=== PATIENT | female | born 1940 | race Caucasian/White ===

== ENCOUNTER 2019-06-24 10:02 | Outpatient (CLI) | payer MEDICARE, MEDICAID, SELFPAY ==
--- NOTE | 2019-06-24 | MM_ITS ---
DIAGNOSTIC LEFT DIGITAL MAMMOGRAM WITH CAD HISTORY: HX OF BREAST CANCER COMPARISON: None available. Technique: CC, MLO and ML views. Breast composition: There are scattered areas of fibroglandular density. Stable size lobulated nodule of increased density in the LEFT breast at 3:00. There is an adjacent biopsy clip. There is an additional small lobulated mass which is probably a lymph node. No new mass or increasing calcification or mass size. IMPRESSION: BI-RADS: 2-Benign FOLLOW UP: 1 Year Follow-up CAROLA
== END 2019-06-24 10:03 | disposition home or self-care (01) ==
PROVIDERS: Family Provider Internal Medicine; PCP Nurse Practitioner; Visit Provider Internal Medicine Medical Oncology
DX: N63.20 Unspecified lump in the left breast, unspecified quadrant (principal); Z85.3 Personal history of malignant neoplasm of breast
CPT/HCPCS: 77065

== ENCOUNTER 2020-02-21 09:00 | Outpatient (CLI) | payer MEDICARE, MEDICAID, SELFPAY ==
--- NOTE | 2020-02-21 12:56 | ONC FU_ITS ---
[facility] Patient Note Patient: Hermelinda Mckeon Unit #: [id number]: 1940 Dictated By: Michael MyersDate of Visit: Feb 21, 2020 Onc MED Follow-Up/Prog Note Chief Complaint: Breast cancer/osteoporosis. History of Present Illness: Ms Mckeon is an 79 year-old woman with grade 2 infiltrating ductal carcinoma of the right breast, stage IA (T1B, N0, M0), ER/FL positive, and HER2/edd negative. She underwent right modified radical mastectomy in January of 2007. Her Oncotype DX showed a recurrence score of 24, which was in the intermediate range, and the risk of recurrence at 10 years was estimated at 15%. She opted to limit adjuvant treatment to hormonal therapy. She was given Arimidex 1 mg daily, which she continued until October 2012. She had evidence of osteoporosis on her baseline bone density study, which showed a T-score of -5.27. She had been on treatment with IV Zometa initially and subsequently with Reclast. A colonoscopy on 03/14/2016 showed a severe, benign-appearing intrinsic stenosis in the mid descending colon. The stenosis was not able to be transversed. On 05/01/2016 showed underwent exploratory laparotomy with partial sigmoid colectomy and placement of descending and colostomy due to colonic obstruction from the stricture. Pathology showed chronic diverticulosis with focal acute inflammation. The procedure was complicated by abdominal wall cellulitis and retracting colostomy, requiring repeat exploratory laparotomy on 03/03/2016. The procedure included open takedown of the splenic flexure, partial colectomy, splenectomy, and placement of transverse and colostomy. She then developed an open midline abdominal wound for which she underwent surgical debridement on 06/05/2016. She then continued treatment at wound care. Her other medical illnesses include hypertension, hyperlipidemia, peptic ulcer disease, degenerative arthritis, and anxiety/depression. She has had some skin cancers removed from the facial area by Dr. Huntley. She had a previous admission to the hospital in August [address] scan at that time was suspicious for submucosal mass involving the medial margin of the stomach. Upper GI endoscopy showed gastritis but no mass, and her symptoms did improve with treatment. She is a nonsmoker. INTERIM HISTORY: Her surveillance unilateral left mammogram on 01/05/2018 was BI-RADS 0 with evidence of increasing density within a mass in the upper outer quadrant measuring 8.4 mm. It was noted to have the configuration of a lymph node. Additional mammographic views and left breast ultrasound on 01/26/2018 was BI-RADS 4B, suspicious, intermediate. The mammogram showed persistent high density lobulated nodule in the upper outer quadrant measuring 10 mm. By ultrasound the mass was hypoechoic measuring 9.7 mm. Ultrasound directed biopsy was consistent with a reactive lymph node. In February 2018 she suffered a traumatic fracture of the left femur. She underwent open reduction with bridgett fixation at [facility] in [place]. At discharge she was transferred to [facility] for rehab. On 11/27/2018 she was admitted to the hospital with partial small bowel obstruction. It resolved with conservative management. She resides in the alf and is tolerating this well. Ms Mckeon is here today for unscheduled visit. She called with concerns of left breast pain and a nodule. She states the pain in lump have been there for 2 to 3 weeks. She states the pain is sharp and shooting comes and goes. She cannot figure a particular trigger and is goes away on its own. She states the nodule feels like a small pea. She states she is tender in her breast and several areas particularly around the nodule and on the outer side of her breast as well. She denies any fever or chills. She states her energy is the same. She is active in the alf and that she is now leaving [employer] and doing crafts at the alf. She states she is eating well. She has no complaints of pain other than in the breast. She denies any nausea or vomiting. She continues to utilize a wheelchair for mobility and that she just never recovered fully from her broken leg. And she states her knees give her a lot of trouble as well. She states she had knee replacement 18 years ago and was told they would only last about 10 years. She denies any urinary changes. She denies any new hot flashes or night sweats. Her ECOG is 2 due to mobility. Past Medical History: Anxiety Degenerative arthritis Depression Hyperlipidemia Hypertension Osteoporosis (Treated) Peptic ulcer disease Past Surgical History: Colon polypectomy in 2016 Ostomy placement in 2016 Colonoscopy in 2009 Mastectomy in 2006 - right modified radical Bladder sling in 2004 Cholecystectomy in 2004 Bilateral total knee replacements in 1999 Hysterectomy in 1981 Tonsillectomy in 1946 Left femur FX/ steel bar in place. 03/05/2018 Allergies: No Known Allergies. Medications: Acetaminophen 2 Tablet (of 325 mg) Oral q 4 hours Bisacodyl 1 (10 mg) Suppository Rectal PRN Colace 1 Capsule (of 100 mg) Oral daily PRN [employer] Milk of Magnesia 30 mL (of 400 mg/5mL) Suspension Oral PRN Enema Enema Rectal PRN Escitalopram Oxalate 1 Tablet (of 20 mg) Oral daily Fluticasone Propionate 2 spray(s) (of 50 mcg/act) Suspension Nasal daily GNP Enema Enema Rectal PRN Hydrocodone-Acetaminophen 2 Tablet (of 10-325 mg) Oral q 4 to 6 hours PRN Ibuprofen 1 Capsule (of 200 mg) Oral q 72 hours PRN Nyamyc 1 Applicator (of 142227 Units/g) Powder Topical daily PRN Ocuvite Adult 50+ 1 Capsule Oral daily Ondansetron HCl 4 mL (of 4 mg/2mL) Injection q 6 hours Pregabalin 75 (75 mg) Capsule Oral b.i.d. Protonix 1 Tablet (of 40 mg) Tablet, enteric coated Oral daily Salonpas 1 Patch(es) (of 3.1-6-10 %) Patch Transdermal q 8 hours PRN Senna 1 Capsule (of 8.6 mg) Oral b.i.d. tiZANidine HCl 1 Tablet (of 4 mg) Oral t.i.d. ZyrTEC Allergy 0.5 Tablet (of 10 mg) Oral daily Family History: Ms. Mckeon's mother at age 81: medical history includes spine cancer at age 81 (cause of ). Ms. Mckeon's father at age 82: cancer history consists of Stomach cancer at age 82 (cause of ) while other medical history includes heart disease, prostate cancer, and diabetes. Ms. Mckeon has 1 brother who is : medical history includes unknown type of cancer at age 58 (cause of ). Social History: Ms. Mckeon is and she is retired. Ms. Mckeon has never smoked. She has no history of drinking. Ms. Mckeon reports the following support systems: lives in a alf. Review Of Symptoms: Constitutional Denies fevers, chills, night sweats, excessive fatigue or weight loss. Allergic/Immunologic No reactions. Eyes Denies significant visual changes. No diplopia. No amaurosis. ENMT Denies changes in hearing, sore throat, mouth sores, difficulty or changes in swallowing ability, and/or sinus drainage. Endocrine No diabetes, thyroid disease or hormone replacement. Denies hot flashes or night sweats. Hematologic/Lymphatic Denies easy bruising or bleeding. The patient denies any tender or palpable lymph nodes. Breasts She states she has been having intermittent left breast pain-sharp shooting pains that come and go at random-for about 2-3 weeks. She states she can feel a lump underneath the breast. Respiratory Denies dyspnea on exertion, chest pain, cough or hemoptysis. Cardiovascular Denies anginal chest pain, palpitations or orthopnea. Gastrointestinal Denies nausea, vomiting, diarrhea, GI bleeding, or constipation. Denies change in bowel habits and/or stool color, no heartburn or early satiety. Genitourinary (F) Denies abnormal genital masses. No hematuria, hesitancy, incontinence, vaginal bleeding, discharge or other problems with urination. Musculoskeletal Denies joint pain, swelling or redness. No decreased range of motion. Integumentary Denies chronic rashes, inflammation, ulcerations or skin changes. Neurologic Denies headache, blurred vision, and no areas of focal weakness or numbness. Using wheelchair for mobility. No sensory problems. Psychiatric Denies insomnia, depression, connie or mood swings. Vital Signs: Performed on Feb 21, 2020 09:12 Height - 65.00 in Weight - 317 lbs (LOW) BSA - 2.41 sq.m BMI - 52.75 (HIGH) Temperature - 97.3 F (LOW) Pulse - 69 /min Respiration - 18 /min BP - 156/95 mm(hg) (HIGH) O2 Sat - 93 % (LOW) Pain - 7,2 - Ambulatory/capable of all self-care, unable to perform any work activities. Up and about more than 50% of waking hours. (ECOG) Physical Examination: Constitutional Alert, oriented, no acute distress. Skin pink, warm and dry. Head Normocephalic; atraumatic. Eyes Conjunctivae and sclerae are clear and without icterus. Pupils are reactive and equal. Neck Supple without masses or thyromegaly. No jugular venous distension. Respiratory Lungs are clear to auscultation without rhonchi or wheezing. Cardiovascular Regular rate and rhythm of heart without murmurs,clicks, gallops or rubs. Breasts Right breast/chest wall post mastectomy. LEFT BREAST unremarkable in appearance, no nipple discharge, no external lesions. slight small pea size area at 6 oclock that she feels is a nodule, I did not feel a particular nodule but it is noted that she has a benign appearing mole in that area that she may be feeling. She did have tenderness in that area and also at 2 oclock position. Extremities No visible deformities, no cyanosis, clubbing or edema. Integumentary No rashes or lesions. Neurologic No sensory or motor deficits, normal cerebellar function, utilizing wheelchair for mobility. Psychiatric Alert and oriented times three. Coherent speech. Verbalizes understanding of our discussions today. Laboratory: Impression: 1. Patient with grade 2 infiltrating duct carcinoma the right breast, stage I, ER/FL positive and HER-2/edd negative. Her treatment included right modified radical mastectomy in January 2007, and she is in need of postmastectomy bras and prosthesis. She was given 5 years of adjuvant hormonal therapy with anastrozole, completed in August 2012. 2. She underwent exploratory laparotomy with partial colectomy for benign descending colon stricture in April 2016. She required a second laparotomy with splenectomy and placement of transverse colostomy for abdominal wall cellulitis. She subsequently developed an open wound in the mid abdomen, for which she has been going to wound care. Her other medical illnesses include: 3. Hypertension. 4. Hyperlipidemia. 5. Peptic ulcer disease. 6. Degenerative arthritis. 7. Osteoporosis. 8. Anxiety/depression. She has had somewhat marginal performance status following her abdominal surgery in April 2016. She was noted to have an abnormality on her surveillance left mammogram in December 2017, and additional mammographic views and ultrasound were felt to be suspicious. Ultrasound guided biopsy was consistent with a reactive lymph node. In February 2018 she underwent open reduction with bridgett fixation for a traumatic fracture of the left femur. She has since then had limited activity and she has remained confined to the alf. She had a hospital admission in November 2018 for partial small bowel obstruction, but that resolved with conservative management. Overall, she has continued to have very limited activity, but she has otherwise been stable clinically. Thus far there has been no evidence of recurrence of the breast cancer following modified radical mastectomy and adjuvant hormonal therapy. She now presents with concerns of pain and a possible nodule in the LEFT BREAST. Plan: 1. Diagnostic left unilateral mammogram with ultrasound if indicated for evaluation of LEFT BREAST pain and patient reported nodule. 2. Continue current plan of care otherwise for now. 3. We will call her with the mammo report when it is available. 4. Ms Mckeon was encouraged to call us in the interim if questions or problem arise. Signed By: Michael Myers-, AOCNP Favian Bergeron MD <<Signature on File>>
== END 2020-02-21 09:01 | disposition home or self-care (01) ==
LOC: ONCMED 09:03
PROVIDERS: PCP Family Medicine; Visit Provider Nurse Practitioner
DX: C50.311 Malignant neoplasm of lower-inner quadrant of right female breast (principal); Z17.0 Estrogen receptor positive status [ER+]; I10 Essential (primary) hypertension; E78.5 Hyperlipidemia, unspecified; K21.9 Gastro-esophageal reflux disease without esophagitis; M19.90 Unspecified osteoarthritis, unspecified site; M81.0 Age-related osteoporosis without current pathological fracture; Z90.11 Acquired absence of right breast and nipple; Z79.818 Long term (current) use of other agents affecting estrogen receptors and estrogen levels; N64.4 Mastodynia; N63.20 Unspecified lump in the left breast, unspecified quadrant
CPT/HCPCS: 99214

== ENCOUNTER 2020-02-25 12:58 | Outpatient (CLI) | payer MEDICARE, MEDICAID, SELFPAY ==
--- NOTE | 2020-02-25 13:03 | MM_ITS ---
WS: [id number] DIAGNOSTIC LEFT DIGITAL MAMMOGRAM WITH CAD LEFT breast ultrasound, limited HISTORY: LT BREAST PAIN/NODULE 6 O'CLOCK;HX RT BREAST CA COMPARISON: 06/24/2019 and 01/26/2018 Technique: CC, MLO and ML views. Spot compression LEFT CC. Breast composition: There are scattered areas of fibroglandular density. There is no abnormality in the region of the palpable marker. There is a lobulated mass measuring 9 mm with a biopsy clip in the medial LEFT breast near 3:00. Stable over multiple prior examinations. Vascular calcifications. LEFT breast ultrasound. Ultrasound is directed to the palpable area at 6:00. No solid or cystic mass. No distortion or skin t hickening. MM/[place] [id number] IMPRESSION: BI-RADS: 2-Benign FOLLOW UP: See Report Return to annual screening. Mammogram should be obtained in June 2020.
== END 2020-02-25 12:59 | disposition home or self-care (01) ==
LOC: ONCMED 13:01
PROVIDERS: PCP Family Medicine; Visit Provider Nurse Practitioner
DX: N64.4 Mastodynia (principal); N63.25 Unspecified lump in the left breast, overlapping quadrants; Z85.3 Personal history of malignant neoplasm of breast
CPT/HCPCS: 76642; 77065

== ENCOUNTER 2020-04-20 12:21 | Outpatient (CLI) | payer MEDICARE, MEDICAID, SELFPAY ==
--- NOTE | 2020-04-20 12:30 | CT_ITS ---
WS: [id number] Exam: CT angio chest PE protcl [id number] Date/Time of Exam: 04/20/2020 12:31 PM Reason For Exam: SHORTNESS OF BREATH, O2 STATS LOW, HX OF COVID DLP: 650.[address] scans at [facility] use at least one of these dose optimization techniques: automat ed exposure control; mA and/or kV adjustment per patient size (includes targeted exams where dose is matched to clinical indication); or iterative reconstruction. Comparison 06/08/2018. Motion artifact noted on multiple images. No sign of acute PE. The thoracic aorta is normal in caliber. The airway is patent. No mediastinal or hilar lymphadenopathy. There are patchy groundglass infiltrates noted throughout both lungs with are as of plaque atelectasis. No pleural or pericardial effusion. No destructive bone lesions are seen. S table appearing cyst in the right lobe of the liver. CT/CT angio chest PE protcl [id number] IMPRESSION: 1. No sign of acute PE. 2. Extensive groundglass and consolidating patchy infiltrates noted in both imtiaz gs.
[2020-04-20] MEDS: iodixanol 320 mg/mL 100mL Btl IV (12:59)
== END 2020-04-20 12:22 | disposition home or self-care (01) ==
PROVIDERS: PCP Internal Medicine; Visit Provider Internal Medicine
DX: R06.02 Shortness of breath (principal); Z86.19 Personal history of other infectious and parasitic diseases
CPT/HCPCS: 71275; Q9967

== ENCOUNTER 2020-04-23 19:36 | Inpatient (IN) | payer MEDICARE, MEDICAID, SELFPAY ==
[2020-04-23] VITALS (8 sets, daily range): BP systolic 143–182; BP diastolic 101–115; PULSE 78–109; RESP 18–23; TEMP 36.6; O2SAT 90–96; BMI 49.6
--- NOTE | 2020-04-23 20:03 | XRR_ITS ---
PROCEDURE INFORMATION: Exam: XR Chest, 1 View Exam date and time: 04/23/2020 8:06 PM Age: 79 years old Clinical indication: Shortness of breath; Prior surgery; Surgery type: Left breast, gb; Patient HX: HX of covid 14 days ago; Additional info: SOB, hypoxic TECHNIQUE: Imaging protocol: XR of the chest Views: 1 view. COMPARISON: CT angio chest PE protcl [id number] 04/20/2020 12:41 PM FINDINGS: Lungs: There are consolidated infiltrates seen in the right upper lobe and left lower hemithorax, findings compatible with pneumonia. Pleural space: Unremarkable. No pleural effusion. No pneumothorax. Heart/Mediastinum: Unremarkable. No cardiomegaly. Bones/joints: Unremarkable. XR/XR chest 1V portable [id number] IMPRESSION: Consolidated infiltrates in the right upper lobe and left lower hemithorax compatible with bilateral pneumonia.
[2020-04-23 20:12] LABS: Basophils % 0.2 %; Eosinophils % 0.1 %; Hematocrit 48.2 % (37.0-47.0); Hemoglobin 15.7 g/dL (11.5-15.3); Lymphocytes # 0.5 10^3/uL (0.8-4.8); Lymphocytes % 2.6 %; Mean Corpuscular HGB Conc 32.6 g/dL (30.0-36.0); Mean Corpuscular Hemoglobin 27.4 pg (28.0-34.0); Mean Corpuscular Volume 84.3 fL (81-99); Mean Platelet Volume 11.5 fL (7.4-10.4); Monocytes # 0.8 10^3/uL (0.2-0.9); Monocytes % 3.9 %; Neutrophils # 17.79 10^3/uL (1.8-7.7); Neutrophils % 91.7 %; Nucleated Red Blood Cells % 0 %; Platelet Count 457 10^3/cmm (130-400); Red Blood Count 5.72 10^6/uL (4.1-5.3); White Blood Count 19.4 10^3/uL (4.0-10.0)
[2020-04-23 20:20] LABS: D Dimer 2.22 ug/mIFEU (0-0.59)
[2020-04-23 20:23] LABS: Lactic Sepsis W/Reflex 3.6 mmol/L (0.5-2.2)
[2020-04-23 20:25] LABS: ABG PH Result 7.42 (7.35-7.45); Arterial Blood Gas Hematocrit 47.2 % (37-47); Base Excess ABG -2.9 mmol/L (-2.0-2.0); Blood Gas Allen Test Pos; Blood Gas Sample Site Radial, right; Blood Gas Sample Type Arterial; Carboxyhemoglobin 0.8 %THgb (0.4-20.1); HCO3 ABG 20.6 mmol/L (22-26); HGB O2 Sat 97.6 % (95-100); Methemoglobin 0.6 % (0.4-1.5); Oxygen Device NRB; Total Hemoglobin 15.4 g/dL (12-16)
[2020-04-23 20:40] LABS: Alanine Aminotransferase 14 U/L (0-33); Albumin Level 3.4 g/dL (3.5-5.2); Alkaline Phosphatase 94 IU/L (35-105); Anion Gap 23.3 (5-19); Aspartate Amino Transferase 16 U/L (0-32); Blood Urea Nitrogen 27 mg/dL (8-23); Calcium 9.6 mg/dL (8.5-10.5); Carbon Dioxide 21 mmol/L (22-29); Chloride 98 mmol/L (98-107); Globulin 3.5 g/dL (1.3-4.6); Glucose 200 mg/dL (65-115); NT Pro B Type Natriuretic Pept 442 pg/mL (0-450); Osmolality Calculated 295 mOsm/kg (285-295); Potassium 5.3 mmol/L (3.5-5.1); Sodium 137 mmol/L (136-145); Total Bilirubin 0.3 mg/dL (0.15-1.2); Total Protein 6.9 g/dL (6.6-8.7)
[2020-04-23 20:41] LABS: Influenza A by IFA Negative (Negative); Influenza B by IFA Negative (Negative)
--- NOTE | 2020-04-23 20:44 | CTR_ITS ---
PROCEDURE INFORMATION: Exam: CT Angiography Chest With Contrast Exam date and time: 04/23/2020 9:53 PM Age: 79 years old Clinical indication: Shortness of breath; Prior surgery; Surgery date: 6+ months; Surgery type: Gb, L breast; Patient HX: Hypoxic - worsening SOB, elev d-dimer, covid+ TECHNIQUE: Imaging protocol: Computed tomographic angiography of the chest with intravenous contrast. 3D rendering (Not supervised by radiologist): MIP and/or 3D reconstructed images were created by the technologist. Radiation optimization: All CT scans at this facility use at least one of these dose optimization techniques: automated exposure control; mA and/or kV adjustment per patient size (includes targeted exams where dose is matched to clinical indication); or iterative reconstruction. Contrast material: VISI 320; Contrast volume: 60 ml; Contrast route: INTRAVENOUS (IV); COMPARISON: CT angio chest PE protcl [id number] 04/20/2020 12:41 PM RADIATION DOSE METRICS: Total DLP (mGy-cm): 528.25 FINDINGS: Pulmonary arteries: Normal. No pulmonary emboli. Aorta: Unremarkable. No aortic aneurysm. No aortic dissection. Lungs: There are diffuse ground-glass opacities present within the hemithoraces bilaterally compatible with a bilateral pneumonitis. There is a background centrilobular emphysema. Pleural space: Unremarkable. No pneumothorax. No pleural effusion. Heart: Unremarkable. No cardiomegaly. No pericardial effusion. Lymph nodes: Unremarkable. No enlarged lymph nodes. Liver: 2.5 cm simple appearing cyst is seen in the posterior segment of the right hepatic lobe. This appears stable compared with 11/27/2018. Bones/joints: Unremarkable. No acute fracture. Soft tissues: Unremarkable. CT/CT angio chest PE protcl [id number] IMPRESSION: 1. There is no evidence for pulmonary emboli. 2. Bilateral diffuse ground-glass opacities compatible with bilateral pneumonitis. Imaging features can be seen with COVID-19 pneumonia, though are nonspecific and can occur with a variety of infectious and noninfectious processes. (Reference: Albert) 3. Stable 2.5 cm cyst in the right hepatic lobe. No further workup needed. REFERENCES: Albert Avalos et al., Radiological Society of [place] Expert Consensus Statement on Reporting Chest CT Findings Related to COVID-19. Endorsed by the Society of Thoracic Radiology, the [place], and RSNA. Published September 15, 2019. Radiation Dose CTDIVOL = (mGy): DLP = 528.25 (mGy-cm)
[2020-04-23] MEDS: sodium chloride 0.9% 1,000 ML 999 ML IV (21:03)
[2020-04-23] MEDS: piperacillin-tazobactam 3.375 GM in sodium chloride 0.9% (plus) 50 ML IV (21:03)
[2020-04-23 21:57] LABS: Reflex Lactate Order REFLEX LACTIC ORDERD
[2020-04-23] MEDS: iodixanol 320 mg/mL 100mL Btl IV (22:17)
--- NOTE | 2020-04-23 22:19 | ECG_ITS ---
[facility] Test Date: 2020-04-23 Pat Name: Hermelinda Mckeon Department: Room: Gender: Female [employer]: : 1940 Requested By: Mellissa Barahona I Order Number: [id number] Reading MD: BRISEYDA ALLISON Measurements Intervals [place] Rate: 79 P: IL: -1 QRS: -42 QRSD: 105 T: 23 QT: 364 QTc: 419 Interpretive Statements SINUS RYTHM LEFT AXIS DEVIATION [QRS AXIS < -30] MODERATE VOLTAGE CRITERIA FOR LVH, CONSIDER NORMAL VARIANT [MEETS CRITERIA IN ONE OF: R(aVL), S(V1), R(V5), R(V5/V6)+S(V1)] POSSIBLE ANTERIOR MYOCARDIAL INFARCTION , OF INDETERMINATE AGE [30 ms Q WAVE IN V3/V4, OR R < 0.2 mV IN V4] Compared to ECG 11/27/2018 18:25:23 No significant change Electronically Signed On 04-24-2020 20:15:40 [employer] CASE MANAGER by BRISEYDA ALLISON [id number]
[2020-04-23] MEDS: dexamethasone 4 mg/mL INJ 6 MG IVP (22:43)
[2020-04-23 22:51] LABS: Troponin(5th) Baseline 19 ng/L (0-10)
[2020-04-23 23:06] LABS: Troponin 5 2HR 16.65 ng/L (0-10)
[2020-04-23 23:16] LABS: Troponin 5 2HR Delta -2.35 ABS# (0-10)
[2020-04-24] VITALS (94 sets, daily range): BP systolic 130–182; BP diastolic 93–114; PULSE 65–129; RESP 16–57; TEMP 36.4; O2SAT 70–96
--- NOTE | 2020-04-24 00:02 | ED_ITS ---
HPI - SOB/Dyspnea General: Chief Complaint: Shortness of Breath/Dyspnea Stated Complaint: RESP. DISTRESS Time Seen by Provider: 04/23/20 19:50 Source: patient Mode of arrival: EMS Limitations: no limitations History of Present Illness: HPI Narrative: 79-year-old female patient was diagnosed with COVID-19 on 05 April. She had been doing fairly okay until about 3 or 4 days ago when she started developing shortness of breath that progressively worsened. It progressed to today when she was hypoxic with 80% oxygen saturation on room air. She was then brought here for evaluation. Patient states that she has had cough with shortness of breath and she has also been febrile. MD elicited complaint: shortness of breath and cough Associated symptoms: Reports fever(s); Deny abdominal pain, nausea, palpitations, polydipsia, polyuria or vomiting Review of Systems General: Reports: 10 or more systems reviewed and unremarkable except in HPI and below Const: Reports: fever(s), chills and body aches Eyes: Denies: change in vision or blurry vision ENMT: Denies: throat pain, enlarged tonsils, odynophagia, hoarseness, mouth pain or swelling of lips/tongue Card: Denies: palpitations, irregular heart rhythm, edema or swelling of feet/ankles Resp: Reports: dyspnea; Denies: productive cough or non-productive cough GI: Denies: abdominal pain, nausea or vomiting : Denies: flank pain, difficulty voiding, dysuria, urinary frequency, urinary urgency or urinary hesitancy Musc: Denies: neck pain, back pain or extremity swelling Skin/Breast: Denies: rash, pruritus or erythema Neuro: Denies: headache(s), numbness in extremities or weakness in extremities Endo: Denies: polyuria, polydipsia or tired all the time Physical Exam Const: COMMON NORMALS: no acute distress, patient oriented x3, no limitations, healthy appearing, alert and well nourished NUTRITIONAL APPEARANCE: obese HENMT: COMMON NORMALS: normocephalic, atraumatic and moist oral mucous membranes HEAD & SCALP: normocephalic and atraumatic Neck/C-Spine: COMMON NORMALS: full ROM, supple, no meningeal signs, no JVD and No carotid bruits Resp: COMMON NORMALS: normal respiratory effort, No retractions, No use of accessory muscles and percussion normal AUSCULTATION: rales and diminished lung sounds PERCUSSION: percussion normal Cardio: COMMON NORMALS: no JVD, regular rate, regular rhythm, S1 normal heart sound present, S2 normal heart sound present, No gallops present (Cardio), No clicks present (Cardio), No murmurs present (Cardio), No rub (Cardio) and Peripheral pulses 2+ throughout RATE: regular rate RHYTHM: regular rhythm HEART SOUNDS: S1 normal heart sound present and S2 normal heart sound present PERIPHERAL PULSES: Peripheral pulses 2+ throughout GI: COMMON NORMALS: Normal to inspection, nondistended, normoactive bowel sounds present, Soft to palpation, non-tender, No hepatosplenomegaly present, no masses and no bruits PALPATION: Yes Soft to palpation and Yes No hepatosplenomegaly present Extremity: COMMON NORMALS: normal to inspection, full ROM, capillary refill normal, no calf tenderness and no pedal edema Neuro: COMMON NORMALS: patient oriented x3 SENSORIUM/ORIENTATION: Yes alert MENINGEAL SIGNS: Yes no meningeal signs Skin: COMMON NORMALS: no rashes or lesions noted, no wounds, turgor normal, no jaundice, no petechiae and no mottling GENERAL SKIN EXAM: no rashes or lesions noted and turgor normal Course Reevaluation(s): Reevaluation #1: Discussed her lab and imaging findings with staff. Advised that she is suffering from the effects of COVID-19 pneumonia. She will definitely need hospital admission, however the past we did not have any viral ICU beds she will need to be transferred. The patient voiced understanding and is in agreement with the plan Time: 23:00 Consultations: Consultation #1: Discussed with Dr. Redmond, hospitalist at [facility] in [place]. She kindly accepted the patient to her service Time: 23:43 Vital Signs: Vital signs: Vital Signs Temperature 97.9 F 04/23/20 19:40 Pulse Rate 78 04/23/20 22:45 Respiratory Rate 19 H 04/23/20 22:45 Blood Pressure 161/102 04/23/20 22:45 Pulse Oximetry 92 04/23/20 22:45 MDM - SOB/Dyspnea MDM Narrative: Medical decision making narrative: Patient seen respiratory failure secondary to viral pneumonia caused by COVID-19. She is transferred to [facility] as we do not have any viral IC beds in this facility at this time. She needed to be placed on high flow oxygen to maintain oxygenation. She states that she wants to be a full code. Medical Records: Attestation: I reviewed the patient's medical records. Lab Data: Attestation: I reviewed the patient's lab results. Labs: Lab Results 04/23/20 04/23/20 04/23/20 Range/Units 19:50 19:50 19:50 WBC 19.4 H (4.0-10.0) 10^3/ uL RBC 5.72 H (4.1-5.3) 10^6/u L Hgb 15.7 H (11.5-15.3) g/dL Hct 48.2 H (37.0-47.0) % MCV 84.3 (81-99) fL MCH 27.4 L (28.0-34.0) pg MCHC 32.6 (30.0-36.0) g/dL RDW 17.0 H (12.1-15.1) % Plt Count 457 H (130-400) 10^3/c mm MPV 11.5 H (7.4-10.4) fL Neut % (Auto) 91.7 % Lymph % (Auto) 2.6 % [place] % (Auto) 3.9 % Eos % (Auto) 0.1 % Baso % (Auto) 0.2 % Neut # (Auto) 17.79 H (1.8-7.7) 10^3/u L Lymph # (Auto) 0.5 L (0.8-4.8) 10^3/u L [place] # (Auto) 0.8 (0.2-0.9) 10^3/u L Eos # (Auto) 0.0 (0.0-0.8) 10^3/u L Baso # (Auto) 0.0 (0.0-0.1) 10^3/u L Nucleated RBC % (a uto) 0 % Nucleated RBCs # 0.0 /100WBC D-Dimer 2.22 H (0-0.59) ug/mIFE U Specimen Type Sample Site ABG pH (7.35-7.45) ABG pCO2 (35-45) mmHg ABG pO2 (80.0-100.0) mmH g ABG HCO3 (22-26) mmol/L ABG Base Excess (-2.0-2.0) mmol/ L Bi Test Hematocrit (37-47) % Hgb O2 Saturation (95-100) % Carboxyhemoglobin (0.4-20.1) %THgb Methemoglobin (0.4-1.5) % Total Hemoglobin (12-16) g/dL O2 Delivery Device O2 Liters/Min % Gas Roller Operator ID Sodium 137 (136-145) mmol/L Potassium 5.3 H (3.5-5.1) mmol/L Chloride 98 (98-107) mmol/L Carbon Dioxide 21 L (22-29) mmol/L Anion Gap 23.3 H (5-19) BUN 27 H (8-23) mg/dL Creatinine 0.9 (0.5-0.9) mg/dL GFR Calculation Not Reportable Glucose 200 H (65-115) mg/dL Calculated Osmolal ity 295 (285-295) mOsm/k g Lactic Acid (0.5-2.2) mmol/L Calcium 9.6 (8.5-10.5) mg/dL Total Bilirubin 0.3 (0.15-1.2) mg/dL AST 16 (0-32) U/L ALT 14 (0-33) U/L Alkaline Phosphata se 94 (35-105) IU/L Troponin T Baselin e (0-10) ng/L Troponin T 120 [address] [place] (0-10) ng/L Delta Troponin T (0-10) ABS# NT-Pro-B Natriuret Pep 442 (0-450) pg/mL Total Protein 6.9 (6.6-8.7) g/dL Albumin 3.4 L (3.5-5.2) g/dL Globulin 3.5 (1.3-4.6) g/dL Influenza Type A A g (Negative) Influenza Type B A g (Negative) 04/23/20 04/23/20 04/23/20 Range/Units 19:50 19:50 20:11 WBC (4.0-10.0) 10^3/ uL RBC (4.1-5.3) 10^6/u L Hgb (11.5-15.3) g/dL Hct (37.0-47.0) % MCV (81-99) fL MCH (28.0-34.0) pg MCHC (30.0-36.0) g/dL RDW (12.1-15.1) % Plt Count (130-400) 10^3/c mm MPV (7.4-10.4) fL Neut % (Auto) % Lymph % (Auto) % [place] % (Auto) % Eos % (Auto) % Baso % (Auto) % Neut # (Auto) (1.8-7.7) 10^3/u L Lymph # (Auto) (0.8-4.8) 10^3/u L [place] # (Auto) (0.2-0.9) 10^3/u L Eos # (Auto) (0.0-0.8) 10^3/u L Baso # (Auto) (0.0-0.1) 10^3/u L Nucleated RBC % (a uto) % Nucleated RBCs # /100WBC D-Dimer (0-0.59) ug/mIFE U Specimen Type Sample Site ABG pH (7.35-7.45) ABG pCO2 (35-45) mmHg ABG pO2 (80.0-100.0) mmH g ABG HCO3 (22-26) mmol/L ABG Base Excess (-2.0-2.0) mmol/ L Bi Test Hematocrit (37-47) % Hgb O2 Saturation (95-100) % Carboxyhemoglobin (0.4-20.1) %THgb Methemoglobin (0.4-1.5) % Total Hemoglobin (12-16) g/dL O2 Delivery Device O2 Liters/Min % Gas Roller Operator ID Sodium (136-145) mmol/L Potassium (3.5-5.1) mmol/L Chloride (98-107) mmol/L Carbon Dioxide (22-29) mmol/L Anion Gap (5-19) BUN (8-23) mg/dL Creatinine (0.5-0.9) mg/dL GFR Calculation Glucose (65-115) mg/dL Calculated Osmolal ity (285-295) mOsm/k g Lactic Acid 3.6 H (0.5-2.2) mmol/L Calcium (8.5-10.5) mg/dL Total Bilirubin (0.15-1.2) mg/dL AST (0-32) U/L ALT (0-33) U/L Alkaline Phosphata se (35-105) IU/L Troponin T Baselin e 19 H (0-10) ng/L Troponin T 120 [address] [place] (0-10) ng/L Delta Troponin T (0-10) ABS# NT-Pro-B Natriuret Pep (0-450) pg/mL Total Protein (6.6-8.7) g/dL Albumin (3.5-5.2) g/dL Globulin (1.3-4.6) g/dL Influenza Type A A g Negative (Negative) Influenza Type B A g Negative (Negative) 04/23/20 04/23/20 Range/Units 20:20 22:40 WBC (4.0-10.0) 10^3/ uL RBC (4.1-5.3) 10^6/u L Hgb (11.5-15.3) g/dL Hct (37.0-47.0) % MCV (81-99) fL MCH (28.0-34.0) pg MCHC (30.0-36.0) g/dL RDW (12.1-15.1) % Plt Count (130-400) 10^3/c mm MPV (7.4-10.4) fL Neut % (Auto) % Lymph % (Auto) % [place] % (Auto) % Eos % (Auto) % Baso % (Auto) % Neut # (Auto) (1.8-7.7) 10^3/u L Lymph # (Auto) (0.8-4.8) 10^3/u L [place] # (Auto) (0.2-0.9) 10^3/u L Eos # (Auto) (0.0-0.8) 10^3/u L Baso # (Auto) (0.0-0.1) 10^3/u L Nucleated RBC % (a uto) % Nucleated RBCs # /100WBC D-Dimer (0-0.59) ug/mIFE U Specimen Type Arterial Sample Site Radial, right ABG pH 7.42 (7.35-7.45) ABG pCO2 32.0 L (35-45) mmHg ABG pO2 118.0 H (80.0-100.0) mmH g ABG HCO3 20.6 L (22-26) mmol/L ABG Base Excess -2.9 L (-2.0-2.0) mmol/ L Bi Test Pos Hematocrit 47.2 H (37-47) % Hgb O2 Saturation 97.6 (95-100) % Carboxyhemoglobin 0.8 (0.4-20.1) %THgb Methemoglobin 0.6 (0.4-1.5) % Total Hemoglobin 15.4 (12-16) g/dL O2 Delivery Device Nrb O2 Liters/Min 15.0 % Gas Roller Operator ID ellpe Sodium (136-145) mmol/L Potassium (3.5-5.1) mmol/L Chloride (98-107) mmol/L Carbon Dioxide (22-29) mmol/L Anion Gap (5-19) BUN (8-23) mg/dL Creatinine (0.5-0.9) mg/dL GFR Calculation Glucose (65-115) mg/dL Calculated Osmolal ity (285-295) mOsm/k g Lactic Acid (0.5-2.2) mmol/L Calcium (8.5-10.5) mg/dL Total Bilirubin (0.15-1.2) mg/dL AST (0-32) U/L ALT (0-33) U/L Alkaline Phosphata se (35-105) IU/L Troponin T Baselin e (0-10) ng/L Troponin T [address] [place] 16.65 H (0-10) ng/L Delta Troponin T -2.35 L (0-10) ABS# NT-Pro-B Natriuret Pep (0-450) pg/mL Total Protein (6.6-8.7) g/dL Albumin (3.5-5.2) g/dL Globulin (1.3-4.6) g/dL Influenza Type A A g (Negative) Influenza Type B A g (Negative) Imaging Data^: CTA Chest: Attestation: I personally reviewed and interpreted this imaging study as follows: Radiologist's impression: [address] [address] [address] Scan Report Signed Patient: Hermelinda Mckeon #: [id number] : 0Acct#:[id number] Age/Sex: 79 / FADM Date: 04/23/20 Loc: ERRoom/Bed: Attending Dr: Ordering Provider/Ordering MD: Mellissa Barahona MD, MALCOLM Date of Service: 04/23/20 Procedure(s): CT angio chest PE protcl [id number] Accession Number(s): [id number] Report Number: [id number] PROCEDURE INFORMATION: Exam: CT Angiography Chest With Contrast Exam date and time: 04/23/2020 9:53 PM Age: 79 years old Clinical indication: Shortness of breath; Prior surgery; Surgery date: 6+ months; Surgery type: Gb, L breast; Patient HX: Hypoxic - worsening SOB, elev d-dimer, covid+ TECHNIQUE: Imaging protocol: Computed tomographic angiography of the chest with intravenous contrast. 3D rendering (Not supervised by radiologist): MIP and/or 3D reconstructed images were created by the technologist. Radiation optimization: All CT scans at this facility use at least one of these dose optimization techniques: automated exposure control; mA and/or kV adjustment per patient size (includes targeted exams where dose is matched to clinical indication); or iterative reconstruction. Contrast material: VISI 320; Contrast volume: 60 ml; Contrast route: INTRAVENOUS (IV); COMPARISON: CT angio chest PE protcl [id number] 04/20/2020 12:41 PM RADIATION DOSE METRICS: Total DLP (mGy-cm): 528.25 FINDINGS: Pulmonary arteries: Normal. No pulmonary emboli. Aorta: Unremarkable. No aortic aneurysm. No aortic dissection. Lungs: There are diffuse ground-glass opacities present within the hemithoraces bilaterally compatible with a bilateral pneumonitis. There is a background centrilobular emphysema. Pleural space: Unremarkable. No pneumothorax. No pleural effusion. Heart: Unremarkable. No cardiomegaly. No pericardial effusion. Lymph nodes: Unremarkable. No enlarged lymph nodes. Liver: 2.5 cm simple appearing cyst is seen in the posterior segment of the right hepatic lobe. This appears stable compared with 11/27/2018. Bones/joints: Unremarkable. No acute fracture. Soft tissues: Unremarkable. CT/CT angio chest PE protcl [id number] IMPRESSION: 1. There is no evidence for pulmonary emboli. 2. Bilateral diffuse ground-glass opacities compatible with bilateral pneumonitis. Imaging features can be seen with COVID-19 pneumonia, though are nonspecific and can occur with a variety of infectious and noninfectious processes. (Reference: Albert) 3. Stable 2.5 cm cyst in the right hepatic lobe. No further workup needed. REFERENCES: Albert Avalos et al., Radiological Society of [place] Expert Consensus Statement on Reporting Chest CT Findings Related to COVID-19. Endorsed by the Society of Thoracic Radiology, the [employer], and RSNA. Published September 15, 2019. Radiation Dose CTDIVOL = (mGy): DLP = 528.25 (mGy-cm) Dictated By:Ld Ross MD Signed By:Ld Ross MDSigned Date/Time:04/23/202229 DD/ 28 CXR: Attestation: I personally reviewed and interpreted this imaging study as follows: My impression: Bilateral infiltrates EKG Data^: EKG 1: Attestation: I personally reviewed and interpreted this EKG as follows: EKG Interpretation Date: 04/23/20 EKG interpretation time: 22:32 Prior EKG tracings: not available for review Interpretation: Atrial fibrillation. Heart rate 79 bpm. Left axis deviation. No ST changes Critical Care Time Critical Care Time: Critical Care Time: Yes Total Critical Care Time: 90 Attestation: This case had a high probability of a clinically significant, sudden, or life threatening deterioration of this patient's condition which required my full and direct attention, intervention and personal management. Discharge Plan Discharge Patient Disposition: Xfer Short-Term Hosp Clinical Impression: Acute hypoxemic respiratory failure, Pneumonia due to 2019 novel coronavirus, Sepsis Condition: Stable Discharge Orders: Transfer Out of Facility (Order); Ordered 04/24/20 Ordered By: Mellissa Barahona Referrals: Favian Clark DO [Primary Care Provider] - Coding Level of Care Code ED Security Site Supervisor for [facility]
[2020-04-24 01:44] LABS: Lactic Acid level (Lactate) 1.5 mmol/L (0.5-2.2)
[2020-04-24 01:45] LABS: Troponin 5 6HR 17.91 ng/L (0-10)
[2020-04-24 01:52] LABS: Troponin 5 6HR Delta -1.09 ng/L (0-12)
[2020-04-24 01:53] LABS: SARS Covid-2 Antigen Negative (Negative)
[2020-04-24] MEDS: ondansetron 2 mg/ML SDV 2 mL 4 MG IVP (06:34)
[2020-04-24] MEDS: piperacillin-tazobactam 3.375 GM in sodium chloride 0.9% (plus) 50 ML IV ×2 (08:06→23:49)
--- NOTE | 2020-04-24 11:48 | PC.NURSE ---
Pt assisted to use bedpan. Pt care nurse notified of pt low saturations on heated Hi-Flow. Pt care nurse notified respiratory and physician.
[2020-04-24] MEDS: LORazepam 2 mg/mL INJ 1 mL 1 MG IVP ×2 (14:33→18:14)
[2020-04-24 16:00] LABS: ABG PCO2 34.1 mmHg (35-45); ABG PH Result 7.45 (7.35-7.45); Alveolar-Arterial Oxygen Gradi 54.3 mmHg (5-10); Arterial Blood Gas Hematocrit 46.4 % (37-47); Base Excess ABG 0.1 mmol/L (-2.0-2.0); Blood Gas Allen Test Pos; Blood Gas Operator Identificat AMH; Blood Gas Sample Site Radial, left; Blood Gas Sample Type Arterial; Carboxyhemoglobin 0.9 %THgb (0.4-20.1); HCO3 ABG 23.6 mmol/L (22-26); HGB O2 Sat 95.2 % (95-100); Ionized Calcium Level - ABG 1.2 mmol/L (1.1-1.4); Methemoglobin 0.6 % (0.4-1.5); Oxygen Device BIPAP; Oxygen Saturation ABG 96.6; PO2 ABG 79.1 mmHg (80.0-100.0); Potassium Level - ABG 3.9 mmol/L (3.5-5.0); Total Hemoglobin 15.1 g/dL (12-16)
--- NOTE | 2020-04-24 17:34 | P.HP_ITS ---
Providers/Chief Complaint Admitting Physician: Nathanael Hughes Primary Care Provider: Favian Clark DO Chief Complaint: RESP. 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 Not normally on oxygen. Denies known history of lung disease. Complains of pleuritic chest pain with inspiration. In ER intermittently on nonrebreather mask, subsequently requiring BiPAP support. Received a dose of Decadron, Zosyn. He is starting on remdesivir. Initially arrangements were being made for transfer to [facility] until a bed opened up in our viral ICU at which point received a call from ER physician with request for admission here. She is currently still on BiPAP support, however, on discussion he requested that BiPAP be taken down so we could talk. On nonrebreather mask of about 12 L she is saturating in the 90% range. Is able to speak to me in short sentences and provide history. Apart from the above-mentioned problems she states that she is mostly nonambulatory (walk very little) ever since the fracture of her left femur. She reports that otherwise her appetite has been okay. She denies chest pain apart from pleuritic discomfort. Denies nausea vomiting diarrhea or headache. Denies mora ving very significant cough. She does not remember having atrial fibrillation in the past. She has been seeing oncologist due to history of breast cancer in the past. She shows me her colostomy, denies recent changes in output. She says apart from the current infection she otherwise was at baseline state of health prior to diagnosis. In case she was not able to make her own decisions or answer questions names her daughter Ember Mota as surrogate decision- maker. In case of respiratory arrest she would be okay with intubation, and would be okay with attempted CPR in case of cardiac arrest. Review of Systems Const: Reports: fatigue and malaise; Denies: fever(s), chills or body aches Eyes: Denies: change in vision or eye redness ENMT: Denies: throat pain, oral sores or ear or mastoid pain Card: Denies: chest pain, edema, pre-syncope or dyspnea on exertion Resp: Reports: dyspnea and pain on inspiration; Denies: change in phlegm color or hemoptysis GI: Denies: abdominal pain, nausea, vomiting, diarrhea, constipation, hematochezia or melena : Denies: flank pain, urinary frequency or hematuria Musc: Denies: back pain, joint swelling or joint redness Skin/Breast: Denies: rash, sores or new lesions Neuro: Denies: headache(s), numbness in extremities, weakness in extremities, dizziness, confusion or seizure-like activity Endo: Denies: polyuria or polydipsia Zhao/Lymph: Denies: easy bleeding or purpura All/Imm: Denies: urticaria, throat swelling or tongue swelling Medications/Allergies Home Medications Medication Instructions Recorded Confirmed Last Taken Type Ocuvite Adult 50 Plus 1 tab PO DAILY 04/24/20 04/24/20 Unknown History acetaminophen 650 mg PO QID PRN 04/24/20 04/24/20 Unknown History bisacodyl 5 mg PO DAILY PRN 04/24/20 04/24/20 Unknown History cetirizine [Zyrtec] 5 mg PO DAILY 04/24/20 04/24/20 Unknown History dexamethasone 6 mg PO DAILY 04/24/20 04/24/20 04/20/20 01:09 History docusate sodium [Colace] 200 mg PO DAILY 04/24/20 04/24/20 Unknown History enoxaparin [Lovenox] 40 mg SUBCUT DAILY 04/24/20 04/24/20 04/23/20 00:17 History escitalopram oxalate 10 mg PO DAILY 04/24/20 04/24/20 Unknown History fluticasone propionate 2 spray INTRANASAL DAILY 04/24/20 04/24/20 Unknown History hydrocodone-acetaminophen [[place]] 1 tab PO Q6H PRN 04/24/20 04/24/20 Unknown History ibuprofen 400 mg PO Q6H 04/24/20 04/24/20 Unknown History levofloxacin 750 mg PO DAILY 04/24/20 04/24/20 04/23/20 11:00 History magnesium hydroxide [Milk of 400 mg PO DAILY 04/24/20 04/24/20 Unknown History Magnesia] methyl salicylate-menthol 1 patch TOPICAL Q12H 04/24/20 04/24/20 Unknown History [Salonpas(m.salicylate-menthol)] nystatin 1 applic TOPICAL DAILY 04/24/20 04/24/20 Unknown History pantoprazole 40 mg PO DAILY 04/24/20 04/24/20 Unknown History polyvinyl alcohol-povidone [Clear 1 drp OPHTHALMIC (EYE) TID PRN 04/24/20 04/24/20 Unknown History Eyes Natural Tears] prednisone 40 mg PO DAILY 04/24/20 04/24/20 Unknown History pregabalin [Lyrica] 75 mg PO BID 04/24/20 04/24/20 Unknown History promethazine 25 mg PO Q6H PRN 04/24/20 04/24/20 Unknown History sennosides-docusate sodium [Senna 1 tab-cap PO DAILY 04/24/20 04/24/20 Unknown History Plus] sodium phosphates [Enema] 118 ml MO DAILY PRN 04/24/20 04/24/20 Unknown History tizanidine 4 mg PO TID PRN 04/24/20 04/24/20 Unknown History Allergies Allergy/AdvReac Type Severity Reaction Status Date / Time No Known Allergies Allergy Verified 04/23/20 19:47 PFSH Acute PFSH: Medical History Activity extremely limited Anxiety and depression Breast cancer Degenerative arthritis Fracture of left femur HLD (hyperlipidemia) HTN (hypertension) Partial small bowel obstruction PUD (peptic ulcer disease) Surgical History History of colostomy History of modified radical mastectomy History of partial colectomy Family History Other No significant family history Social History Smoking and tobacco status: never smoked Alcohol intake: never Housing: Assisted Marital status: / Current occupational status: retired Vitals/I&O/Wt Last Vital Signs Temp 97.9 F 04/23/20 19:40 Pulse 93 04/24/20 14:52 Resp 18 04/24/20 13:20 BP 153/96 04/24/20 11:46 Pulse Ox 95 04/24/20 14:52 04/24/20 04/24/20 04/24/20 06:59 14:59 22:59 Intake Total 50 / 50 Balance 50 / 50 Weight last 48 hrs Weight 127.006 kg Physical Exam Const: COMMON NORMALS: no acute distress and patient oriented x3 HENMT: COMMON NORMALS: oropharynx normal Neck/C-Spine: COMMON NORMALS: no JVD Resp: COMMON NORMALS: normal respiratory effort and clear to auscultation bilaterally AUSCULTATION: clear to auscultation bilaterally Cardio: COMMON NORMALS: no JVD, regular rhythm, S1 normal heart sound present, S2 normal heart sound present and No murmurs present (Cardio) RHYTHM: regular rhythm HEART SOUNDS: S1 normal heart sound present and S2 normal heart sound present GI: COMMON NORMALS: Normal to inspection, nondistended, normoactive bowel sounds present, Soft to palpation and non-tender PALPATION: Yes Soft to palpation Extremity: COMMON NORMALS: no joint enlargement and no pedal edema Neuro: COMMON NORMALS: patient oriented x3 and moves all extremities Skin: COMMON NORMALS: no rashes or lesions noted GENERAL SKIN EXAM: no ra shes or lesions noted Data : 04/23/20 19:50 04/23/20 19:50 Micro: Microbiology 04/23/20 20:50 Blood Culture - Preliminary Blood SPECIMEN COLLECTED 04/23/20 19:50 Blood Culture - Preliminary Blood SPECIMEN COLLECTED A&P Assessment and plan (1) Pneumonia due to 2019 novel coronavirus: Severe COVID-19 pneumonia with respiratory failure with hypoxia. Room air documentation under vital signs is incorrect. She has been requiring high flow cannula, nonrebreather, and BiPAP support. Is doing a little bit better currently, requested to remove BiPAP for a while. Saturation 90% on about 12 L on nonrebreather. Pleuritic chest discomfort. Denies chest pain. Troponin is minimally elevated likely secondary to type II ischemia. Sepsis with leukocytosis of 19.4 thousand, predominantly neutrophilic, tachypnea, tachycardia. Afebrile. Start remdesivir, Decadron, continue oxygen support, BiPAP support intermittently as needed. Rapid COVID-19 noted negative. Rapid flu negative. Due to sepsis, respiratory failure empirically will continue antibiotics with Zosyn, linezolid. Collect sputum culture if possible, otherwise bacterial antigens, Legionella. MRSA PCR. Blood culture has been collected. Follow. Noted elevated D-dimer, follow. Follow CRP. Jara catheter for accurate I&O. Avoid fluid overload. Close monitoring and care in the viral isolation unit. Attempted to reach daughter Ember Mota, but could not reach her. Status: Acute (2) Acute hypoxemic respiratory failure: As above. She does not appear fluid overloaded at this time. Once heart rate is better we will also assess TTE. No PE on CTA. Last echo in the old system I see from 2012 with normal EF, grade 1 diastolic dysfunction, mild pulmonary hypertension. Stress test back in 2012 with small area of persistent decreased tracer uptake in apical lateral wall, most likely representing attenuation artifact. Normal EF. Status: Acute (3) Sepsis: Severe sepsis on presentation, lactic acid 3.6, with improvement down to 1.5. Empiric antibiotic coverage as above. Follow blood culture. Respiratory studies as above. Status: Acute Qualifiers: Sepsis acute organ dysfunction status: without acute organ dysfunction Sepsis type: sepsis due to unspecified organism Qualified Code(s): A41.9 - Sepsis, unspecified organism (4) New onset a-fib: Appears to be having new onset atrial fibrillation, suspect secondary to respiratory failure, hypoxia. Denies chest pain but pleuritic, does have mild troponin elevation, but without significant uptrend. Likely type II MS secondary to demand and supply mismatch, arrhythmia. Mild hyperkalemia. Check magnesium. Treat respiratory failure. Monitor. Heart rate appears to be around 100. This with her regarding risk of open she is agreeable to start anticoagulation denies any bleeding problems in the past. Will add metoprolol as needed for now. Status: Acute (5) D-dimer, elevated: Suspected secondary to COVID-19 pneumonia. No PE noted on CTA. Anticoagulation with Lovenox as above. Status: Acute (6) Elevated troponin: She is having pleuritic discomfort in her chest, otherwise denies chest pain. Denies history of MS. Unremarkable stress test back in 2012. Troponin elevation suspected secondary to demand and supply mismatch, and arrhythmia. Due to new onset A. fib may benefit from nonemergent stress testing after she recovers to exclude progression of coronary disease. Status: Acute (7) Hyperkalemia: Mild hyperkalemia. Recheck level. Low potassium diet. Monitor renal function. Status: Acute Additional A&P Information Incidentally noted 2.5 cm cyst right hepatic lobe Poor functional status at baseline ever since left femoral fracture. Mostly nonambulatory. 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 Attestations Medical Necessity Statement*: Admission with 2 midnights is continued for assessment and management of severe COVID-19 infection, pneumonia, respiratory failure, sepsis, new onset atrial fibrillation. Coding Level of Care Code Acute Gaming Surveillance Observer for [facility] Fwd Diagnoses Pneumonia due to 2019 novel coronavirus U07.1; J12.89 Acute hypoxemic respiratory failure J96.01 Sepsis A41.9 Sepsis acute organ dysfunction status: without acute organ dysfunction Sepsis type: sepsis due to unspecified organism New onset a-fib I48.91 D-dimer, elevated R79.89 Elevated troponin R77.8 Hyperkalemia E87.5
[2020-04-24] MEDS: linezolid premix 600 MG/300 ML PREMIX 300 MG IV (18:15)
[2020-04-24] MEDS: enoxaparin 100 mg/mL Syringe 120 MG SUBCUT (18:18)
[2020-04-24] MEDS: pregabalin 75 mg Capsule PO (18:19)
[2020-04-24] MEDS: dexamethasone 4 mg Tablet 6 MG PO (18:19)
--- NOTE | 2020-04-24 19:20 | PC.NURSE ---
Patient's POA called, Ember Mota phone number [phone], pt POA states patient came from [facility], will call and get further information
[2020-04-24 20:41] LABS: Magnesium 1.9 mg/dL (1.7-2.3)
--- NOTE | 2020-04-24 23:14 | PC.NURSE ---
Pt has trush under tongue, pt states it has been there for days, called Mr Camryn and orderd Nystatin for trush, pt very complaint, assisted with change of colostomy bag, pt bathed and washed her hair
[2020-04-24] MEDS: albuterol 8 gm MDI 1 PUFF INHALATION (23:36)
[2020-04-25] VITALS (120 sets, daily range): BP systolic 116–170; BP diastolic 71–110; PULSE 60–133; RESP 10–35; TEMP 36.7–37.3; O2SAT 82–96
--- NOTE | 2020-04-25 02:43 | ECG_ITS ---
[facility] ED Test Date: 2020-04-25 Pat Name: Hermelinda Mckeon Department: Room: ICU19 Gender: Female Claim Adjuster: JERROD : 1940 Requested By: Demetri Cowan Order Number: [id number] Rosalba MD: Rachel Yoo M.D. Measurements Intervals [place] Rate: 88 P: 72 SD: 171 QRS: -33 QRSD: 91 T: 16 QT: 354 QTc: 429 Interpretive Statements SINUS RHYTHM WITH FREQUENT SUPRAVENTRICULAR PREMATURE COMPLEXES MARKED LEFT AXIS DEVIATION [QRS AXIS < -30] PATTERN CONSISTENT WITH PULMONARY DISEASE MINIMAL VOLTAGE CRITERIA FOR LVH, CONSIDER NORMAL VARIANT [MEETS CRITERIA IN ONE OF: R(aVL), S(V1), R(V5), R(V5/V6)+S(V1)] Compared to ECG 04/23/2020 22:32:05 Myocardial infarct finding no longer present Electronically Signed On 04-26-2020 22:38:58 CONSTRUCTION REPRESENTATIVE by Rachel Yoo M.D. [id number]
[2020-04-25] MEDS: FUROsemide 10 mg/mL SDV 4mL 40 MG IVP (03:06)
[2020-04-25 04:03] LABS: Basophils % 0.2 %; Eosinophils % 0.1 %; Hematocrit 44.1 % (37.0-47.0); Hemoglobin 14.3 g/dL (11.5-15.3); Lymphocytes # 1.6 10^3/uL (0.8-4.8); Lymphocytes % 8.7 %; Mean Corpuscular HGB Conc 32.4 g/dL (30.0-36.0); Mean Corpuscular Hemoglobin 27.5 pg (28.0-34.0); Mean Corpuscular Volume 84.8 fL (81-99); Mean Platelet Volume 11.8 fL (7.4-10.4); Monocytes # 0.6 10^3/uL (0.2-0.9); Monocytes % 3.3 %; Neutrophils # 15.43 10^3/uL (1.8-7.7); Neutrophils % 86.8 %; Nucleated Red Blood Cells % 0.1 %; Platelet Count 396 10^3/cmm (130-400); Red Cell Distribution Width 17.2 % (12.1-15.1); White Blood Count 17.8 10^3/uL (4.0-10.0)
--- NOTE | 2020-04-25 04:18 | PC.NURSE ---
Pt heart rate began to decrease after speaking with doctor, pt heart rate has not increased above 100, doctor states to hold this dose
[2020-04-25] MEDS: albuterol 8 gm MDI 1 PUFF INHALATION ×2 (04:35→10:05)
--- NOTE | 2020-04-25 04:36 | PC.NURSE ---
Pt has only had output of 300ml of yellow colored urine since fragoso placement, will continue to monitor as patient has had 40mg of Lasix IVP
[2020-04-25 04:45] LABS: C Reactive Protein 111.7 mg/L (0.0-4.9)
[2020-04-25 04:47] LABS: D Dimer 1.68 ug/mIFEU (0-0.59)
[2020-04-25 04:48] LABS: Alanine Aminotransferase 15 U/L (0-33); Albumin Level 2.6 g/dL (3.5-5.2); Alkaline Phosphatase 72 IU/L (35-105); Aspartate Amino Transferase 17 U/L (0-32); Blood Urea Nitrogen 21 mg/dL (8-23); Calcium 8.6 mg/dL (8.5-10.5); Carbon Dioxide 22 mmol/L (22-29); Chloride 106 mmol/L (98-107); Globulin 3.7 g/dL (1.3-4.6); Glucose 180 mg/dL (65-115); Osmolality Calculated 296 mOsm/kg (285-295); Sodium 139 mmol/L (136-145); Total Bilirubin 0.4 mg/dL (0.15-1.2); Total Protein 6.3 g/dL (6.6-8.7)
[2020-04-25 04:49] LABS: Anion Gap 15.6 (5-19); Potassium 4.6 mmol/L (3.5-5.1)
[2020-04-25] MEDS: linezolid premix 600 MG/300 ML PREMIX 300 MG IV ×2 (06:21→18:42)
[2020-04-25] MEDS: piperacillin-tazobactam 3.375 GM in sodium chloride 0.9% (plus) 50 ML IV ×2 (09:05→18:39)
[2020-04-25] MEDS: pantoprazole DR 40 mg Tablet PO (09:06)
[2020-04-25] MEDS: nystatin 100,000 unit/mL UDC 5 mL 500000 UNIT PO ×4 (09:07→21:04)
[2020-04-25] MEDS: pregabalin 75 mg Capsule PO ×2 (09:07→18:40)
[2020-04-25] MEDS: sennosides-docusate Tablet 1 TAB PO (09:07)
[2020-04-25] MEDS: nystatin powder 15 gm Btl 1 APPLIC TOPICAL (09:08)
[2020-04-25] MEDS: fluticasone nasal spray 16gm Btl 2 SPRAY INTRANASAL (09:09)
[2020-04-25] MEDS: metoprolol tartrate 25 mg Tablet PO ×2 (10:07→18:40)
[2020-04-25] MEDS: escitalopram 10 mg Tablet PO (10:08)
[2020-04-25] MEDS: ipratropium-albuterol 3 mL Neb INHALATION ×3 (12:39→21:56)
[2020-04-25] MEDS: enoxaparin 100 mg/mL Syringe 120 MG SUBCUT (14:15)
--- NOTE | 2020-04-25 15:50 | PC.RESP ---
pt. RR increased with low sats on HHF.. placed on bipap to rest
--- NOTE | 2020-04-25 16:00 | P.PN_ITS ---
Subjective Subjective: Interval history: Reports that she is feeling little bit better today. She still has some pleuritic discomfort in her chest when she takes a deep breath or with cough. Denies any chest pressure or any persistent pain. Reports that breathing is little better. Denies headache. Denies nausea vomiting or diarrhea. Vitals/I&O/Wt Last Vital Signs Temp 97.6 F 04/24/20 17:54 Pulse 77 04/25/20 15:51 Resp 26 H 04/25/20 15:50 BP 139/87 04/25/20 15:50 Pulse Ox 90 04/25/20 15:50 04/25/20 04/25/20 04/25/20 06:59 14:59 22:59 Intake Total 50 / 400 1090 / 1090 Output Total 300 / 300 Balance -250 / 100 1090 / 1090 Weight last 48 hrs Weight 136.248 kg Weight 127.006 kg Physical Exam Const: COMMON NORMALS: no acute distress, patient oriented x3 and alert NUTRITIONAL APPEARANCE: obese ORIENTATION/CONSCIOUSNESS: Yes awake HENMT: COMMON NORMALS: oropharynx normal Neck/C-Spine: COMMON NORMALS: no JVD Resp: COMMON NORMALS: normal respiratory effort AUSCULTATION: bronchial breath sounds Cardio: COMMON NORMALS: no JVD, regular rhythm, S1 normal heart sound present, S2 normal heart sound present and No murmurs present (Cardio) RHYTHM: regular rhythm HEART SOUNDS: S1 normal heart sound present and S2 normal heart sound present GI: COMMON NORMALS: Normal to inspection, nondistended, normoactive bowel sounds present, Soft to palpation and non-tender PALPATION: Yes Soft to palpation Extremity: COMMON NORMALS: no joint enlargement and no pedal edema Neuro: COMMON NORMALS: patient oriented x3 and moves all extremities SENSORIUM/ORIENTATION: Yes alert Skin: COMMON NORMALS: no rashes or lesions noted GENERAL SKIN EXAM: no rashes or lesions noted Urinary Catheter Management^: Jara: Cath Placed During This Visit: yes Reason for Continuing Indwelling Catheter: Accurate Measurement of Urinary Output in Critically Ill Patients Urinary Catheter Date of Insertion: 04/24/20 Urinary Catheter Time of Insertion: 18:15 Data : 04/25/20 03:20 04/25/20 03:20 Micro: Microbiology 04/24/20 07:49 MRSA Culture - Final Nose 04/23/20 20:50 Blood Culture - Preliminary Blood NEGATIVE TO DATE 04/23/20 19:50 Blood Culture - Preliminary Blood NEGATIVE TO DATE 04/24/20 18:35 Legionella Urinary Antigen - Final Urine,Clean Catch Bacterial Antigens - Final A&P Assessment and plan (1) Pneumonia due to 2019 novel coronavirus: She is feeling little bit better. Weaned down on BiPAP, intermittently between BiPAP and high flow cannula. Leukocytosis little bit better, 17.8. Continue remdesivir, dexamethasone. Wean off oxygen support as tolerating. Monitor CRP, D-dimer. Pleuritic chest discomfort. Denies chest pain. Troponin is minimally elevated likely secondary to type II ischemia. Sepsis with leukocytosis of 19.4 thousand, predominantly neutrophilic, tachypnea, tachycardia. Afebrile. Start remdesivir, Decadron, continue oxygen support, BiPAP support intermitte ntly as needed. Rapid COVID-19 noted negative. Rapid flu negative. Due to sepsis, respiratory failure empirically will continue antibiotics with Zosyn, linezolid. Collect sputum culture if possible, otherwise bacterial antigens, Legionella. MRSA PCR. Blood culture has been collected. Follow. Noted elevated D-dimer, follow. Follow CRP. Jara catheter for accurate I&O. Avoid fluid overload. Close monitoring and care in the viral isolation unit. Status: Acute (2) Acute hypoxemic respiratory failure: Improving slowly. Continue to attempt wean support as above. She does not appear fluid overloaded at this time. Once heart rate is better we will also assess TTE. No PE on CTA. Last echo in the old system I see from 2013 with normal EF, grade 1 diastolic dysfunction, mild pulmonary hypertension. Stress test back in 2013 with small area of persistent decreased tracer uptake in apical lateral wall, most likely representing attenuation artifact. Normal EF. Status: Acute (3) Sepsis: Severe sepsis on presentation, lactic acid 3.6, with improvement down to 1.5. Empiric antibiotic coverage as above. Follow blood culture. Respiratory studies as above. Status: Acute Qualifiers: Sepsis acute organ dysfunction status: without acute organ dysfunction Sepsis type: sepsis due to unspecified organism Qualified Code(s): A41.9 - Sepsis, unspecified organism (4) New onset a-fib: Appears to be having new onset atrial fibrillation, suspect secondary to respiratory failure, hypoxia. Metoprolol started overnight due to tachycardia. Blood pressure elevated this morning, metoprolol dose advanced. Heart rate currently good in the 70s. Initiated therapeutic Lovenox. For some reason did not receive her overnight dose. Discussed with nursing staff will give a dose now and shift schedule heriberto ry 12 hours. Denies chest pain but pleuritic, does have mild troponin elevation, but without significant uptrend. Likely type II OH secondary to demand and supply mismatch, arrhythmia. Mild hyperkalemia. Normal magnesium. Treat respiratory failure. Check echo. This with her regarding risk of open she is agreeable to start anticoagulation denies any bleeding problems in the past. Status: Acute (5) D-dimer, elevated: Suspected secondary to COVID-19 pneumonia. No PE noted on CTA. Anticoagulation with Lovenox as above. Status: Acute (6) Elevated troponin: She is having pleuritic discomfort in her chest, otherwise denies chest pain. Denies history of OH. Unremarkable stress test back in 2012. Troponin elevation suspected secondary to demand and supply mismatch, and arrhythmia. Due to new onset A. fib may benefit from nonemergent stress testing after she recovers to exclude progression of coronary disease. Status: Acute (7) Hyperkalemia: Mild hyperkalemia. Resolved. Low potassium diet. Monitor renal function. Status: Acute Additional A&P Information Discussed with her daughter. Incidentally noted 2.5 cm cyst right hepatic lobe Poor functional status at baseline ever since left femoral fracture. Mostly nonambulatory. 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 Attestations Medical Necessity Statement*: Continue admission for assessment management of severe COVID-19 pneumonia, respiratory failure. Coding Level of Care Code Acute Senior Qa Automation Engineer for [facility] Fwd Exam Comprehensive Diagnoses Pneumonia due to 2019 novel coronavirus U07.1; J12.89 Acute hypoxemic respiratory failure J96.01 Sepsis A41.9 Sepsis acute organ dysfunction status: without acute organ dysfunction Sepsis type: sepsis due to unspecified organism New onset a-fib I48.91 D-dimer, elevated R79.89 Elevated troponin R77.8 Hyperkalemia E87.5
[2020-04-25] MEDS: dexamethasone 4 mg Tablet 6 MG PO (19:55)
--- NOTE | 2020-04-25 20:10 | PC.NURSE ---
Pt states she wants Bipap off, talked with [facility] respiratory, will remove and place patient back on nasal canula high flow
--- NOTE | 2020-04-25 22:52 | PC.NURSE ---
Report given SBAR format to NASIR Guadalupe
[2020-04-26] VITALS (40 sets, daily range): BP systolic 109–152; BP diastolic 72–100; PULSE 75–115; RESP 15–36; TEMP 36.6–37.5; O2SAT 84–96
[2020-04-26] MEDS: ipratropium-albuterol 3 mL Neb INHALATION ×7 (01:00→23:49)
[2020-04-26] MEDS: enoxaparin 120 mg/0.8 mL Syringe SUBCUT ×2 (02:19→14:05)
[2020-04-26] MEDS: piperacillin-tazobactam 3.375 GM in sodium chloride 0.9% (plus) 50 ML IV ×3 (02:19→17:32)
[2020-04-26 03:33] LABS: ABG PCO2 36.3 mmHg (35-45); ABG PH Result 7.44 (7.35-7.45); Alveolar-Arterial Oxygen Gradi 66.5 mmHg (5-10); Arterial Blood Gas Hematocrit 46.9 % (37-47); Base Excess ABG 0.9 mmol/L (-2.0-2.0); Blood Gas Allen Test Pos; Blood Gas Sample Site Radial, right; Blood Gas Sample Type Arterial; Carboxyhemoglobin 0.8 %THgb (0.4-20.1); HCO3 ABG 24.7 mmol/L (22-26); HGB O2 Sat 98.1 % (95-100); Ionized Calcium Level - ABG 1.2 mmol/L (1.1-1.4); Methemoglobin 0.9 % (0.4-1.5); Oxygen Device BIPAP; Oxygen Saturation ABG 99.8; Potassium Level - ABG 4.1 mmol/L (3.5-5.0); Total Hemoglobin 15.3 g/dL (12-16)
[2020-04-26] MEDS: linezolid premix 600 MG/300 ML PREMIX 300 MG IV ×2 (06:10→17:31)
[2020-04-26] MEDS: metoprolol tartrate 25 mg Tablet PO ×2 (06:10→17:08)
[2020-04-26 06:22] LABS: Basophils % 0.1 %; Hematocrit 43.6 % (37.0-47.0); Hemoglobin 14.6 g/dL (11.5-15.3); Lymphocytes # 0.7 10^3/uL (0.8-4.8); Lymphocytes % 3.1 %; Mean Corpuscular HGB Conc 33.5 g/dL (30.0-36.0); Mean Corpuscular Hemoglobin 27.8 pg (28.0-34.0); Mean Platelet Volume 11.7 fL (7.4-10.4); Monocytes # 0.7 10^3/uL (0.2-0.9); Monocytes % 3.3 %; Neutrophils # 19.33 10^3/uL (1.8-7.7); Neutrophils % 92.5 %; Nucleated Red Blood Cells % 0.2 %; Platelet Count 382 10^3/cmm (130-400); Red Blood Count 5.25 10^6/uL (4.1-5.3); Red Cell Distribution Width 16.7 % (12.1-15.1); White Blood Count 20.9 10^3/uL (4.0-10.0)
[2020-04-26 06:37] LABS: Anion Gap 18.4 (5-19); Blood Urea Nitrogen 25 mg/dL (8-23); C Reactive Protein 153.7 mg/L (0.0-4.9); Carbon Dioxide 22 mmol/L (22-29); Chloride 101 mmol/L (98-107); Glucose 205 mg/dL (65-115); Osmolality Calculated 294 mOsm/kg (285-295); Potassium 4.4 mmol/L (3.5-5.1); Sodium 137 mmol/L (136-145)
[2020-04-26 07:06] LABS: D Dimer 1.44 ug/mIFEU (0-0.59)
[2020-04-26] MEDS: fluticasone nasal spray 16gm Btl 2 SPRAY INTRANASAL (08:16)
[2020-04-26] MEDS: pregabalin 75 mg Capsule PO ×2 (08:16→17:08)
[2020-04-26] MEDS: pantoprazole DR 40 mg Tablet PO (08:16)
[2020-04-26] MEDS: sennosides-docusate Tablet 1 TAB PO (08:16)
[2020-04-26] MEDS: escitalopram 10 mg Tablet PO (08:17)
[2020-04-26] MEDS: nystatin 100,000 unit/mL UDC 5 mL 500000 UNIT PO ×4 (08:17→22:10)
[2020-04-26] MEDS: nystatin powder 15 gm Btl 1 APPLIC TOPICAL (08:17)
--- NOTE | 2020-04-26 14:12 | P.PN_ITS ---
Subjective Subjective: Interval history: She says is comfortable with CPAP on. Denies pain in her chest apart from some pleuritic discomfort. Has no headache, no nausea. Has had no vomiting or diarrhea. Vitals/I&O/Wt Last Vital Signs Temp 98.2 F 04/26/20 12:00 Pulse 80 04/26/20 13:00 Resp 28 H 04/26/20 13:00 BP 112/76 04/26/20 13:00 Pulse Ox 91 04/26/20 13:00 04/25/20 04/26/20 04/26/20 22:59 06:59 14:59 Intake Total 968 / 2058 170 / 2228 Output Total 1100 / 1100 1100 / 2200 Balance -132 / 958 -930 / 28 Weight last 48 hrs Weight 135.443 kg Weight 136.248 kg Physical Exam Const: COMMON NORMALS: no acute distress, patient oriented x3 and alert NUTRITIONAL APPEARANCE: obese ORIENTATION/CONSCIOUSNESS: Yes awake HENMT: COMMON NORMALS: oropharynx normal Neck/C-Spine: COMMON NORMALS: no JVD Resp: COMMON NORMALS: normal respiratory effort AUSCULTATION: crackles Laterality: bilateral (bases) Cardio: COMMON NORMALS: no JVD, regular rhythm, S1 normal heart sound present, S2 normal heart sound present and No murmurs present (Cardio) RHYTHM: regular rhythm HEART SOUNDS: S1 normal heart sound present and S2 normal heart sound present GI: COMMON NORMALS: Normal to inspection, nondistended, normoactive bowel sounds present, Soft to palpation and non-tender PALPATION: Yes Soft to palpation Extremity: COMMON NORMALS: no joint enlargement and no pedal edema (trace if any) Neuro: COMMON NORMALS: patient oriented x3 and moves all extremities SENSORIUM/ORIENTATION: Yes alert Skin: COMMON NORMALS: no rashes or lesions noted GENERAL SKIN EXAM: no rashes or lesions noted Urinary Catheter Management^: Jara: Cath Placed During This Visit: yes Reason for Continuing Indwelling Catheter: Accurate Measurement of Urinary Output in Critically Ill Patients Urinary Catheter Date of Insertion: 04/24/20 Urinary Catheter Time of Insertion: 18:15 Data : 04/26/20 03:35 04/26/20 03:35 Micro: Microbiology 04/24/20 07:49 MRSA Culture - Final Nose A&P Assessment and plan (1) Pneumonia due to 2019 novel coronavirus: Overnight little bit worse in terms of oxygenation. Had to be maintained on BiPAP. FiO2 as high as 100%. This morning doing better, FiO2 down to about 80%. Reports is comfortable on BiPAP. No chest pain or pressure. D-dimer down little bit at 1.44. CRP is higher at 253. Discussed with her daughter. Would prefer to avoid intubation unless it is absolutely necessary. Leukocytosis persist and, today somewhat worse at 20.9. Some of it may be due to steroid effect. Continue remdesivir, dexamethasone. Continue BiPAP support. High flow cannula if tolerating. Monitor CRP, D-dimer. Monitor I&O. Appears to be negative balance, although it is noted 135 kg compared to 127 recorded on admission. Not sure how accurate. Does not appear to be fluid overloaded currently. Monitor. Pleuritic chest discomfort. Denies chest pain. Troponin is minimally elevated likely secondary to type II ischemia. Sepsis with leukocytosis, predominantly neutrophilic, tachypnea, tachycardia. Afebrile. Rapid COVID-19 noted negative. Rapid flu negative. Due to sepsis, respiratory failure empirically will continue antibiotics with Zosyn, linezolid. Collect sputum culture if possible, otherwise bacterial antigens, Legionella negative. Negative MRSA PCR. Blood culture has been collected. Follow. Jara catheter for accurate I&O. Avoid fluid overload. Close monitoring and care in the viral isolation unit. Status: Acute (2) Acute hypoxemic respiratory failure: Some improvement yesterday, overnight somewhat worse. As above. Continue treatment of severe COVID-19 pneumonia, possible superimposed bacterial pneumonia. Does not appear fluid overloaded at this time. [place] obtained, limited study, LV systolic function grossly normal, RWMA cannot be assessed. Diastolic function abnormal. Does not appear to show any significant change from prior. No PE on CTA. Status: Acute (3) Sepsis: Severe sepsis on presentation, lactic acid 3.6, with improvement down to 1.5. Treatment of severe COVID-19 infection, possible bacterial pneumonia as above. Follow cultures. Status: Acute Qualifiers: Sepsis acute organ dysfunction status: without acute organ dysfunction Sepsis type: sepsis due to unspecified organism Qualified Code(s): A41.9 - Sepsis, unspecified organism (4) New onset a-fib: Appears to be having new onset atrial fibrillation, suspect secondary to respiratory failure, hypoxia. Overnight noted tachycardia 100-110. Perhaps due to worsened oxygenation little bit better during the day. Continue metoprolol. Lovenox. Denies chest pain but pleuritic, does have mild troponin elevation, but without significant uptrend. Likely type II PR secondary to demand and supply mismatch, arrhythmia. Mild hyperkalemia. Normal magnesium. Treat respiratory failure. Check echo. This with her regarding risk of open she is agreeable to start anticoagulation denies any bleeding problems in the past. Status: Acute (5) D-dimer, elevated: Suspected secondary to COVID-19 pneumonia. No PE noted on CTA. Anticoagulation with Lovenox as above. Status: Acute (6) Elevated troponin: She is having pleuritic discomfort in her chest, otherwise denies chest pain. Denies history of PR. Unremarkable stress test back in 2012. Troponin elevation suspected secondary to demand and supply mismatch, and arrhythmia. Due to new onset A. fib may benefit from nonemergent stress testing after she recovers to exclude progression of coronary disease. Status: Acute (7) Hyperkalemia: Mild hyperkalemia. Resolved. Low potassium diet. Monitor renal function. Status: Acute Additional A&P Information Incidentally noted 2.5 cm cyst right hepatic lobe Poor functional status at baseline ever since left femoral fracture. Mostly nonambulatory. 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 Attestations Medical Necessity Statement*: Continue admission for management of severe COVID-19 infection, bacterial pneumonia, respiratory failure. Coding Level of Care Code Acute International Recruiter for [facility] Diagnoses Pneumonia due to 2019 novel coronavirus U07.1; J12.89 Acute hypoxemic respiratory failure J96.01 Sepsis A41.9 Sepsis acute organ dysfunction status: without acute organ dysfunction Sepsis type: sepsis due to unspecified organism New onset a-fib I48.91 D-dimer, elevated R79.89 Elevated troponin R77.8 Hyperkalemia E87.5
--- NOTE | 2020-04-26 16:54 | USCV_ITS ---
Hermelinda Mckeon Age: 79 Gender: F : 1940 Exam Date: 04/26/2020 06:37 Ordering Phys: Nathanael Hughes MD Technologist: Anya Goodrich Exam Location: [facility] [place] Indication: NEW A FIB COVID ICU BP: 128 / 89 HR: 112 Rhythm: Sinus Technical Quality: COMPROMISED MEASUREMENTS (Male / Female) Normal Values 2D ECHO LV Diastolic Diameter PLAX 3.4 cm 4.2 - 5.9 / 3.9 - 5.3 cm LV Systolic Diameter PLAX 2.5 cm IVS Diastolic Thickness 1.3 cm 0.6 - 1.0 / 0.6 - 0.9 cm IVS Systolic Thickness 1.3 cm LVPW Diastolic Thickness 1.5 cm 0.6 - 1.0 / 0.6 - 0.9 cm LVPW Systolic Thickness 1.3 cm LVOT Diameter 2.0 cm LV Ejection Fraction 2D Teich 51.2 % LA Diameter 3.3 cm LA Width 2.2 cm LA Height 5.7 cm RA Width 3.1 cm RA Height 5.7 cm Aorta at Sinotubular Diameter 2.9 cm M-MODE LV Diastolic Diameter MM 3.5 cm 4.2 - 5.9 / 3.9 - 5.3 cm LV Systolic Diameter MM 2.6 cm LV Ejection Fraction MM Teich 52.7 % IVS Diastolic Thickness MM 0.9 cm 0.6 - 1.0 / 0.6 - 0.9 cm IVS Systolic Thickness MM 1.4 cm LVPW Diastolic Thickness MM 1.2 cm 0.6 - 1.0 / 0.6 - 0.9 cm LVPW Systolic Thickness MM 1.1 cm RV Diastolic Diameter MM 1.0 cm Aortic Annulus Diameter 3.5 cm LA Ao Ratio MM 1.1 MV E Point Septal Separation 0.5 cm DOPPLER AV Peak Velocity 169.0 cm/s LVOT Peak Velocity 126.0 cm/s AV Area Cont Eq vti 2.2 cm squared AV Area Cont Eq pk 2.5 cm squared MV Area PHT 6.9 cm squared Mitral E to A Ratio 1.5 MV E' Velocity 54.0 cm/s Mitral E to MV E' Ratio 5.7 Mitral E to LV E' Lateral Ratio 4.7 Mitral E to LV E' Septal Ratio 7.3 TR Peak Velocity 187.9 cm/s TR Peak Gradient 14.1 mmHg TR Mean Velocity 137.3 cm/s TR Mean Gradient 8.5 mmHg TR Velocity Time Integral 47.0 cm TV Peak E Velocity 94.0 cm/s Right Atrial Pressure 8.0 mmHg Pulmonary Artery Systolic Pressu 22.1 mmHg PV Peak Velocity 99.0 cm/s RV Acceleration Time 0.1 s RV Ejection Time 0.3 s RV AcT/ET 0.3 FINDINGS Left Ventricle Normal left ventricular size. LV systolic function is grossly normal. Regional wall motion abnormalities cannot be assessed because of poor visualization. Mild left ventricular hypertrophy is noted. Diastolic function is abnormal. Right Ventricle The right ventricle is normal in size and function. Right Atrium The right atrium is not well visualized. Left Atrium The left atrium is not well visualized. Mitral Valve Grossly normal. No significant mitral regurgitation or stenosis. Aortic Valve Grossly normal. No significant stenosis or regurgitation is noted. Tricuspid Valve Not well-visualized. Mild TR. Pulmonic Valve Not well visualized. Pericardium Normal pericardium without effusion. Aorta Normal ascending aorta dimension. CONCLUSIONS This is a limited study because of poor visualization of cardiac structures. Valvular structures are not well-visualized. LV systolic function is grossly normal. Regional wall motion abnormalities cannot be assessed because of poor visualization. Mild left ventricular hypertrophy is noted. Diastolic function is abnormal. Compared to prior echo from 05/26/2013, no significant changes are noted however this was a limited quality echocardiogram which could not assess all cardiac structures. Jae Kaiser MD (Electronically Signed) Final Date: 26 April 2020 09:53 S
[2020-04-26] MEDS: dexamethasone 4 mg Tablet 6 MG PO (17:08)
[2020-04-26] MEDS: trazodone 50 mg Tablet 25 MG PO (22:10)
[2020-04-27] VITALS (43 sets, daily range): BP systolic 87–141; BP diastolic 63–101; PULSE 61–125; RESP 18–42; TEMP 36.4–37.1; O2SAT 81–98
[2020-04-27 02:06] LABS: ABG PCO2 40.7 mmHg (35-45); ABG PH Result 7.41 (7.35-7.45); Arterial Blood Gas Hematocrit 45.6 % (37-47); Blood Gas Sample Site Brachial, right; Blood Gas Sample Type Arterial; HCO3 ABG 25.8 mmol/L (22-26); Oxygen Device BIPAP
[2020-04-27] MEDS: FUROsemide 10 mg/mL SDV 4mL 40 MG IVP (02:32)
--- NOTE | 2020-04-27 02:45 | PC.NURSE ---
PATIENT HAS HAD AN INCREASE IN RESPIRATORY RATE SINCE LAST ASSESSMENT. PHYSICIAN NOTIFIED BY RT. PHYSICIAN CALLED AND SPOKE WITH THIS NURSE, LABS QUESTIONED AND NEW ORDERS FOR ONE TIME DOSE OF IV LASIX 40 MG TO BE GIVEN. CALL ONE HOUR AFTER ADMINISTER AND NOTIFY WHAT URINARY OUTPUT IS.
[2020-04-27] MEDS: enoxaparin 120 mg/0.8 mL Syringe SUBCUT ×2 (02:50→13:57)
[2020-04-27] MEDS: piperacillin-tazobactam 3.375 GM in sodium chloride 0.9% (plus) 50 ML IV ×3 (02:50→17:41)
[2020-04-27] MEDS: ipratropium-albuterol 3 mL Neb INHALATION ×6 (03:13→23:47)
--- NOTE | 2020-04-27 05:00 | XR_ITS ---
WS: [id number] CHEST XRAY TECHNIQUE: Portable chest. CLINICAL INFORMATION: TACHYPNEA COMPARISON: April 23, 2020 FINDINGS: Heart: Cardiomegaly. Lungs: Interstitial and airspace infiltrates in the right upper lobe and left lower lobe similar to t he prior examination. Right upper lobe infiltrate has slightly improved. No significant pleural fluid . Bones: Normal visualized bony structures. XR/XR chest 1V portable [id number] IMPRESSION: 1. Interstitial and airspace infiltrates within the right upper lobe and left lower lobe similar to the prior examination. Right Upper lobe infiltrate has im proved slightly. 2. Stable cardiomegaly.
[2020-04-27 06:33] LABS: Basophils % 0.2 %; Hematocrit 44.8 % (37.0-47.0); Hemoglobin 14.5 g/dL (11.5-15.3); Lymphocytes % 5.7 %; Mean Corpuscular HGB Conc 32.4 g/dL (30.0-36.0); Mean Corpuscular Hemoglobin 27.4 pg (28.0-34.0); Mean Corpuscular Volume 84.5 fL (81-99); Mean Platelet Volume 11.9 fL (7.4-10.4); Monocytes # 0.4 10^3/uL (0.2-0.9); Monocytes % 2.1 %; Neutrophils # 16.52 10^3/uL (1.8-7.7); Nucleated Red Blood Cells % 0.1 %; Platelet Count 384 10^3/cmm (130-400); Red Cell Distribution Width 16.8 % (12.1-15.1); White Blood Count 18.2 10^3/uL (4.0-10.0)
[2020-04-27] MEDS: linezolid premix 600 MG/300 ML PREMIX 300 MG IV ×2 (06:50→17:42)
[2020-04-27] MEDS: metoprolol tartrate 25 mg Tablet PO ×2 (06:51→17:18)
[2020-04-27 06:52] LABS: C Reactive Protein 238.3 mg/L (0.0-4.9)
[2020-04-27 06:54] LABS: Anion Gap 19.3 (5-19); Blood Urea Nitrogen 21 mg/dL (8-23); Calcium 8.5 mg/dL (8.5-10.5); Carbon Dioxide 24 mmol/L (22-29); Chloride 100 mmol/L (98-107); Glucose 207 mg/dL (65-115); Osmolality Calculated 297 mOsm/kg (285-295); Potassium 4.3 mmol/L (3.5-5.1); Sodium 139 mmol/L (136-145)
[2020-04-27] MEDS: pantoprazole DR 40 mg Tablet PO (08:19)
[2020-04-27] MEDS: pregabalin 75 mg Capsule PO ×2 (08:19→17:18)
[2020-04-27] MEDS: escitalopram 10 mg Tablet PO (08:20)
[2020-04-27] MEDS: fluticasone nasal spray 16gm Btl 2 SPRAY INTRANASAL (08:20)
[2020-04-27] MEDS: nystatin 100,000 unit/mL UDC 5 mL 500000 UNIT PO ×4 (08:20→21:47)
[2020-04-27] MEDS: nystatin powder 15 gm Btl 1 APPLIC TOPICAL (08:21)
--- NOTE | 2020-04-27 09:21 | PC.SOCIAL ---
Pg 2 IMM Explained Pg 2 IMM to pt's daughter Ember via phone. No questions voiced. Signed, dated, & timed a copy for chart.
[2020-04-27] MEDS: sennosides-docusate Tablet 1 TAB PO (10:07)
[2020-04-27] MEDS: acetaminophen 325 mg Tablet 650 MG PO (13:58)
[2020-04-27 15:10] LABS: D Dimer 1.21 ug/mIFEU (0-0.59)
[2020-04-27] MEDS: HYDROcodone-acetaminophen 5-325 mg Tablet 1 TAB PO ×2 (15:24→21:46)
[2020-04-27] MEDS: dexamethasone 4 mg Tablet 6 MG PO (17:18)
--- NOTE | 2020-04-27 20:28 | PM.PN ---
Subjective Subjective: Interval history: Today reports she is feeling a little bit better. Denies chest pain. Denies other discomfort. When asked if she needs anything requests again for cough drops. Discussed with her that unfortunately we do not have any in the hospital, but did order for her some Jose Carlos Bender. Vitals/I&O/Wt Last Vital Signs Temp 97.6 F 04/27/20 07:00 Pulse 106 H 04/27/20 18:11 Resp 24 H 04/27/20 17:00 BP 110/66 04/27/20 17:00 Pulse Ox 90 04/27/20 18:11 04/27/20 04/27/20 04/27/20 06:59 14:59 22:59 Intake Total 290 / 2050 710 / 710 600 / 1310 Output Total 1150 / 1825 375 / 375 Balance -860 / 225 710 / 710 225 / 935 Weight last 48 hrs Weight 135.443 kg Physical Exam Const: COMMON NORMALS: no acute distress, patient oriented x3 and alert NUTRITIONAL APPEARANCE: obese ORIENTATION/CONSCIOUSNESS: Yes awake OTHER: CPAP on. HENMT: COMMON NORMALS: oropharynx normal Neck/C-Spine: COMMON NORMALS: no JVD Resp: COMMON NORMALS: normal respiratory effort AUSCULTATION: diminished lung sounds Cardio: COMMON NORMALS: no JVD, regular rhythm, S1 normal heart sound present, S2 normal heart sound present and No murmurs present (Cardio) RHYTHM: regular rhythm HEART SOUNDS: S1 normal heart sound present and S2 normal heart sound present GI: COMMON NORMALS: Normal to inspection, nondistended, normoactive bowel sounds present, Soft to palpation and non-tender PALPATION: Yes Soft to palpation Extremity: COMMON NORMALS: no joint enlargement and no pedal edema (trace if any) Neuro: COMMON NORMALS: patient oriented x3 and moves all extremities SENSORIUM/ORIENTATION: Yes alert Skin: COMMON NORMALS: no rashes or lesions noted GENERAL SKIN EXAM: no rashes or lesions noted Urinary Catheter Management^: Jara: Cath Placed During This Visit: yes Reason for Continuing Indwelling Catheter: Accurate Measurement of Urinary Output in Critically Ill Patients Urinary Catheter Date of Insertion: 04/24/20 Urinary Catheter Time of Insertion: 18:15 Data : 04/27/20 04:35 04/27/20 04:35 A&P Assessment and plan (1) Pneumonia due to 2019 novel coronavirus: This morning she is feeling actually a little bit better. Through the day oxygenation improved, and was down as low as 45% FiO2. Presently at 60%. D-dimer is little bit lower. CRP is higher, however. Leukocytosis a little bit better today, down to 18,000. Continue Zosyn, linezolid. Continue remdesivir, dexamethasone. Continue BiPAP support. High flow cannula if tolerating. Monitor CRP, D-dimer. Monitor I&O. Monitor I&O. Pleuritic chest discomfort. Denies chest pain. Troponin is minimally elevated likely secondary to type II ischemia. Sepsis with leukocytosis, predominantly neutrophilic, tachypnea, tachycardia. Afebrile. Rapid COVID-19 noted negative. Rapid flu negative. Collect sputum culture if possible, otherwise bacterial antigens, Legionella negative. Negative MRSA PCR. Blood culture has been collected. Follow. Jara catheter for accurate I&O. Avoid fluid overload. Close monitoring and care in the viral isolation unit. Status: Acute (2) Acute hypoxemic respiratory failure: Fluctuating oxygen levels. Today feeling slightly better. Hypoxia appears perhaps slightly better today. Continue treatment of severe COVID-19 pneumonia, possible superimposed bacterial pneumonia. Does not appear fluid overloaded at this time. TTE obtained, limited study, LV systolic function grossly normal, RWMA cannot be assessed. Diastolic function abnormal. Does not appear to show any significant change from prior. No PE on CTA. Status: Acute (3) Sepsis: Severe sepsis on presentation, lactic acid 3.6, with improvement down to 1.5. Treatment of severe COVID-19 infection, possible bacterial pneumonia as above with Zosyn, linezolid. Follow cultures. Status: Acute Qualifiers: Sepsis acute organ dysfunction status: without acute organ dysfunction Sepsis type: sepsis due to unspecified organism Qualified Code(s): A41.9 - Sepsis, unspecified organism (4) New onset a-fib: Appears to be having new onset atrial fibrillation, suspect secondary to respiratory failure, hypoxia. Mostly better, but still some episodes of tachycardia up to 120s. Continue metoprolol. Lovenox. Treatment of respiratory conditions. Denies chest pain but pleuritic, does have mild troponin elevation, but without significant uptrend. Likely type II [place] secondary to demand and supply mismatch, arrhythmia. Mild hyperkalemia. Normal magnesium. Treat respiratory failure. Anticoagulation with Lovenox. Status: Acute (5) D-dimer, elevated: Suspected secondary to COVID-19 pneumonia. No PE noted on CTA. Anticoagulation with Lovenox as above. Status: Acute (6) Elevated troponin: She is having pleuritic discomfort in her chest, otherwise denies chest pain. Denies history of [place]. Unremarkable stress test back in 2012. Troponin elevation suspected secondary to demand and supply mismatch, and arrhythmia. Due to new onset A. fib may benefit from nonemergent stress testing after she recovers to exclude progression of coronary disease. Status: Acute (7) Hyperkalemia: Mild hyperkalemia. Resolved. Low potassium diet. Monitor renal function. Status: Acute Additional A&P Information Incidentally noted 2.5 cm cyst right hepatic lobe Poor functional status at baseline ever since left femoral fracture. Mostly nonambulatory. 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 Attestations Medical Necessity Statement*: Continue admission for assessment management of severe COVID-19 pneumonia, sepsis, suspected superimposed bacterial pneumonia, respiratory failure. Coding Level of Care Code Acute Clinical Psychology Professor for [facility] Diagnoses Pneumonia due to 2019 novel coronavirus U07.1; J12.89 Acute hypoxemic respiratory failure J96.01 Sepsis A41.9 Sepsis acute organ dysfunction status: without acute organ dysfunction Sepsis type: sepsis due to unspecified organism New onset a-fib I48.91 D-dimer, elevated R79.89 Elevated troponin R77.8 Hyperkalemia E87.5
[2020-04-27] MEDS: trazodone 50 mg Tablet 25 MG PO (21:47)
[2020-04-28] VITALS (42 sets, daily range): BP systolic 99–138; BP diastolic 66–85; PULSE 72–127; RESP 16–34; TEMP 36.7–37.3; O2SAT 84–93; BMI 52.9
[2020-04-28] MEDS: enoxaparin 120 mg/0.8 mL Syringe SUBCUT ×2 (02:23→16:07)
[2020-04-28] MEDS: piperacillin-tazobactam 3.375 GM in sodium chloride 0.9% (plus) 50 ML IV ×3 (02:23→18:06)
[2020-04-28] MEDS: ipratropium-albuterol 3 mL Neb INHALATION ×5 (03:52→20:34)
[2020-04-28 04:26] LABS: Basophils % 0.1 %; Hematocrit 43.2 % (37.0-47.0); Lymphocytes # 1.3 10^3/uL (0.8-4.8); Lymphocytes % 5.6 %; Mean Corpuscular HGB Conc 32.4 g/dL (30.0-36.0); Mean Corpuscular Hemoglobin 27.4 pg (28.0-34.0); Mean Corpuscular Volume 84.5 fL (81-99); Mean Platelet Volume 12.1 fL (7.4-10.4); Monocytes # 0.8 10^3/uL (0.2-0.9); Monocytes % 3.4 %; Neutrophils # 19.92 10^3/uL (1.8-7.7); Neutrophils % 89.7 %; Nucleated Red Blood Cells % 0 %; Platelet Count 380 10^3/cmm (130-400); Red Blood Count 5.11 10^6/uL (4.1-5.3); Red Cell Distribution Width 16.6 % (12.1-15.1); White Blood Count 22.2 10^3/uL (4.0-10.0)
[2020-04-28] MEDS: metoprolol tartrate 25 mg Tablet PO ×2 (05:14→18:02)
[2020-04-28] MEDS: HYDROcodone-acetaminophen 5-325 mg Tablet 1 TAB PO ×2 (05:14→18:03)
[2020-04-28] MEDS: linezolid premix 600 MG/300 ML PREMIX 300 MG IV ×2 (05:15→18:06)
--- NOTE | 2020-04-28 07:41 | ECG_ITS ---
[facility] ED Test Date: 2020-04-28 Pat Name: Hermelinda Mckeon Department: Room: ICU19 Gender: Female Supervisor Prepress: : 1940 Requested By: Nathanael Hughes Order Number: [id number] Rosalba MD: Rachel Yoo M.D. Measurements Intervals [place] Rate: 77 P: MN: -1 QRS: -38 QRSD: 106 T: 13 QT: 376 QTc: 427 Interpretive Statements SINUS RHYTHM WITH FREQUENT PAC'S MARKED LEFT AXIS DEVIATION [QRS AXIS < -30] MODERATE VOLTAGE CRITERIA FOR LVH, CONSIDER NORMAL VARIANT [MEETS CRITERIA IN ONE OF: R(aVL), S(V1), R(V5), R(V5/V6)+S(V1)] Compared to ECG 04/25/2020 02:48:11 Sinus rhythm no longer present Electronically Signed On 05-02-2020 0:09:01 DIGITAL MUSIC INSTRUCTOR by Rachel Yoo M.D. [id number]
[2020-04-28 07:44] LABS: Anion Gap 16.7 (5-19); Blood Urea Nitrogen 23 mg/dL (8-23); Calcium 8.6 mg/dL (8.5-10.5); Carbon Dioxide 25 mmol/L (22-29); Chloride 101 mmol/L (98-107); Glucose 200 mg/dL (65-115); Osmolality Calculated 295 mOsm/kg (285-295); Potassium 4.7 mmol/L (3.5-5.1); Sodium 138 mmol/L (136-145)
[2020-04-28] MEDS: pantoprazole DR 40 mg Tablet PO (09:56)
[2020-04-28] MEDS: pregabalin 75 mg Capsule PO ×2 (09:57→18:02)
[2020-04-28] MEDS: fluticasone nasal spray 16gm Btl 2 SPRAY INTRANASAL (09:57)
[2020-04-28] MEDS: nystatin 100,000 unit/mL UDC 5 mL 500000 UNIT PO ×3 (09:57→21:49)
[2020-04-28] MEDS: nystatin powder 15 gm Btl 1 APPLIC TOPICAL (09:58)
[2020-04-28] MEDS: escitalopram 10 mg Tablet PO (10:33)
[2020-04-28 14:33] LABS: C Reactive Protein 231.3 mg/L (0.0-4.9)
--- NOTE | 2020-04-28 16:05 | PC.NURSE ---
ORDERS RECIEVED FOR PT EVAL AND TREATPER DR SANCHES
[2020-04-28 17:07] LABS: D Dimer 0.78 ug/mIFEU (0-0.59)
[2020-04-28] MEDS: dexamethasone 4 mg Tablet 6 MG PO (18:02)
--- NOTE | 2020-04-28 18:59 | PC.NURSE ---
warm blankets applied to lona lower legs per patient request
--- NOTE | 2020-04-28 20:00 | PM.PN ---
Subjective Subjective: Interval history: Doing better. She says first time can smell coffee which she is enjoying this afternoon. Denies chest pain. Breathing is getting gradually better. No nausea or vomiting. No diarrhea. Vitals/I&O/Wt Last Vital Signs Temp 98.3 F 04/28/20 19:50 Pulse 82 04/28/20 19:50 Resp 21 H 04/28/20 19:50 BP 138/70 04/28/20 19:50 Pulse Ox 89 L 04/28/20 19:50 04/28/20 04/28/20 04/28/20 06:59 14:59 22:59 Intake Total 550 / 2310 720 / 720 460 / 1180 Output Total 250 / 725 400 / 400 100 / 500 Balance 300 / 1585 320 / 320 360 / 680 Weight last 48 hrs Weight 135.443 kg Physical Exam Const: COMMON NORMALS: no acute distress, patient oriented x3 and alert NUTRITIONAL APPEARANCE: obese ORIENTATION/CONSCIOUSNESS: Yes awake OTHER: High flow cannula on. Awake, alert, appears stronger today. In good spirits. Conversant. HENMT: COMMON NORMALS: oropharynx normal Neck/C-Spine: COMMON NORMALS: no JVD Resp: COMMON NORMALS: normal respiratory effort AUSCULTATION: crackles (bases) Cardio: COMMON NORMALS: no JVD, regular rhythm, S1 normal heart sound present, S2 normal heart sound present and No murmurs present (Cardio) RHYTHM: regular rhythm HEART SOUNDS: S1 normal heart sound present and S2 normal heart sound present GI: COMMON NORMALS: Normal to inspection, nondistended, normoactive bowel sounds present, Soft to palpation and non-tender PALPATION: Yes Soft to palpation Extremity: COMMON NORMALS: no joint enlargement and no pedal edema (trace if any) OTHER: Chronic lymphedema unchanged of both lower extremities. No pitting edema. Neuro: COMMON NORMALS: patient oriented x3 and moves all extremities SENSORIUM/ORIENTATION: Yes alert Skin: COMMON NORMALS: no rashes or lesions noted GENERAL SKIN EXAM: no rashes or lesions noted Urinary Catheter Management^: Jara: Cath Placed During This Visit: yes Reason for Continuing Indwelling Catheter: Accurate Measurement of Urinary Output in Critically Ill Patients Urinary Catheter Date of Insertion: 04/24/20 Urinary Catheter Time of Insertion: 18:15 Data : 04/28/20 03:25 04/28/20 06:40 A&P Assessment and plan (1) Pneumonia due to 2019 novel coronavirus: Severe COVID-19 pneumonia appears to be improving. Was able to wean down on FiO2 requirement today down as low as 60%, weaned off CPAP. Tolerating high flow cannula. Reports sense of smell is improving. Completed remdesivir. Continue Decadron. Recheck D-dimer. Appears to be improving. Recheck CRP. Some worsening of leukocytosis. Continue Zosyn, linezolid. Sputum culture unable to be collected. Continue BiPAP support as needed. High flow cannula if tolerating. Monitor I&O. Troponin is minimally elevated likely secondary to type II ischemia. Continue treatment of improving sepsis with leukocytosis, predominantly neutrophilic, intermittent tachypnea, intermittent tachycardia. Afebrile. Rapid COVID-19 noted negative. Rapid flu negative. Bacterial antigens, Legionella negative. Negative MRSA PCR. Blood culture has been collected. Follow. Continues with Jara catheter for accurate I&O. Avoid fluid overload. Close monitoring and care in the viral isolation unit. Status: Acute (2) Acute hypoxemic respiratory failure: As above. Continue treatment of severe COVID-19 pneumonia, possible superimposed bacterial pneumonia. Does not appear fluid overloaded at this time. TTE obtained, limited study, LV systolic function grossly normal, RWMA cannot be assessed. Diastolic function abnormal. Does not appear to show any significant change from prior. No PE on CTA. Status: Acute (3) Sepsis: Improving. Although leukocytosis persistent. Tachycardia overall better. Tachypnea overall better. Oxygenation appears to be very slowly improving. No growth on blood culture. Severe sepsis on presentation, lactic acid 3.6, with improvement down to 1.5. Status: Acute Qualifiers: Sepsis acute organ dysfunction status: without acute organ dysfunction Sepsis type: sepsis due to unspecified organism Qualified Code(s): A41.9 - Sepsis, unspecified organism (4) New onset a-fib: Intermittent tachycardia in the low 100s. Otherwise better. Continue metoprolol. Lovenox. Treatment of respiratory conditions. Denies chest pain but pleuritic, does have mild troponin elevation, but without significant uptrend. Likely type II NV secondary to demand and supply mismatch, arrhythmia. Mild hyperkalemia. Normal magnesium. Treat respiratory failure. Anticoagulation with Lovenox. Status: Acute (5) D-dimer, elevated: Suspected secondary to COVID-19 pneumonia. No PE noted on CTA. Anticoagulation with Lovenox as above. Status: Acute (6) Elevated troponin: She is having pleuritic discomfort in her chest, otherwise denies chest pain. Denies history of NV. Unremarkable stress test back in 2012. Troponin elevation suspected secondary to demand and supply mismatch, and arrhythmia. Due to new onset A. fib may benefit from nonemergent stress testing after she recovers to exclude progression of coronary disease. Status: Acute (7) Hyperkalemia: Resolved. Low potassium diet. Monitor renal function. Status: Acute Additional A&P Information Incidentally noted 2.5 cm cyst right hepatic lobe Poor functional status at baseline ever since left femoral fracture. Mostly nonambulatory. 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 Attestations Medical Necessity Statement*: Continue admission for assessment management of respiratory failure, severe COVID-19 pneumonia. 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
[2020-04-28] MEDS: trazodone 50 mg Tablet 25 MG PO (21:48)
[2020-04-29] VITALS (31 sets, daily range): BP systolic 119–154; BP diastolic 74–106; PULSE 74–112; RESP 19–38; TEMP 36.3–36.9; O2SAT 82–93; BMI 52.9
[2020-04-29] MEDS: ipratropium-albuterol 3 mL Neb INHALATION ×6 (00:10→19:24)
[2020-04-29] MEDS: enoxaparin 120 mg/0.8 mL Syringe SUBCUT ×2 (01:03→16:05)
[2020-04-29] MEDS: HYDROcodone-acetaminophen 5-325 mg Tablet 1 TAB PO ×2 (01:05→15:06)
[2020-04-29] MEDS: piperacillin-tazobactam 3.375 GM in sodium chloride 0.9% (plus) 50 ML IV ×3 (02:47→17:41)
[2020-04-29 04:59] LABS: Basophils % 0.1 %; Hematocrit 40.4 % (37.0-47.0); Hemoglobin 13.3 g/dL (11.5-15.3); Lymphocytes # 1.2 10^3/uL (0.8-4.8); Lymphocytes % 5.9 %; Mean Corpuscular HGB Conc 32.9 g/dL (30.0-36.0); Mean Corpuscular Hemoglobin 27.3 pg (28.0-34.0); Mean Corpuscular Volume 82.8 fL (81-99); Mean Platelet Volume 11.7 fL (7.4-10.4); Monocytes # 0.8 10^3/uL (0.2-0.9); Neutrophils # 18.58 10^3/uL (1.8-7.7); Neutrophils % 88.9 %; Nucleated Red Blood Cells % 0 %; Platelet Count 386 10^3/cmm (130-400); Red Blood Count 4.88 10^6/uL (4.1-5.3); Red Cell Distribution Width 16.3 % (12.1-15.1); White Blood Count 20.9 10^3/uL (4.0-10.0)
[2020-04-29 05:45] LABS: Alanine Aminotransferase 12 U/L (0-33); Albumin Level 2.3 g/dL (3.5-5.2); Alkaline Phosphatase 82 IU/L (35-105); Anion Gap 16.7 (5-19); Aspartate Amino Transferase 12 U/L (0-32); Blood Urea Nitrogen 24 mg/dL (8-23); C Reactive Protein 243.2 mg/L (0.0-4.9); Calcium 8.7 mg/dL (8.5-10.5); Carbon Dioxide 25 mmol/L (22-29); Chloride 98 mmol/L (98-107); Globulin 3.9 g/dL (1.3-4.6); Glucose 219 mg/dL (65-115); Osmolality Calculated 291 mOsm/kg (285-295); Potassium 4.7 mmol/L (3.5-5.1); Sodium 135 mmol/L (136-145); Total Bilirubin 0.5 mg/dL (0.15-1.2); Total Protein 6.2 g/dL (6.6-8.7)
[2020-04-29 05:49] LABS: D Dimer 0.89 ug/mIFEU (0-0.59)
[2020-04-29] MEDS: metoprolol tartrate 25 mg Tablet PO ×2 (06:36→17:10)
[2020-04-29] MEDS: linezolid premix 600 MG/300 ML PREMIX 300 MG IV ×2 (06:37→17:40)
[2020-04-29] MEDS: sennosides-docusate Tablet 1 TAB PO (08:27)
[2020-04-29] MEDS: pregabalin 75 mg Capsule PO ×2 (08:27→17:10)
[2020-04-29] MEDS: escitalopram 10 mg Tablet PO (08:27)
[2020-04-29] MEDS: pantoprazole DR 40 mg Tablet PO (08:27)
[2020-04-29] MEDS: nystatin 100,000 unit/mL UDC 5 mL 500000 UNIT PO ×4 (08:27→20:24)
[2020-04-29] MEDS: fluticasone nasal spray 16gm Btl 2 SPRAY INTRANASAL (08:30)
[2020-04-29] MEDS: nystatin powder 15 gm Btl 1 APPLIC TOPICAL (08:31)
--- NOTE | 2020-04-29 12:50 | PC.SOCIAL ---
IMM Updated Page 2 of IMM updated with patient's granddaughter Jazmyn, by phone. She verbalizes understanding. Initialed, dated, and timed to update page 2.
[2020-04-29] MEDS: ALPRAZolam 0.25 mg Tablet 0.125 MG PO (16:41)
[2020-04-29] MEDS: dexamethasone 4 mg Tablet 6 MG PO (17:10)
--- NOTE | 2020-04-29 20:05 | PM.PN ---
Subjective Subjective: Interval history: She reports she is doing all right. Still having some soreness in her mouth. Otherwise no chest pain or pressure. She feels that yesterday she was a little bit better. No nausea or vomiting. She is able to eat and drink. Vitals/I&O/Wt Last Vital Signs Temp 98.2 F 04/29/20 16:01 Pulse 77 04/29/20 19:25 Resp 22 H 04/29/20 19:25 BP 135/75 04/29/20 16:01 Pulse Ox 89 L 04/29/20 19:25 04/29/20 04/29/20 04/29/20 06:59 14:59 22:59 Intake Total 200 / 1830 1070 / 1070 590 / 1660 Output Total 450 / 1100 250 / 250 525 / 775 Balance -250 / 730 820 / 820 65 / 885 Weight last 48 hrs Weight 135.443 kg Weight 135.443 kg Physical Exam Const: COMMON NORMALS: no acute distress and patient oriented x3 HENMT: COMMON NORMALS: oropharynx normal Neck/C-Spine: COMMON NORMALS: no JVD Resp: COMMON NORMALS: normal respiratory effort and clear to auscultation bilaterally AUSCULTATION: clear to auscultation bilaterally and crackles (Few crackles at bases.) Cardio: COMMON NORMALS: no JVD, regular rhythm, S1 normal heart sound present, S2 normal heart sound present and No murmurs present (Cardio) RHYTHM: regular rhythm HEART SOUNDS: S1 normal heart sound present and S2 normal heart sound present GI: COMMON NORMALS: Normal to inspection, nondistended, normoactive bowel sounds present, Soft to palpation and non-tender PALPATION: Yes Soft to palpation Extremity: COMMON NORMALS: no joint enlargement and no pedal edema OTHER: Chronic lymphedema unchanged of both lower extremities. No pitting edema. Neuro: COMMON NORMALS: patient oriented x3 and moves all extremities Skin: COMMON NORMALS: no rashes or lesions noted GENERAL SKIN EXAM: no rashes or lesions noted Urinary Catheter Management^: Jara: Cath Placed During This Visit: yes Reason for Continuing Indwelling Catheter: Acute Urinary Retention or Obstruction Urinary Catheter Date of Insertion: 04/24/20 Urinary Catheter Time of Insertion: 18:15 Data : 04/29/20 04:25 11/07/20 04:25 Micro: Microbiology 04/23/20 20:50 Blood Culture - Final Blood NO GROWTH AFTER 5 DAYS 04/23/20 19:50 Blood Culture - Final Blood NO GROWTH AFTER 5 DAYS A&P Assessment and plan (1) Pneumonia due to 2019 novel coronavirus: Severe COVID-19 pneumonia with fluctuating condition. Discussed condition also with her daughter. The FiO2 up to 75%. Yesterday was doing pretty well, down to 60%. Yesterday was reporting regaining sense of smell. Still having some cough. Overall appears stable. CRP and D-dimer somewhat plateaued, CRP on low but worse today. Continue Decadron Completed remdesivir. Persist leukocytosis, slightly better today. Continue Zosyn, linezolid. Sputum culture unable to be collected. Continue BiPAP support as needed. High flow cannula. Monitor I&O. Troponin is minimally elevated likely secondary to type II ischemia. Continue treatment of improving sepsis. Rapid COVID-19 noted negative. Rapid flu negative. Bacterial antigens, Legionella negative. Negative MRSA PCR. Blood culture neg. Continues with Jara catheter for accurate I&O. Avoid fluid overload. Status: Acute (2) Acute hypoxemic respiratory failure: As above. Continue treatment of severe COVID-19 pneumonia, possible superimposed bacterial pneumonia. Does not appear fluid overloaded at this time. Weight steady. TTE obtained, limited study, LV systolic function grossly normal, RWMA cannot be assessed. Diastolic function abnormal. Does not appear to show any significant change from prior. No PE on CTA. Status: Acute (3) Sepsis: Improving. Although leukocytosis persistent. Tachycardia overall better. Tachypnea overall better. Oxygenation appears to be very slowly improving. No growth on blood culture. Severe sepsis on presentation, lactic acid 3.6, with improvement down to 1.5. Status: Acute Qualifiers: Sepsis acute organ dysfunction status: without acute organ dysfunction Sepsis type: sepsis due to unspecified organism Qualified Code(s): A41.9 - Sepsis, unspecified organism (4) New onset a-fib: Intermittent tachycardia in the low 100s. Otherwise better. Continue metoprolol. Lovenox. Treatment of respiratory conditions. Denies chest pain but pleuritic, does have mild troponin elevation, but without significant uptrend. Likely type II NE secondary to demand and supply mismatch, arrhythmia. Mild hyperkalemia. Normal magnesium. Treat respiratory failure. Anticoagulation with Lovenox. Status: Acute (5) D-dimer, elevated: Suspected secondary to COVID-19 pneumonia. No PE noted on CTA. Anticoagulation with Lovenox as above. Status: Acute (6) Elevated troponin: She is having pleuritic discomfort in her chest, otherwise denies chest pain. Denies history of NE. Unremarkable stress test back in 2012. Troponin elevation suspected secondary to demand and supply mismatch, and arrhythmia. Due to new onset A. fib may benefit from nonemergent stress testing after she recovers to exclude progression of coronary disease. Status: Acute (7) Hyperkalemia: Resolved. Low potassium diet. Monitor renal function. Status: Acute Additional A&P Information Candidal mucositis: With some whitish/raw appearance of the tongue, reports mouth soreness. Reports symptoms are improving with nystatin swish and swallow. Still has discomfort. Incidentally noted 2.5 cm cyst right hepatic lobe Poor functional status at baseline ever since left femoral fracture. Mostly nonambulatory. 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 Attestations Medical Necessity Statement*: Continue admission for assessment management of respiratory failure with hypoxia, severe COVID-19 infection, bacterial pneumonia. 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
[2020-04-29] MEDS: trazodone 50 mg Tablet 25 MG PO (20:24)
[2020-04-30] VITALS (28 sets, daily range): BP systolic 125–169; BP diastolic 77–125; PULSE 68–110; RESP 19–38; TEMP 36.4–37.2; O2SAT 84–94
[2020-04-30] MEDS: piperacillin-tazobactam 3.375 GM in sodium chloride 0.9% (plus) 50 ML IV ×3 (03:09→17:31)
[2020-04-30] MEDS: enoxaparin 120 mg/0.8 mL Syringe SUBCUT ×2 (03:09→13:30)
[2020-04-30 05:25] LABS: Basophils % 0.2 %; Hematocrit 42.3 % (37.0-47.0); Hemoglobin 13.5 g/dL (11.5-15.3); Lymphocytes # 1.6 10^3/uL (0.8-4.8); Lymphocytes % 9.1 %; Mean Corpuscular HGB Conc 31.9 g/dL (30.0-36.0); Mean Corpuscular Hemoglobin 27.2 pg (28.0-34.0); Mean Corpuscular Volume 85.3 fL (81-99); Mean Platelet Volume 11.8 fL (7.4-10.4); Monocytes # 0.7 10^3/uL (0.2-0.9); Monocytes % 4.1 %; Neutrophils % 84.1 %; Nucleated Red Blood Cells % 0 %; Platelet Count 377 10^3/cmm (130-400); Red Blood Count 4.96 10^6/uL (4.1-5.3); Red Cell Distribution Width 17.1 % (12.1-15.1); White Blood Count 17.5 10^3/uL (4.0-10.0)
[2020-04-30] MEDS: linezolid premix 600 MG/300 ML PREMIX 300 MG IV ×2 (05:43→17:31)
[2020-04-30] MEDS: metoprolol tartrate 25 mg Tablet PO ×2 (05:43→17:30)
--- NOTE | 2020-04-30 06:00 | XRR_ITS ---
PROCEDURE INFORMATION: Exam: XR Chest, 1 View Exam date and time: 04/30/2020 8:32 AM Age: 79 years old Clinical indication: Dyspnea; Patient HX: Covid; Additional info: Hypoxia TECHNIQUE: Imaging protocol: XR of the chest Views: 1 view. COMPARISON: CR XR chest 1V portable [id number] 04/27/2020 5:52 AM FINDINGS: Lungs: There are bilateral interstitial and alveolar pulmonary infiltrates especially in the right upper lobe and left base. These infiltrates have not significantly changed since the previous study from 03/27/2020. No definite new infiltrates are seen. Pleural space: The right costophrenic angle is slightly blunted consistent with small effusion. Heart/Mediastinum: Unremarkable. No cardiomegaly. Bones/joints: Unremarkable. XR/XR chest 1V portable [id number] IMPRESSION: No significant change in bilateral pulmonary infiltrates.
[2020-04-30 06:07] LABS: D Dimer 0.97 ug/mIFEU (0-0.59)
[2020-04-30] MEDS: fluticasone nasal spray 16gm Btl 2 SPRAY INTRANASAL (08:08)
[2020-04-30] MEDS: escitalopram 10 mg Tablet PO (08:08)
[2020-04-30] MEDS: pantoprazole DR 40 mg Tablet PO (08:09)
[2020-04-30] MEDS: nystatin 100,000 unit/mL UDC 5 mL 500000 UNIT PO ×4 (08:09→20:44)
[2020-04-30] MEDS: sennosides-docusate Tablet 1 TAB PO (08:09)
[2020-04-30] MEDS: pregabalin 75 mg Capsule PO ×2 (08:09→17:30)
[2020-04-30] MEDS: nystatin powder 15 gm Btl 1 APPLIC TOPICAL (08:10)
[2020-04-30] MEDS: ipratropium-albuterol 3 mL Neb INHALATION ×5 (08:33→23:11)
[2020-04-30 10:44] LABS: Alanine Aminotransferase 19 U/L (0-33); Albumin Level 2.3 g/dL (3.5-5.2); Alkaline Phosphatase 99 IU/L (35-105); Anion Gap 16.9 (5-19); Aspartate Amino Transferase 19 U/L (0-32); Blood Urea Nitrogen 26 mg/dL (8-23); Calcium 8.9 mg/dL (8.5-10.5); Carbon Dioxide 24 mmol/L (22-29); Chloride 103 mmol/L (98-107); Glucose 197 mg/dL (65-115); Osmolality Calculated 298 mOsm/kg (285-295); Potassium 4.9 mmol/L (3.5-5.1); Sodium 139 mmol/L (136-145); Total Bilirubin 0.4 mg/dL (0.15-1.2); Total Protein 6.3 g/dL (6.6-8.7)
[2020-04-30 10:45] LABS: C Reactive Protein 193.5 mg/L (0.0-4.9)
[2020-04-30] MEDS: benzocaine 20% 7 gm 1 APPLIC MUCOUS MEM (13:30)
[2020-04-30] MEDS: acetaminophen 325 mg Tablet 650 MG PO (14:38)
[2020-04-30] MEDS: ALPRAZolam 0.25 mg Tablet 0.125 MG PO (14:39)
[2020-04-30] MEDS: HYDROcodone-acetaminophen 5-325 mg Tablet 1 TAB PO (17:29)
[2020-04-30] MEDS: dexamethasone 4 mg Tablet 6 MG PO (17:30)
--- NOTE | 2020-04-30 19:43 | P.PN_ITS ---
Subjective Subjective: Interval history: Today feels a tiny bit better. Feels cold four blankets. Mild headache. Mild chest discomfort with inspiration. No nausea or vomiting. Continues to have soreness in her mouth. Vitals/I&O/Wt Last Vital Signs Temp 98.8 F 04/30/20 16:00 Pulse 78 04/30/20 16:18 Resp 26 H 04/30/20 16:10 BP 125/91 04/30/20 16:00 Pulse Ox 88 L 04/30/20 16:18 04/30/20 04/30/20 04/30/20 06:59 14:59 22:59 Intake Total 540 / 2370 940 / 940 Output Total 500 / 1275 750 / 750 Balance 40 / 1095 940 / 940 -750 / 190 Weight last 48 hrs Weight 136.259 kg Weight 135.443 kg Physical Exam Const: COMMON NORMALS: no acute distress, patient oriented x3 and alert NUTRITIONAL APPEARANCE: obese ORIENTATION/CONSCIOUSNESS: Yes awake OTHER: High flow cannula on. Pleasant, conversant. HENMT: COMMON NORMALS: oropharynx normal Neck/C-Spine: COMMON NORMALS: no JVD Resp: COMMON NORMALS: normal respiratory effort EFFORT & INSPECTION: Yes able to speak in complete sentences AUSCULTATION: crackles (Few crackles at bases.) Laterality: bilateral (bases) Cardio: COMMON NORMALS: no JVD, regular rhythm, S1 normal heart sound present, S2 normal heart sound present and No murmurs present (Cardio) RHYTHM: regular rhythm HEART SOUNDS: S1 normal heart sound present and S2 normal heart sound present GI: COMMON NORMALS: Normal to inspection, nondistended, normoactive bowel sounds present, Soft to palpation and non-tender PALPATION: Yes Soft to palpation Extremity: COMMON NORMALS: no joint enlargement and no pedal edema OTHER: Chronic lymphedema unchanged of both lower extremities. No pitting edema. Neuro: COMMON NORMALS: patient oriented x3 and moves all extremities SENSORIUM/ORIENTATION: Yes alert Skin: COMMON NORMALS: no rashes or lesions noted GENERAL SKIN EXAM: no rashes or lesions noted Urinary Catheter Management^: Jara: Cath Placed During This Visit: yes Reason for Continuing Indwelling Catheter: Accurate Measurement of Urinary Output in Critically Ill Patients Urinary Catheter Date of Insertion: 04/24/20 Urinary Catheter Time of Insertion: 18:15 Data : 04/30/20 04:25 04/30/20 04:25 A&P Assessment and plan (1) Pneumonia due to 2019 novel coronavirus: She had a worse day yesterday. Today appears to be a little bit better. If acute with improvement. Feels cold, although temperature is normal. Nursing has been rotating blankets for her. Nursing will check if warm water bottle or heating pad can be made available. D-dimer about the same, slightly worse. CRP today is better. With progress stalled somewhat, this morning resumed her remdesivir per discussion with pharmacy for additional 5 days. Continue Decadron. Leukocytosis is improving. Continue Zosyn, linezolid. Sputum culture unable to be collected. Improving sepsis. Continue BiPAP support as needed. High flow cannula. Did not tolerate proning. Monitor I&O. Jara. Mobilize with PT. Severe COVID-19 pneumonia with fluctuating condition. Rapid COVID-19 noted negative. Rapid flu negative. Bacterial antigens, Legionella negative. Negative MRSA PCR. Blood culture neg. Troponin is minimally elevated likely secondary to type II ischemia. Status: Acute (2) Acute hypoxemic respiratory failure: Gradual, but very slow improvement. Continue treatment of severe COVID-19 pneumonia, possible superimposed bacterial pneumonia. Monitor for fluid overload. TTE obtained, limited study, LV systolic function grossly normal, RWMA cannot be assessed. Diastolic function abnormal. Does not appear to show any significant change from prior. No PE on CTA. Status: Acute (3) Sepsis: Improving. As above. Improving leukocytosis. Tachycardia overall better. AFib. Tachypnea persists. Oxygenation appears to be very slowly improving. No growth on blood culture. Severe sepsis on presentation, lactic acid 3.6, with improvement down to 1.5. Status: Acute Qualifiers: Sepsis acute organ dysfunction status: without acute organ dysfunction Sepsis type: sepsis due to unspecified organism Qualified Code(s): A41.9 - Sepsis, unspecified organism (4) New onset a-fib: Intermittent tachycardia in the low 100s. Otherwise better. Continue metoprolol. Lovenox. Treatment of respiratory conditions. Mostly pleuritic chest discomfort, does have mild troponin elevation, but without significant uptrend. Likely type II MD secondary to demand and supply mismatch, arrhythmia. Consider nonurgent assessment for CAD after she recovers. Status: Acute (5) D-dimer, elevated: Suspected secondary to COVID-19 pneumonia. No PE noted on CTA. Anticoagulation with Lovenox as above. Status: Acute (6) Elevated troponin: She is having pleuritic discomfort in her chest, otherwise denies chest pain. Denies history of MD. Unremarkable stress test back in 2012. Troponin elevation suspected secondary to demand and supply mismatch, and arrhythmia. Due to new onset A. fib may benefit from nonemergent stress testing after she recovers to exclude progression of coronary disease. Status: Acute (7) Hyperkalemia: Resolved. Low potassium diet. Monitor renal function. Status: Acute Additional A&P Information Candidal mucositis: With raw appearance of the tongue, reports mouth soreness. Reports symptoms are improving with nystatin swish and swallow. Still has discomfort. [place] for symptoms. Denies Hx of HSV, no visible ulcerations, no labial involvement. Incidentally noted 2.5 cm cyst right hepatic lobe Poor functional status at baseline ever since left femoral fracture. Mostly nonambulatory. 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 Attestations Medical Necessity Statement*: Continue admission versus management of hypoxic respiratory failure, severe COVID-19 pneumonia, possible bacterial superimposed infection. Coding Level of Care Code Acute Internal Medicine Specialist for [facility] Fwd Diagnoses Pneumonia due to 2019 novel coronavirus U07.1; J12.89 Acute hypoxemic respiratory failure J96.01 Sepsis A41.9 Sepsis acute organ dysfunction status: without acute organ dysfunction Sepsis type: sepsis due to unspecified organism New onset a-fib I48.91 D-dimer, elevated R79.89 Elevated troponin R77.8 Hyperkalemia E87.5
[2020-05-01] VITALS (29 sets, daily range): BP systolic 124–172; BP diastolic 86–121; PULSE 63–123; RESP 12–33; TEMP 36.7–37.5; O2SAT 87–98; BMI 51.6
[2020-05-01] MEDS: enoxaparin 120 mg/0.8 mL Syringe SUBCUT (01:24)
[2020-05-01] MEDS: piperacillin-tazobactam 3.375 GM in sodium chloride 0.9% (plus) 50 ML IV ×3 (01:30→17:56)
[2020-05-01] MEDS: ipratropium-albuterol 3 mL Neb INHALATION ×3 (03:05→11:38)
[2020-05-01] MEDS: linezolid premix 600 MG/300 ML PREMIX 300 MG IV (05:41)
[2020-05-01] MEDS: metoprolol tartrate 25 mg Tablet PO (05:41)
[2020-05-01 06:09] LABS: Basophils # 0.1 10^3/uL (0.0-0.1); Basophils % 0.3 %; Eosinophils % 0.2 %; Hematocrit 42.9 % (37.0-47.0); Hemoglobin 13.6 g/dL (11.5-15.3); Lymphocytes # 1.6 10^3/uL (0.8-4.8); Lymphocytes % 10.7 %; Mean Corpuscular HGB Conc 31.7 g/dL (30.0-36.0); Mean Corpuscular Hemoglobin 27.2 pg (28.0-34.0); Mean Corpuscular Volume 85.8 fL (81-99); Monocytes # 0.6 10^3/uL (0.2-0.9); Monocytes % 3.7 %; Neutrophils # 12.26 10^3/uL (1.8-7.7); Neutrophils % 81.9 %; Nucleated Red Blood Cells % 0 %; Platelet Count 347 10^3/cmm (130-400); Red Cell Distribution Width 17.1 % (12.1-15.1)
--- NOTE | 2020-05-01 06:17 | PC.NURSE ---
Patient Awake and alert States she feels pretty good this morning. Switched to high flow per RT and sats 90% will continue to monitor
[2020-05-01 06:21] LABS: D Dimer 1.28 ug/mIFEU (0-0.59)
[2020-05-01 06:23] LABS: Fibrinogen 774 mg/dL (174-498)
[2020-05-01 06:54] LABS: Alanine Aminotransferase 28 U/L (0-33); Albumin Level 2.2 g/dL (3.5-5.2); Alkaline Phosphatase 101 IU/L (35-105); Aspartate Amino Transferase 22 U/L (0-32); Blood Urea Nitrogen 24 mg/dL (8-23); Calcium 8.5 mg/dL (8.5-10.5); Carbon Dioxide 26 mmol/L (22-29); Chloride 103 mmol/L (98-107); Glucose 196 mg/dL (65-115); Osmolality Calculated 295 mOsm/kg (285-295); Sodium 138 mmol/L (136-145); Total Bilirubin 0.4 mg/dL (0.15-1.2); Total Protein 6.2 g/dL (6.6-8.7)
[2020-05-01 06:57] LABS: Anion Gap 13.9 (5-19); Potassium 4.9 mmol/L (3.5-5.1)
[2020-05-01 07:32] LABS: Procalcitonin 0.12 ng/mL (0-0.5); Thyroid Stimulating Hormone 0.39 uIU/mL (0.27-4.20)
[2020-05-01 07:33] LABS: Creatine Phosphokinase 17 U/L (26-192); Ferritin 834 ng/mL (15-150); NT Pro B Type Natriuretic Pept 1229 pg/mL (0-450)
[2020-05-01 07:40] LABS: Lactate Dehydrogenase 351 U/L (135-214)
[2020-05-01 07:43] LABS: Iron 44 ug/dL (37-145); Percent Saturation 25.7 % (20-50); Total Iron Binding Capacity 171 mcg/dl; Unsaturated Iron Binding 127 ug/dL (112-347)
[2020-05-01] MEDS: fluticasone nasal spray 16gm Btl 2 SPRAY INTRANASAL (08:21)
[2020-05-01] MEDS: zinc gluconate 50 mg Tablet PO (08:21)
[2020-05-01] MEDS: sennosides-docusate Tablet 1 TAB PO (08:21)
[2020-05-01] MEDS: ascorbic acid 500 mg Tablet PO (08:21)
[2020-05-01] MEDS: benzonatate 100 mg Capsule PO ×2 (08:21→20:40)
[2020-05-01] MEDS: pregabalin 75 mg Capsule PO ×2 (08:21→17:56)
[2020-05-01] MEDS: pantoprazole DR 40 mg Tablet PO (08:21)
[2020-05-01] MEDS: nystatin powder 15 gm Btl 1 APPLIC TOPICAL (08:22)
[2020-05-01] MEDS: escitalopram 10 mg Tablet PO (08:23)
[2020-05-01] MEDS: nystatin 100,000 unit/mL UDC 5 mL 500000 UNIT PO ×4 (08:23→20:40)
--- NOTE | 2020-05-01 08:53 | PC.SOCIAL ---
IMM Update Pg. 2 of IMM updated and reviewed with patient's daughter, Ember Mota, over the phone. She verbalized understanding.
[2020-05-01 09:17] LABS: C Reactive Protein 151.4 mg/L (0.0-4.9)
[2020-05-01] MEDS: ALPRAZolam 0.25 mg Tablet 0.125 MG PO (10:20)
--- NOTE | 2020-05-01 12:53 | P.PN_ITS ---
Subjective Subjective: Interval history: History and physical and hospital course noted. Labs and vitals noted. Examination patient continues to remain on BiPAP. She was put on high flow little earlier in the day but became tachypneic so was put back on the BiPAP. Patient did have episode of epistaxis and mild per rectal bleeding as per the nursing staff. Patient gets awakened to the physical touch. Denies of any nausea, vomiting or any chest pain. Vitals/I&O/Wt Last Vital Signs Temp 98.0 F 05/01/20 08:00 Pulse 94 05/01/20 11:46 Resp 33 H 05/01/20 11:46 BP 172/106 05/01/20 11:00 Pulse Ox 93 05/01/20 11:46 04/30/20 05/01/20 05/01/20 22:59 06:59 14:59 Intake Total 350 / 1290 120 / 1410 810 / 810 Output Total 1650 / 1650 900 / 2550 Balance -1300 / -360 -780 / -1140 810 / 810 Weight last 48 hrs Weight 134.354 kg Weight 132.222 kg Weight 136.259 kg Physical Exam Narrative: EXAM NARRATIVE: General: No acute distress, AO x3, on facemask BiPAP HEENT: PERRLA, pupils bilaterally equal and reactive Chest: Bilateral bronchial breath sounds, more in the right middle zone and left upper and middle zone, anterior more than posterior. CVS: S1-S2 regular, no murmurs, no tachycardia, no gallops, no rubs Abdomen: Soft, nontender, no organomegaly, bowel sounds present Neuro: No focal deficits, no facial deformity, AO x3, power 5/5 in all limbs Urinary Catheter Management^: Jara: Cath Placed During This Visit: yes Reason for Continuing Indwelling Catheter: Accurate Measurement of Urinary Ou tput in Critically Ill Patients Urinary Catheter Date of Insertion: 04/24/20 Urinary Catheter Time of Insertion: 18:15 Data : 05/01/20 14:00 05/01/20 04:55 A&P Assessment and plan (1) ARDS (adult respiratory distress syndrome): Status: Acute (2) Pneumonia due to 2019 novel coronavirus: Status: Acute (3) Acute hypoxemic respiratory failure: Status: Acute (4) Sepsis: Resolved. Status: Acute Qualifiers: Sepsis acute organ dysfunction status: without acute organ dysfunction Sepsis type: sepsis due to unspecified organism Qualified Code(s): A41.9 - Sepsis, unspecified organism (5) New onset a-fib: Status: Acute (6) HTN (hypertension): Status: Acute (7) Hyperkalemia: Resolved. Low potassium diet. Monitor renal function. Status: Acute (8) D-dimer, elevated: Suspected secondary to COVID-19 pneumonia. No PE noted on CTA. Antic oagulation with Lovenox as above. Status: Acute Additional A&P Information ARDS: Secondary to COVID-19 pneumonia: Patient continues to be on BiPAP ventilation to maintain saturation over 90% with occasional transition to high flow. Patient has finished a course of remdesivir and was started on the second course yesterday. On review of literature patients with second course of antiviral treatment have poor prognosis as compared to the 1 course. Stop the antiviral. Increase dexamethasone to IV 8 mg daily. Vitamin C, zinc. Advair, Spiriva. Continue to monitor inflammatory markers regularly including ferritin, LDH, D- dimer, fibrinogen, ferritin. Oxygen supplementation keeping saturation over 90%. Start patient on IV Lasix 20 mg daily. Echocardiogram done earlier in the admission shows poor echo window with a possible normal EF. Strict input output charting. Daily weights. Tessalon Perles. Though unlikely but will check for Aspergillus antigen, sputum culture, Legionella, bacterial antigen, PCP PCR, BD glucan. Pro-Romeo remains negative, patient remains afebrile. Elevated WBC more likely due to steroids. Stop linezolid and levoflox. Has had more than 7 days of antibiotics. C/w Emmasyn. Will consult Dr. Atkinson for further assistance. Tachycardia: Documented as possible A. fib. Today patient is been having tachycardia with prolonged [place] likely PSVT. Continue with beta-cj. Hypertension: Goal blood pressure less than 140/90 mmHg. Blood pressure elevated today. Start patient on amlodipine 5 mg daily. Change metoprolol to Coreg 6.25 mg twice daily. Will uptitrate the medications accordingly. Bleeding: Patient having epistaxis with some clots along with a possible bleeding per rectal. Check stat hemoglobin and hematocrit. We will continue to monitor. For now stop the anticoagulation. If the hemoglobin remained stable will restart anticoagulation. Tonics 40 mg IV twice daily. Candidal mucositis: With raw appearance of the tongue, reports mouth soreness. Reports symptoms are improving with nystatin swish and swallow. Still has discomfort. Oragel for symptoms. Denies Hx of HSV, no visible ulcerations, no labial involvement. Incidentally noted 2.5 cm cyst right hepatic lobe Poor functional status at baseline ever since left femoral fracture. Mostly nonambulatory. 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 Hold off on Lovenox for now given possible bleed. We will continue to monitor. SCDs. Soft mechanical diet. Discussed in detail with patient's daughter regarding her medical condition and severely guarded prognosis given the fact that patient is still requiring BiPAP ventilation to keep saturation over 90%. Confirmed with the CODE STATUS again. All the questions were answered. Attestations Medical Necessity Statement*: Patient requires further hospitalization for management of ARDS secondary to COVID-19 pneumonia, patient is BiPAP dependent. Critical Care Time: Critical Care Time (min): 60 Coding Level of Care Code Acute Maintenance Mechanic Telephone for [facility] Fwd Diagnoses ARDS (adult respiratory distress syndrome) J80 Pneumonia due to 2019 novel coronavirus U07.1; J12.89 Acute hypoxemic respiratory failure J96.01 Sepsis A41.9 Sepsis acute organ dysfunction status: without acute organ dysfunction Sepsis type: sepsis due to unspecified organism New onset a-fib I48.91 HTN (hypertension) I10 Hyperkalemia E87.5 D-dimer, elevated R79.89
[2020-05-01] MEDS: pantoprazole 40 mg SDV IVP (13:53)
[2020-05-01] MEDS: FUROsemide 10 mg/mL SDV 2mL 20 MG IVP (13:53)
[2020-05-01] MEDS: dexamethasone 4 mg/mL INJ 8 MG IVP (13:53)
[2020-05-01] MEDS: amlodipine 10 mg Tablet 5 MG PO (13:54)
[2020-05-01 14:58] LABS: Hematocrit 42.9 % (37.0-47.0); Hemoglobin 13.8 g/dL (11.5-15.3)
[2020-05-01 15:38] LABS: Influenza A by IFA Negative (Negative); Influenza B by IFA Negative (Negative)
[2020-05-01] MEDS: carvedilol 3.125 mg Tablet PO (18:02)
--- NOTE | 2020-05-01 19:01 | PC.NURSE ---
Called RT, pt states she is tired of breathing, wants her Bipap
--- NOTE | 2020-05-01 19:39 | PM.CONSULT ---
Providers/Reason For Consult Consulting Physican/Specialty*: Pulmonary critical care medicine Reason for Consult*: ARDS secondary to COVID-19 pneumonia. Attending Physician: Jovanny Germain MD Primary Care Provider: Favian Clark DO History of Present Illness History of Present Illness Hermelinda Mckeon is a 79 year old female who presented to the hospital on April 24 with hypoxia and shortness of breath after being diagnosed with COVID-19 on April 05. The patient had a CT angiogram of the chest on April 20 which did not reveal any pulmonary embolism. Extensive groundglass and consolidating patchy infiltrate in bilateral lungs are noted. The patient had a repeat CT scan again on April 23 which revealed similar changes. She also had an echocardiogram on April 26 which had poor echocardiographic windows. The LV systolic function appeared grossly normal. There is mild left ventricle hypertrophy and abnormal diastolic function. Since admission, the patient had been on high flow nasal cannula and BiPAP. She has completed a course of remdesivir and is currently on dexamethasone 8 mg daily. The patient was seen and examined. Appeared comfortable laying in bed having dinner. The patient was asking whether I thought she was can make it. Bedside ultrasound revealed bilateral B-lines. The patient diuresed well today. She denies any fever. Mild cough with minimal sputum production. She has mild leukocytosis. The highest D-dimer that the patient had was 2.22 on admission. Her D-dimer today is 1.28. Patient was on apixaban however she had nosebleeds and GI bleed and apixaban was stopped today. All microbiologic work-up have been negative so far. Review of Systems Narrative: Unable to obtain a detailed review of system because of the patient's clinical condition. Meds/Allergies Home Medications and Allergies Home Medications Medication Instructions Recorded Confirmed Last Taken Type Ocuvite Adult 50 Plus 1 tab PO DAILY 04/24/20 04/24/20 Unknown History acetaminophen 650 mg PO QID PRN 04/24/20 04/24/20 Unknown History bisacodyl 5 mg PO DAILY PRN 04/24/20 04/24/20 Unknown History cetirizine [Zyrtec] 5 mg PO DAILY 04/24/20 04/24/20 Unknown History dexamethasone 6 mg PO DAILY 04/24/20 04/24/20 04/20/20 01:09 History docusate sodium [Colace] 200 mg PO DAILY 04/24/20 04/24/20 Unknown History enoxaparin [Lovenox] 40 mg SUBCUT DAILY 04/24/20 04/24/20 04/23/20 00:17 History escitalopram oxalate 10 mg PO DAILY 04/24/20 04/24/20 Unknown History fluticasone propionate 2 spray INTRANASAL DAILY 04/24/20 04/24/20 Unknown History hydrocodone-acetaminophen [[place]] 1 tab PO Q6H PRN 04/24/20 04/24/20 Unknown History ibuprofen 400 mg PO Q6H 04/24/20 04/24/20 Unknown History levofloxacin 750 mg PO DAILY 04/24/20 04/24/20 04/23/20 11:00 History magnesium hydroxide [Milk of 400 mg PO DAILY 04/24/20 04/24/20 Unknown History Magnesia] methyl salicylate-menthol 1 patch TOPICAL Q12H 04/24/20 04/24/20 Unknown History [Salonpas(m.salicylate-menthol)] nystatin 1 applic TOPICAL DAILY 04/24/20 04/24/20 Unknown History pantoprazole 40 mg PO DAILY 04/24/20 04/24/20 Unknown History polyvinyl alcohol-povidone [Clear 1 drp OPHTHALMIC (EYE) TID PRN 04/24/20 04/24/20 Unknown History Eyes Natural Tears] prednisone 40 mg PO DAILY 04/24/20 04/24/20 Unknown History pregabalin [Lyrica] 75 mg PO BID 04/24/20 04/24/20 Unknown History promethazine 25 mg PO Q6H PRN 04/24/20 04/24/20 Unknown History sennosides-docusate sodium [Senna 1 tab-cap PO DAILY 04/24/20 04/24/20 Unknown History Plus] sodium phosphates [Enema] 118 ml [place] DAILY PRN 04/24/20 04/24/20 Unknown History tizanidine 4 mg PO TID PRN 04/24/20 04/24/20 Unknown History Allergies Allergy/AdvReac Type Severity Reaction Status Date / Time No Known Allergies Allergy Verified 04/23/20 19:47 Current Medications Current Medications Generic Name Dose Route Start Last Admin Trade Name Freq PRN Reason Stop Dose Admin Acetaminophen 650 mg 04/24/20 17:38 04/30/20 14:38 Tylenol PO 650 mg Q6H PRN Administration Mild/Mod Pain Or Temp >/= 101 Hydrocodone Bitart/Acetaminophen 1 tab 04/27/20 15:12 04/30/20 17:29 Hydrocodone-Acetaminophen 5-325 Mg Tablet PO 1 tab Q6H PRN Administration MODERATE PAIN Alprazolam 0.125 mg 04/29/20 16:29 05/01/20 10:20 Xanax PO 0.125 mg TID PRN Administration ANXIETY Amlodipine Besylate 5 mg 05/01/20 12:45 05/01/20 13:54 Amlodipine 10 Mg Tablet PO 5 mg DAILY YAN Administration Ascorbic Acid 500 mg 05/01/20 09:00 05/01/20 08:21 Vitamin C PO 500 mg DAILY YAN Administration Benzocaine 1 applic 04/29/20 20:10 04/30/20 13:30 Orajel MUCOUS MEM 1 applic PRN PRN Administration PAIN Benzonatate 100 mg 05/01/20 09:00 05/01/20 14:51 Tessalon Pearls PO Not Given TID YAN Carvedilol 3.125 mg 05/01/20 18:00 05/01/20 18:02 Carvedilol 3.125 Mg Tablet PO 3.125 mg BID YAN Administration Dexamethasone 8 mg 05/01/20 12:45 05/01/20 13:53 Dexamethasone 4 Mg/Ml Inj IVP 8 mg Q24H YAN Administration Escitalopram Oxalate 10 mg 04/25/20 09:00 05/01/20 08:23 Lexapro PO 10 mg DAILY YAN Administration Fluticasone Propionate 2 spray 04/25/20 09:00 05/01/20 08:21 Flonase INTRANASAL 2 spray DAILY YAN Administration Furosemide 20 mg 05/01/20 12:45 05/01/20 13:53 Furosemide 10 Mg/Ml Sdv 2ml IVP 20 mg Q24H YAN Administration Piperacillin Sod/Tazobactam 50 mls @ 12.5 mls/hr 04/26/20 02:30 05/01/20 17:56 Sod 3.375 gm/ Sodium Chloride IV 12.5 mls/hr Q8H YAN Administration Protocol Nystatin 1 applic 04/25/20 09:00 05/01/20 08:22 Nystatin Powder TOPICAL 1 applic DAILY YAN Administration Nystatin 500,000 unit 04/25/20 09:00 05/01/20 16:42 Nystatin PO 500,000 unit QID YAN Administration Pantoprazole Sodium 40 mg 05/01/20 13:00 05/01/20 13:53 Pantoprazole 40 Mg Sdv IVP 40 mg Q12H YAN Administration Pregabalin 75 mg 04/24/20 18:30 05/01/20 17:56 Lyrica PO 75 mg BID YAN Administration Fluticasone/Salmeterol 1 puff 05/01/20 08:00 05/01/20 08:33 Advair Diskus 250-50 INHALATION 1 puff BID.RESPIRATORY YAN Administration Senna/Docusate Sodium 1 tab 04/25/20 09:00 05/01/20 08:21 Senna-S PO 1 tab DAILY YAN Administration Trazodone HCl 25 mg 04/26/20 21:15 04/29/20 20:24 Desyrel PO 25 mg BEDTIME PRN Administration SLEEP Zinc Gluconate 50 mg 05/01/20 09:00 05/01/20 08:21 Zinc Gluconate PO 50 mg DAILY YAN Administration PFSH Acute PFSH: Medical History Activity extremely limited Anxiety and depression Breast cancer Degenerative arthritis Fracture of left femur HLD (hyperlipidemia) HTN (hypertension) Partial small bowel obstruction PUD (peptic ulcer disease) Surgical History History of colostomy History of modified radical mastectomy History of partial colectomy Family History Other No significant family history Social History Smoking and tobacco status: never smoked Alcohol intake: never Housing: Detention Marital status: / Current occupational status: retired Vitals/I&O/Wt Last Vital Signs Temp 98.4 F 05/01/20 19:00 Pulse 86 05/01/20 19:00 Resp 25 H 05/01/20 19:00 BP 162/92 05/01/20 19:00 Pulse Ox 89 L 05/01/20 19:00 05/01/20 05/01/20 05/01/20 06:59 14:59 22:59 Intake Total 120 / 1410 860 / 860 240 / 1100 Output Total 900 / 2550 1500 / 1500 Balance -780 / -1140 860 / 860 -1260 / -400 Weight last 48 hrs Weight 296 lb 3.2 oz Weight 291 lb 8 oz Weight 300 lb 6.4 oz Physical Exam Narrative: EXAM NARRATIVE: General: Patient is awake alert and oriented, in no distress while resting. Neck: No JVD Respiratory: Auscultation: Bilateral crackles at the posterior lung bases no wheezing or rhonchi Cardiovascular: Tachycardia, variable first heart sound, no murmur Abdomen: Soft, nontender, distended from obesity, positive bowel sound Skin: No peripheral edema Neuro: Mental status is normal, no gross cranial nerve deficit, normal motor function grossly Urinary Catheter Management^: Jara: Cath Placed During This Visit: yes Reason for Continuing Indwelling Catheter: Accurate Measurement of Urinary Output in Critically Ill Patients Urinary Catheter Date of Insertion: 04/24/20 Urinary Catheter Time of Insertion: 18:15 Data Other Data: Attestation for Other Data: I personally reviewed and interpreted the following: Other data: I have reviewed the patient's laboratory, microbiologic and radiologic data A&P Assessment and plan (1) ARDS (adult respiratory distress syndrome): The patient is in the fourth week of her illness. She is still requiring a significant amount of oxygen. There is no evidence of fluid overload or secondary bacterial or fungal infection at this time. The patient is receiving dexamethasone. The anticoagulation was stopped because of GI bleed. At this point, we are going to hope for the best with supportive therapy. The patient is receiving all the treatment that is necessary. Unfortunately, intubating her would likely not change her overall outcome. The patient can be tried with high flow and if necessary nonrebreather mask over the high flow nasal cannula. Thank you for the consultation. Status: Acute (2) Pneumonia due to 2019 novel coronavirus: Status: Acute Coding Level of Care Code Acute [employer] Solutions Architect for [facility] Diagnoses ARDS (adult respiratory distress syndrome) J80 Pneumonia due to 2019 novel coronavirus U07.1; J12.89
[2020-05-01] MEDS: albuterol 8 gm MDI 2 PUFF INHALATION (19:44)
--- NOTE | 2020-05-01 20:16 | PC.NURSE ---
Pt placed on Bipap, pt states she feels much better with Bipap
[2020-05-01] MEDS: guaiFENesin 600 mg Tablet PO (20:40)
[2020-05-01] MEDS: trazodone 50 mg Tablet 25 MG PO (20:44)
--- NOTE | 2020-05-01 22:30 | PC.NURSE ---
Pt has dark blood from vaginal area, pt states she has had full hysterectomy in 1984, area cleaned, will continue to monitor
[2020-05-02] VITALS (33 sets, daily range): BP systolic 104–166; BP diastolic 72–116; PULSE 68–119; RESP 15–55; TEMP 36.6–37.2; O2SAT 87–96
[2020-05-02] MEDS: pantoprazole 40 mg SDV IVP ×2 (00:46→12:17)
[2020-05-02] MEDS: piperacillin-tazobactam 3.375 GM in sodium chloride 0.9% (plus) 50 ML IV ×2 (02:15→10:15)
[2020-05-02 05:15] LABS: Basophils % 0.3 %; Eosinophils % 0.1 %; Hematocrit 43.6 % (37.0-47.0); Lymphocytes # 1.9 10^3/uL (0.8-4.8); Lymphocytes % 13.3 %; Mean Corpuscular HGB Conc 32.1 g/dL (30.0-36.0); Mean Corpuscular Hemoglobin 27.2 pg (28.0-34.0); Mean Corpuscular Volume 84.8 fL (81-99); Mean Platelet Volume 11.7 fL (7.4-10.4); Monocytes # 0.8 10^3/uL (0.2-0.9); Monocytes % 5.3 %; Neutrophils # 11.21 10^3/uL (1.8-7.7); Neutrophils % 77.8 %; Nucleated Red Blood Cells % 0 %; Platelet Count 342 10^3/cmm (130-400); Red Blood Count 5.14 10^6/uL (4.1-5.3); Red Cell Distribution Width 16.7 % (12.1-15.1); White Blood Count 14.4 10^3/uL (4.0-10.0)
[2020-05-02 05:29] LABS: Fibrinogen 653 mg/dL (174-498)
[2020-05-02 05:32] LABS: D Dimer 1.38 ug/mIFEU (0-0.59)
[2020-05-02 05:57] LABS: Alanine Aminotransferase 35 U/L (0-33); Albumin Level 2.4 g/dL (3.5-5.2); Alkaline Phosphatase 104 IU/L (35-105); Anion Gap 14.4 (5-19); Aspartate Amino Transferase 23 U/L (0-32); Blood Urea Nitrogen 28 mg/dL (8-23); C Reactive Protein 123.2 mg/L (0.0-4.9); Calcium 8.9 mg/dL (8.5-10.5); Carbon Dioxide 28 mmol/L (22-29); Chloride 100 mmol/L (98-107); Creatine Phosphokinase 15 U/L (26-192); Ferritin 851 ng/mL (15-150); Globulin 4.2 g/dL (1.3-4.6); Glucose 205 mg/dL (65-115); Lactate Dehydrogenase 384 U/L (135-214); NT Pro B Type Natriuretic Pept 702 pg/mL (0-450); Osmolality Calculated 297 mOsm/kg (285-295); Potassium 4.4 mmol/L (3.5-5.1); Sodium 138 mmol/L (136-145); Total Bilirubin 0.4 mg/dL (0.15-1.2); Total Protein 6.6 g/dL (6.6-8.7)
--- NOTE | 2020-05-02 06:00 | XR_ITS ---
WS: [id number] XR chest 1V portable [id number] REASON FOR EXAM: covid FINDINGS: Compared to previous examination of 04/30/2020 the density of the diffuse infiltrates in both lungs ap pears to be decreasing which is most evident in the right upper and right lower lung. No new chest findings are identified. XR/XR chest 1V portable [id number] IMPRESSION: Improving infiltrative changes as above.
[2020-05-02] MEDS: albuterol 8 gm MDI 2 PUFF INHALATION ×2 (08:31→19:41)
[2020-05-02] MEDS: zinc gluconate 50 mg Tablet PO (09:03)
[2020-05-02] MEDS: pregabalin 75 mg Capsule PO ×2 (09:03→17:07)
[2020-05-02] MEDS: benzonatate 100 mg Capsule PO ×3 (09:03→20:42)
[2020-05-02] MEDS: ascorbic acid 500 mg Tablet PO (09:04)
[2020-05-02] MEDS: nystatin 100,000 unit/mL UDC 5 mL 500000 UNIT PO ×4 (09:04→20:42)
[2020-05-02] MEDS: fluticasone nasal spray 16gm Btl 2 SPRAY INTRANASAL (09:04)
[2020-05-02] MEDS: amlodipine 10 mg Tablet 5 MG PO (09:04)
[2020-05-02] MEDS: sennosides-docusate Tablet 1 TAB PO (09:04)
[2020-05-02] MEDS: escitalopram 10 mg Tablet PO (09:05)
[2020-05-02] MEDS: carvedilol 3.125 mg Tablet PO (09:06)
[2020-05-02] MEDS: nystatin powder 15 gm Btl 1 APPLIC TOPICAL (09:06)
[2020-05-02] MEDS: guaiFENesin 600 mg Tablet PO ×2 (09:07→20:42)
--- NOTE | 2020-05-02 11:29 | P.PN_ITS ---
Subjective Subjective: Interval history: Acute events overnight. Today morning on examination patient is a lot more awake able to complete conversation with me. He is AO x3. Complaining of feeling tired. During my visit with the patient she was able to do incentive spirometry bringing it up to 500 cc and minimal Acapella. Aspiratory nurse patient did have an episode of blood per rectally though on my examination I could not see any blood. Patient does have a colostomy bag in which there is green-colored BM. During my exam patient was on high flow 45 L 70% saturating 93%. During the day patient worked minimally with physical therapy but got a little out of breath after which it was put back on BiPAP. Vitals/I&O/Wt Last Vital Signs Temp 98.2 F 05/02/20 08:00 Pulse 107 H 05/02/20 10:00 Resp 26 H 05/02/20 10:00 BP 136/101 05/02/20 10:00 Pulse Ox 94 05/02/20 10:00 05/01/20 05/02/20 05/02/20 22:59 06:59 14:59 Intake Total 290 / 1150 490 / 490 Output Total 1900 / 1900 400 / 2300 Balance -1610 / -750 -400 / -1150 490 / 490 Weight last 48 hrs Weight 132.313 kg Weight 134.354 kg Weight 132.222 kg Physical Exam Narrative: EXAM NARRATIVE: General: No acute distress, AO x3, morbidly obese HEENT: PERRLA, pupils bilaterally equal and reactive Chest: Bilateral bronchial breath sounds, more in the right middle zone and left upper and middle zone, anterior more than posterior, decreased air entry all over the lung [place]. CVS: S1-S2 regular, no murmurs, no tachycardia, no gallops, no rubs Abdomen: Soft, nontender, no organomegaly, bowel sounds present, colostomy bag with stool present in right lower quadrant. Neuro: No focal deficits, no facial deformity, AO x3, power 4/5 in all limbs Urinary Catheter Management^: Jara: Cath Placed During This Visit: yes Reason for Continuing Indwelling Catheter: Accurate Measurement of Urinary Output in Critically Ill Patients Urinary Catheter Date of Insertion: 04/24/20 Urinary Catheter Time of Insertion: 18:15 Data : 05/02/20 04:00 05/02/20 04:00 Micro: Microbiology 05/01/20 14:20 MRSA Culture - Final Nose A&P Assessment and plan (1) ARDS (adult respiratory distress syndrome): Status: Acute (2) Pneumonia due to 2019 novel coronavirus: Status: Acute (3) Acute hypoxemic respiratory failure: Status: Acute (4) Sepsis: Resolved. Status: Acute Qualifiers: Sepsis acute organ dysfunction status: without acute organ dysfunction Sepsis type: sepsis due to unspecified organism Qualified Code(s): A41.9 - Se psis, unspecified organism (5) HTN (hypertension): Status: Acute (6) Hyperkalemia: Resolved. Low potassium diet. Monitor renal function. Status: Acute (7) D-dimer, elevated: Suspected secondary to COVID-19 pneumonia. No PE noted on CTA. Anticoagulation with Lovenox as above. Status: Acute (8) Paroxysmal A-fib: Status: Acute Additional A&P Information ARDS: Secondary to COVID-19 pneumonia: Patient continues to be on BiPAP ventilation to maintain saturation over 90% with occasional transition to high flow. Patient has finished a course of remdesivir and was started on the second course yesterday. On review of literature patients with second course of antiviral treatment have poor prognosis as compared to the 1 course. Stop the antiviral. Greatly appreciate Dr. Atkinson's input. As per Dr. Atkinson unfortunately patient is on maximum needed treatment at present now it is all about letting her lungs heal on itself and monitor her pulmonary status going forward. Plan would be to try to avoid intubation as much as possible. Will wean off oxygen keeping saturation between 85 to 90%. Continue with dexamethasone IV 8 mg daily. Vitamin C, zinc. Advair, Spiriva. Continue to monitor inflammatory markers regularly including ferritin, LDH, D- dimer, fibrinogen, ferritin. Oxygen supplementation keeping saturation over 90%. Continue with IV Lasix 20 mg daily. Echocardiogram done earlier in the admi ssion shows poor echo window with a possible normal EF. Strict input output charting. Patient around 1.5 L negative last 24 hours. proBNP improving. Daily weights. Tessalon Perles. Though unlikely but will check for Aspergillus antigen, sputum culture, Legionella, bacterial antigen, PCP PCR, BD glucan. Pro-Romeo remains negative, patient remains afebrile. Elevated WBC more likely due to steroids. Stop linezolid and levoflox. Has had more than 7 days of antibiotics. Today will be day 10 of Zosyn. Will discontinue after today. Will consult Dr. Atkinson for further assistance. Hypertension: Goal blood pressure less than 140/90 mmHg. Blood pressure better controlled today. Continue with amlodipine 5 mg and Coreg 6.25 mg twice daily. We will continue to monitor. Tachycardia: Documented as possible A. fib. Today patient is been having tachycardia with prolonged [place] likely PSVT. Continue with beta-cj. Bleeding: Patient having epistaxis with some clots along with a possible bleeding per rectal. Hemoglobin has remained stable. Will repeat hemoglobin at 3 PM. If remains stable will start patient on prophylactic Lovenox dose. We will continue to monitor. SCD for DVT prophylaxis for now. Candidal mucositis: With raw appearance of the tongue, reports mouth soreness. Reports symptoms are improving with nystatin swish and swallow. Still has discomfort. Oragel for symptoms. Denies Hx of HSV, no visible ulcerations, no labial involvement. Incidentally noted 2.5 cm cyst right hepatic lobe Poor functional status at baseline ever since left femoral fracture. Mostly nonambulatory. 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 Hold off on Lovenox for now given possible bleed. We will continue to monitor. SCDs. Soft mechanical diet. Discussed in detail with patient's daughter regarding her medical condition and severely guarded prognosis given the fact that patient is still requiring BiPAP ventilation to keep saturation over 90%. Confirmed with the CODE STATUS again. All the questions were answered. Attestations Medical Necessity Statement*: Patient requires further hospitalization for management of ongoing ARDS, high flow dependence because severe COVID-19 pneumonia. Time Spent in Patient Care: Greater than 35 minutes (>than 50% of time spent in counselling and/or direct pt care on unit) . Coding Level of Care Code Acute Sheriff Detective for [facility] Fwd Diagnoses ARDS (adult respiratory distress syndrome) J80 Pneumonia due to 2019 novel coronavirus U07.1; J12.89 Acute hypoxemic respiratory failure J96.01 Sepsis A41.9 Sepsis acute organ dysfunction status: without acute organ dysfunction Sepsis type: sepsis due to unspecified organism HTN (hypertension) I10 Hyperkalemia E87.5 D-dimer, elevated R79.89 Paroxysmal A-fib I48.0
[2020-05-02] MEDS: ALPRAZolam 0.25 mg Tablet 0.125 MG PO (12:17)
[2020-05-02] MEDS: dexamethasone 4 mg/mL INJ 8 MG IVP (12:17)
[2020-05-02] MEDS: FUROsemide 10 mg/mL SDV 2mL 20 MG IVP (12:18)
[2020-05-02 16:31] LABS: Glucose Point of Care 215 mg/dL (70-110)
[2020-05-02] MEDS: carvedilol 6.25 mg Tablet PO (17:07)
[2020-05-02 18:25] LABS: Basophils # 0.1 10^3/uL (0.0-0.1); Basophils % 0.3 %; Eosinophils % 0.1 %; Hematocrit 45.8 % (37.0-47.0); Hemoglobin 14.5 g/dL (11.5-15.3); Lymphocytes # 1.2 10^3/uL (0.8-4.8); Lymphocytes % 6.5 %; Mean Corpuscular HGB Conc 31.7 g/dL (30.0-36.0); Mean Corpuscular Hemoglobin 27.2 pg (28.0-34.0); Mean Corpuscular Volume 85.8 fL (81-99); Mean Platelet Volume 11.9 fL (7.4-10.4); Monocytes # 0.5 10^3/uL (0.2-0.9); Monocytes % 2.7 %; Neutrophils # 16.53 10^3/uL (1.8-7.7); Neutrophils % 87.6 %; Nucleated Red Blood Cells # 0.1 /100WBC; Nucleated Red Blood Cells % 0.3 %; Platelet Count 350 10^3/cmm (130-400); Red Blood Count 5.34 10^6/uL (4.1-5.3); Red Cell Distribution Width 17.1 % (12.1-15.1); White Blood Count 18.8 10^3/uL (4.0-10.0)
[2020-05-02 19:08] LABS: Estmated Average Glucose 154
--- NOTE | 2020-05-02 19:29 | PC.PHAR ---
Received report from NASIR Hernandez
[2020-05-02 20:37] LABS: Glucose Point of Care 146 mg/dL (70-110)
[2020-05-02] MEDS: trazodone 50 mg Tablet 25 MG PO (20:42)
[2020-05-02 23:46] LABS: Glucose Point of Care 173 mg/dL (70-110)
[2020-05-03] VITALS (31 sets, daily range): BP systolic 120–155; BP diastolic 72–114; PULSE 64–117; RESP 16–90; TEMP 36.2–36.6; O2SAT 90–97; BMI 51.6
[2020-05-03] MEDS: ALPRAZolam 0.25 mg Tablet 0.125 MG PO ×4 (00:09→20:46)
[2020-05-03] MEDS: pantoprazole 40 mg SDV IVP ×2 (00:09→12:44)
--- NOTE | 2020-05-03 03:24 | PC.NURSE ---
Notified Dr. Ross pt urine output of 50cc from 2200 to 0300. No orders received
[2020-05-03 04:09] LABS: Basophils # 0.1 10^3/uL (0.0-0.1); Basophils % 0.3 %; Eosinophils % 0.1 %; Hematocrit 43.5 % (37.0-47.0); Hemoglobin 13.8 g/dL (11.5-15.3); Lymphocytes # 2.3 10^3/uL (0.8-4.8); Lymphocytes % 13.9 %; Mean Corpuscular HGB Conc 31.7 g/dL (30.0-36.0); Mean Corpuscular Hemoglobin 27.6 pg (28.0-34.0); Mean Platelet Volume 11.7 fL (7.4-10.4); Monocytes # 0.9 10^3/uL (0.2-0.9); Monocytes % 5.6 %; Neutrophils % 76.8 %; Nucleated Red Blood Cells % 0.2 %; Platelet Count 331 10^3/cmm (130-400); Red Cell Distribution Width 17.2 % (12.1-15.1); White Blood Count 16.5 10^3/uL (4.0-10.0)
[2020-05-03 04:16] LABS: Blood Gas Allen Test Pos; Blood Gas Sample Type Arterial
[2020-05-03 04:18] LABS: Blood Gas Sample Site Radial, left
[2020-05-03 04:36] LABS: C Reactive Protein 67.2 mg/L (0.0-4.9); Creatine Phosphokinase 14 U/L (26-192); Ferritin 673 ng/mL (15-150); Lactate Dehydrogenase 328 U/L (135-214); NT Pro B Type Natriuretic Pept 436 pg/mL (0-450)
[2020-05-03 04:38] LABS: Fibrinogen 665 mg/dL (174-498)
[2020-05-03 06:01] LABS: Alanine Aminotransferase 37 U/L (0-33); Albumin Level 2.3 g/dL (3.5-5.2); Alkaline Phosphatase 104 IU/L (35-105); Anion Gap 17.6 (5-19); Aspartate Amino Transferase 32 U/L (0-32); Blood Urea Nitrogen 27 mg/dL (8-23); Carbon Dioxide 26 mmol/L (22-29); Chloride 103 mmol/L (98-107); Glucose 161 mg/dL (65-115); Osmolality Calculated 303 mOsm/kg (285-295); Potassium 4.6 mmol/L (3.5-5.1); Sodium 142 mmol/L (136-145); Total Bilirubin 0.3 mg/dL (0.15-1.2); Total Protein 6.3 g/dL (6.6-8.7)
--- NOTE | 2020-05-03 06:45 | PC.NURSE ---
report to NASIR Hernandez.
[2020-05-03 07:30] LABS: Glucose Point of Care 168 mg/dL (70-110)
[2020-05-03] MEDS: sennosides-docusate Tablet 1 TAB PO (09:40)
[2020-05-03] MEDS: amlodipine 10 mg Tablet 5 MG PO (09:40)
[2020-05-03] MEDS: benzonatate 100 mg Capsule PO ×3 (09:40→20:45)
[2020-05-03] MEDS: fluticasone nasal spray 16gm Btl 2 SPRAY INTRANASAL (09:41)
[2020-05-03] MEDS: nystatin 100,000 unit/mL UDC 5 mL 500000 UNIT PO ×4 (09:41→21:57)
[2020-05-03] MEDS: escitalopram 10 mg Tablet PO (09:41)
[2020-05-03] MEDS: ascorbic acid 500 mg Tablet PO (09:41)
[2020-05-03] MEDS: enoxaparin 40 mg/0.4 mL Syringe SUBCUT (09:41)
[2020-05-03] MEDS: carvedilol 6.25 mg Tablet PO ×2 (09:41→17:11)
[2020-05-03] MEDS: pregabalin 75 mg Capsule PO ×2 (09:41→17:13)
[2020-05-03] MEDS: guaiFENesin 600 mg Tablet PO ×2 (09:41→20:45)
[2020-05-03] MEDS: zinc gluconate 50 mg Tablet PO (10:56)
[2020-05-03] MEDS: nystatin powder 15 gm Btl 1 APPLIC TOPICAL (10:56)
[2020-05-03 11:32] LABS: Glucose Point of Care 118 mg/dL (70-110)
[2020-05-03] MEDS: dexamethasone 4 mg/mL INJ 8 MG IVP (11:54)
[2020-05-03] MEDS: FUROsemide 10 mg/mL SDV 2mL 20 MG IVP (11:55)
[2020-05-03 13:47] LABS: ABG PCO2 35.5 mmHg (35-45); ABG PH Result 7.53 (7.35-7.45); Alveolar-Arterial Oxygen Gradi 8.5 mmHg (5-10); Arterial Blood Gas Hematocrit 48.3 % (37-47); Base Excess ABG 6.7 mmol/L (-2.0-2.0); HCO3 ABG 29.5 mmol/L (22-26); Oxygen Saturation ABG 81.7; PO2 ABG 40.9 mmHg (80.0-100.0); Potassium Level - ABG 3.6 mmol/L (3.5-5.0)
[2020-05-03 13:48] LABS: Carboxyhemoglobin 0.1 %THgb (0.4-20.1); HGB O2 Sat 81.1 % (95-100); Ionized Calcium Level - ABG 1.1 mmol/L (1.1-1.4); Methemoglobin 0.6 % (0.4-1.5); Total Hemoglobin 15.8 g/dL (12-16)
[2020-05-03 13:48] LABS: D Dimer 2.28 ug/mIFEU (0-0.59)
--- NOTE | 2020-05-03 13:50 | PC.SOCIAL ---
IMM Updated Updated pt's family, Ember, on Pg 2 IMM, via phone. No questions voiced. Signed, dated, & timed copy in chart.
--- NOTE | 2020-05-03 15:32 | P.PN_ITS ---
Subjective Subjective: Interval history: No acute events overnight. Patient has remained hemodynamically stable. On examination patient is on 65% 40 L high flow nasal cannula saturating 94%. She is able to have complete conversations with me. We did discuss in detail that patient needs to do incentive spirometry, Acapella and get out of bed to chair. Patient verbalized understanding and states she would continue to do that. Patient has remained hemodynamically stable. Patient has not had any further episodes of bleeding both epistaxis or correctly. Vitals/I&O/Wt Last Vital Signs Temp 97.1 F L 05/03/20 12:00 Pulse 80 05/03/20 15:23 Resp 24 H 05/03/20 15:00 BP 136/82 05/03/20 15:00 Pulse Ox 93 05/03/20 15:23 05/03/20 05/03/20 05/03/20 06:59 14:59 22:59 Intake Total 220 / 1420 600 / 600 Output Total 1425 / 3925 125 / 125 Balance -1205 / -2505 475 / 475 Weight last 48 hrs Weight 132.313 kg Weight 132.313 kg Physical Exam Narrative: EXAM NARRATIVE: General: No acute distress, AO x3, morbidly obese HEENT: PERRLA, pupils bilaterally equal and reactive Chest: Bilateral bronchial breath sounds, more in the right middle zone and left upper and middle zone, anterior more than posterior, decreased air entry all over the lung hurley. CVS: S1-S2 regular, no murmurs, no tachycardia, no gallops, no rubs Abdomen: Soft, nontender, no organomegaly, bowel sounds present, colostomy bag with stool present in right lower quadrant. Neuro: No focal deficits, no facial deformity, AO x3, power 4/5 in all limbs Urinary Catheter Management^: Jara: Cath Placed During This Visit: yes Reason for Continuing Indwelling Catheter: Accurate Measurement of Urinary Output in Critically Ill Patients Urinary Catheter Date of Insertion: 04/24/20 Urinary Catheter Time of Insertion: 18:15 Data : 05/03/20 03:40 05/03/20 03:40 Micro: Microbiology 05/02/20 17:30 Occult Blood (FIT) - Final Stool Routine Collection 05/01/20 14:20 MRSA Culture - Final Nose A&P Assessment and plan (1) ARDS (adult respiratory distress syndrome): Status: Acute (2) Pneumonia due to 2019 novel coronavirus: Status: Acute (3) Acute hypoxemic respiratory failure: Status: Acute (4) Sepsis: Resolved. Status: Acute Qualifiers: Sepsis acute organ dysfunction status: without acute organ dysfunction Sepsis type: sepsis due to unspecified organism Qualified Code(s): A41.9 - Sepsis, unspecified organism (5) HTN (hypertension): Status: Acute (6) Hyperkalemia: Resolved. Low potassium diet. Monitor renal function. Status: Acute (7) D-dimer, elevated: Suspected secondary to COVID-19 pneumonia. No PE noted on CTA. Anticoagulation with Lovenox as above. Status: Acute (8) Paroxysmal A-fib: Status: Acute Additional A&P Information ARDS: Secondary to COVID-19 pneumonia: Oxygenation improving. Patient is on high flow now and able to trend down. Continue BiPAP nightly. Patient has finished antiviral course with remdesivir. Greatly appreciate Dr. Atkinson's input. As per Dr. Atkinson unfortunately patient is on maximum needed treatment at present now it is all about letting her lungs heal on itself and monitor her pulmonary status going forward. Plan would be to try to avoid intubation as much as possible. Will wean off oxygen keeping saturation between 85 to 90%. Continue with dexamethasone IV 8 mg daily. Vitamin C, zinc. Advair, Spiriva. Continue to monitor inflammatory markers regularly including ferritin, LDH, D- dimer, fibrinogen, ferritin. Continue with pulmonary toilet with chest vest, incentive spirometry, Acapella. Oxygen supplementation keeping saturation over 90%. Continue with IV Lasix 20 mg daily. Echocardiogram done earlier in the admission shows poor echo window with a possible normal EF. Strict input output charting. Patient is on 2.5 L negative in last 24 hours and around 500 cc negative since admission now. proBNP improving. Daily weights. Tessalon Perles. Though unlikely but will check for Aspergillus antigen, sputum culture, Legionella, bacterial antigen, PCP PCR, BD glucan. Pro-Romeo remains negative, patient remains afebrile. Elevated WBC more likely due to steroids. Antibiotics including linezolid, levofloxacin, Zosyn has been stopped after finishing a course of around 10 days. Hypertension: Goal blood pressure less than 140/90 mmHg. Blood pressure better controlled today. Continue with amlodipine 5 mg and Coreg 6.25 mg twice daily. We will continue to monitor. Tachycardia: Documented as possible A. fib. Today patient is been having tachycardia with prolonged OH likely PSVT. Continue with beta-cj. Bleeding: No further episodes. Hemoglobin has remained stable. Stool for occult blood flow colostomy tube negative. We will restart Lovenox at prophylactic dose today. If remains stable will start on therapeutic dose. SCD for DVT prophylaxis for now. Candidal mucositis: With raw appearance of the tongue, reports mouth soreness. Reports symptoms are improving with nystatin swish and swallow. Still has discomfort. Oragel for symptoms. Denies Hx of HSV, no visible ulcerations, no labial involvement. Incidentally noted 2.5 cm cyst right hepatic lobe Poor functional status at baseline ever since left femoral fracture. Mostly nonambulatory. 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 Hold off on Lovenox for now given possible bleed. We will continue to monitor. SCDs. Soft mechanical diet. Discussed in detail with patient's daughter regarding her medical condition and severely guarded also discussed that given the fact that patient is requiring a lot of oxygen including BiPAP and high flow to maintain saturations over 90% p atient would most likely require severe aggressive pulmonary rehabilitation for which she would need to be transferred to LTAC for long-term pulmonary rehab. Patient's daughter has agreed to the same. We will consult care coordination to work on the same. Attestations Medical Necessity Statement*: Patient requires further hospitalization for management of ARDS from severe COVID-19 pneumonia while we continue with pulmonary rehabilitation. Time Spent in Patient Care: Greater than 35 minutes (>than 50% of time spent in counselling and/or direct pt care on unit) . Coding Level of Care Code Acute Clinical Appeals Rn for [facility] Fwd Diagnoses ARDS (adult respiratory distress syndrome) J80 Pneumonia due to 2019 novel coronavirus U07.1; J12.89 Acute hypoxemic respiratory failure J96.01 Sepsis A41.9 Sepsis acute organ dysfunction status: without acute organ dysfunction Sepsis type: sepsis due to unspecified organism HTN (hypertension) I10 Hyperkalemia E87.5 D-dimer, elevated R79.89 Paroxysmal A-fib I48.0
[2020-05-03 16:20] LABS: Glucose Point of Care 203 mg/dL (70-110)
[2020-05-03] MEDS: albuterol 8 gm MDI 2 PUFF INHALATION (20:17)
[2020-05-03] MEDS: acetaminophen 325 mg Tablet 650 MG PO (20:46)
[2020-05-03 21:31] LABS: Glucose Point of Care 173 mg/dL (70-110)
[2020-05-04] VITALS (29 sets, daily range): BP systolic 114–151; BP diastolic 76–107; PULSE 61–117; RESP 16–107; TEMP 36.6–36.7; O2SAT 89–95
[2020-05-04] MEDS: pantoprazole 40 mg SDV IVP (00:22)
[2020-05-04 04:21] LABS: Basophils # 0.1 10^3/uL (0.0-0.1); Basophils % 0.4 %; Eosinophils % 0.1 %; Hematocrit 45.2 % (37.0-47.0); Hemoglobin 14.6 g/dL (11.5-15.3); Lymphocytes # 2.1 10^3/uL (0.8-4.8); Lymphocytes % 11.8 %; Mean Corpuscular HGB Conc 32.3 g/dL (30.0-36.0); Mean Corpuscular Hemoglobin 27.3 pg (28.0-34.0); Mean Corpuscular Volume 84.5 fL (81-99); Mean Platelet Volume 11.7 fL (7.4-10.4); Monocytes % 5.4 %; Neutrophils # 14.07 10^3/uL (1.8-7.7); Neutrophils % 77.7 %; Nucleated Red Blood Cells # 0.1 /100WBC; Nucleated Red Blood Cells % 0.3 %; Platelet Count 359 10^3/cmm (130-400); Red Blood Count 5.35 10^6/uL (4.1-5.3); Red Cell Distribution Width 17.1 % (12.1-15.1); White Blood Count 18.1 10^3/uL (4.0-10.0)
[2020-05-04 04:58] LABS: Alanine Aminotransferase 42 U/L (0-33); Albumin Level 2.8 g/dL (3.5-5.2); Alkaline Phosphatase 106 IU/L (35-105); Anion Gap 14.4 (5-19); Aspartate Amino Transferase 21 U/L (0-32); Blood Urea Nitrogen 43 mg/dL (8-23); Carbon Dioxide 30 mmol/L (22-29); Chloride 102 mmol/L (98-107); Globulin 3.6 g/dL (1.3-4.6); Glucose 182 mg/dL (65-115); Osmolality Calculated 309 mOsm/kg (285-295); Potassium 4.4 mmol/L (3.5-5.1); Sodium 142 mmol/L (136-145); Total Bilirubin 0.3 mg/dL (0.15-1.2); Total Protein 6.4 g/dL (6.6-8.7)
--- NOTE | 2020-05-04 06:00 | XR_ITS ---
WS: [id number] Portable AP upright chest, 05/04/2020 Clinical Data: covid Comparison: Portable chest, 05/02/2020. Findings: The bilateral opacities remain unchanged. The opacities are distributed throughout both imtiaz gs with the greatest amount in the left lower lobe. The heart size remains same. Monitor leads are on the chest wall. XR/XR chest 1V portable [id number] Impression: No change in bilateral opacities.
--- NOTE | 2020-05-04 06:41 | NUR.SHIFT ---
Uneventful night, C/O MCCOY earlier in Shift controlled with PRN Tyenol, denied SOB, no S/S or C/O distress throughout shift, tolerated BiPap throughout night well
[2020-05-04 07:54] LABS: Glucose Point of Care 176 mg/dL (70-110)
[2020-05-04] MEDS: amlodipine 10 mg Tablet 5 MG PO (08:27)
[2020-05-04] MEDS: sennosides-docusate Tablet 1 TAB PO (08:27)
[2020-05-04] MEDS: enoxaparin 40 mg/0.4 mL Syringe SUBCUT (08:27)
[2020-05-04] MEDS: guaiFENesin 600 mg Tablet PO ×2 (08:27→21:17)
[2020-05-04] MEDS: pregabalin 75 mg Capsule PO ×2 (08:27→18:16)
[2020-05-04] MEDS: ALPRAZolam 0.25 mg Tablet 0.125 MG PO ×2 (08:27→23:43)
[2020-05-04] MEDS: nystatin 100,000 unit/mL UDC 5 mL 500000 UNIT PO ×4 (08:27→21:17)
[2020-05-04] MEDS: fluticasone nasal spray 16gm Btl 2 SPRAY INTRANASAL (08:27)
[2020-05-04] MEDS: carvedilol 6.25 mg Tablet PO ×2 (08:28→18:16)
[2020-05-04] MEDS: escitalopram 10 mg Tablet PO (08:28)
[2020-05-04] MEDS: benzonatate 100 mg Capsule PO ×3 (08:34→21:16)
[2020-05-04] MEDS: ascorbic acid 500 mg Tablet PO (08:34)
[2020-05-04] MEDS: zinc gluconate 50 mg Tablet PO (08:34)
[2020-05-04] MEDS: HYDROcodone-acetaminophen 5-325 mg Tablet 1 TAB PO ×2 (08:34→23:43)
[2020-05-04] MEDS: albuterol 8 gm MDI 2 PUFF INHALATION ×2 (08:35→19:52)
[2020-05-04] MEDS: nystatin powder 15 gm Btl 1 APPLIC TOPICAL (09:29)
[2020-05-04] MEDS: dexamethasone 4 mg/mL INJ 8 MG IVP (12:38)
[2020-05-04] MEDS: FUROsemide 10 mg/mL SDV 4mL 40 MG IVP (12:38)
[2020-05-04] MEDS: cyclobenzaprine 10 mg Tablet 5 MG PO (13:30)
[2020-05-04 14:11] LABS: Glucose Point of Care 280 mg/dL (70-110)
[2020-05-04] MEDS: benzocaine 20% 7 gm 1 APPLIC MUCOUS MEM (14:25)
[2020-05-04 16:34] LABS: Glucose Point of Care 132 mg/dL (70-110)
--- NOTE | 2020-05-04 17:17 | P.PN_ITS ---
Subjective Subjective: Interval history: This morning patient is quite withdrawn, she states that she is just tired, she really wants to go to the LTAC facility, she is losing her will to keep fighting, nurses tell me that she does not even have the energy to take her own medications, yesterday when they got her up to the side of the bed she was very lethargic and tired, remains afebrile overnight, still on 40 L, 50% FiO2, Vitals/I&O/Wt Last Vital Signs Temp 98.0 F 05/04/20 16:00 Pulse 98 05/04/20 17:00 Resp 29 H 05/04/20 17:00 BP 132/80 05/04/20 17:00 Pulse Ox 91 05/04/20 17:00 05/04/20 05/04/20 05/04/20 06:59 14:59 22:59 Intake Total 720 / 720 Output Total 600 / 1175 525 / 525 Balance -600 / -215 195 / 195 Weight last 48 hrs Weight 127.822 kg Weight 132.313 kg Physical Exam Const: COMMON NORMALS: no acute distress GENERAL APPEARANCE: ill appearing NUTRITIONAL APPEARANCE: obese ORIENTATION/CONSCIOUSNESS: Yes awake, Yes oriented to person and Yes oriented to place; not oriented to time HENMT: COMMON NORMALS: normocephalic HEAD & SCALP: normocephalic Neck/C-Spine: COMMON NORMALS: no JVD Resp: COMMON NORMALS: normal respiratory effort, No retractions and No use of accessory muscles AUSCULTATION: crackles Cardio: COMMON NORMALS: no JVD, regular rate, regular rhythm, S1 normal heart sound present and S2 normal heart sound present RATE: regular rate RHYTHM: regular rhythm HEART SOUNDS: S1 normal heart sound present and S2 normal heart sound present GI: COMMON NORMALS: Normal to inspection, nondistended, normoactive bowel sounds present, Soft to palpation, non-tender, No hepatosplenomegaly present, no masses and no bruits PALPATION: Yes Soft to palpation and Yes No hepatosplenomegaly present Extremity: COMMON NORMALS: capillary refill normal, no clubbing, cyanosis or edema, no calf tenderness and no pedal edema Neuro: SENSORIUM/ORIENTATION: Yes oriented to person, Yes oriented to place and No oriented to time Psych: MOOD & AFFECT: Yes depressed mood and Yes sad Urinary Catheter Management^: Jara: Cath Placed During This Visit: yes Reason for Continuing Indwelling Catheter: Accurate Measurement of Urinary Output in Critically Ill Patients Urinary Catheter Date of Insertion: 04/24/20 Urinary Catheter Time of Insertion: 18:15 Data : 05/04/20 03:30 05/04/20 03:30 A&P Assessment and plan (1) ARDS (adult respiratory distress syndrome): Status: Acute (2) Pneumonia due to 2019 novel coronavirus: Status: Acute (3) Acute hypoxemic respiratory failure: Status: Acute (4) Sepsis: Resolved. Status: Acute Qualifiers: Sepsis acute organ dysfunction status: without acute organ dysfunction Sepsis type: sepsis due to unspecified organism Qualified Code(s): A41.9 - Sepsis, unspecified organism (5) HTN (hypertension): Status: Acute (6) Hyperkalemia: Resolved. Low potassium diet. Monitor renal function. Status: Acute (7) D-dimer, elevated: Suspected secondary to COVID-19 pneumonia. No PE noted on CTA. Anticoagulation with Lovenox as above. Status: Acute (8) Paroxysmal A-fib: Status: Acute Additional A&P Information ARDS: Secondary to COVID-19 pneumonia: Oxygenation improving. Patient is on high flow now and able to trend down. Continue BiPAP nightly. White blood cell count 18.1, likely secondary to steroids, all cultures so far unremarkable, remains afebrile Patient has finished antiviral course with remdesivir. Greatly appreciate Dr. Atkinson's input. As per Dr. Atkinson unfortunately patient is on maximum needed treatment at present now it is all about letting her lungs heal on itself and monitor her pulmonary status going forward. Plan would be to try to avoid intubation as much as possible. Will wean off ox ygen keeping saturation between 85 to 90%. Continue with dexamethasone IV 8 mg daily. Vitamin C, zinc. Advair, Spiriva. Continue to monitor inflammatory markers regularly including ferritin, LDH, D-di malissa, fibrinogen, ferritin. Continue with pulmonary toilet with chest vest, incentive spirometry, Acapella. Oxygen supplementation keeping saturation over 90%. Continue with IV Lasix 40 mg daily. Echocardiogram done earlier in the admission shows poor echo window with a possible normal EF. Strict input output charting. Patient is on 2.5 L negative in last 24 hours and around 500 cc negative since admission now. proBNP improving. Daily weights. Tessalon Perles. Pulmonary toilet, encourage ambulation Though unlikely but will check for Aspergillus antigen, sputum culture, Legionella, bacterial antigen, PCP PCR, BD glucan. Antibiotics including linezolid, levofloxacin, Zosyn has been stopped after finishing a course of around 10 days. Working on placement LTAC Aggressive pulmonary toilet, encourage ambulation Eliquis and SCDs for DVT prophylaxis Full code Hypertension: Goal blood pressure less than 140/90 mmHg. Blood pressure better controlled today. Continue with amlodipine 5 mg and Coreg 6.25 mg twice daily. We will continue to monitor. Has a history of atrial fibrillation, paroxysmal SVT: Continue with beta-cj We will restart Eliquis today 5 mg twice daily Rectal bleeding: No further episodes. Hemoglobin has remained stable. Stool for occult blood flow colostomy tube negative. Restart Eliquis today, 5 mg twice daily Candidal mucositis: With raw appearance of the tongue, reports mouth soreness. Reports symptoms are improving with nystatin swish and swallow. Still has discomfort. Oragel for symptoms. Denies Hx of HSV, no visible ulcerations, no labial involvement. Incidentally noted 2.5 cm cyst right hepatic lobe Poor functional status at baseline ever since left femoral fracture. Mostly nonambulatory. 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 Hold off on Lovenox for now given possible bleed. We will continue to monitor. SCDs. Soft mechanical diet. Discussed in detail with patient's daughter regarding her medical condition and severely guarded also discussed that given the fact that patient is requiring a lot of oxygen including BiPAP and high flow to maintain saturations over 90% patient would most likely require severe aggressive pulmonary rehabilitation for which she would need to be transferred to LTAC for long-term pulmonary rehab. Patient's daughter has agreed to the same. Working on placement to long-term care facility Plan for today: Give 40 mg of IV Lasix, encourage ambulation, aggressive pulmonary toilet, monitor for fevers, working on LTAC placement Attestations Medical Necessity Statement*: Patient requires hospitalization for acute respiratory distress secondary to COVID-19 Coding Level of Care Code Acute Quantometer Operator for [facility] Fwd Diagnoses ARDS (adult respiratory distress syndrome) J80 Pneumonia due to 2019 novel coronavirus U07.1; J12.89 Acute hypoxemic respiratory failure J96.01 Sepsis A41.9 Sepsis acute organ dysfunction status: without acute organ dysfunction Sepsis type: sepsis due to unspecified organism HTN (hypertension) I10 Hyperkalemia E87.5 D-dimer, elevated R79.89 Paroxysmal A-fib I48.0
[2020-05-04] MEDS: apixaban 5 mg Tablet PO (18:16)
[2020-05-04] MEDS: FUROsemide 40 mg Tablet PO (18:16)
[2020-05-04] MEDS: pantoprazole DR 40 mg Tablet PO (18:16)
[2020-05-04 20:46] LABS: Glucose Point of Care 300 mg/dL (70-110)
[2020-05-04 20:46] LABS: Glucose Point of Care 284 mg/dL (70-110)
[2020-05-05] VITALS (28 sets, daily range): BP systolic 109–175; BP diastolic 72–120; PULSE 75–112; RESP 20–37; TEMP 36.4–36.9; O2SAT 90–92
--- NOTE | 2020-05-05 00:03 | PC.NURSE ---
Took BiPap mask off, RT placed on Heated High Flow, C/O back pain and restlessness PRN [place] and Xanax administered per request, AO to person and place did not recall day or month, follows commands, denies SOB and distress at this time
[2020-05-05 05:03] LABS: Hematocrit 46.1 % (37.0-47.0); Hemoglobin 14.9 g/dL (11.5-15.3); Mean Corpuscular HGB Conc 32.3 g/dL (30.0-36.0); Mean Corpuscular Hemoglobin 27.4 pg (28.0-34.0); Mean Corpuscular Volume 84.9 fL (81-99); Mean Platelet Volume 11.7 fL (7.4-10.4); Platelet Count 334 10^3/cmm (130-400); Red Blood Count 5.43 10^6/uL (4.1-5.3); Red Cell Distribution Width 17.5 % (12.1-15.1); White Blood Count 21.3 10^3/uL (4.0-10.0)
[2020-05-05 05:20] LABS: Fibrinogen 548 mg/dL (174-498)
[2020-05-05 05:23] LABS: D Dimer 1.79 ug/mIFEU (0-0.59)
[2020-05-05 05:38] LABS: C Reactive Protein 19.5 mg/L (0.0-4.9); Magnesium 2.2 mg/dL (1.7-2.3); Phosphorus 3.5 mg/dL (2.5-4.5)
[2020-05-05 05:50] LABS: Alanine Aminotransferase 44 U/L (0-33); Albumin Level 2.9 g/dL (3.5-5.2); Alkaline Phosphatase 102 IU/L (35-105); Anion Gap 16.3 (5-19); Aspartate Amino Transferase 19 U/L (0-32); Blood Urea Nitrogen 46 mg/dL (8-23); Carbon Dioxide 29 mmol/L (22-29); Chloride 99 mmol/L (98-107); Globulin 3.4 g/dL (1.3-4.6); Glucose 192 mg/dL (65-115); Osmolality Calculated 307 mOsm/kg (285-295); Potassium 4.3 mmol/L (3.5-5.1); Sodium 140 mmol/L (136-145); Total Bilirubin 0.4 mg/dL (0.15-1.2); Total Protein 6.3 g/dL (6.6-8.7)
[2020-05-05 05:51] LABS: NT Pro B Type Natriuretic Pept 444 pg/mL (0-450); Procalcitonin 0.12 ng/mL (0-0.5)
--- NOTE | 2020-05-05 06:21 | PC.NURSE ---
Uneventful night, remained on Heated High Flow since 2025, denies SOB, no C/O discomfort throughout shift, supine 45 degrees call light within reach
[2020-05-05 07:12] LABS: Slide Review Slide Review Perform
[2020-05-05 07:13] LABS: Absolute Neutrophil 18.3 10^3/cmm (1.4-6.5); Absolute Segmented Neutrophil 17.7 10/cmm (1.6-7.1); Band Neutrophils Absolute 0.6 10^3/cmm (0.0-1.2); Lymphocytes 10 %; Microcytosis 1+; Monocytes Absolute 0.2 10^3/cmm (0.1-0.6); Platelet Estimate Normal (Normal); Segmented Neutrophils 83 %; Total Cells Counted 100 (0-100)
[2020-05-05 07:34] LABS: Eosinophils 0 %
[2020-05-05 08:02] LABS: Glucose Point of Care 182 mg/dL (70-110)
[2020-05-05] MEDS: sennosides-docusate Tablet 1 TAB PO (08:15)
[2020-05-05] MEDS: pantoprazole DR 40 mg Tablet PO ×2 (08:15→17:32)
[2020-05-05] MEDS: benzonatate 100 mg Capsule PO ×3 (08:15→21:37)
[2020-05-05] MEDS: ascorbic acid 500 mg Tablet PO (08:15)
[2020-05-05] MEDS: nystatin 100,000 unit/mL UDC 5 mL 500000 UNIT PO ×4 (08:15→21:36)
[2020-05-05] MEDS: zinc gluconate 50 mg Tablet PO (08:15)
[2020-05-05] MEDS: carvedilol 6.25 mg Tablet PO ×2 (08:15→17:32)
[2020-05-05] MEDS: escitalopram 10 mg Tablet PO (08:15)
[2020-05-05] MEDS: guaiFENesin 600 mg Tablet PO ×2 (08:15→21:37)
[2020-05-05] MEDS: pregabalin 75 mg Capsule PO ×2 (08:15→17:32)
[2020-05-05] MEDS: apixaban 5 mg Tablet PO ×2 (08:15→17:32)
[2020-05-05] MEDS: amlodipine 10 mg Tablet 5 MG PO (08:15)
[2020-05-05] MEDS: FUROsemide 10 mg/mL SDV 4mL 40 MG IVP (08:16)
[2020-05-05] MEDS: fluticasone nasal spray 16gm Btl 2 SPRAY INTRANASAL (08:16)
[2020-05-05] MEDS: nystatin powder 15 gm Btl 1 APPLIC TOPICAL (08:16)
[2020-05-05] MEDS: HYDROcodone-acetaminophen 5-325 mg Tablet 1 TAB PO (08:18)
[2020-05-05] MEDS: albuterol 8 gm MDI 2 PUFF INHALATION (09:11)
[2020-05-05 11:34] LABS: Glucose Point of Care 262 mg/dL (70-110)
[2020-05-05 11:34] LABS: Glucose Point of Care 200 mg/dL (70-110)
[2020-05-05] MEDS: dexamethasone 4 mg/mL INJ 8 MG IVP (11:54)
[2020-05-05] MEDS: cyclobenzaprine 10 mg Tablet 5 MG PO ×2 (11:54→21:37)
[2020-05-05] MEDS: doxycycline 100 mg Tablet PO ×2 (11:54→21:36)
--- NOTE | 2020-05-05 13:03 | PM.PN ---
Subjective Subjective: Interval history: This morning patient was examined, she is sitting in bed, she really wants to get out of the hospital, she continues to have a poor appetite, afebrile overnight, having intermittent episodes of tachypnea, remains on high flow Vitals/I&O/Wt Last Vital Signs Temp 97.6 F 05/05/20 11:32 Pulse 106 H 05/05/20 12:03 Resp 28 H 05/05/20 12:03 BP 131/91 05/05/20 11:32 Pulse Ox 91 05/05/20 12:03 05/04/20 05/05/20 05/05/20 22:59 06:59 14:59 Intake Total 720 / 1440 720 / 720 Output Total 1000 / 1525 650 / 2175 Balance -280 / -85 -650 / -735 720 / 720 Weight last 48 hrs Weight 127.822 kg Weight 127.822 kg Physical Exam Const: COMMON NORMALS: no acute distress GENERAL APPEARANCE: ill appearing NUTRITIONAL APPEARANCE: obese ORIENTATION/CONSCIOUSNESS: Yes awake, Yes oriented to person and Yes oriented to place; not oriented to time HENMT: COMMON NORMALS: normocephalic HEAD & SCALP: normocephalic Neck/C-Spine: COMMON NORMALS: no JVD Resp: COMMON NORMALS: normal respiratory effort, No retractions and No use of accessory muscles EFFORT & INSPECTION: Yes tachypneic AUSCULTATION: wheezes Cardio: COMMON NORMALS: no JVD, regular rate, regular rhythm, S1 normal heart sound present and S2 normal heart sound present RATE: regular rate RHYTHM: regular rhythm HEART SOUNDS: S1 normal heart sound present and S2 normal heart sound present GI: COMMON NORMALS: Normal to inspection, nondistended, normoactive bowel sounds present, Soft to palpation, non-tender, No hepatosplenomegaly present, no masses and no bruits PALPATION: Yes Soft to palpation and Yes No hepatosplenomegaly present Extremity: COMMON NORMALS: capillary refill normal, no clubbing, cyanosis or edema, no calf tenderness and no pedal edema Neuro: SENSORIUM/ORIENTATION: Yes oriented to person, Yes oriented to place and No oriented to time Psych: MOOD & AFFECT: Yes depressed mood and Yes sad Urinary Catheter Management^: Jara: Cath Placed During This Visit: yes Reason for Continuing Indwelling Catheter: Accurate Measurement of Urinary Output in Critically Ill Patients Urinary Catheter Date of Insertion: 04/24/20 Urinary Catheter Time of Insertion: 18:15 Data : 05/05/20 03:30 05/05/20 03:30 A&P Assessment and plan (1) ARDS (adult respiratory distress syndrome): Status: Acute (2) Pneumonia due to 2019 novel coronavirus: Status: Acute (3) Acute hypoxemic respiratory failure: Status: Acute (4) Sepsis: Resolved. Status: Acute Qualifiers: Sepsis acute organ dysfunction status: without acute organ dysfunction Sepsis type: sepsis due to unspecified organism Qualified Code(s): A41.9 - Sepsis, unspecified organism (5) HTN (hypertension): Status: Acute (6) Hyperkalemia: Resolved. Low potassium diet. Monitor renal function. Status: Acute (7) D-dimer, elevated: Suspected secondary to COVID-19 pneumonia. No PE noted on CTA. Anticoagulation with Lovenox as above. Status: Acute (8) Paroxysmal A-fib: Status: Acute Additional A&P Information ARDS: Secondary to COVID-19 pneumonia: Oxygenation improving. Patient is on high flow now and able to trend down. Continue BiPAP nightly. White blood cell count 21.3, likely secondary to steroids, all cultures so far unremarkable, remains afebrile, but will start doxycycline 100 twice daily Patient has finished antiviral course with remdesivir. Greatly appreciate Dr. Atkinson's input. As per Dr. Atkinson unfortunately patient is on maximum needed treatment at present now it is all about letting her lungs heal on itself and monitor her pulmonary status going forward. Plan would be to try to avoid intubation as much as possible. Will wean off oxygen keeping saturation between 85 to 90%. Continue with dexamethasone IV 8 mg daily. Vitamin C, zinc. Advair, Spiriva. Continue to monitor inflammatory markers regularly including ferritin, LDH, D-dimer, fibrinogen, ferritin. Continue with pulmonary toilet with chest vest, incentive spirometry, Acapella. Oxygen supplementation keeping saturation over 90%. Continue with IV Lasix 40 mg daily. Echocardiogram done earlier in the admission shows poor echo window with a possible normal EF. Strict input output charting. Patient is on 2.5 L negative in last 24 hours and around 500 cc negative since admission now. proBNP improving. Daily weights. Tessalon Perles. Pulmonary toilet, encourage ambulation Though unlikely but will check for Aspergillus antigen, sputum culture, Legionella, bacterial antigen, PCP PCR, BD glucan. Antibiotics including linezolid, levofloxacin, Zosyn has been stopped after finishing a course of around 10 days. Working on placement LTAC Aggressive pulmonary toilet, encourage ambulation Eliquis and SCDs for DVT prophylaxis Full code Hypertension: Goal blood pressure less than 140/90 mmHg. Blood pressure better controlled today. Continue with amlodipine 5 mg and Coreg 6.25 mg twice daily. We will continue to monitor. Has a history of atrial fibrillation, paroxysmal SVT: Continue with beta-cj On Eliquis 5 mg twice daily Rectal bleeding: Has had some rectal bleeding, hemoglobin 14.9 Stool for occult blood flow colostomy tube negative. Continue Eliquis today, 5 mg twice daily Candidal mucositis: With raw appearance of the tongue, reports mouth soreness. Reports symptoms are improving with nystatin swish and swallow. Still has discomfort. Oragel for symptoms. Denies Hx of HSV, no visible ulcerations, no labial involvement. Incidentally noted 2.5 cm cyst right hepatic lobe Poor functional status at baseline ever since left femoral fracture. Mostly nonambulatory. 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 Hold off on Lovenox for now given possible bleed. We will continue to monitor. SCDs. Soft mechanical diet. Discussed in detail with patient's daughter regarding her medical condition and severely guarded also discussed that given the fact that patient is requiring a lot of oxygen including BiPAP and high flow to maintain saturations over 90% patient would most likely require severe aggressive pulmonary rehabilitation for which she would need to be transferred to LTAC for long-term pulmonary rehab. Patient's daughter has agreed to the same. Working on placement to long-term care facility Plan for today: Give 40 mg of IV Lasix, encourage ambulation, aggressive pulmonary toilet, monitor for fevers, working on LTAC placement, words of encouragement Attestations Medical Necessity Statement*: Patient requires hospitalization due to acute respiratory failure secondary COVID-19, we are working on LTAC placement Coding Level of Care Code Acute Procurement Manager for [facility] Fw Diagnoses ARDS (adult respiratory distress syndrome) J80 Pneumonia due to 2019 novel coronavirus U07.1; J12.89 Acute hypoxemic respiratory failure J96.01 Sepsis A41.9 Sepsis acute organ dysfunction status: without acute organ dysfunction Sepsis type: sepsis due to unspecified organism HTN (hypertension) I10 Hyperkalemia E87.5 D-dimer, elevated R79.89 Paroxysmal A-fib I48.0
--- NOTE | 2020-05-05 13:34 | PC.SOCIAL ---
IMM Update Pg. 2 of IMM updated with patient's daughter over the phone.
[2020-05-05 16:31] LABS: Glucose Point of Care 145 mg/dL (70-110)
[2020-05-05 21:41] LABS: Glucose Point of Care 187 mg/dL (70-110)
[2020-05-06] VITALS (23 sets, daily range): BP systolic 116–167; BP diastolic 78–108; PULSE 80–128; RESP 21–34; TEMP 36.7–37.1; O2SAT 87–93
[2020-05-06] MEDS: cyclobenzaprine 10 mg Tablet 5 MG PO ×3 (05:04→16:40)
[2020-05-06] MEDS: ondansetron 2 mg/ML SDV 2 mL 4 MG IVP (05:30)
--- NOTE | 2020-05-06 06:00 | XRR_ITS ---
PROCEDURE INFORMATION: Exam: XR Chest, 1 View Exam date and time: 05/06/2020 3:18 AM Age: 79 years old Clinical indication: Condition or disease; Other: Covid TECHNIQUE: Imaging protocol: XR of the chest Views: 1 view. COMPARISON: CR XR chest 1V portable [id number] 05/04/2020 3:52 AM FINDINGS: Lungs: Bilateral interstitial and alveolar pulmonary infiltrates are present specially in the left base. These have not significantly changed since previous study and may be due to pneumonia. Pleural space: No significant pleural effusion is seen. Heart/Mediastinum: The cardiac silhouette is unchanged and may be normal for the AP projection. Bones/joints: Unremarkable. XR/XR chest 1V portable [id number] IMPRESSION: Bilateral pulmonary infiltrates unchanged.
[2020-05-06 06:13] LABS: Basophils # 0.1 10^3/uL (0.0-0.1); Basophils % 0.6 %; Hematocrit 46.9 % (37.0-47.0); Hemoglobin 14.9 g/dL (11.5-15.3); Lymphocytes # 2.6 10^3/uL (0.8-4.8); Lymphocytes % 11.2 %; Mean Corpuscular HGB Conc 31.8 g/dL (30.0-36.0); Mean Corpuscular Volume 85.1 fL (81-99); Mean Platelet Volume 12.4 fL (7.4-10.4); Monocytes # 1.2 10^3/uL (0.2-0.9); Monocytes % 5.3 %; Neutrophils # 17.42 10^3/uL (1.8-7.7); Nucleated Red Blood Cells # 0.1 /100WBC; Nucleated Red Blood Cells % 0.3 %; Platelet Count 349 10^3/cmm (130-400); Red Blood Count 5.51 10^6/uL (4.1-5.3); Red Cell Distribution Width 17.6 % (12.1-15.1); White Blood Count 22.8 10^3/uL (4.0-10.0)
[2020-05-06 06:59] LABS: Fibrinogen 476 mg/dL (174-498)
[2020-05-06 07:00] LABS: Alanine Aminotransferase 44 U/L (0-33); Albumin Level 2.9 g/dL (3.5-5.2); Alkaline Phosphatase 95 IU/L (35-105); Anion Gap 16.4 (5-19); Aspartate Amino Transferase 19 U/L (0-32); Blood Urea Nitrogen 57 mg/dL (8-23); Calcium 9.1 mg/dL (8.5-10.5); Carbon Dioxide 31 mmol/L (22-29); Chloride 103 mmol/L (98-107); Creatinine Clr Calc Pharmacy 71.5495; Globulin 3.3 g/dL (1.3-4.6); Glucose 155 mg/dL (65-115); Osmolality Calculated 321 mOsm/kg (285-295); Potassium 4.4 mmol/L (3.5-5.1); Sodium 146 mmol/L (136-145); Total Bilirubin 0.4 mg/dL (0.15-1.2); Total Protein 6.2 g/dL (6.6-8.7)
[2020-05-06 07:02] LABS: D Dimer 1.49 ug/mIFEU (0-0.59)
[2020-05-06 07:55] LABS: Glucose Point of Care 172 mg/dL (70-110)
[2020-05-06 08:19] LABS: C Reactive Protein 11.1 mg/L (0.0-4.9); Magnesium 2.5 mg/dL (1.7-2.3); Phosphorus 3.7 mg/dL (2.5-4.5)
[2020-05-06 08:26] LABS: Neutrophils % 82.3 %
[2020-05-06 08:27] LABS: NT Pro B Type Natriuretic Pept 357 pg/mL (0-450)
[2020-05-06] MEDS: albuterol 8 gm MDI 2 PUFF INHALATION (09:06)
[2020-05-06] MEDS: guaiFENesin 600 mg Tablet PO (09:20)
[2020-05-06] MEDS: amlodipine 10 mg Tablet 5 MG PO (09:20)
[2020-05-06] MEDS: pregabalin 75 mg Capsule PO (09:21)
[2020-05-06] MEDS: nystatin 100,000 unit/mL UDC 5 mL 500000 UNIT PO ×2 (09:21→14:06)
[2020-05-06] MEDS: ascorbic acid 500 mg Tablet PO (09:21)
[2020-05-06] MEDS: benzonatate 100 mg Capsule PO ×2 (09:21→16:40)
[2020-05-06] MEDS: FUROsemide 10 mg/mL SDV 4mL 40 MG IVP (09:21)
[2020-05-06] MEDS: zinc gluconate 50 mg Tablet PO (09:21)
[2020-05-06] MEDS: carvedilol 6.25 mg Tablet PO (09:21)
[2020-05-06] MEDS: pantoprazole DR 40 mg Tablet PO (09:21)
[2020-05-06] MEDS: apixaban 5 mg Tablet PO (09:21)
[2020-05-06] MEDS: escitalopram 10 mg Tablet PO (09:21)
[2020-05-06] MEDS: fluticasone nasal spray 16gm Btl 2 SPRAY INTRANASAL (09:21)
[2020-05-06] MEDS: nystatin powder 15 gm Btl 1 APPLIC TOPICAL (09:21)
[2020-05-06] MEDS: sennosides-docusate Tablet 1 TAB PO (09:21)
[2020-05-06 11:00] LABS: Glucose Point of Care 187 mg/dL (70-110)
[2020-05-06] MEDS: dexamethasone 4 mg/mL INJ 8 MG IVP (11:07)
[2020-05-06] MEDS: doxycycline 100 mg Tablet PO (11:08)
--- NOTE | 2020-05-06 11:46 | PM.DCS ---
Discharge Providers Date of Admission: 04/24/20 14:21 Date of Discharge: May 06, 2020 Attending Provider at Admission: Nathanael Hughes Attending Provider at Discharge: Demetri Cowan MD Primary Care Provider: Favian Clark DO Diagnoses at Discharge Discharge Diagnosis (1) ARDS (adult respiratory distress syndrome): Status: Acute (2) Pneumonia due to 2019 novel coronavirus: Status: Acute (3) Acute hypoxemic respiratory failure: Status: Acute (4) Sepsis: Status: Acute Qualifiers: Sepsis acute organ dysfunction status: without acute organ dysfunction Sepsis type: sepsis due to unspecified organism Qualified Code(s): A41.9 - Sepsis, unspecified organism (5) HTN (hypertension): Status: Acute (6) Hyperkalemia: Status: Acute (7) D-dimer, elevated: Status: Acute (8) Paroxysmal A-fib: Status: Acute Reason for Visit Reason for Visit: RESP. 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 Patient received broad-spectrum antibiotic therapy, oxygen therapy, intermittent BiPAP therapy, high flow oxygen therapy, remdesivir, Decadron, intermittent diuresis therapy, aggressive pulmonary toilet, pulmonary service was consulted, unfortunately patient was deemed a high risk for intubation but with poor outcome, thus intubation was avoided after discussion with family member. Patient slowly clinically improved, although her cultures remain unremarkable, she finished remdesivir course, continue Decadron, continues to receive intermittent diuresis was -1 L on discharge, creatinine was 0.8, all cultures have been unremarkable on discharge, remained afebrile, white blood cell on discharge was 22.8. After discussion with patient and family, due to high flow oxygen requirements, we pursued placement at long-term care facility. Patient was discharged to long-term care facility in [facility], on discharge she was on 45L, 55% FiO2. I have discharged the patient on doxycycline for 7 days, a prednisone taper, Advair, albuterol, Spiriva, aggressive pulmonary toilet. During her hospital admission, she developed A. fib, discharged on Eliquis 5 mg twice daily, metoprolol 25 twice daily During her hospital admission, she developed intermittent episodes of rectal bleeding, resolved on discharge During hospitalization, she developed hyperglycemia likely secondary Decadron, discharged on insulin sliding scale. For poor functional status at baseline, ever since her left femoral fracture, she is nonambulatory, she needs PT OT Breonna mucositis, nystatin swish and swallow Physical Exam Const: COMMON NORMALS: no acute distress GENERAL APPEARANCE: ill appearing NUTRITIONAL APPEARANCE: obese ORIENTATION/CONSCIOUSNESS: Yes awake, Yes oriented to person and Yes oriented to place; not oriented to time HENMT: COMMON NORMALS: normocephalic HEAD & SCALP: normocephalic Neck/C-Spine: COMMON NORMALS: no JVD Resp: COMMON NORMALS: normal respiratory effort, No retractions and No use of accessory muscles EFFORT & INSPECTION: Yes tachypneic AUSCULTATION: wheezes Cardio: COMMON NORMALS: no JVD, regular rate, regular rhythm, S1 normal heart sound present and S2 normal heart sound present RATE: regular rate RHYTHM: regular rhythm HEART SOUNDS: S1 normal heart sound present and S2 normal heart sound present GI: COMMON NORMALS: Normal to inspection, nondistended, normoactive bowel sounds present, Soft to palpation, non-tender, No hepatosplenomegaly present, no masses and no bruits PALPATION: Yes Soft to palpation and Yes No hepatosplenomegaly present Extremity: COMMON NORMALS: capillary refill normal, no clubbing, cyanosis or edema, no calf tenderness and no pedal edema Neuro: SENSORIUM/ORIENTATION: Yes oriented to person, Yes oriented to place and No oriented to time Psych: MOOD & AFFECT: Yes sad Urinary Catheter Management^: Jara: Cath Placed During This Visit: yes Reason for Continuing Indwelling Catheter: Accurate Measurement of Urinary Output in Critically Ill Patients Urinary Catheter Date of Insertion: 04/24/20 Urinary Catheter Time of Insertion: 18:15 Discharge Data Data Completed and Pending: Completed Studies During Hospitalization Category Date Time Status CT angio chest PE protcl [id number] Stat Cat Scan 04/23/20 20:44 Completed XR chest 1V shirin ble 21559 Q48H Exams 05/02/20 06:00 Completed XR chest 1V shirin ble 09326 Q48H Exams 05/04/20 06:00 Completed XR chest 1V shirin ble 06254 Q48H Exams 05/06/20 06:00 Completed XR chest 1V shirin ble 38983 Routine Exams 04/27/20 05:00 Completed XR chest 1V shirin ble 74393 Routine Exams 04/30/20 06:00 Completed XR chest 1V shirin ble 80097 Urgent Exams 04/23/20 20:03 Completed CV echo complete* 23635 Routine Ultrasound 04/26/20 16:54 Completed Pending at discharge Category Date Time Status C Reactive Protei n AM LABS Lab 05/07/20 04:00 Ordered Complete Blood Co unt w/Auto AM LABS Lab 05/07/20 04:00 Ordered Complete Blood Co unt w/Auto AM LABS Lab 05/08/20 04:00 Ordered Comprehensive Met abolic Panel AM LA BS Lab 05/07/20 04:00 Ordered Comprehensive Met abolic Panel AM LA BS Lab 05/08/20 04:00 Ordered D Dimer AM LABS Lab 05/07/20 04:00 Ordered Fibrinogen AM LAB S Lab 05/07/20 04:00 Ordered Magnesium AM LABS Lab 05/07/20 04:00 Ordered NT Pro B Type Radha riuretic Pept QAM Lab 05/07/20 06:00 Ordered Phosphorus AM LAB S Lab 05/07/20 04:00 Ordered Procalcitonin AM LABS Lab 05/07/20 04:00 Ordered Sputum Culture an d Gram Stain Routi ne Lab 04/24/20 17:38 Uncollected Labs from last 24 hours 05/06/20 05/06/20 05/06/20 10:56 07:42 03:48 WBC RBC Hgb Hct MCV MCH MCHC RDW Plt Count MPV Neut % (Auto) Lymph % (Auto) Coleman % (Auto) Eos % (Auto) Baso % (Auto) Neut # (Auto) Lymph # (Auto) Coleman # (Auto) Eos # (Auto) Baso # (Auto) Nucleated RBC % (a uto) Nucleated RBCs # Fibrinogen D-Dimer Sodium 146 H Potassium 4.4 Chloride 103 Carbon Dioxide 31 H Anion Gap 16.4 BUN 57 H Creatinine 0.8 GFR Calculation Not Reportable Glucose 155 H POC Glucose 187 172 Calculated Osmolal ity 321 H Calcium 9.1 Phosphorus Magnesium Total Bilirubin 0.4 AST 19 ALT 44 H Alkaline Phosphata se 95 C-Reactive Protein NT-Pro-B Natriuret Pep Total Protein 6.2 L Albumin 2.9 L Globulin 3.3 Procalcitonin 05/06/20 05/06/20 05/06/20 03:48 03:48 03:48 WBC 22.8 H RBC 5.51 H Hgb 14.9 Hct 46.9 MCV 85.1 MCH 27.0 L MCHC 31.8 RDW 17.6 H Plt Count 349 MPV 12.4 H Neut % (Auto) 82.3 Lymph % (Auto) 11.2 Coleman % (Auto) 5.3 Eos % (Auto) 0.0 Baso % (Auto) 0.6 Neut # (Auto) 17.42 H Lymph # (Auto) 2.6 Coleman # (Auto) 1.2 H Eos # (Auto) 0.0 Baso # (Auto) 0.1 Nucleated RBC % (a uto) 0.3 Nucleated RBCs # 0.1 Fibrinogen 476 D-Dimer 1.49 H Sodium Potassium Chloride Carbon Dioxide Anion Gap BUN Creatinine GFR Calculation Glucose POC Glucose Calculated Osmolal ity Calcium Phosphorus Magnesium Total Bilirubin AST ALT Alkaline Phosphata se C-Reactive Protein NT-Pro-B Natriuret Pep 357 Total Protein Albumin Globulin Procalcitonin 0.10 05/06/20 05/05/20 05/05/20 03:48 21:26 16:25 WBC RBC Hgb Hct MCV MCH MCHC RDW Plt Count MPV Neut % (Auto) Lymph % (Auto) Coleman % (Auto) Eos % (Auto) Baso % (Auto) Neut # (Auto) Lymph # (Auto) Coleman # (Auto) Eos # (Auto) Baso # (Auto) Nucleated RBC % (a uto) Nucleated RBCs # Fibrinogen D-Dimer Sodium Potassium Chloride Carbon Dioxide Anion Gap BUN Creatinine GFR Calculation Glucose POC Glucose 187 145 Calculated Osmolal ity Calcium Phosphorus 3.7 Magnesium 2.5 H Total Bilirubin AST ALT Alkaline Phosphata se C-Reactive Protein 11.1 H NT-Pro-B Natriuret Pep Total Protein Albumin Globulin Procalcitonin Vitals: Last Vital Signs Temp 98.1 F 05/06/20 08:00 Pulse 105 H 05/06/20 10:00 Resp 30 H 05/06/20 10:00 BP 134/85 05/06/20 10:00 Pulse Ox 91 05/06/20 10:00 Discharge Plan Discharge Patient Disposition: Xfer [facility] Condition: Stable Prescriptions: New acetaminophen 325 mg Tablet 650 mg PO Q6H PRN (Reason: Mild/Mod Pain Or Temp >/= 101) 30 Days Qty: 30 RF: 0 Ventolin HFA 90 mcg/actuation Hfa Aerosol Inhaler 2 puff inhalation Q4H.RESPIRATORY PRN (Reason: Shortness Of Breath) Qty: 18 RF: 0 amlodipine 10 mg Tablet 5 mg PO DAILY 30 Days Qty: 30 RF: 0 Vitamin C 500 mg Tablet 500 mg PO DAILY 30 Days Qty: 30 RF: 0 Eliquis 5 mg Tablet 5 mg PO BID 30 Days Qty: 60 RF: 0 Benzocaine [Orajel] 1 applic mucous membrane PRN PRN (Reason: denture) Qty: 1 RF: 0 benzonatate 100 mg Capsule 100 mg PO TID PRN (Reason: cough) Qty: 30 RF: 0 doxycycline monohydrate 100 mg Tablet 100 mg PO Q12H 7 Days Qty: 14 RF: 0 Advair Diskus 250-50 mcg/dose Blister With Device 1 ea inhalation BID.RESPIRATORY Qty: 60 RF: 0 Mucinex 600 mg Tablet Extended Release 12hr 600 mg PO Q12H Qty: 30 RF: 0 Novolog U-100 Insulin aspart 100 unit/mL Solution See Rx Instructions .ROUTE .COMPLEX Qty: 10 RF: 0 nystatin 100,000 unit/mL Suspension 500,000 unit PO QID 7 Days Qty: 140 RF: 0 metoprolol tartrate 25 mg Tablet 25 mg PO BID 30 Days Qty: 60 RF: 0 pantoprazole 40 mg Tablet,Delayed Release (Dr/Ec) 40 mg PO BID 30 Days Qty: 60 RF: 0 Spiriva with HandiHaler 18 mcg Capsule, W/Inhalation Device 18 mcg inhalation DAILY.RESPIRATORY Qty: 30 RF: 0 trazodone 50 mg Tablet 25 mg PO BEDTIME PRN (Reason: Sleep) 30 Days Qty: 30 RF: 0 zinc gluconate 50 mg Tablet 50 mg PO DAILY 30 Days Qty: 30 RF: 0 prednisone 10 mg tablet See Rx Instructions .ROUTE .COMPLEX Qty: 53 RF: 0 Lasix 40 mg tablet 40 mg PO DAILY PRN (Reason: shortness of breath) 30 Days Qty: 30 RF: 0 Continued acetaminophen 325 mg Tablet 650 mg PO QID PRN (Reason: Pain) RF: 0 Morris 10-325 mg Tablet 1 tab PO Q6H PRN (Reason: Pain) RF: 0 Enema 19-7 gram/118 mL Enema 118 ml NC DAILY PRN (Reason: constip) RF: 0 Colace 100 mg Capsule 200 mg PO DAILY RF: 0 fluticasone propionate 50 mcg/actuation [place],Suspension 2 spray INTRANASAL DAILY RF: 0 bisacodyl 5 mg Tablet 5 mg PO DAILY PRN (Reason: Constipation) RF: 0 escitalopram oxalate 10 mg Tablet 10 mg PO DAILY RF: 0 Clear Eyes Natural Tears 0.5-0.6 % Drops 1 drp OPHTHALMIC (EYE) TID PRN (Reason: Dry Eyes) RF: 0 Milk of Magnesia 400 mg/5 mL Suspension 400 mg PO DAILY RF: 0 nystatin 100,000 unit/gram Powder 1 applic TOPICAL DAILY RF: 0 Lyrica 75 mg Capsule 75 mg PO BID RF: 0 tizanidine 4 mg Tablet 4 mg PO TID PRN (Reason: Spasms) RF: 0 Senna Plus 8.6-50 mg Tablet 1 tab-cap PO DAILY RF: 0 pantoprazole 40 mg Tablet,Delayed Release (Dr/Ec) 40 mg PO DAILY RF: 0 Salonpas(m.salicylate-menthol) 10-3 % Adhesive Patch,Medicated 1 patch TOPICAL Q12H RF: 0 Ocuvite Adult 50 Plus 1 tab PO DAILY RF: 0 Zyrtec 10 mg Tablet 5 mg PO DAILY RF: 0 promethazine 25 mg Tablet 25 mg PO Q6H PRN (Reason: Nausea) RF: 0 Discontinued ibuprofen 400 mg Tablet 400 mg PO Q6H RF: 0 levofloxacin 750 mg Tablet 750 mg PO DAILY RF: 0 enoxaparin [Lovenox] 40 mg/0.4 mL Syringe 40 mg SUBCUT DAILY RF: 0 prednisone 20 mg Tablet 40 mg PO DAILY RF: 0 dexamethasone 6 mg Tablet 6 mg PO DAILY RF: 0 Discharge Orders: Discharge Order (Routine); Ordered 05/06/20 Ordered By: Demetri Cowan Transfer Out of Facility (Order); Ordered 04/24/20 Ordered By: Mellissa Barahona Other Ambulatory Orders: Complete Blood Count w/Auto (Routine) Timeframe: 1 Day Location: Determined by Patient Ordered By: Demetri Cowan Comprehensive Metabolic Panel (Routine) Timeframe: 1 Day Facility: [facility] - Location: Lab - Main Lab Ordered By: Demetri Cowan Referrals: [facility] [Outside] Favian Clark DO [Primary Care Provider] - Discharge Diet: Advance as tolerated and As Directed Discharge Activity: Resume usual activity Activity Restrictions/Additional Instructions: -Monitor creatinine, on discharge 0.8, Lasix as needed for shortness of breath -Prednisone taper doxycycline, white blood cell count of 22.8 on discharge -Insulin sliding scale -For atrial fibrillation by metoprolol 25 twice daily, Eliquis 5 mg twice daily -Has some rectal bleeding, minimal today Discharge Attestations Time Spent in Discharge Care*: less than 30 min Quality Metrics Clinical Quality Measures During this hospital stay, did patient experience: None Coding Level of Care Code 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
--- NOTE | 2020-05-06 15:00 | PC.NURSE ---
Fragoso catheter minimal urine output noticed by ewa chavarria. upon turning patient, nurse noted that bed sheets and chucks were completely saturated with urine. Nurse examined fragoso catheter, fragoso found in bed and not adequately draining from patient. Nurse cleaned patient and changed bed linens. Fragoso changed by nurse. sterile technique used. new fragoso secured to leg, appears to be adequately draining.
--- NOTE | 2020-05-06 15:05 | PC.NURSE ---
report called Report called to NASIR Kerns at [facility] in [place], [place]. all questions answered and new prescriptions went over with nurse. DC insructions went over. Daughter called and updated on transfer.
[2020-05-06 16:39] LABS: Glucose Point of Care 221 mg/dL (70-110)
--- NOTE | 2020-05-06 17:05 | PC.NURSE ---
EMS report given report given to [facility] ES team. care transferred over to crew. patient A&OX4 on transfer. Muscle relaxer given to patient prior to DC from facility, see MAR for further. Dentures, phone and tooth brush transferred with patient. no clothes in room to go with patient. fragoso intact and draining, colostomy bag in place and draining. drinks given to patient prior to leaving facility. last vital signs: HR:105 BP:112/91 RR:26 O2:93% on HHF 40L/55% [facility] on 15L
== END 2020-05-06 16:58 | DRG 871 ==
LOC: ER 04-24 16:13 → ICU 04-24 16:19
PROVIDERS: Family Medicine; Student in an Organized Health Care Education/Training Program; Admitting Provider Internal Medicine; Emergency Provider Family Medicine; PCP Internal Medicine; Visit Provider Family Medicine
DX: A41.89 Other specified sepsis (principal); U07.1 COVID-19; J12.89 Other viral pneumonia; J96.01 Acute respiratory failure with hypoxia; J15.9 Unspecified bacterial pneumonia; E87.2 Acidosis; K62.5 Hemorrhage of anus and rectum; R65.20 Severe sepsis without septic shock; Z85.3 Personal history of malignant neoplasm of breast; Z93.3 Colostomy status; F41.8 Other specified anxiety disorders; M19.90 Unspecified osteoarthritis, unspecified site; E78.5 Hyperlipidemia, unspecified; I10 Essential (primary) hypertension; Z87.11 Personal history of peptic ulcer disease; Z90.10 Acquired absence of unspecified breast and nipple; I48.0 Paroxysmal atrial fibrillation; E87.5 Hyperkalemia; Z90.49 Acquired absence of other specified parts of digestive tract; K12.30 Oral mucositis (ulcerative), unspecified; Z79.891 Long term (current) use of opiate analgesic; R73.9 Hyperglycemia, unspecified; T38.0X5A Adverse effect of glucocorticoids and synthetic analogues, initial encounter; K76.89 Other specified diseases of liver
CPT/HCPCS: 12345; 36415; 36416; 36600; 51702; 71045; 71275; 80048; 80051; 80053; 82274; 82330; 82550; 82728; 82803; 82805; 82962; 83036; 83540; 83550; 83605; 83615; 83735; 83880; 84100; 84145; 84443; 84484; 85007; 85014; 85018; 85025; 85378; 85384; 86140; 86403; 87040; 87426; 87449; 87641; 87804; 93005; 93306; 94640; 94660; 94664; 94669; 96372; 96375; 97110; 97161; 97530; 99284; C9113; J1100; J1650; J1815; J1940; J2020; J2060; J2405; J2543; J3535; J7030; J8540; Q9967

== ENCOUNTER 2020-05-25 16:24 | Inpatient (IN) | payer MEDICARE, MEDICAID, SELFPAY ==
[2020-05-25] VITALS (9 sets, daily range): BP systolic 91–113; BP diastolic 50–73; PULSE 73–111; RESP 18–26; TEMP 36.3; O2SAT 95–99; BMI 52.7
--- NOTE | 2020-05-25 16:42 | XR_ITS ---
WS: [id number] Portable AP semiupright chest, 05/25/2020 Clinical Data: hypotension Comparison: Portable chest, 05/06/2020. Findings: Bilateral lung opacities which have the appearance of chronic interstitial lung disease rem ain the same. The heart is normal. The aortic arch and descending aorta are tortuous. No pneumothorax is seen. There are no large masses or obvious nodules. There are monitor leads on the chest wall. XR/XR chest 1V portable [id number] Impression: No change in bilateral interstitial pulmonary opacities.
--- NOTE | 2020-05-25 16:44 | ECG_ITS ---
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 Measurements Intervals [place] Rate: 80 P: 12 CA: 184 QRS: -35 QRSD: 109 T: 21 QT: 357 QTc: 412 Interpretive Statements SINUS RHYTHM LEFT AXIS DEVIATION [QRS AXIS < -30] VOLTAGE CRITERIA FOR LVH [MEETS CRITERIA IN ONE OF: R(aVL), S(V1), R(V5), R(V5/V6)+S(V1)] Compared to ECG 04/28/2020 07:49:38 No significant changes are noted. Electronically Signed On 05-25-2020 17:06:12 TRADITIONAL [employer] HE[employer] PRACTITIONER by Jae Kaisre M.D. [email or web address]
--- NOTE | 2020-05-25 16:57 | ED_ITS ---
HPI - General Adult General: Chief complaint: General Medical Stated complaint: HYPOTENSION Time Seen by Provider: 05/25/20 16:32 Source: patient Mode of arrival: ambulatory Limitations: no limitations History of Present Illness: HPI narrative: This is an 79-year-old female patient who was discharged from this facility on 05/06/2020 after admission for ARDS secondary to covid pneumonia. She was discharged to a rehab facility/LTAC in [facility]. She was discharged from there today to a local SNF here in [place], however on arrival at the MD she was hypotensive and so was sent here to the ED for evaluation. The patient is not really able to tell me if she has any complaints. She however states that she does not feel well. She was placed on oxygen when she was first diagnosed with COVID-19 about 2 months ago. She denies cough. Denies a fever. MD complaint: SOB Associated symptoms: Deny dyspnea, headache(s), nausea, rash, palpitations or vomiting Review of Systems General: Reports: 10 or more systems reviewed and unremarkable except in HPI and below Const: Denies: fever(s), chills or body aches Eyes: Denies: change in vision or blurry vision ENMT: Denies: throat pain, enlarged tonsils, odynophagia, hoarseness, mouth pain or swelling of lips/tongue Card: Denies: palpitations, irregular heart rhythm, edema or swelling of feet/ankles Resp: Denies: dyspnea, productive cough or non-productive cough GI: Denies: abdominal pain, nausea or vomiting : Denies: flank pain, difficulty voiding, dysuria, urinary frequency, urinary urgency or urinary hesitancy Musc: Denies: neck pain, back pain or extremity swelling Skin/Breast: Denies: rash, pruritus or erythema Neuro: Denies: headache(s), numbness in extremities or weakness in extremities Endo: Denies: polyuria, polydipsia or tired all the time PFS ED PFSH: Medical History (Reviewed 05/25/20 @ 23:15 by Mellissa Barahona [place] [facility] [place] Activity extremely limited Anxiety and depression Breast cancer Degenerative arthritis Fracture of left femur HLD (hyperlipidemia) HTN (hypertension) Partial small bowel obstruction PUD (peptic ulcer disease) Surgical History (Reviewed 05/25/20 @ 23:15 by Mellissa Barahona MD, [facility] [place] History of colostomy History of modified radical mastectomy History of partial colectomy Family History (Reviewed 05/25/20 @ 23:15 by Mellissa Barahona MD, [facility] [place] Other No significant family history Social History (Reviewed 05/25/20 @ 23:15 by Mellissa Barahona MD, [facility] [place] Smoking and tobacco status: never smoked Alcohol intake: never Housing: [facility] Marital status: / Current occupational status: retired Physical Exam Const: COMMON NORMALS: no acute distress, patient oriented x3, no limitations, healthy appearing, alert and well nourished NUTRITIONAL APPEARANCE: obese HENMT: COMMON NORMALS: normocephalic, atraumatic and moist oral mucous membranes HEAD & SCALP: normocephalic and atraumatic Eye: COMMON NORMALS: Equal, round and reactive pupils present, EOMs intact bilaterally, conjunctivae normal and no scleral icterus CONJUNCTIVA: Yes conjunctivae normal PUPIL: Yes Equal, round and reactive pupils present Neck/C-Spine: COMMON NORMALS: no meningeal signs and no JVD Resp: COMMON NORMALS: normal respiratory effort, No retractions, No use of accessory muscles, clear to auscultation bilaterally and percussion normal AUSCULTATION: clear to auscultation bilaterally and diminished lung sounds PERCUSSION: percussion normal Cardio: COMMON NORMALS: no JVD, regular rate, regular rhythm, S1 normal heart sound present, S2 normal heart sound present, No gallops present (Cardio), No clicks present (Cardio), No murmurs present (Cardio), No rub (Cardio) and Peripheral pulses 2+ throughout RATE: regular rate RHYTHM: regular rhythm HEART SOUNDS: S1 normal heart sound present and S2 normal heart sound present PERIPHERAL PULSES: Peripheral pulses 2+ throughout GI: COMMON NORMALS: Soft to palpation, non-tender, No hepatosplenomegaly present, no masses and no bruits PALPATION: Yes Soft to palpation and Yes No hepatosplenomegaly present OTHER: colostomy noted on the right abdomen, appears intact and functioning Extremity: COMMON NORMALS: normal to inspection, full ROM, capillary refill normal, no calf tenderness and no pedal edema Neuro: COMMON NORMALS: patient oriented x3 SENSORIUM/ORIENTATION: Yes alert MENINGEAL SIGNS: Yes no meningeal signs Skin: COMMON NORMALS: no rashes or lesions noted, no wounds, turgor normal, no jaundice, no petechiae and no mottling GENERAL SKIN EXAM: no rashes or lesions noted and turgor normal Course ED course: Patient who was brought in to the ED from the MD with hypotension. In the ED she was found to have a UTI. A fragoso was inserted in the ED for accurate I/O. She is admitted to the hospital for further evaluation and management. Consultations: Consultation #1: Discussed the patient with Dr. Kwon and he kindly accepted the patient to his service. Time: 22:45 Vital Signs: Vital signs: Vital Signs Temperature 97.3 F L 05/25/20 16:25 Pulse Rate 97 05/25/20 22:23 Respiratory Rate 22 H 05/25/20 20:31 Blood Pressure 93/64 05/25/20 22:23 Pulse Oximetry 99 05/25/20 20:31 MDM - General Adult MDM Narrative: Medical decision making narrative: 79 year old woman who has had a protracted illness that started with a diagnosis of COVID-19 almost 2 months ago. She needed to be admitted to the hospital and was discharged to an LTAC. She was discharged from the LTAC today to a SNF and on arrival at the SNF she was noted to be hypotensive, so she was sent here for evaluation. In the ED her HR was greater than 90, she was hypotensive, and evaluation shows a UTI. She therefore meets the sepsis criteria. A Fragoso was inserted in the ED for accurate I/O measurement. She is admitted to the hospital for further evaluation and management Medical Records: Attestation: I reviewed the patient's medical records. Lab Data: Attestation: I reviewed the patient's lab results. Labs: Lab Results 05/25/20 05/25/20 05/25/20 Range/Units 17:30 17:30 17:30 WBC 11.4 H (4.0-10.0) 10^3/ uL RBC 4.69 (4.1-5.3) 10^6/u L Hgb 13.1 (11.5-15.3) g/dL Hct 42.5 (37.0-47.0) % MCV 90.6 (81-99) fL MCH 27.9 L (28.0-34.0) pg MCHC 30.8 (30.0-36.0) g/dL RDW 22.5 H (12.1-15.1) % Plt Count 256 (130-400) 10^3/c mm MPV 13.0 H (7.4-10.4) fL Neut % (Auto) 49.6 % Lymph % (Auto) 30.4 % [place] % (Auto) 7.2 % Eos % (Auto) 9.9 % Baso % (Auto) 0.5 % Neut # (Auto) 5.68 (1.8-7.7) 10^3/u L Lymph # (Auto) 3.5 (0.8-4.8) 10^3/u L [place] # (Auto) 0.8 (0.2-0.9) 10^3/u L Eos # (Auto) 1.1 H (0.0-0.8) 10^3/u L Baso # (Auto) 0.1 (0.0-0.1) 10^3/u L Nucleated RBC % (a uto) 0.5 % Nucleated RBCs # 0.1 /100WBC Sodium 141 (136-145) mmol/L Potassium 4.3 (3.5-5.1) mmol/L Chloride 96 L (98-107) mmol/L Carbon Dioxide 36 H (22-29) mmol/L Anion Gap 13.3 (5-19) BUN 39 H (8-23) mg/dL Creatinine 1.0 H (0.5-0.9) mg/dL GFR Calculation Not Reportable Glucose 86 (65-115) mg/dL Calculated Osmolal ity 301 H (285-295) mOsm/k g Lactate 1.4 (0.5-2.2) mmol/L Calcium 9.1 (8.5-10.5) mg/dL Total Bilirubin 0.6 (0.15-1.2) mg/dL AST 26 (0-32) U/L ALT 37 H (0-33) U/L Alkaline Phosphata se 99 (35-105) IU/L Troponin T Baselin e (0-10) ng/L Troponin T 120 Min nikolski (0-10) ng/L Delta Troponin T (0-10) ABS# C-Reactive Protein 84.9 H (0.0-4.9) mg/L NT-Pro-B Natriuret Pep 316 (0-450) pg/mL Total Protein 5.2 L (6.6-8.7) g/dL Albumin 2.6 L (3.5-5.2) g/dL Globulin 2.6 (1.3-4.6) g/dL TSH 2.28 (0.27-4.20) uIU/ mL Urine Color (Yellow) Urine Appearance (CLEAR) Urine pH (5-7) Ur Specific Gravit y (1.005-1.030) Urine Protein (Negative) Urine Glucose (UA) (Normal) Urine Ketones (Negative) Urine Blood (Negative) Urine Nitrate (Negative) Urine Bilirubin (Negative) Urine Urobilinogen (Negative) mg/dL Ur Leukocyte Lorenza ase (Negative) Urine RBC (0-2) /hpf Urine WBC (0-5) /hpf Ur Squamous Epith Cells (0-5) /hpf Amorphous Sediment Urine Bacteria (NONE) /hpf 05/25/20 05/25/20 05/25/20 Range/Units 17:30 19:08 19:35 WBC (4.0-10.0) 10^3/ uL RBC (4.1-5.3) 10^6/u L Hgb (11.5-15.3) g/dL Hct (37.0-47.0) % MCV (81-99) fL MCH (28.0-34.0) pg MCHC (30.0-36.0) g/dL RDW (12.1-15.1) % Plt Count (130-400) 10^3/c mm MPV (7.4-10.4) fL Neut % (Auto) % Lymph % (Auto) % [place] % (Auto) % Eos % (Auto) % Baso % (Auto) % Neut # (Auto) (1.8-7.7) 10^3/u L Lymph # (Auto) (0.8-4.8) 10^3/u L [place] # (Auto) (0.2-0.9) 10^3/u L Eos # (Auto) (0.0-0.8) 10^3/u L Baso # (Auto) (0.0-0.1) 10^3/u L Nucleated RBC % (a uto) % Nucleated RBCs # /100WBC Sodium (136-145) mmol/L Potassium (3.5-5.1) mmol/L Chloride (98-107) mmol/L Carbon Dioxide (22-29) mmol/L Anion Gap (5-19) BUN (8-23) mg/dL Creatinine (0.5-0.9) mg/dL GFR Calculation Glucose (65-115) mg/dL Calculated Osmolal ity (285-295) mOsm/k g Lactate (0.5-2.2) mmol/L Calcium (8.5-10.5) mg/dL Total Bilirubin (0.15-1.2) mg/dL AST (0-32) U/L ALT (0-33) U/L Alkaline Phosphata se (35-105) IU/L Troponin T Baselin e 46 H (0-10) ng/L Troponin T 120 Min nikolski 44.37 H (0-10) ng/L Delta Troponin T -1.63 L (0-10) ABS# C-Reactive Protein (0.0-4.9) mg/L NT-Pro-B Natriuret Pep (0-450) pg/mL Total Protein (6.6-8.7) g/dL Albumin (3.5-5.2) g/dL Globulin (1.3-4.6) g/dL TSH (0.27-4.20) uIU/ mL Urine Color Yellow (Yellow) Urine Appearance Cloudy A (CLEAR) Urine pH 5.0 (5-7) Ur Specific Gravit y 1.010 (1.005-1.030) Urine Protein Neg (Negative) Urine Glucose (UA) Norm (Normal) Urine Ketones Negative (Negative) Urine Blood Neg (Negative) Urine Nitrate Negative (Negative) Urine Bilirubin Neg (Negative) Urine Urobilinogen Norm (Negative) mg/dL Ur Leukocyte Lorenza ase 2+ H (Negative) Urine RBC 0-4 H (0-2) /hpf Urine WBC 25-40 H (0-5) /hpf Ur Squamous Epith Cells 0-4 H (0-5) /hpf Amorphous Sediment Not Reportable Urine Bacteria 3+ H (NONE) /hpf Imaging Data^: CT Chest: Radiologist's impression: [address] [address] [address] Scan Report Signed Patient: Hermelinda Mckeon #: [id number] : 1940Acct#:[id number] Age/Sex: 79 / FADM Date: 05/25/20 Loc: ERRoom/Bed: Attending Dr: Ordering Provider/Ordering MD: Mellissa Barahona MD, [facility] [place] Date of Service: 05/25/20 Procedure(s): CT chest abd pel wo con Accession Number(s): [id number] Report Number: [id number] PROCEDURE INFORMATION: Exam: CT Chest Without Contrast; Diagnostic Exam date and time: 05/25/2020 9:00 PM Age: 79 years old Clinical indication: Fever; Shortness of breath; Additional info: Hypotension TECHNIQUE: Imaging protocol: Diagnostic computed tomography of the chest without contrast. Radiation optimization: All CT scans at this facility use at least one of these dose optimization techniques: automated exposure control; mA and/or kV adjustment per patient size (includes targeted exams where dose is matched to clinical indication); or iterative reconstruction. COMPARISON: CT angio chest PE protcl [id number] 04/23/2020 10:07 PM RADIATION DOSE METRICS: Total DLP (mGy-cm): 2506.77 FINDINGS: Lungs: Bilateral ground-glass interstitial lung disease that has progressed since last evaluation. Small volume subsegmental early consolidated alveolar airspace disease with air bronchograms now present. Consideration should be given to Covid-19 pneumonitis/pneumonia. Pleural space: Unremarkable. No pneumothorax. No pleural effusion. Heart: Cardiomegaly. Coronary artery disease. Calcified mitral annulus. No visible pericardial effusion. Aorta: The thoracic aorta is nonaneurysmal. Mild arterial sclerotic disease. Tortuous thoracic aorta which can be seen in hypertensive cardiovascular disease. Lymph nodes: No visible evidence raising suspicion for active mediastinal or hilar lymphadenopathy. Bones/joints: No visible acute osseous abnormality. Degenerative disease and degenerative disc disease of the spine with spondylosis deformans. Osteopenia/osteoporosis. Soft tissues: Marked morbid obesity. Other findings: Increased quantum mottle artifact which degrades image quality and detail. Motion artifact. Very limited contrast enhancement. IMPRESSION: 1. Bilateral ground-glass interstitial lung disease that has progressed since last evaluation. Small volume subsegmental early consolidated alveolar airspace disease with air bronchograms now present. 2. Consideration should be given to Covid-19 pneumonitis/pneumonia. 3. Cardiomegaly. 4. Coronary artery disease. PROCEDURE INFORMATION: Exam: CT Abdomen And Pelvis Without Contrast Exam date and time: 05/25/2020 9:00 PM Age: 79 years old Clinical indication: Fever; Shortness of breath; Additional info: Hypotension TECHNIQUE: Imaging protocol: Computed tomography of the abdomen and pelvis without contrast. Radiation optimization: All CT scans at this facility use at least one of these dose optimization techniques: automated exposure control; mA and/or kV adjustment per patient size (includes targeted exams where dose is matched to clinical indication); or iterative reconstruction. COMPARISON: CT angio chest PE protcl [id number] 04/23/2020 10:07 PM RADIATION DOSE METRICS: Total DLP (mGy-cm): 2506.77 FINDINGS: Liver: Again note of a simple appearing right hepatic lobe cyst. No visible hepatic mass. Gallbladder and bile ducts: Status post cholecystectomy. Pancreas: Pancreas unremarkable. No visible pancreatic ductal ectasia. Spleen: Status post splenectomy. Splenules. Adrenal glands: Adrenal glands unremarkable. Kidneys and ureters: Stable simple cortical cyst superior pole right kidney measuring 19 mm. No follow-up recommended. No hydronephrosis or perinephric fluid bilaterally. Stomach and bowel: Left colostomy. Mild rectal fecal impaction, diverticulosis coli without visible evidence for acute diverticulitis within Celeste's pouch. Nonobstructive bowel pattern. No visible adynamic or reactive ileus. Appendix: Appendix surgically absent. Intraperitoneal space: No visible evidence of mesenteric lymphadenitis or active mesenteritis/panniculitis. Vasculature: The abdominal aorta is nonaneurysmal. Moderate arterial sclerotic disease. Lymph nodes: No current visible evidence of active mesenteric or retroperitoneal lymphadenopathy. Urinary bladder: Fragoso catheter with decompressed urinary bladder. Reproductive: Status post hysterectomy. Bones/joints: Degenerative disease and degenerative disc disease of the spine. Spondylosis deformans. Facet arthrosis. Osteopenia/osteoporosis. Mild scoliotic curvature of the spine. Soft tissues: Marked morbid obesity. Left upper quadrant lateral ventral hernia containing small and large bowel loops without incarceration or strangulation. Other findings: Increased quantum mottle artifact which degrades image quality and detail. Motion artifact. Excretory phase of contrast enhancement. Non dynamic contrast enhancement. CT/CT chest abd pel wo con IMPRESSION: 1. Currently no visible evidence of acute abdominal or pelvic pathologic process. 2. Other nonurgent, nonemergent, chronic, postoperative, and age related findings as detailed in text above. Radiation Dose CTDIVOL = (mGy): DLP = 2506.77~2506.77 (mGy-cm) Dictated By:Wero Rice Signed By:Wero RiceSikaylyn Date/Time:05/25/202248 DD/ 46 EKG Data^: EKG 1: Attestation: I personally reviewed and interpreted this EKG as follows: EKG interpretation date: 05/25/20 EKG interpretation time: 16:34 Prior EKG tracings: not available for review Interpretation: NSR HR [address] chages Computer generated interpretation: Chest/Abdomen/Pelvis CT 05/25/20 20:37 IMPRESSION: 1. Currently no visible evidence of acute abdominal or pelvic pathologic process. 2. Other nonurgent, nonemergent, chronic, postoperative, and age related findings as detailed in text above. Radiation Dose CTDIVOL = (mGy): DLP = 2506.77~2506.77 (mGy-cm) EKG 2: Attestation: I personally reviewed and interpreted this EKG as follows: EKG interpretation date: 05/25/20 EKG interpretation time: 19:50 Prior EKG tracings: available for review Interpretation: NSR HR 84 bpm LAD LVH No ST changes Computer generated interpretation: Chest/Abdomen/Pelvis CT 05/25/20 20:37 IMPRESSION: 1. Currently no visible evidence of acute abdominal or pelvic pathologic process. 2. Other nonurgent, nonemergent, chronic, postoperative, and age related findings as detailed in text above. Radiation Dose CTDIVOL = (mGy): DLP = 2506.77~2506.77 (mGy-cm) EKG 3: Attestation: I personally reviewed and interpreted this EKG as follows: EKG interpretation date: 05/25/20 EKG interpretation time: 22:52 Prior EKG tracings: available for review Interpretation: NSR HR 73 bpm LAD LVH No ST changes Computer generated interpretation: Chest/Abdomen/Pelvis CT 05/25/20 20:37 IMPRESSION: 1. Currently no visible evidence of acute abdominal or pelvic pathologic process. 2. Other nonurgent, nonemergent, chronic, postoperative, and age related findings as detailed in text above. Radiation Dose CTDIVOL = (mGy): DLP = 2506.77~2506.77 (mGy-cm) Discharge Plan Discharge Patient Disposition: Admitted As Inpatient Admit Provider: Young Kwon Clinical Impression: Acute UTI Sepsis Qualifiers: Sepsis type: sepsis due to unspecified organism Sepsis acute organ dysfunction status: with acute organ dysfunction Severe sepsis acute organ dysfunction type: unspecified Severe sepsis shock status: with septic shock Qualified Code(s): A41.9 - Sepsis, unspecified organism Condition: Stable Coding Level of Care Code ED Advanced Manufacturing Consultant for Shante Alvarenga
--- NOTE | 2020-05-25 17:48 | PC.NURSE ---
Upon entering room to initiate IV, nurse found tourniquet on patients left upper arm. Nurse removed immediately and let arm rest prior to initiating IV.
[2020-05-25 18:05] LABS: Basophils # 0.1 10^3/uL (0.0-0.1); Basophils % 0.5 %; Eosinophils # 1.1 10^3/uL (0.0-0.8); Eosinophils % 9.9 %; Hematocrit 42.5 % (37.0-47.0); Hemoglobin 13.1 g/dL (11.5-15.3); Lymphocytes # 3.5 10^3/uL (0.8-4.8); Lymphocytes % 30.4 %; Mean Corpuscular HGB Conc 30.8 g/dL (30.0-36.0); Mean Corpuscular Hemoglobin 27.9 pg (28.0-34.0); Mean Corpuscular Volume 90.6 fL (81-99); Monocytes # 0.8 10^3/uL (0.2-0.9); Monocytes % 7.2 %; Neutrophils # 5.68 10^3/uL (1.8-7.7); Neutrophils % 49.6 %; Nucleated Red Blood Cells # 0.1 /100WBC; Nucleated Red Blood Cells % 0.5 %; Platelet Count 256 10^3/cmm (130-400); Red Blood Count 4.69 10^6/uL (4.1-5.3); Red Cell Distribution Width 22.5 % (12.1-15.1); White Blood Count 11.4 10^3/uL (4.0-10.0)
[2020-05-25 18:15] LABS: Lactate (Lactic Acid level) 1.4 mmol/L (0.5-2.2)
[2020-05-25 18:20] LABS: Troponin(5th) Baseline 46 ng/L (0-10)
[2020-05-25 18:27] LABS: Alanine Aminotransferase 37 U/L (0-33); Albumin Level 2.6 g/dL (3.5-5.2); Alkaline Phosphatase 99 IU/L (35-105); Blood Urea Nitrogen 39 mg/dL (8-23); C Reactive Protein 84.9 mg/L (0.0-4.9); Calcium 9.1 mg/dL (8.5-10.5); Carbon Dioxide 36 mmol/L (22-29); Chloride 96 mmol/L (98-107); Globulin 2.6 g/dL (1.3-4.6); Glucose 86 mg/dL (65-115); NT Pro B Type Natriuretic Pept 316 pg/mL (0-450); Osmolality Calculated 301 mOsm/kg (285-295); Sodium 141 mmol/L (136-145); Thyroid Stimulating Hormone 2.28 uIU/mL (0.27-4.20); Total Bilirubin 0.6 mg/dL (0.15-1.2); Total Protein 5.2 g/dL (6.6-8.7)
[2020-05-25 18:30] LABS: Anion Gap 13.3 (5-19); Aspartate Amino Transferase 26 U/L (0-32); Potassium 4.3 mmol/L (3.5-5.1)
--- NOTE | 2020-05-25 18:44 | ECG_ITS ---
[facility] Test Date: 2020-05-25 Pat Name: Hermelinda Mckeon Department: Room: Gender: Female Hospice [employer]: : 1940 Requested By: Mellissa Barahona I Order Number: [id number] Rosalba MD: Bianca Mancera M.D. Measurements Intervals [place] Rate: 84 P: 12 MI: 180 QRS: -41 QRSD: 105 T: 37 QT: 351 QTc: 416 Interpretive Statements SINUS RHYTHM LEFT AXIS DEVIATION [QRS AXIS < -30] MODERATE VOLTAGE CRITERIA FOR LVH, CONSIDER NORMAL VARIANT [MEETS CRITERIA IN ONE OF: R(aVL), S(V1), R(V5), R(V5/V6)+S(V1)] POSSIBLE ANTERIOR MYOCARDIAL INFARCTION , OF INDETERMINATE AGE [30 ms Q WAVE IN V3/V4, OR R < 0.2 mV IN V4] Compared to ECG 05/25/2020 16:34:13 Myocardial infarct finding now present Electronically Signed On 05-26-2020 19:36:15 CALENDER OPERATOR by Bianca Mancera M.D. [id number]
--- NOTE | 2020-05-25 19:22 | PC.NURSE ---
Patient report received from NASIR Ybarra and care transferred to NASIR Vallecillo
--- NOTE | 2020-05-25 19:23 | PC.NURSE ---
Patient report received from NASIR Ybarra and care transferred to NASIR Vallecillo
[2020-05-25 19:36] LABS: Troponin 5 2HR 44.37 ng/L (0-10); Troponin 5 2HR Delta -1.63 ABS# (0-10)
--- NOTE | 2020-05-25 19:50 | PC.NURSE ---
Pt incontinent of urine. Pt cleaned of incontinence, fragoso inserted by Amada BEST. colostomy bag changed. Pt positioned for comfort on left side with pillow in place.
--- NOTE | 2020-05-25 19:54 | PC.NURSE ---
EKG done at 1951 and shown to ER doctor
--- NOTE | 2020-05-25 19:57 | PC.NURSE ---
Jara placed by Amada BEST
[2020-05-25 20:18] LABS: Urine Appearance Cloudy (CLEAR); Urine Color Yellow (Yellow)
[2020-05-25 20:19] LABS: Add Urine Culture? Yes; Add Urine Microscopic? YES; Bacteria Urine 3+ /hpf; Bilirubin Urine Neg (Negative); Blood Urine Neg (Negative); Glucose Urine UA Norm (Normal); Ketones Urine Negative (Negative); Leukocyte Esterase Urine 2+ (Negative); Nitrate Urine Negative (Negative); Protein Urine Neg (Negative); RBC Urine 0-4 /hpf (0-2); Squamous Epithelial Cell Urine 0-4 /hpf (0-5); Urobilinogen Urine Norm (Negative); WBC Urine 25-40 /hpf (0-5)
--- NOTE | 2020-05-25 20:37 | CTR_ITS ---
PROCEDURE INFORMATION: Exam: CT Chest Without Contrast; Diagnostic Exam date and time: 05/25/2020 9:00 PM Age: 79 years old Clinical indication: Fever; Shortness of breath; Additional info: Hypotension TECHNIQUE: Imaging protocol: Diagnostic computed tomography of the chest without contrast. Radiation optimization: All CT scans at this facility use at least one of these dose optimization techniques: automated exposure control; mA and/or kV adjustment per patient size (includes targeted exams where dose is matched to clinical indication); or iterative reconstruction. COMPARISON: CT angio chest PE protcl [id number] 04/23/2020 10:07 PM RADIATION DOSE METRICS: Total DLP (mGy-cm): 2506.77 FINDINGS: Lungs: Bilateral ground-glass interstitial lung disease that has progressed since last evaluation. Small volume subsegmental early consolidated alveolar airspace disease with air bronchograms now present. Consideration should be given to Covid-19 pneumonitis/pneumonia. Pleural space: Unremarkable. No pneumothorax. No pleural effusion. Heart: Cardiomegaly. Coronary artery disease. Calcified mitral annulus. No visible pericardial effusion. Aorta: The thoracic aorta is nonaneurysmal. Mild arterial sclerotic disease. Tortuous thoracic aorta which can be seen in hypertensive cardiovascular disease. Lymph nodes: No visible evidence raising suspicion for active mediastinal or hilar lymphadenopathy. Bones/joints: No visible acute osseous abnormality. Degenerative disease and degenerative disc disease of the spine with spondylosis deformans. Osteopenia/osteoporosis. Soft tissues: Marked morbid obesity. Other findings: Increased quantum mottle artifact which degrades image quality and detail. Motion artifact. Very limited contrast enhancement. IMPRESSION: 1. Bilateral ground-glass interstitial lung disease that has progressed since last evaluation. Small volume subsegmental early consolidated alveolar airspace disease with air bronchograms now present. 2. Consideration should be given to Covid-19 pneumonitis/pneumonia. 3. Cardiomegaly. 4. Coronary artery disease. PROCEDURE INFORMATION: Exam: CT Abdomen And Pelvis Without Contrast Exam date and time: 05/25/2020 9:00 PM Age: 79 years old Clinical indication: Fever; Shortness of breath; Additional info: Hypotension TECHNIQUE: Imaging protocol: Computed tomography of the abdomen and pelvis without contrast. Radiation optimization: All CT scans at this facility use at least one of these dose optimization techniques: automated exposure control; mA and/or kV adjustment per patient size (includes targeted exams where dose is matched to clinical indication); or iterative reconstruction. COMPARISON: CT angio chest PE protcl [id number] 04/23/2020 10:07 PM RADIATION DOSE METRICS: Total DLP (mGy-cm): 2506.77 FINDINGS: Liver: Again note of a simple appearing right hepatic lobe cyst. No visible hepatic mass. Gallbladder and bile ducts: Status post cholecystectomy. Pancreas: Pancreas unremarkable. No visible pancreatic ductal ectasia. Spleen: Status post splenectomy. Splenules. Adrenal glands: Adrenal glands unremarkable. Kidneys and ureters: Stable simple cortical cyst superior pole right kidney measuring 19 mm. No follow-up recommended. No hydronephrosis or perinephric fluid bilaterally. Stomach and bowel: Left colostomy. Mild rectal fecal impaction, diverticulosis coli without visible evidence for acute diverticulitis within Celeste's pouch. Nonobstructive bowel pattern. No visible adynamic or reactive ileus. Appendix: Appendix surgically absent. Intraperitoneal space: No visible evidence of mesenteric lymphadenitis or active mesenteritis/panniculitis. Vasculature: The abdominal aorta is nonaneurysmal. Moderate arterial sclerotic disease. Lymph nodes: No current visible evidence of active mesenteric or retroperitoneal lymphadenopathy. Urinary bladder: Jara catheter with decompressed urinary bladder. Reproductive: Status post hysterectomy. Bones/joints: Degenerative disease and degenerative disc disease of the spine. Spondylosis deformans. Facet arthrosis. Osteopenia/osteoporosis. Mild scoliotic curvature of the spine. Soft tissues: Marked morbid obesity. Left upper quadrant lateral ventral hernia containing small and large bowel loops without incarceration or strangulation. Other findings: Increased quantum mottle artifact which degrades image quality and detail. Motion artifact. Excretory phase of contrast enhancement. Non dynamic contrast enhancement. CT/CT chest abd pel wo con IMPRESSION: 1. Currently no visible evidence of acute abdominal or pelvic pathologic process. 2. Other nonurgent, nonemergent, chronic, postoperative, and age related findings as detailed in text above. Radiation Dose CTDIVOL = (mGy): DLP = 2506.77~2506.77 (mGy-cm)
[2020-05-25] MEDS: piperacillin-tazobactam 3.375 GM in sodium chloride 0.9% (plus) 50 ML IV (21:07)
[2020-05-25] MEDS: sodium chloride 0.9% 1,000 ML 999 ML IV (21:07)
--- NOTE | 2020-05-25 22:44 | ECG_ITS ---
[facility] Test Date: 2020-05-25 Pat Name: Hermelinda Mckeon Department: Room: Gender: Female Clinical Genetics Laboratory Chief: : 1940 Requested By: Mellissa Barahona I Order Number: [id number] Rosalba MD: Bianca Mancera M.D. Measurements Intervals [place] Rate: 73 P: 53 MS: 202 QRS: -34 QRSD: 105 T: 28 QT: 390 QTc: 430 Interpretive Statements SINUS RHYTHM LEFT AXIS DEVIATION [QRS AXIS < -30] VOLTAGE CRITERIA FOR LVH [MEETS CRITERIA IN ONE OF: R(aVL), S(V1), R(V5), R(V5/V6)+S(V1)] POSSIBLE ANTERIOR MYOCARDIAL INFARCTION , OF INDETERMINATE AGE [30 ms Q WAVE IN V3/V4, OR R < 0.2 mV IN V4] Compared to ECG 05/25/2020 19:49:56 No significant changes Electronically Signed On 05-26-2020 19:31:46 MACHINE I CUTTER by Bianca Mancera M.D. [id number]
--- NOTE | 2020-05-25 23:06 | PC.NURSE ---
EKG done at 2300 and shown to ER doctor
--- NOTE | 2020-05-25 23:24 | P.HP_ITS ---
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 She was discharged to a rehab facility/[facility] in [facility]. She was discharged from there today to a local SNF here in [place], however on arrival at the [place] she was hypotensive and so was sent here to the ED for evaluation. Upon arrival in the ER she does not have any specific complaint, she denied any chest pain any shortness of breath any cough, any fever. In the ED her HR was greater than 90, she was hypotensive, and evaluation shows a UTI. She was admitted for further management of sepsis likely secondary to UTI. Imaging studies: CT chest abd pel wo con:1. Bilateral ground-glass interstitial lung disease that has progressed since last evaluation. Small volume subsegmental early consolidated alveolar airspace disease with air bronchograms now present. Consideration should be given to Covid-19 pneumonitis/pneumonia. Cardiomegaly. Coronary artery disease. Currently no visible evidence of acute abdominal or pelvic pathologic process. ECA medications: A liter of normal saline. 3.375 gram Zosyn x1 dose Review of Systems Const: Denies: body aches, change in appetite or diaphoresis Card: Denies: palpitations, edema or swelling of feet/ankles Resp: Denies: wheezing or pain on inspiration GI: Denies: abdominal pain, nausea, vomiting, diarrhea or constipation : Denies: flank pain Musc: Denies: back pain, extremity pain or extremity swelling Neuro: Denies: headache(s), difficulty walking or confusion Medications/Allergies Home Medications Medication Instructions Recorded Confirmed Last Taken Type bisacodyl 5 mg PO Q24H PRN 04/24/20 05/25/20 Unknown History escitalopram oxalate 10 mg PO DAILY 04/24/20 05/25/20 Unknown History fluticasone propionate 2 spray INTRANASAL DAILY 04/24/20 05/25/20 Unknown History pregabalin [Lyrica] 75 mg PO BID 04/24/20 05/25/20 Unknown History sennosides-docusate sodium [Senna 1 tab-cap PO DAILY 04/24/20 05/25/20 Unknown History Plus] acetaminophen 650 mg PO Q6H PRN 30 Days #30 tab 05/06/20 05/25/20 Unknown Rx apixaban [Eliquis] 5 mg PO BID 30 Days #60 tab 05/06/20 05/25/20 Unknown Rx ascorbic acid (vitamin C) [Vitamin 500 mg PO DAILY 30 Days #30 tab 05/06/20 05/25/20 Unknown Rx C] guaifenesin [Mucinex] 600 mg PO Q12H #30 tab 05/06/20 05/25/20 Unknown Rx trazodone 25 mg PO BEDTIME PRN 30 Days #30 05/06/20 05/25/20 Unknown Rx tab albuterol sulfate 2.5 mg INHALATION Q6H PRN 05/25/20 05/25/20 Unknown History alprazolam 0.25 mg PO TID PRN 05/25/20 05/25/20 Unknown History benzocaine-menthol [Cepacol Sore See Rx Instructions .ROUTE .COMPLEX 05/25/20 05/25/20 Unknown History Throat (wiliam-men)] carvedilol 6.25 mg PO BID 05/25/20 05/25/20 Unknown History famotidine 20 mg PO DAILY 05/25/20 05/25/20 Unknown History fluticasone propion-salmeterol 1 inh INHALATION Q12H 05/25/20 05/25/20 Unknown History furosemide [Lasix] 40 mg PO DAILY 05/25/20 05/25/20 Unknown History insulin glargine [Lantus Solostar 5 unit SUBCUT BEDTIME 05/25/20 05/25/20 Unknown History U-100 Insulin] insulin lispro [Admelog SoloStar See Rx Instructions .ROUTE .COMPLEX 05/25/20 05/25/20 Unknown History U-100 Insulin] nystatin See Rx Instructions .ROUTE .COMPLEX 05/25/20 05/25/20 Unknown History ondansetron 4 mg PO Q6H PRN 05/25/20 05/25/20 Unknown History umeclidinium [Incruse Ellipta] 1 inh INHALATION DAILY 05/25/20 05/25/20 Unknown History Allergies Allergy/AdvReac Type Severity Reaction Status Date / Time No Known Allergies Allergy Verified 05/25/20 17:50 PFSH Acute PFSH: Medical History (Reviewed 05/25/20 @ 23:15 by Mellissa Barahona MD, [facility]) Activity extremely limited Anxiety and depression Breast cancer Degenerative arthritis Fracture of left femur HLD (hyperlipidemia) HTN (hypertension) Partial small bowel obstruction PUD (peptic ulcer disease) Surgical History (Reviewed 05/25/20 @ 23:15 by Mellissa Barahona MD, [facility]) History of colostomy History of modified radical mastectomy History of partial colectomy Family History (Reviewed 05/25/20 @ 23:15 by Mellissa Barahona MD, [facility]) Other No significant family history Social History (Reviewed 05/25/20 @ 23:15 by Mellissa Barahona MD, [facility]) Smoking and tobacco status: never smoked Alcohol intake: never Housing: [facility] Marital status: / Current occupational status: retired Vitals/I&O/Wt Last Vital Signs Temp 97.3 F L 05/25/20 16:25 Pulse 97 05/25/20 22:23 Resp 22 H 05/25/20 20:31 BP 93/64 05/25/20 22:23 Pulse Ox 99 05/25/20 20:31 Weight last 48 hrs Weight 135.171 kg Physical Exam Const: COMMON NORMALS: patient oriented x3 HENMT: COMMON NORMALS: normocephalic and atraumatic HEAD & SCALP: normocephalic and atraumatic Eye: GENERAL EYE: appearance normal, both eyes and all related structures Chest: COMMONS NORMALS: normal inspection of the chest CHEST: Yes Symmetrical chest wall rise Resp: COMMON NORMALS: normal respiratory effort EFFORT & INSPECTION: Yes symmetric chest movement AUSCULTATION: clear to auscultation bilaterally Cardio: COMMON NORMALS: regular rate, regular rhythm, S1 normal heart sound present, S2 normal heart sound present, No gallops present (Cardio), No murmurs present (Cardio), No rub (Cardio) and Peripheral pulses 2+ throughout RATE: regular rate RHYTHM: regular rhythm HEART SOUNDS: S1 normal heart sound present and S2 normal heart sound present PERIPHERAL PULSES: Peripheral pulses 2+ throughout GI: COMMON NORMALS: Normal to inspection, nondistended, normoactive bowel sounds present, Soft to palpation, non-tender, No hepatosplenomegaly present and no masses AUSCULTATION: Yes normoactive bowel sounds PALPATION: Yes Soft to palpation and Yes No hepatosplenomegaly present RECTAL EXAM: deferred OTHER: colostomy noted on the right abdomen, appears intact and functioning Extremity: COMMON NORMALS: no clubbing, cyanosis or edema and no pedal edema Neuro: COMMON NORMALS: patient oriented x3 Urinary Catheter Management^: Jara: Cath Placed During This Visit: yes Reason for Continuing Indwelling Catheter: Other Urinary Catheter Date of Insertion: 05/25/20 Urinary Catheter Time of Insertion: 19:56 Data : 05/25/20 17:30 05/25/20 17:30 Micro: Microbiology 05/25/20 17:30 Blood Culture - Preliminary Blood SPECIMEN COLLECTED 05/25/20 17:30 Blood Culture - Preliminary Blood SPECIMEN COLLECTED A&P Assessment and plan (1) Sepsis: In the ED her HR was greater than 90, she was hypotensive, and evaluation shows a UTI. Received 1 L normal normal saline, 1 dose of Zosyn. Continue ceftriaxone 1 mg IV every 24 hours daily for NOW. Follow cultures Status: Acute Qualifiers: Sepsis acute organ dysfunction status: with acute organ dysfunction Sepsis type: sepsis due to unspecified organism Severe sepsis acute organ dysfunction type: unspecified Severe sepsis shock status: with septic shock Qualified Code(s): A41.9 - Sepsis, unspecified organism; R65.21 - Severe sepsis with septic shock (2) Acute UTI: Continue ceftriaxone 1 mg IV every 24 hours daily for NOW. Follow urine culture Status: Acute (3) Paroxysmal A-fib: Currently rate controlled. Continue carvedilol 6.25 every 12 hours Telemetry Continue Eliquis Status: Acute (4) Diabetes: Continue low-dose sliding scale insulin Diabetic diet Monitor fingerstick glucose Status: Acute (5) HTN (hypertension): Continue carvedilol 6.25 every 12 hours Status: Acute (6) Chronic hypoxemic respiratory failure: Secondary to Covid pneumonia. Currently on 4 L oxygen via nasal cannula Continue supplemental Status: Acute Additional A&P Information DVT prophylax: Not needed on Eliquis CODE STATUS: Full code Disposition: jail Attestations Medical Necessity Statement*: Patient needs to be in hospital for management of sepsis secondary to UTI. Anticipated length of stay greater than 2 midnight Coding Level of Care Code Acute Rack Puncher for Chg Fwd Diagnoses Sepsis A41.9; R65.21 Sepsis acute organ dysfunction status: with acute organ dysfunction Sepsis type: sepsis due to unspecified organism Severe sepsis acute organ dysfunction type: unspecified Severe sepsis shock status: with septic shock Acute UTI N39.0 Paroxysmal A-fib I48.0 Diabetes E11.9 HTN (hypertension) I10 Chronic hypoxemic respiratory failure J96.11
[2020-05-25 23:26] LABS: Troponin 5 6HR 47.28 ng/L (0-10); Troponin 5 6HR Delta 1.28 ng/L (0-12)
[2020-05-26] VITALS (8 sets, daily range): BP systolic 99–116; BP diastolic 64–77; PULSE 77–113; RESP 17–20; TEMP 36.4–36.6; O2SAT 91–98
[2020-05-26] MEDS: cefTRIAXone 1,000 MG in sodium chloride 0.9% (plus) 50 ML 100 MG IV ×2 (01:19→23:58)
[2020-05-26 05:35] LABS: Basophils # 0.1 10^3/uL (0.0-0.1); Basophils % 0.7 %; Eosinophils # 1.2 10^3/uL (0.0-0.8); Eosinophils % 11.8 %; Hematocrit 38.8 % (37.0-47.0); Hemoglobin 12.1 g/dL (11.5-15.3); Lymphocytes # 3.2 10^3/uL (0.8-4.8); Mean Corpuscular HGB Conc 31.2 g/dL (30.0-36.0); Mean Corpuscular Hemoglobin 28.5 pg (28.0-34.0); Mean Corpuscular Volume 91.3 fL (81-99); Mean Platelet Volume 12.6 fL (7.4-10.4); Monocytes # 0.8 10^3/uL (0.2-0.9); Monocytes % 7.9 %; Neutrophils % 44.7 %; Nucleated Red Blood Cells # 0.1 /100WBC; Nucleated Red Blood Cells % 0.5 %; Platelet Count 229 10^3/cmm (130-400); Red Blood Count 4.25 10^6/uL (4.1-5.3); Red Cell Distribution Width 22.5 % (12.1-15.1); White Blood Count 10.1 10^3/uL (4.0-10.0)
[2020-05-26 05:58] LABS: INR 1.26 (0.8-1.2)
[2020-05-26 05:59] LABS: Partial Thromboplastin Time 28.2 SECONDS (23.9-36.7)
[2020-05-26 06:09] LABS: Alanine Aminotransferase 30 U/L (0-33); Albumin Level 2.2 g/dL (3.5-5.2); Alkaline Phosphatase 87 IU/L (35-105); Aspartate Amino Transferase 26 U/L (0-32); Blood Urea Nitrogen 37 mg/dL (8-23); Calcium 8.4 mg/dL (8.5-10.5); Carbon Dioxide 31 mmol/L (22-29); Chloride 106 mmol/L (98-107); Globulin 2.7 g/dL (1.3-4.6); Glucose 69 mg/dL (65-115); Osmolality Calculated 309 mOsm/kg (285-295); Sodium 146 mmol/L (136-145); Total Bilirubin 0.4 mg/dL (0.15-1.2); Total Protein 4.9 g/dL (6.6-8.7)
[2020-05-26 06:11] LABS: Anion Gap 13.2 (5-19); Potassium 4.2 mmol/L (3.5-5.1)
[2020-05-26 06:14] LABS: NT Pro B Type Natriuretic Pept 244 pg/mL (0-450)
[2020-05-26 06:36] LABS: Glucose Point of Care 71 mg/dL (70-110)
[2020-05-26] MEDS: carvedilol 6.25 mg Tablet PO (08:24)
[2020-05-26] MEDS: ascorbic acid 500 mg Tablet PO (08:24)
[2020-05-26] MEDS: escitalopram 10 mg Tablet PO (08:24)
[2020-05-26] MEDS: apixaban 5 mg Tablet PO ×2 (08:24→18:22)
[2020-05-26] MEDS: famotidine 20 mg Tablet PO (08:24)
[2020-05-26] MEDS: fluticasone nasal spray 16gm Btl 2 SPRAY INTRANASAL (08:25)
[2020-05-26] MEDS: pregabalin 75 mg Capsule PO ×2 (08:41→18:22)
[2020-05-26] MEDS: FUROsemide 40 mg Tablet PO (08:41)
[2020-05-26] MEDS: sennosides-docusate Tablet 1 TAB PO (08:41)
--- NOTE | 2020-05-26 09:37 | PC.CHAP ---
Pastoral Care Encounter/Spiritual Assessment Type of Contact [] Declined citrix architect visit [] Patient/Family/Request visit [] Outpatient visit [] Follow-up visit [] Physician referral [] Code/Alert [] Routine visit [] Staff referral [] Actively dying [x] Patient sleeping [] Family support [] [] Out of room [] Palliative care [] [] Receiving care in room [] Pre-surgical visit [] Trauma [] Long length of stay [] ICU visit [] Other: Relational/Emotional Strength [] Patient feels connected with others/family/visitors/staff [] Distress [] Loneliness/isolation [] Abandonment Spirituality of Patient [] Person of April [] Attends Buddhism of their April [] Believes in Prayer [] Reads Bible or Samaritan materials [] There are Spiritual issues to be addressed Shape Carver Interventions [] Prayer [] Active listening [] Non-anxious presence [] Spiritual/emotional support [] Crisis/trauma care [] Spiritual counseling [] Bereavement support [] Provided bereavement packet [] Provided Bible/devotional materials [] Provided toy/stuffed animal, coloring book to patient or family member [] Provided Communion [] Anointing/[place] [] Salvation [] Completed spiritual assessment [] Other: Impact on Illness or Injury [] Angry [] Fearful [] Anxious [] Often cries [] Exhaustion [] Unable to work [] Unable to attend uatsdin [] Unable to walk/stand [] Unable to read [] Unable to drive [] Unable to eat/drink [] Unable to sleep [] Unable to be with family [] Patient intubated [] Other: Summary Time spent with patient
[2020-05-26] MEDS: guaiFENesin 600 mg Tablet PO ×2 (10:17→23:58)
[2020-05-26] MEDS: dilTIAZem 30 mg Tablet PO ×3 (10:17→22:04)
[2020-05-26 11:04] LABS: Glucose Point of Care 159 mg/dL (70-110)
--- NOTE | 2020-05-26 13:14 | P.PN_ITS ---
Subjective Subjective: Interval history: This morning patient was examined, she is on 5 L nasal cannula, has no particular complaints, no chest pain, shortness of breath, no lightheaded, dizziness, does not know why she is here in the hospital Vitals/I&O/Wt Last Vital Signs Temp 97.6 F 05/26/20 04:00 Pulse 113 H 05/26/20 12:20 Resp 18 05/26/20 12:20 BP 107/76 05/26/20 12:20 Pulse Ox 91 05/26/20 12:20 05/25/20 05/26/20 05/26/20 22:59 06:59 14:59 Intake Total 50 / 50 Output Total 1600 / 1600 Balance -1550 / -1550 Weight last 48 hrs Weight 129.274 kg Weight 135.171 kg Physical Exam Const: COMMON NORMALS: no acute distress and alert GENERAL APPEARANCE: cooperative and comfortable ORIENTATION/CONSCIOUSNESS: Yes awake, Yes o riented to person, Yes oriented to place and Yes confused; not oriented to time HENMT: COMMON NORMALS: normocephalic HEAD & SCALP: normocephalic Neck/C-Spine: COMMON NORMALS: full ROM, no lymphadenopathy and no JVD Lymph: LYMPHATIC: no lymphadenopathy noted Resp: COMMON NORMALS: normal respiratory effort, No retractions, No use of accessory muscles and clear to auscultation bilaterally AUSCULTATION: clear to auscultation bilaterally Cardio: COMMON NORMALS: no JVD, regular rate, regular rhythm, S1 normal heart sound present, S2 normal heart sound present, No gallops present (Cardio), No clicks present (Cardio) and No murmurs present (Cardio) RATE: regular rate RHYTHM: regular rhythm HEART SOUNDS: S1 normal heart sound present and S2 normal heart sound present GI: COMMON NORMALS: Normal to inspection, nondistended, normoactive bowel sounds present, Soft to palpation, non-tender and No hepatosplenomegaly present PALPATION: Yes Soft to palpation and Yes No hepatosplenomegaly present Extremity: COMMON NORMALS: normal to inspection, full ROM and no pedal edema Neuro: COMMON NORMALS: moves all extremities SENSORIUM/ORIENTATION: Yes alert, Yes oriented to person, Yes oriented to place and No oriented to time Urinary Catheter Management^: Jara: Cath Placed During This Visit: yes Reason for Continuing Indwelling Catheter: Acute Urinary Retention or Obstruction Urinary Catheter Date of Insertion: 05/25/20 Urinary Catheter Time of Insertion: 19:56 Data : 05/26/20 04:49 05/26/20 04:49 Micro: Microbiology 05/25/20 17:30 Blood Culture - Preliminary Blood SPECIMEN COLLECTED 05/25/20 17:30 Blood Culture - Preliminary Blood SPECIMEN COLLECTED A&P Assessment and plan (1) Sepsis: In the ED her HR was greater than 90, she was hypotensive, and evaluation shows a UTI. I feel that a component is likely secondary to Coreg, stop Coreg, switch to C ardizem Received 1 L normal normal saline, 1 dose of Zosyn. Continue ceftriaxone 1 mg IV every [address] hours [address] scan does not show any obstructive uropathy, or radiographic evidence of pyel onephritis Likely secondary to UTI, follow cultures Status: Acute Qualifiers: Sepsis acute organ dysfunction status: with acute organ dysfunction Sepsis type: sepsis due to unspecified organism Severe sepsis acute organ dysfunction type: unspecified Severe sepsis shock status: with septic shock Qualified Code(s): A41.9 - Sepsis, unspecified organism; R65.21 - Severe sepsis with septic shock (2) Acute UTI: Continue ceftriaxone 1 mg IV every 24 hours daily for NOW. Follow urine culture Status: Acute (3) Paroxysmal A-fib: Currently rate controlled. Stop Coreg, switch to Cardizem Telemetry Continue Eliquis Status: Acute (4) Diabetes: Continue low-dose sliding scale insulin Diabetic diet Monitor fingerstick glucose Status: Acute (5) HTN (hypertension): Continue carvedilol 6.25 every 12 hours Status: Acute (6) Chronic hypoxemic respiratory failure: Secondary to Covid pneumonia. Recently discharged from [facility] viral ICU, due [facility], discharged now to fdc, clinically improving Currently on 4 L oxygen via nasal cannula Continue supplemental CT scan Bilateral ground-glass interstitial lung disease that has progressed since last evaluation. Small volume subsegmental early consolidated alveolar airspace disease with air bronchograms now present. Status: Acute (7) NSTEMI (non-ST elevated myocardial infarction): -Baseline troponin 46, 6-hour 47.2, delta 1.28 TSH 2.[address]-T wave changes No complaints of chest pain Echocardiogram on last admission showed left ventricular systolic function is grossly normal, mild LVH, diastolic function abnormal, poor quality study Continue aspirin 81 mg, atorvastatin 40 mg, Eliquis Status: Acute Additional A&P Information DVT prophylax: Not needed on Eliquis CODE STATUS: Full code Disposition: senior living Plan for today monitor mentation, monitor respiratory status, monitor blood cultures, continue antibiotics Attestations Medical Necessity Statement*: Patient requires hospitalization, inpatient, greater than 2 midnights, for sepsis secondary to UTI, low blood pressures, NSTEMI Time Spent in Patient Care: Greater than 35 minutes Coding Level of Care Code Acute Client Account Specialist for g Fwd Diagnoses Sepsis A41.9; R65.21 Sepsis acute organ dysfunction status: with acute organ dysfunction Sepsis type: sepsis due to unspecified organism Severe sepsis acute organ dysfunction type: unspecified Severe sepsis shock status: with septic shock Acute UTI N39.0 Paroxysmal A-fib I48.0 Diabetes E11.9 HTN (hypertension) I10 Chronic hypoxemic respiratory failure J96.11 NSTEMI (non-ST elevated myocardial infarction) I21.4
[2020-05-26] MEDS: aspirin 81 mg EC Tablet PO (16:00)
[2020-05-26 17:00] LABS: Glucose Point of Care 74 mg/dL (70-110)
[2020-05-26 20:33] LABS: Glucose Point of Care 100 mg/dL (70-110)
[2020-05-26] MEDS: atorvastatin 40 mg Tablet PO (22:04)
[2020-05-27] VITALS (8 sets, daily range): BP systolic 107–136; BP diastolic 75–84; PULSE 79–109; RESP 16–18; TEMP 36.4–37.3; O2SAT 90–92
[2020-05-27] MEDS: dilTIAZem 30 mg Tablet PO ×4 (03:51→20:42)
[2020-05-27 05:03] LABS: Basophils # 0.1 10^3/uL (0.0-0.1); Basophils % 0.8 %; Hematocrit 40.3 % (37.0-47.0); Hemoglobin 12.6 g/dL (11.5-15.3); Lymphocytes # 3.7 10^3/uL (0.8-4.8); Mean Corpuscular HGB Conc 31.3 g/dL (30.0-36.0); Mean Corpuscular Hemoglobin 28.1 pg (28.0-34.0); Mean Platelet Volume 12.9 fL (7.4-10.4); Monocytes % 8.8 %; Neutrophils # 4.73 10^3/uL (1.8-7.7); Neutrophils % 43.3 %; Nucleated Red Blood Cells # 0.1 /100WBC; Nucleated Red Blood Cells % 0.5 %; Platelet Count 258 10^3/cmm (130-400); Red Blood Count 4.48 10^6/uL (4.1-5.3); Red Cell Distribution Width 22.1 % (12.1-15.1); White Blood Count 10.9 10^3/uL (4.0-10.0)
[2020-05-27 05:32] LABS: Alanine Aminotransferase 31 U/L (0-33); Albumin Level 2.2 g/dL (3.5-5.2); Alkaline Phosphatase 87 IU/L (35-105); Anion Gap 13.5 (5-19); Aspartate Amino Transferase 23 U/L (0-32); Blood Urea Nitrogen 27 mg/dL (8-23); Calcium 8.7 mg/dL (8.5-10.5); Carbon Dioxide 32 mmol/L (22-29); Chloride 100 mmol/L (98-107); Globulin 2.9 g/dL (1.3-4.6); Glucose 79 mg/dL (65-115); Osmolality Calculated 298 mOsm/kg (285-295); Potassium 3.5 mmol/L (3.5-5.1); Sodium 142 mmol/L (136-145); Total Bilirubin 0.3 mg/dL (0.15-1.2); Total Protein 5.1 g/dL (6.6-8.7)
[2020-05-27 06:31] LABS: Magnesium 1.7 mg/dL (1.7-2.3); Phosphorus 2.9 mg/dL (2.5-4.5)
[2020-05-27 06:38] LABS: Procalcitonin 0.16 ng/mL (0-0.5)
[2020-05-27 06:50] LABS: Creatine Phosphokinase 22 U/L (26-192)
--- NOTE | 2020-05-27 07:00 | XRR_ITS ---
PROCEDURE INFORMATION: Exam: XR Chest, 1 View Exam date and time: 05/27/2020 6:52 AM Age: 79 years old Clinical indication: Shortness of breath; Additional info: SOB TECHNIQUE: Imaging protocol: XR of the chest Views: 1 view. COMPARISON: CT angio chest w abd pel w con 05/25/2020 9:24 PM FINDINGS: Lungs: There are extensive bilateral interstitial infiltrates and patchy alveolar consolidation predominantly in the left base. This is consistent with bilateral pneumonia. It has not significantly changed since previous study. Pleural space: Unremarkable. No pleural effusion. No pneumothorax. Heart/Mediastinum: Unremarkable. No cardiomegaly. Bones/joints: Unremarkable. XR/XR chest 1V portable [id number] IMPRESSION: No significant change in extensive bilateral pulmonary infiltrates especially on the left side.
[2020-05-27 07:18] LABS: Glucose Point of Care 99 mg/dL (70-110)
[2020-05-27] MEDS: escitalopram 10 mg Tablet PO (08:53)
[2020-05-27] MEDS: famotidine 20 mg Tablet PO (08:53)
[2020-05-27] MEDS: aspirin 81 mg EC Tablet PO (08:53)
[2020-05-27] MEDS: sennosides-docusate Tablet 1 TAB PO (08:53)
[2020-05-27] MEDS: apixaban 5 mg Tablet PO ×2 (08:53→18:15)
[2020-05-27] MEDS: ascorbic acid 500 mg Tablet PO (08:53)
[2020-05-27] MEDS: fluticasone nasal spray 16gm Btl 2 SPRAY INTRANASAL (08:54)
[2020-05-27] MEDS: pregabalin 75 mg Capsule PO ×2 (08:54→18:15)
[2020-05-27] MEDS: FUROsemide 40 mg Tablet PO (08:54)
[2020-05-27 11:04] LABS: Glucose Point of Care 125 mg/dL (70-110)
--- NOTE | 2020-05-27 11:10 | P.PN_ITS ---
Subjective Subjective: Interval history: This morning patient was examined, she is alert oriented x3, has no particular complaints except weakness, she is wondering when she will get to go home Vitals/I&O/Wt Last Vital Signs Temp 97.8 F 05/27/20 08:00 Pulse 83 05/27/20 08:11 Resp 18 05/27/20 08:11 BP 135/80 05/27/20 08:00 Pulse Ox 91 05/27/20 08:11 05/26/20 05/27/20 05/27/20 22:59 06:59 14:59 Intake Total 236 / 708 240 / 240 Output Total 1150 / 1150 425 / 1575 Balance -914 / -442 -425 / -867 240 / 240 Weight last 48 hrs Weight 128.877 kg Weight 129.274 kg Weight 135.171 kg Physical Exam Const: COMMON NORMALS: no acute distress NUTRITIONAL APPEARANCE: obese morbidly obese ORIENTATION/CONSCIOUSNESS: Yes awake, Yes oriented to person and Yes confused; not oriented to place and not oriented to time HENMT: COMMON NORMALS: normocephalic HEAD & SCALP: normocephalic Neck/C-Spine: COMMON NORMALS: no JVD Resp: COMMON NORMALS: normal respiratory effort, No retractions, No use of accessory muscles and clear to auscultation bilaterally AUSCULTATION: clear to auscultation bilaterally Cardio: COMMON NORMALS: no JVD, regular rate, regular rhythm, S1 normal heart sound present and S2 normal heart sound present RATE: regular rate RHYTHM: regular rhythm HEART SOUNDS: S1 normal heart sound present and S2 normal heart sound present GI: COMMON NORMALS: Normal to inspection, nondistended, normoactive bowel sounds present, Soft to palpation, non-tender, No hepatosplenomegaly present, no masses and no bruits PALPATION: Yes Soft to palpation and Yes No hepatosplenomegaly present Extremity: COMMON NORMALS: capillary refill normal, no clubbing, cyanosis or edema, no calf tenderness and no pedal edema Neuro: SENSORIUM/ORIENTATION: Yes oriented to person, No oriented to place and No oriented to time Urinary Catheter Management^: Jara: Cath Placed During This Visit: yes Reason for Continuing Indwelling Catheter: Acute Urinary Retention or Obstruction Urinary Catheter Date of Insertion: 05/25/20 Urinary Catheter Time of Insertion: 19:56 Data : 05/27/20 04:16 05/27/20 04:16 Micro: Microbiology 05/25/20 19:35 Urine Culture - Preliminary Urine,Clean Catch Gram Negative Rods Gram Negative Rods#2 05/25/20 17:30 Blood Culture - Preliminary Blood NEGATIVE TO DATE 05/25/20 17:30 Blood Culture - Preliminary Blood NEGATIVE TO DATE A&P Assessment and plan (1) Sepsis: In the ED her HR was greater than 90, she was hypotensive, and evaluation shows a UTI. Sepsis has resolved I feel that a component is likely secondary to Coreg, stop Coreg, switch to Cardizem Received 1 L normal normal saline, 1 dose of Zosyn. Urine growing multiple gram-negative organisms, protease CT scan does not show any obstructive uropathy, or radiographic evidence of pyelonephritis Likely secondary to UTI, follow cultures Change antibiotic coverage from Rocephin to Primaxin for ESBL coverage Status: Acute Qualifiers: Sepsis acute organ dysfunction status: with acute organ dysfunction Sepsis type: sepsis due to unspecified organism Severe sepsis acute organ dysfunction type: unspecified Severe sepsis shock status: with septic shock Qualified Code(s): A41.9 - Sepsis, unspecified organism; R65.21 - Severe sepsis with septic shock (2) Acute UTI: Follow urine culture Status: Acute (3) Paroxysmal A-fib: Currently rate controlled. On Cardizem Telemetry Continue Eliquis Status: Acute (4) Diabetes: Continue low-dose sliding scale insulin Diabetic diet Monitor fingerstick glucose Status: Acute (5) HTN (hypertension): Continue carvedilol 6.25 every 12 hours Status: Acute (6) Chronic hypoxemic respiratory failure: Secondary to Covid pneumonia. Recently discharged from [facility] viral ICU, due [facility], discharged now to detention, clinically improving Currently on 4 L oxygen via nasal cannula Continue supplemental CT scan Bilateral ground-glass interstitial lung disease that has progressed since last evaluation. Small volume subsegmental early consolidated alveolar airspace disease with air bronchograms now present. Status: Acute (7) NSTEMI (non-ST elevated myocardial infarction): -Baseline troponin 46, 6-hour 47.2, delta 1.28 TSH 2.[address]-T wave changes No complaints of chest pain Echocardiogram on last admission showed left ventricular systolic function is grossly normal, mild LVH, diastolic function abnormal, poor quality study Continue aspirin 81 mg, atorvastatin 40 mg, Eliquis Status: Acute Additional A&P Information DVT prophylax: Not needed on Eliquis CODE STATUS: Full code Disposition: [facility] Plan for today monitor mentation, monitor respiratory status, monitor blood cultures, switch antibiotic coverage to Primaxin, follow urine cultures Attestations Medical Necessity Statement*: Patient requires hospitalization due to altered mental status and sepsis secondary to UTI Coding Level of Care Code Acute Java Technical Architect for [facility] Diagnoses Sepsis A41.9; R65.21 Sepsis acute organ dysfunction status: with acute organ dysfunction Sepsis type: sepsis due to unspecified organism Severe sepsis acute organ dysfunction type: unspecified Severe sepsis shock status: with septic shock Acute UTI N39.0 Paroxysmal A-fib I48.0 Diabetes E11.9 HTN (hypertension) I10 Chronic hypoxemic respiratory failure J96.11 NSTEMI (non-ST elevated myocardial infarction) I21.4
[2020-05-27] MEDS: guaiFENesin 600 mg Tablet PO (11:39)
[2020-05-27 17:05] LABS: Glucose Point of Care 111 mg/dL (70-110)
[2020-05-27] MEDS: FUROsemide 10 mg/mL SDV 4mL 40 MG IVP (18:15)
[2020-05-27] MEDS: atorvastatin 40 mg Tablet PO (20:42)
[2020-05-27 21:05] LABS: Glucose Point of Care 100 mg/dL (70-110)
[2020-05-28] VITALS (10 sets, daily range): BP systolic 102–128; BP diastolic 67–79; PULSE 80–99; RESP 15–20; TEMP 36.4–37.1; O2SAT 91–94
[2020-05-28] MEDS: guaiFENesin 600 mg Tablet PO ×3 (00:14→22:27)
[2020-05-28] MEDS: dilTIAZem 30 mg Tablet PO ×4 (03:53→21:34)
[2020-05-28 05:26] LABS: Hematocrit 41.8 % (37.0-47.0); Mean Corpuscular HGB Conc 31.1 g/dL (30.0-36.0); Mean Corpuscular Hemoglobin 28.4 pg (28.0-34.0); Mean Corpuscular Volume 91.3 fL (81-99); Mean Platelet Volume 12.6 fL (7.4-10.4); Platelet Count 296 10^3/cmm (130-400); Red Blood Count 4.58 10^6/uL (4.1-5.3); Red Cell Distribution Width 22.1 % (12.1-15.1)
[2020-05-28 06:02] LABS: C Reactive Protein 33.2 mg/L (0.0-4.9); Magnesium 1.6 mg/dL (1.7-2.3)
[2020-05-28 06:03] LABS: Alanine Aminotransferase 31 U/L (0-33); Albumin Level 2.3 g/dL (3.5-5.2); Alkaline Phosphatase 84 IU/L (35-105); Anion Gap 13.6 (5-19); Aspartate Amino Transferase 27 U/L (0-32); Blood Urea Nitrogen 21 mg/dL (8-23); Calcium 8.6 mg/dL (8.5-10.5); Carbon Dioxide 34 mmol/L (22-29); Chloride 99 mmol/L (98-107); Globulin 2.9 g/dL (1.3-4.6); Glucose 85 mg/dL (65-115); Osmolality Calculated 298 mOsm/kg (285-295); Potassium 3.6 mmol/L (3.5-5.1); Sodium 143 mmol/L (136-145); Total Bilirubin 0.2 mg/dL (0.15-1.2); Total Protein 5.2 g/dL (6.6-8.7)
[2020-05-28 06:10] LABS: Procalcitonin 0.18 ng/mL (0-0.5)
[2020-05-28 06:20] LABS: Creatine Phosphokinase 18 U/L (26-192)
[2020-05-28 07:05] LABS: Glucose Point of Care 94 mg/dL (70-110)
[2020-05-28 07:12] LABS: Slide Review Slide Review Perform
[2020-05-28 07:21] LABS: Absolute Eosinophils 0.6 10^3/cmm (0.0-0.7); Absolute Segmented Neutrophil 4.5 10/cmm (1.6-7.1); Eosinophils 6 %; Lymphocytes 37 %; Monocytes Absolute 0.7 10^3/cmm (0.1-0.6); Segmented Neutrophils 41 %; Total Cells Counted 100 (0-100)
[2020-05-28 07:24] LABS: Absolute Neutrophil 5.5 10^3/cmm (1.4-6.5); Anisocytosis 1+; Platelet Estimate Normal (Normal); Poikilocytosis 1+; Smudge Cells 1+
[2020-05-28] MEDS: escitalopram 10 mg Tablet PO (08:10)
[2020-05-28] MEDS: apixaban 5 mg Tablet PO ×2 (08:10→17:30)
[2020-05-28] MEDS: aspirin 81 mg EC Tablet PO (08:10)
[2020-05-28] MEDS: ascorbic acid 500 mg Tablet PO (08:10)
[2020-05-28] MEDS: FUROsemide 40 mg Tablet PO (08:10)
[2020-05-28] MEDS: sennosides-docusate Tablet 1 TAB PO (08:10)
[2020-05-28] MEDS: famotidine 20 mg Tablet PO (08:10)
[2020-05-28] MEDS: pregabalin 75 mg Capsule PO ×2 (08:11→17:30)
[2020-05-28] MEDS: fluticasone nasal spray 16gm Btl 2 SPRAY INTRANASAL (08:15)
[2020-05-28] MEDS: magnesium oxide 400 mg tablet PO ×2 (10:09→17:29)
--- NOTE | 2020-05-28 10:39 | PC.CHAP ---
Pastoral Care Encounter/Spiritual Assessment Type of Contact [] Declined sharepoint solutions architect visit [] Patient/Family/Request visit [] Outpatient visit [X] Follow-up visit [] Physician referral [] Code/Alert [X] Routine visit [] Staff referral [] Actively dying [] Patient sleeping [] Family support [] [] Out of room [] Palliative care [] [X] Receiving care in room [] Pre-surgical visit [] Trauma [] Long length of stay [] ICU visit [] Other: Relational/Emotional Strength [X] Patient feels connected with others/family/visitors/staff [] Distress [] Loneliness/isolation [] Abandonment Spirituality of Patient [X] Person of April [] Attends Scientologist of their April [X] Believes in Prayer [X] Reads Bible or Roman Catholic materials [] There are Spiritual issues to be addressed Hot Molder Interventions [X] Prayer [X] Active listening [X] Non-anxious presence [] Spiritual/emotional support [] Crisis/trauma care [] Spiritual counseling [] Bereavement support [] Provided bereavement packet [X] Provided Bible/devotional materials [] Provided toy/stuffed animal, coloring book to patient or family member [] Provided Communion [] Anointing/[place] [] Salvation [X] Completed spiritual assessment [] Other: Impact on Illness or Injury [] Angry [] Fearful [] Anxious [] Often cries [] Exhaustion [] Unable to work [] Unable to attend anglican [] Unable to walk/stand [] Unable to read [] Unable to drive [] Unable to eat/drink [] Unable to sleep [] Unable to be with family [] Patient intubated [] Other: Summary: Pt had a severe case of COVID with co-morbidities. She is grateful to be on the other side of it. She is in good spirits, grateful, and knows that she will meet Eulalio. At times, it was difficult to understand what she was saying even with attempts to clarify. She has a daughter with COPD whom she has instructed not to visit her at the hospital. Time spent with patient: 10 mins
[2020-05-28 10:57] LABS: Glucose Point of Care 123 mg/dL (70-110)
--- NOTE | 2020-05-28 11:07 | P.PN_ITS ---
Subjective Subjective: Interval history: Patient was seen sitting in bed, she is doing well this morning, no fevers, chills, no nausea, no vomiting, no flank pain, much more alert, awake, knows where she is, knows her name but does have some episodes of confusion Vitals/I&O/Wt Last Vital Signs Temp 97.5 F L 05/28/20 11:06 Pulse 80 05/28/20 11:06 Resp 16 05/28/20 11:06 BP 119/79 05/28/20 11:06 Pulse Ox 94 05/28/20 11:06 05/27/20 05/28/20 05/28/20 22:59 06:59 14:59 Intake Total 100 / 440 200 / 640 Output Total 1000 / 1000 1200 / 2200 Balance -900 / -560 -1000 / -1560 Weight last 48 hrs Weight 129.092 kg Weight 128.877 kg Physical Exam Const: COMMON NORMALS: no acute distress and alert GENERAL APPEARANCE: cooperative and comfortable NUTRITIONAL APPEARANCE: obese morbidly obese ORIENTATION/CONSCIOUSNESS: Yes awake and Yes oriented to person; not oriented to place and not oriented to time HENMT: COMMON NORMALS: normocephalic HEAD & SCALP: normocephalic Neck/C-Spine: COMMON NORMALS: full ROM, no lymphadenopathy and no JVD Lymph: LYMPHATIC: no lymphadenopathy noted Resp: COMMON NORMALS: normal respiratory effort, No retractions, No use of accessory muscles and clear to auscultation bilaterally AUSCULTATION: clear to auscultation bilaterally Cardio: COMMON NORMALS: no JVD, regular rate, regular rhythm, S1 normal heart sound present, S2 normal heart sound present, No gallops present (Cardio), No clicks present (Cardio) and No murmurs present (Cardio) RATE: regular rate RHYTHM: regular rhythm HEART SOUNDS: S1 normal heart sound present and S2 normal heart sound present GI: COMMON NORMALS: Normal to inspection, nondistended, normoactive bowel sounds present, Soft to palpation, non-tender, No hepatosplenomegaly present, no masses and no bruits PALPATION: Yes Soft to palpation and Yes No hepatosplenomegaly present Extremity: COMMON NORMALS: normal to inspection, full ROM, capillary refill normal, no clubbing, cyanosis or edema, no calf tenderness and no pedal edema Neuro: COMMON NORMALS: moves all extremities SENSORIUM/ORIENTATION: Yes lisa rt, Yes oriented to person, No oriented to place and No oriented to time Urinary Catheter Management^: Jara: Cath Placed During This Visit: yes Reason for Continuing Indwelling Catheter: Acute Urinary Retention or Obstruction Urinary Catheter Date of Insertion: 05/25/20 Urinary Catheter Time of Insertion: 19:56 Data : 05/28/20 04:39 05/28/20 04:39 Micro: Microbiology 05/25/20 19:35 Urine Culture - Preliminary Urine,Clean Catch Gram Negative Rods Proteus mirabilis A&P Assessment and plan (1) Sepsis: In the ED her HR was greater than 90, she was hypotensive, and evaluation shows a UTI. Sepsis has resolved I feel that a component is likely secondary to Coreg, stop Coreg, switch to Cardizem Received 1 L normal normal saline, 1 dose of Zosyn. Urine growing multiple gram-negative organisms, protease Spoke to the lab this morning, some of the gram-negative organisms are showing up as a resistant, possible ESBL, possible Carbapenem resistance will need to continue to monitor CT scan does not show any obstructive uropathy, or radiographic evidence of pyelonephritis Likely secondary to UTI, follow cultures Continue Primaxin Status: Acute Qualifiers: Sepsis acute organ dysfunction status: with acute organ dysfunction Sepsis type: sepsis due to unspecified organism Severe sepsis acute organ dysfunction type: unspecified Severe sepsis shock status: with septic shock Qualified Code(s): A41.9 - Sepsis, unspecified organism; R65.21 - Severe sepsis with septic shock (2) Acute UTI: Follow urine culture Status: Acute (3) Paroxysmal A-fib: Currently rate controlled. On Cardizem Telemetry Continue Eliquis Status: Acute (4) Diabetes: Continue low-dose sliding scale insulin Diabetic diet Monitor fingerstick glucose Status: Acute (5) HTN (hypertension): Continue carvedilol 6.25 every 12 hours Status: Acute (6) Chronic hypoxemic respiratory failure: Secondary to Covid pneumonia. [place] [facility] due [facility], discharged now to longterm, clinically improving Currently on 4 L oxygen via nasal cannula Continue supplemental CT scan Bilateral ground-glass interstitial lung disease that has progressed since last evaluation. Small volume subsegmental early consolidated alveolar airspace disease with air bronchograms now present. Status: Acute (7) NSTEMI (non-ST elevated myocardial infarction): -Baseline troponin 46, 6-hour 47.2, delta 1.28 TSH 2.[address]-T wave changes No complaints of chest pain Echocardiogram on last admission showed left ventricular systolic function is grossly normal, mild LVH, diastolic function abnormal, poor quality study Continue aspirin 81 mg, atorvastatin 40 mg, Eliquis Status: Acute Additional A&P Information DVT prophylax: Not needed on Eliquis CODE STATUS: Full code Disposition: longterm Plan for today monitor mentation, monitor respiratory status, monitor blood cultures, follow urine cultures, continue Primaxin, hopefully discharge the next 24 hours Attestations Medical Necessity Statement*: Patient requires hospitalization for sepsis secondary to UTI, possibly growing resistant organisms, likely discharge to [facility] home in the next 24 hours Coding Level of Care Code Acute Diesel Locomotive Firer/Fireman for g Fwd Diagnoses Sepsis A41.9; R65.21 Sepsis acute organ dysfunction status: with acute organ dysfunction Sepsis type: sepsis due to unspecified organism Severe sepsis acute organ dysfunction type: unspecified Severe sepsis shock status: with septic shock Acute UTI N39.0 Paroxysmal A-fib I48.0 Diabetes E11.9 HTN (hypertension) I10 Chronic hypoxemic respiratory failure J96.11 NSTEMI (non-ST elevated myocardial infarction) I21.4
--- NOTE | 2020-05-28 11:52 | PC.SOCIAL ---
Pg 2 IMM Explained to pt Pg 2 IMM. No questions voiced. Provided pt a copy & left on bedside table. Signed, dated, & timed a copy & placed in chart.
[2020-05-28 16:50] LABS: Glucose Point of Care 97 mg/dL (70-110)
[2020-05-28 20:41] LABS: Glucose Point of Care 111 mg/dL (70-110)
[2020-05-28] MEDS: atorvastatin 40 mg Tablet PO (21:34)
[2020-05-29] VITALS (10 sets, daily range): BP systolic 98–109; BP diastolic 59–74; PULSE 79–122; RESP 15–20; TEMP 36.1–37.1; O2SAT 91–95
[2020-05-29] MEDS: dilTIAZem 30 mg Tablet PO ×2 (03:06→08:36)
--- NOTE | 2020-05-29 05:25 | NUR.SHIFT ---
Patient has mainly slept with no issues throughout the night.
[2020-05-29 05:29] LABS: Basophils # 0.1 10^3/uL (0.0-0.1); Basophils % 0.9 %; Eosinophils # 0.9 10^3/uL (0.0-0.8); Eosinophils % 7.4 %; Hemoglobin 13.5 g/dL (11.5-15.3); Lymphocytes # 4.3 10^3/uL (0.8-4.8); Lymphocytes % 34.6 %; Mean Corpuscular HGB Conc 30.7 g/dL (30.0-36.0); Mean Corpuscular Volume 91.1 fL (81-99); Mean Platelet Volume 12.5 fL (7.4-10.4); Monocytes # 0.9 10^3/uL (0.2-0.9); Monocytes % 7.3 %; Neutrophils # 5.15 10^3/uL (1.8-7.7); Nucleated Red Blood Cells # 0.1 /100WBC; Nucleated Red Blood Cells % 0.8 %; Platelet Count 330 10^3/cmm (130-400); Red Blood Count 4.83 10^6/uL (4.1-5.3); Red Cell Distribution Width 21.6 % (12.1-15.1); White Blood Count 12.4 10^3/uL (4.0-10.0)
[2020-05-29 06:03] LABS: Alanine Aminotransferase 30 U/L (0-33); Albumin Level 2.4 g/dL (3.5-5.2); Alkaline Phosphatase 89 IU/L (35-105); Anion Gap 13.4 (5-19); Aspartate Amino Transferase 34 U/L (0-32); Blood Urea Nitrogen 18 mg/dL (8-23); Carbon Dioxide 35 mmol/L (22-29); Chloride 99 mmol/L (98-107); Globulin 3.1 g/dL (1.3-4.6); Glucose 89 mg/dL (65-115); Osmolality Calculated 299 mOsm/kg (285-295); Potassium 3.4 mmol/L (3.5-5.1); Sodium 144 mmol/L (136-145); Total Bilirubin 0.3 mg/dL (0.15-1.2); Total Protein 5.5 g/dL (6.6-8.7)
[2020-05-29 06:06] LABS: Magnesium 1.8 mg/dL (1.7-2.3)
[2020-05-29 06:07] LABS: Creatine Phosphokinase 17 U/L (26-192)
[2020-05-29 06:42] LABS: Glucose Point of Care 87 mg/dL (70-110)
[2020-05-29 08:02] LABS: Neutrophils % 49.8 %
[2020-05-29] MEDS: apixaban 5 mg Tablet PO ×2 (08:09→17:17)
[2020-05-29] MEDS: ascorbic acid 500 mg Tablet PO (08:09)
[2020-05-29] MEDS: pregabalin 75 mg Capsule PO ×2 (08:10→17:17)
[2020-05-29] MEDS: nystatin powder 15 gm Btl 1 APPLIC TOPICAL (08:10)
[2020-05-29] MEDS: sennosides-docusate Tablet 1 TAB PO (08:10)
[2020-05-29] MEDS: aspirin 81 mg EC Tablet PO (08:10)
[2020-05-29] MEDS: FUROsemide 40 mg Tablet PO (08:10)
[2020-05-29] MEDS: fluticasone nasal spray 16gm Btl 2 SPRAY INTRANASAL (08:10)
[2020-05-29] MEDS: escitalopram 10 mg Tablet PO (08:10)
[2020-05-29] MEDS: famotidine 20 mg Tablet PO (08:10)
[2020-05-29 10:21] LABS: Glucose Point of Care 122 mg/dL (70-110)
[2020-05-29] MEDS: guaiFENesin 600 mg Tablet PO ×2 (11:08→22:25)
[2020-05-29] MEDS: cefepime 2,000 MG in sodium chloride 0.9% (plus) 50 ML 100 MG IV ×2 (11:08→22:25)
--- NOTE | 2020-05-29 13:38 | PM.PN ---
Documented by User: CARRI Mackey STDNT 05/29/20 13:51 Subjective Subjective: Interval history: Hermelinda is a 79 yo female with h/o ARDS secondary to COVID pneumonia 05/06/20, diabetes, and HTN who presented with a UTI on May 25. Today she stated it feels real hard to breathe and that she feels like she has no energy. She also c/o a headache and was coughing a bit last night. Medications: Reviewed: Yes Vitals/I&O/Wt Last Vital Signs Temp 98.0 F 05/29/20 11:55 Pulse 93 05/29/20 11:55 Resp 16 05/29/20 11:55 BP 109/64 05/29/20 11:55 Pulse Ox 92 05/29/20 11:55 05/28/20 05/29/20 05/29/20 22:59 06:59 14:59 Intake Total 370 / 830 100 / 930 420 / 420 Output Total 1900 / 1900 150 / 2050 350 / 350 Balance -1530 / -1070 -50 / -1120 70 / 70 Weight last 48 hrs Weight 127.822 kg Weight 129.092 kg Physical Exam Const: COMMON NORMALS: no acute distress and patient oriented x3 GENERAL APPEARANCE: cooperative and comfortable NUTRITIONAL APPEARANCE: obese HENMT: COMMON NORMALS: normocephalic and atraumatic HEAD & SCALP: normocephalic and atraumatic Eye: COMMON NORMALS: Equal, round and reactive pupils present, EOMs intact bilaterally, conjunctivae normal, no scleral icterus, no papilledema and normal visual hurley by confrontation GENERAL EYE: appearance normal, both eyes and all related structures CONJUNCTIVA: Yes conjunctivae normal PUPIL: Yes Equal, round and reactive pupils present DIRECT OPHTHALMOSCOPY: Yes no papilledema Neck/C-Spine: COMMON NORMALS: no JVD Resp: COMMON NORMALS: No retractions and No use of accessory muscles EFFORT & INSPECTION: Yes other AUSCULTATION: crackles Laterality: bilateral OTHER: Pt sometimes speaks in incomplete sentences and other times she is able to speak in complete sentences. When she was short of breath her voice was hoarse. Cardio: COMMON NORMALS: no JVD, regular rate, regular rhythm, S1 normal heart sound present, S2 normal heart sound present, No gallops present (Cardio), No clicks present (Cardio), No murmurs present (Cardio), No rub (Cardio) and Peripheral pulses 2+ throughout RATE: regular rate RHYTHM: regular rhythm HEART SOUNDS: S1 normal heart sound present and S2 normal heart sound present PERIPHERAL PULSES: Peripheral pulses 2+ throughout Neuro: COMMON NORMALS: patient oriented x3 Urinary Catheter Management^: Jara: Cath Placed During This Visit: yes Reason for Continuing Indwelling Catheter: Acute Urinary Retention or Obstruction Urinary Catheter Date of Insertion: 05/25/20 Urinary Catheter Time of Insertion: 19:56 Data : 05/29/20 04:34 05/29/20 04:34 Micro: Microbiology 05/25/20 19:35 Urine Culture - Final Urine,Clean Catch Escherichia coli Proteus mirabilis A&P Assessment and plan (1) Sepsis: In the ED her HR was greater than 90, she was hypotensive, and evaluation shows a UTI. Sepsis has resolved I feel that a component is likely secondary to Coreg, stop Coreg, switch to Cardizem Received 1 L normal normal saline, 1 dose of Zosyn. Urine growing multiple gram-negative organisms, protease Spoke to the lab this morning, some of the gram-negative organisms are showing up as a resistant, possible ESBL, possible Carbapenem resistance will need to continue to monitor CT scan does not show any obstructive uropathy, or radiographic evidence of pyelonephritis Likely secondary to UTI, follow cultures Continue Primaxin Discontinue Primaxin and switch to cefidipime. Blood culture in morning Secondary to UTI Status: Acute Qualifiers: Sepsis acute organ dysfunction status: with acute organ dysfunction Sepsis type: sepsis due to unspecified organism Severe sepsis acute organ dysfunction type: unspecified Severe sepsis shock status: with septic shock Qualified Code(s): A41.9 - Sepsis, unspecified organism; R65.21 - Severe sepsis with septic shock (2) Acute UTI: Follow urine culture Status: Acute (3) Paroxysmal A-fib: Currently rate controlled. On Cardizem Telemetry Continue Eliquis Telemetry Switch from Cardizem to carvedilol Continue Eliquis Status: Acute (4) Diabetes: Continue low-dose sliding scale insulin Diabetic diet Monitor fingerstick glucose Status: Acute (5) HTN (hypertension): Continue carvedilol 6.25 every 12 hours Status: Acute (6) Chronic hypoxemic respiratory failure: Secondary to Covid pneumonia. Recently discharged from [facility] ICU, due [facility] unit, discharged now to retirement, clinically improving Currently on 4 L oxygen via nasal cannula Continue supplemental CT scan Bilateral ground-glass interstitial lung disease that has progressed since last evaluation. Small volume subsegmental early consolidated alveolar airspace disease with air bronchograms now present. Status: Acute (7) NSTEMI (non-ST elevated myocardial infarction): -Baseline troponin 46, 6-hour 47.2, delta 1.28 TSH 2.[address]-T wave changes No complaints of chest pain Echocardiogram on last admission showed left ventricular systolic function is grossly normal, mild LVH, diastolic function abnormal, poor quality study Continue aspirin 81 mg, atorvastatin 40 mg, Eliquis Status: Acute Additional A&P Information DVT prophylax: Not needed on Eliquis CODE STATUS: Full code Disposition: [facility] Plan for today monitor mentation, monitor respiratory status, monitor blood cultures, follow urine cultures, continue Primaxin, hopefully discharge the next 24 hours Attestations Medical Necessity Statement*: Pt developed Afib with RVR. Will need to monitor for cardiac and respiratory status. Coding Level of Care Code Acute Education Teacher for [facility] Fwd Exam Detailed Diagnoses Sepsis A41.9; R65.21 Sepsis acute organ dysfunction status: with acute organ dysfunction Sepsis type: sepsis due to unspecified organism Severe sepsis acute organ dysfunction type: unspecified Severe sepsis shock status: with septic shock Acute UTI N39.0 Paroxysmal A-fib I48.0 Diabetes E11.9 HTN (hypertension) I10 Chronic hypoxemic respiratory failure J96.11 NSTEMI (non-ST elevated myocardial infarction) I21.4 Documented by User: Neeta Delatorre MD 05/29/20 13:54 Physical Exam Urinary Catheter Management^: Jara: Cath Placed During This Visit: no Data : 05/29/20 04:34 05/29/20 04:34 Coding Level of Care Code Acute Education Teacher for [facility] Fwd Exam Detailed Diagnoses Sepsis A41.9; R65.21 Sepsis acute organ dysfunction status: with acute organ dysfunction Sepsis type: sepsis due to unspecified organism Severe sepsis acute organ dysfunction type: unspecified Severe sepsis shock status: with septic shock Acute UTI N39.0 Paroxysmal A-fib I48.0 Diabetes E11.9 HTN (hypertension) I10 Chronic hypoxemic respiratory failure J96.11 NSTEMI (non-ST elevated myocardial infarction) I21.4
[2020-05-29 16:18] LABS: Glucose Point of Care 96 mg/dL (70-110)
[2020-05-29] MEDS: carvedilol 6.25 mg Tablet PO (17:17)
[2020-05-29] MEDS: budesonide 0.5 mg/2 mL Neb INHALATION (20:09)
[2020-05-29 20:31] LABS: Glucose Point of Care 134 mg/dL (70-110)
[2020-05-29] MEDS: atorvastatin 40 mg Tablet PO (21:42)
[2020-05-30] VITALS (9 sets, daily range): BP systolic 93–114; BP diastolic 62–79; PULSE 67–84; RESP 14–18; TEMP 36.1–36.6; O2SAT 91–97
--- NOTE | 2020-05-30 05:06 | NUR.SHIFT ---
Patient had mainly slept through the night. 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 This BM was not substantial in mass and was darker than what is in the patients colostomy. When the patient was being turned, the patient was unable to assist the staff.
[2020-05-30 05:17] LABS: Hematocrit 43.2 % (37.0-47.0); Hemoglobin 13.4 g/dL (11.5-15.3); Mean Corpuscular Hemoglobin 28.3 pg (28.0-34.0); Mean Corpuscular Volume 91.1 fL (81-99); Mean Platelet Volume 12.8 fL (7.4-10.4); Platelet Count 327 10^3/cmm (130-400); Red Blood Count 4.74 10^6/uL (4.1-5.3); Red Cell Distribution Width 21.2 % (12.1-15.1); White Blood Count 11.6 10^3/uL (4.0-10.0)
[2020-05-30 05:32] LABS: Alanine Aminotransferase 26 U/L (0-33); Albumin Level 2.5 g/dL (3.5-5.2); Alkaline Phosphatase 85 IU/L (35-105); Anion Gap 12.5 (5-19); Aspartate Amino Transferase 29 U/L (0-32); Blood Urea Nitrogen 23 mg/dL (8-23); Calcium 8.8 mg/dL (8.5-10.5); Carbon Dioxide 35 mmol/L (22-29); Chloride 98 mmol/L (98-107); Globulin 2.9 g/dL (1.3-4.6); Glucose 95 mg/dL (65-115); Osmolality Calculated 297 mOsm/kg (285-295); Potassium 3.5 mmol/L (3.5-5.1); Sodium 142 mmol/L (136-145); Total Bilirubin 0.3 mg/dL (0.15-1.2); Total Protein 5.4 g/dL (6.6-8.7)
[2020-05-30 06:20] LABS: Absolute Segmented Neutrophil 5.9 10/cmm (1.6-7.1); Band Neutrophils Absolute 0.3 10^3/cmm (0.0-1.2); Lymphocytes 29 %; Monocytes Absolute 0.6 10^3/cmm (0.1-0.6); Segmented Neutrophils 51 %; Slide Review Slide Review Perform; Total Cells Counted 100 (0-100)
[2020-05-30 06:21] LABS: Absolute Neutrophil 6.3 10^3/cmm (1.4-6.5); Anisocytosis 1+; Eosinophils 9 %; Giant Platelets Trace; Platelet Estimate Normal (Normal)
[2020-05-30 06:46] LABS: Glucose Point of Care 85 mg/dL (70-110)
[2020-05-30] MEDS: budesonide 0.5 mg/2 mL Neb INHALATION (07:46)
--- NOTE | 2020-05-30 08:48 | PC.CHAP ---
Pastoral Care Encounter/Spiritual Assessment Type of Contact [] Declined promotor group ticket sales visit [] Patient/Family/Request visit [] Outpatient visit [] Follow-up visit [] Physician referral [] Code/Alert [] Routine visit [] Staff referral [] Actively dying [x] Patient sleeping [] Family support [] [] Out of room [] Palliative care [] [] Receiving care in room [] Pre-surgical visit [] Trauma [] Long length of stay [] ICU visit [] Other: Relational/Emotional Strength [] Patient feels connected with others/family/visitors/staff [] Distress [] Loneliness/isolation [] Abandonment Spirituality of Patient [] Person of April [] Attends Congregation of their April [] Believes in Prayer [] Reads Bible or Hindu materials [] There are Spiritual issues to be addressed Garage Door Hanger Interventions [] Prayer [] Active listening [] Non-anxious presence [] Spiritual/emotional support [] Crisis/trauma care [] Spiritual counseling [] Bereavement support [] Provided bereavement packet [] Provided Bible/devotional materials [] Provided toy/stuffed animal, coloring book to patient or family member [] Provided Communion [] Anointing/[place] [] Salvation [] Completed spiritual assessment [] Other: Impact on Illness or Injury [] Angry [] Fearful [] Anxious [] Often cries [] Exhaustion [] Unable to work [] Unable to attend shinto [] Unable to walk/stand [] Unable to read [] Unable to drive [] Unable to eat/drink [] Unable to sleep [] Unable to be with family [] Patient intubated [] Other: Summary sleep[\ing Time spent with patient
[2020-05-30] MEDS: carvedilol 6.25 mg Tablet PO (09:25)
[2020-05-30] MEDS: sennosides-docusate Tablet 1 TAB PO (09:25)
[2020-05-30] MEDS: famotidine 20 mg Tablet PO (09:25)
[2020-05-30] MEDS: aspirin 81 mg EC Tablet PO (09:25)
[2020-05-30] MEDS: apixaban 5 mg Tablet PO (09:25)
[2020-05-30] MEDS: escitalopram 10 mg Tablet PO (09:25)
[2020-05-30] MEDS: ascorbic acid 500 mg Tablet PO (09:25)
[2020-05-30] MEDS: FUROsemide 40 mg Tablet PO (09:25)
[2020-05-30] MEDS: fluticasone nasal spray 16gm Btl 2 SPRAY INTRANASAL (09:26)
--- NOTE | 2020-05-30 10:30 | PC.SOCIAL ---
IMM Updated Page 2 of IMM updated and given to patient. Initialed, dated, and timed and placed back in chart.
[2020-05-30] MEDS: cefepime 2,000 MG in sodium chloride 0.9% (plus) 50 ML 100 MG IV (11:31)
[2020-05-30] MEDS: guaiFENesin 600 mg Tablet PO (11:31)
--- NOTE | 2020-05-30 11:57 | P.PN_ITS ---
Subjective Subjective: Interval history: Hermelinda is a 79 yo female that presented on May 25 with a UTI. Today her fever has resolved, and she states that she is feeling alright. She feels a little fatigued and SOB, which is most likely due to her recent COVID infection 2 month ago and resulting pulmonary fibrosis. Medications: Reviewed: Yes Vitals/I&O/Wt Last Vital Signs Temp 97.6 F 05/30/20 11:31 Pulse 84 05/30/20 11:31 Resp 14 05/30/20 11:31 BP 93/62 05/30/20 11:31 Pulse Ox 97 05/30/20 11:31 05/29/20 05/30/20 05/30/20 22:59 06:59 14:59 Intake Total 460 / 930 120 / 120 Output Total 400 / 750 700 / 1450 Balance 60 / 180 -700 / -520 120 / 120 Weight last 48 hrs Weight 127.913 kg Weight 127.822 kg Physical Exam Const: COMMON NORMALS: no acute distress and patient oriented x3 GENERAL APPEARANCE: cooperative and comfortable NUTRITIONAL APPEARANCE: obese HENMT: COMMON NORMALS: normocephalic and atraumatic HEAD & SCALP: normo cephalic and atraumatic Eye: COMMON NORMALS: Equal, round and reactive pupils present, EOMs intact bilaterally, conjunctivae normal, no scleral icterus, no papilledema and normal visual hurley by confrontation GENERAL EYE: appearance normal, both eyes and all related structures CONJUNCTIVA: Yes conjunctivae normal PUPIL: Yes Equal, round and reactive pupils present DIRECT OPHTHALMOSCOPY: Yes no papilledema Neck/C-Spine: COMMON NORMALS: no JVD Resp: COMMON NORMALS: No retractions and No use of accessory muscles EFFORT & INSPECTION: Yes other AUSCULTATION: crackles Laterality: bilateral OTHER: Pt is able to speak in complete sentences. Cardio: COMMON NORMALS: no JVD, regular rate, regular rhythm, S1 normal heart sound present, S2 normal heart sound present, No gallops present (Cardio), No clicks present (Cardio), No murmurs present (Cardio), No rub (Cardio) and Peripheral pulses 2+ throughout RATE: regular rate RHYTHM: regular rhythm HEART SOUNDS: S1 normal heart sound present and S2 normal heart sound present PERIPHERAL PULSES: Peripheral pulses 2+ throughout Neuro: COMMON NORMALS: patient oriented x3 Urinary Catheter Management^: Jara: Cath Placed During This Visit: yes Reason for Continuing Indwelling Catheter: Acute Urinary Retention or Obstruction Urinary Catheter Date of Insertion: 05/25/20 Urinary Catheter Time of Insertion: 19:56 Data : 05/30/20 04:37 05/30/20 04:37 Micro: Microbiology 05/25/20 19:35 Urine Culture - Final Urine,Clean Catch Escherichia coli Proteus mirabilis A&P Assessment and plan (1) Sepsis: In the ED on May 25 her HR was greater than 90, she was hypotensive, and evaluation shows a UTI. Now her HR is 84, 93/62, and is afebrile. Sepsis has resolved. Pt has completed her antibiotics course, can discontinue antibiotics. Patient will most likely be discharged today. Status: Acute Qualifiers: Sepsis acute organ dysfunction status: with acute organ dysfunction Sepsis type: sepsis due to unspecified organism Severe sepsis acute organ dysfunction type: unspecified Severe sepsis shock status: with septic shock Qualified Code(s): A41.9 - Sepsis, unspecified organism; R65.21 - Severe sepsis with septic shock (2) Acute UTI: Follow urine culture Status: Acute (3) Paroxysmal A-fib: Currently rate controlled. Telemetry Continue Eliquis and carvedilol upon discharge. Status: Acute (4) Diabetes: Continue low-dose sliding scale insulin Diabetic diet Monitor fingerstick glucose Status: Acute (5) HTN (hypertension): Continue carvedilol 6.25 every 12 hours Status: Acute (6) Chronic hypoxemic respiratory failure: Secondary to Covid pneumonia. Recently discharged from [facility], due [facility], discharged now to shelter, clinically improving Currently on 4 L oxygen via nasal cannula Continue supplemental CT scan Bilateral ground-glass interstitial lung disease that has progressed since last evaluation. Small volume subsegmental early consolidated alveolar airspace disease with air bronchograms now present. Status: Acute (7) NSTEMI (non-ST elevated myocardial infarction): -Baseline troponin 46, 6-hour 47.2, delta 1.28 TSH 2.[address]-T wave changes No complaints of chest pain Echocardiogram on last admission showed left ventricular systolic function is grossly normal, mild LVH, diastolic function abnormal, poor quality study Continue aspirin 81 mg, atorvastatin 40 mg, Eliquis Status: Resolved Additional A&P Information DVT prophylax: Not needed on Eliquis CODE STATUS: Full code Disposition: senior care Plan for today monitor mentation, monitor respiratory status, monitor blood cult ures, follow urine cultures, continue Primaxin, hopefully discharge the next 24 hours Attestations Medical Necessity Statement*: Will continue to monitor for fever, may be discharged within the next 24 hours. Coding Level of Care Code Acute Yarn Weight And Strength Tester for g Fwd Exam Detailed Diagnoses Sepsis A41.9; R65.21 Sepsis acute organ dysfunction status: with acute organ dysfunction Sepsis type: sepsis due to unspecified organism Severe sepsis acute organ dysfunction type: unspecified Severe sepsis shock status: with septic shock Acute UTI N39.0 Paroxysmal A-fib I48.0 Diabetes E11.9 HTN (hypertension) I10 Chronic hypoxemic respiratory failure J96.11 NSTEMI (non-ST elevated myocardial infarction) I21.4
[2020-05-30 11:58] LABS: Glucose Point of Care 122 mg/dL (70-110)
--- NOTE | 2020-05-30 13:23 | PM.DCS ---
Discharge Providers Date of Admission: 05/25/20 23:12 Date of Discharge: May 30, 2020 Attending Provider at Admission: Young Kwon MD Attending Provider at Discharge: Neeta Delatorre MD Primary Care Provider: Favian Clark DO Diagnoses at Discharge Discharge Diagnosis (1) Sepsis: Status: Acute Qualifiers: Sepsis acute organ dysfunction status: with acute organ dysfunction Sepsis type: sepsis due to unspecified organism Severe sepsis acute organ dysfunction type: unspecified Severe sepsis shock status: with septic shock Qualified Code(s): A41.9 - Sepsis, unspecified organism; R65.21 - Severe sepsis with septic shock (2) Acute UTI: Status: Acute (3) Paroxysmal A-fib: Status: Acute (4) Diabetes: Status: Acute (5) HTN (hypertension): Status: Acute (6) Chronic hypoxemic respiratory failure: Status: Acute (7) NSTEMI (non-ST elevated myocardial infarction): Status: Acute Reason for Visit Reason for Visit: HYPOTENSION Hospital Course Hospital Course Hermelinda Mckeon is a 79 year old female with PMH of breast cancer, anxiety and depression, breast cancer, degenerative arthritis, hypertension, hyperlipidemia, peptic ulcer disease, history of 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 She was discharged to a rehab facility/LT[facility] in [facility]. She was discharged from there today to a local SNF here in [place], however on arrival at the [place] she was hypotensive and so was sent here to the ED for evaluation. Upon arrival in the ER she does not have any specific complaint, she denied any chest pain any shortness of breath any cough, any fever. In the ED her HR was greater than 90, she was hypotensive, and evaluation shows a UTI. She was admitted for further management of sepsis likely secondary to UTI. Urine culture revealed E. coli and Proteus. She was treated with IV antibiotics empirically based on susceptibility results, narrowed down to Augmentin at the time of discharge.-CAT scan also showed bilateral groundglass interstitial lung disease progressed since the last evaluation when she was. Also question of early consolidative changes for which there was a concern for pneumonia and she was appropriately treated with IV antibiotics while admitted. Other notable hospital events have included A. fib with RVR for which she was initially on Cardizem, placed back on carvedilol after which her rate is much better improved at 80/min right now. There were no acute ST-T wave changes on her EKG. There were no complaints of chest pain. Overall patient does appear to be extremely deconditioned from her recent illnesses and would best be served going back to a group home with ongoing rehab. She is back at her baseline oxygen requirement of 4 L/min via nasal cannula. Physical Exam Narrative: EXAM NARRATIVE: GEN: Awake, alert and oriented, no acute distress CVS: S1S2 N RS: CTA B/L anteriorly Abd: Soft, nt/nd , bs+ Urinary Catheter Management^: Jara: Cath Placed During This Visit: yes Reason for Continuing Indwelling Catheter: Acute Urinary Retention or Obstruction Urinary Catheter Date of Insertion: 05/25/20 Urinary Catheter Time of Insertion: 19:56 Discharge Data Data Completed and Pending: Completed Studies During Hospitalization Category Date Time Status CT chest abd pel wo con Stat Cat Scan 05/25/20 20:37 Completed XR chest 1V shirin ble [id number] Routine Exams 05/27/20 07:00 Completed XR chest 1V sihrin ble [id number] Urgent Exams 05/25/20 16:42 Completed Pending at discharge Category Date Time Status Blood Culture Sta t Lab 05/25/20 17:30 Results Complete Blood Co unt w/Auto AM LABS Lab 05/31/20 04:00 Ordered Comprehensive Met abolic Panel AM LA BS Lab 05/31/20 04:00 Ordered Labs from last 24 hours 05/30/20 05/30/20 05/30/20 11:30 06:42 04:37 WBC RBC Hgb Hct MCV MCH MCHC RDW Plt Count MPV Lymph % (Auto) Ector % (Auto) Lymph # (Auto) Ector # (Auto) Total Counted Atypical Lymphs % Absolute Neutrophi ls Segmented Neutroph ils Abs Segm Neuts (Ma n) Band Neutrophils Abs Band Neuts (Ma n) Lymphocytes (Manua l) Monocytes (Manual) Absolute Monocytes Eosinophils (Manua l) Absolute Eosinophi ls Basophils (Manual) Absolute Basophils Metamyelocytes Myelocytes Platelet Estimate Giant Platelets Anisocytosis Sodium 142 Potassium 3.5 Chloride 98 Carbon Dioxide 35 H Anion Gap 12.5 BUN 23 Creatinine 1.0 H GFR Calculation Not Reportable Glucose 95 POC Glucose 122 85 Calculated Osmolal ity 297 H Calcium 8.8 Total Bilirubin 0.3 AST 29 ALT 26 Alkaline Phosphata se 85 Total Protein 5.4 L Albumin 2.5 L Globulin 2.9 05/30/20 05/29/20 05/29/20 04:37 20:17 16:04 WBC 11.6 H RBC 4.74 Hgb 13.4 Hct 43.2 MCV 91.1 MCH 28.3 MCHC 31.0 RDW 21.2 H Plt Count 327 MPV 12.8 H Lymph % (Auto) Not Reportable Ector % (Auto) Not Reportable Lymph # (Auto) Not Reportable Ector # (Auto) Not Reportable Total Counted 100 Atypical Lymphs % 0.0 Absolute Neutrophi ls 6.3 Segmented Neutroph ils 51 Abs Segm Neuts (Ma n) 5.9 Band Neutrophils 3.0 Abs Band Neuts (Ma n) 0.3 Lymphocytes (Manua l) 29 Monocytes (Manual) 5.0 Absolute Monocytes 0.6 Eosinophils (Manua l) 9 Absolute Eosinophi ls 1.0 H Basophils (Manual) 0.0 Absolute Basophils 0.0 Metamyelocytes 1.0 Myelocytes 2.0 Platelet Estimate Normal Giant Platelets Trace Anisocytosis 1+ H Sodium Potassium Chloride Carbon Dioxide Anion Gap BUN Creatinine GFR Calculation Glucose POC Glucose 134 96 Calculated Osmolal ity Calcium Total Bilirubin AST ALT Alkaline Phosphata se Total Protein Albumin Globulin Vitals: Last Vital Signs Temp 97.6 F 05/30/20 11:31 Pulse 84 05/30/20 11:31 Resp 14 05/30/20 11:31 BP 93/62 05/30/20 11:31 Pulse Ox 97 05/30/20 11:31 Discharge Plan Discharge Patient Disposition: Xfer SNF Condition: Stable Prescriptions: New atorvastatin 40 mg Tablet 40 mg PO BEDTIME Qty: 30 RF: 0 aspirin 81 mg Tablet,Delayed Release (Dr/Ec) 81 mg PO DAILY Qty: 30 RF: 0 budesonide 0.5 mg/2 mL Suspension For Nebulization 0.5 mg inhalation BID.RESPIRATORY Qty: 10 RF: 0 Augmentin 875-125 mg tablet 1 tab PO BID 3 Days Qty: 6 RF: 0 Continued nystatin 100,000 unit/mL Suspension See Rx Instructions .ROUTE .COMPLEX RF: 0 fluticasone propion-salmeterol 232-14 mcg/actuation Aerosol Powdr Breath Activated 1 inh INHALATION Q12H RF: 0 Lasix 40 mg tablet 40 mg PO DAILY RF: 0 carvedilol 6.25 mg Tablet 6.25 mg PO BID RF: 0 famotidine 20 mg Tablet 20 mg PO DAILY RF: 0 ondansetron 4 mg Tablet,Disintegrating 4 mg PO Q6H PRN (Reason: Nausea And Vomiting) RF: 0 Lantus Solostar U-100 Insulin 100 unit/mL (3 mL) Insulin Pen 5 unit SUBCUT BEDTIME RF: 0 Cepacol Sore Throat (wiliam-men) 15-3.6 mg Lozenge See Rx Instructions .ROUTE .COMPLEX RF: 0 Incruse Ellipta 62.5 mcg/actuation Blister With Device 1 inh INHALATION DAILY RF: 0 albuterol sulfate 2.5 mg /3 mL (0.083 %) Solution For Nebulization 2.5 mg INHALATION Q6H PRN (Reason: Shortness Of Breath Or Wheezing) RF: 0 alprazolam 0.25 mg Tablet 0.25 mg PO TID PRN (Reason: Anxiety) RF: 0 Admelog SoloStar U-100 Insulin 100 unit/mL Insulin Pen See Rx Instructions .ROUTE .COMPLEX RF: 0 fluticasone propionate 50 mcg/actuation [place],Suspension 2 spray INTRANASAL DAILY RF: 0 bisacodyl 5 mg Tablet 5 mg PO Q24H PRN (Reason: Constipation) RF: 0 escitalopram oxalate 10 mg Tablet 10 mg PO DAILY RF: 0 pregabalin [Lyrica] 75 mg Capsule 75 mg PO BID RF: 0 sennosides-docusate sodium [Senna Plus] 8.6-50 mg Tablet 1 tab-cap PO DAILY RF: 0 acetaminophen 325 mg Tablet 650 mg PO Q6H PRN (Reason: Mild/Mod Pain Or Temp >/= 101) 30 Days Qty: 30 RF: 0 ascorbic acid (vitamin C) [Vitamin C] 500 mg Tablet 500 mg PO DAILY 30 Days Qty: 30 RF: 0 Eliquis 5 mg Tablet 5 mg PO BID 30 Days Qty: 60 RF: 0 guaifenesin [Mucinex] 600 mg Tablet Extended Release 12hr 600 mg PO Q12H Qty: 30 RF: 0 trazodone 50 mg Tablet 25 mg PO BEDTIME PRN (Reason: Sleep) 30 Days Qty: 30 RF: 0 Discharge Orders: Discharge Order (Routine); Ordered 05/30/20 Ordered By: Neeta Delatorre Referrals: Favian Clark DO [Primary Care Provider] - 06/05/20 10:15 am Discharge Diet: Usual diet Discharge Activity: Resume usual activity Patient Instructions: Aspirin (By mouth), Amoxicillin/Clavulanate Potassium (By mouth), Atorvastatin (By mouth), Urinary Tract Infection in Women (GEN) Discharge Attestations Time Spent in Discharge Care*: greater than 30 min Specific Discharge Activities: discussing with binder caser/social workers/dc planners Status at Discharge: Cognitive status at discharge: cognitively intact, Behavioral status at discharge: cooperative, Functional status at discharge: other assisted ambulation Overall status at discharge: patient has a new baseline Quality Metrics Clinical Quality Measures During this hospital stay, did patient experience: None Coding Level of Care Code Acute Marketing Manager Health Communications for Chg Fwd Diagnoses Sepsis A41.9; R65.21 Sepsis acute organ dysfunction status: with acute organ dysfunction Sepsis type: sepsis due to unspecified organism Severe sepsis acute organ dysfunction type: unspecified Severe sepsis shock status: with septic shock Acute UTI N39.0 Paroxysmal A-fib I48.0 Diabetes E11.9 HTN (hypertension) I10 Chronic hypoxemic respiratory failure J96.11 NSTEMI (non-ST elevated myocardial infarction) I21.4
[2020-05-30 17:15] LABS: Glucose Point of Care 119 mg/dL (70-110)
== END 2020-05-30 17:20 | disposition skilled nursing facility (03) | DRG 871 ==
LOC: ER 17:15 → MEDSURG 23:27
PROVIDERS: Family Medicine; Admitting Provider Internal Medicine; Emergency Provider Family Medicine; PCP Internal Medicine; Visit Provider Student in an Organized Health Care Education/Training Program
DX: A41.9 Sepsis, unspecified organism (principal); R65.21 Severe sepsis with septic shock; I21.4 Non-ST elevation (NSTEMI) myocardial infarction; J96.11 Chronic respiratory failure with hypoxia; N39.0 Urinary tract infection, site not specified; Z68.43 Body mass index [BMI] 50.0-59.9, adult; I48.0 Paroxysmal atrial fibrillation; Z86.19 Personal history of other infectious and parasitic diseases; I10 Essential (primary) hypertension; E11.9 Type 2 diabetes mellitus without complications; Z85.3 Personal history of malignant neoplasm of breast; F41.8 Other specified anxiety disorders; E78.5 Hyperlipidemia, unspecified; M19.90 Unspecified osteoarthritis, unspecified site; Z87.11 Personal history of peptic ulcer disease; Z90.49 Acquired absence of other specified parts of digestive tract; I95.9 Hypotension, unspecified; Z79.01 Long term (current) use of anticoagulants
CPT/HCPCS: 12345; 36415; 36416; 51702; 71045; 71250; 74176; 80053; 81001; 82550; 82962; 83605; 83735; 83880; 84100; 84145; 84443; 84484; 85007; 85025; 85610; 85730; 86140; 87040; 87077; 87086; 87186; 92610; 93005; 94640; 96372; 96375; 97110; 97161; 97165; 97530; 97535; 99283; J0692; J0696; J0743; J1815; J1940; J2543; J7030; J7611; J7626

== ENCOUNTER 2021-04-18 20:19 | Outpatient (CLI) | payer MEDICARE, MEDICAID, SELFPAY ==
[2021-04-18 20:45] LABS: Hemoglobin 13.2 g/dL (11.5-15.3); Mean Corpuscular HGB Conc 32.2 g/dL (30.0-36.0); Mean Corpuscular Volume 80.9 fl (81-99); Platelet Count 414 10^3/cmm (130-400); Red Blood Count 5.07 10^6/uL (4.1-5.3); Red Cell Distribution Width 18.9 % (12.1-15.1); White Blood Count 27.1 10^3/uL (4.0-10.0)
[2021-04-18 21:15] LABS: Alanine Aminotransferase 12 U/L (0-33); Albumin Level 3.3 g/dL (3.5-5.2); Alkaline Phosphatase 108 IU/L (35-105); Anion Gap 16.1 (5-19); Aspartate Amino Transferase 12 U/L (0-32); Blood Urea Nitrogen 25 mg/dL (8-23); Calcium 8.7 mg/dL (8.5-10.5); Carbon Dioxide 25 mmol/L (22-29); Chloride 98 mmol/L (98-107); Globulin 2.8 g/dL (1.3-4.6); Glucose 190 mg/dL (65-115); Osmolality Calculated 287 mOsm/kg (285-295); Potassium 5.1 mmol/L (3.5-5.1); Sodium 134 mmol/L (136-145); Total Bilirubin 0.3 mg/dL (0.15-1.2); Total Protein 6.1 g/dL (6.6-8.7)
[2021-04-18 21:24] LABS: Absolute Neutrophil 23.6 10^3/cmm (1.4-6.5); Absolute Segmented Neutrophil 22.8 10/cmm (1.6-7.1); Band Neutrophils Absolute 0.8 10^3/cmm (0.0-1.2); Lymphocytes 8 %; Lymphocytes Absolute 3.5 10^3/cmm (1.2-3.4); Platelet Estimate Increased (Normal); Segmented Neutrophils 84 %; Total Cells Counted 100 (0-100)
[2021-04-18 21:26] LABS: Anisocytosis 1+; Ovalocytes Trace; Target Cells Trace
[2021-04-19 10:09] LABS: NT Pro B Type Natriuretic Pept 461 pg/mL (0-450)
== END 2021-04-18 20:20 | disposition home or self-care (01) ==
PROVIDERS: PCP Internal Medicine; Visit Provider Internal Medicine
DX: L03.311 Cellulitis of abdominal wall (principal)
CPT/HCPCS: 80053; 83880; 85007; 85027; 87040

== ENCOUNTER 2021-04-19 10:01 | Inpatient (IN) | payer MEDICARE, MEDICAID, SELFPAY ==
[2021-04-19 10:12] VITALS: BP 124/82; PULSE 60; RESP 15; TEMP 36.8; O2SAT 97; BMI 61.9
--- NOTE | 2021-04-19 10:16 | XR_ITS ---
WS: [id number] Exam: XR chest 1V portable [id number] Date/Time of Exam: 04/19/2021 10:19 AM Reason For Exam: dyspnea/cough Comparison 05/02/2020. There is infiltrate and/or atelectasis in the right base. Remaining lung hurley are clear. No pleural effusions. Cardiomediastinal structures are unremarkable for technique. The lungs are fully expanded . Bony structures are intact. Chronic leftward tracheal deviation. XR/XR chest 1V portable [id number] IMPRESSION: 1. Infiltrate and/or atelectasis in the right lung base. Remaining lung hurley are clear.
[2021-04-19 11:05] LABS: Lactic Sepsis W/Reflex 1.1 mmol/L (0.5-2.2)
[2021-04-19 11:06] LABS: Alanine Aminotransferase 10 U/L (0-33); Alkaline Phosphatase 93 IU/L (35-105); Anion Gap 11.3 (5-19); Aspartate Amino Transferase 10 U/L (0-32); Blood Urea Nitrogen 27 mg/dL (8-23); Calcium 8.6 mg/dL (8.5-10.5); Carbon Dioxide 27 mmol/L (22-29); Chloride 98 mmol/L (98-107); Globulin 3.5 g/dL (1.3-4.6); Glucose 161 mg/dL (65-115); Osmolality Calculated 283 mOsm/kg (285-295); Potassium 4.3 mmol/L (3.5-5.1); Sodium 132 mmol/L (136-145); Total Bilirubin 0.2 mg/dL (0.15-1.2); Total Protein 6.5 g/dL (6.6-8.7)
[2021-04-19 11:19] LABS: Basophils # 0.1 10^3/uL (0.0-0.1); Basophils % 0.3 %; Eosinophils # 0.3 10^3/uL (0.0-0.8); Eosinophils % 1.4 %; Hematocrit 40.3 % (37.0-47.0); Hemoglobin 12.9 g/dL (11.5-15.3); Lymphocytes # 3.5 10^3/uL (0.8-4.8); Lymphocytes % 18.5 %; Mean Corpuscular Hemoglobin 26.3 pg (28.0-34.0); Mean Corpuscular Volume 82.2 fl (81-99); Mean Platelet Volume 10.3 fL (7.4-10.4); Monocytes % 5.2 %; Neutrophils # 14.12 10^3/uL (1.8-7.7); Neutrophils % 74.1 %; Nucleated Red Blood Cells % 0 %; Platelet Count 357 10^3/cmm (130-400); Red Cell Distribution Width 18.8 % (12.1-15.1)
--- NOTE | 2021-04-19 11:20 | ED_ITS ---
HPI - Abdominal Pain General: Chief Complaint: Abdominal Pain Stated Complaint: UTI, PNEUMONIA Time Seen by Provider: 04/19/21 10:10 History of Present Illness: HPI narrative: 80-year-old female presents to the emergency room with complaint of abdominal pain. Patient is at the [place] [facility] she has previously been being treated for UTI and pneumonia. She reports currently being on antibiotic biotics. She is on oxygen and evidently was started within the last couple of days is on 4 L normally is not on any oxygen. She also has previously had a colectomy which she cannot recall why. We verified from the [place] [facility] she has been on amoxicillin at [facility] 3 times daily doxycycline 100 twice daily and also getting Rocephin IM MD elicited complaint: abdominal pain Pertinent past history: none Onset (ago): day(s) Quality: cramping Exacerbating factors: nothing Relieving factors: nothing Associated Symptoms: Reports bloating, GI cramping and poor appetite; Denies anorexia, belching, change in bowel habits, change in stool character, chills, coffee ground emesis, constipation, diarrhea, dyspepsia, dysuria, excessive flatus, fever(s), heartburn, hematochezia, hematuria, hematemesis, fecal incontinence, loose stools, melena, nausea, syncope and vomiting Review of Systems Const: Denies: fever(s) or chills ENMT: Denies: throat pain, ear or mastoid pain, nasal discharge or nasal congestion Card: Denies: syncope Resp: Denies: dyspnea, productive cough or non-productive cough GI: Reports: bloating and GI cramping; Denies: nausea, vomiting, hematemesis, coffee ground emesis, heartburn, diarrhea, constipation, belching, excessive flatus, fecal incontinence, change in bowel habits, change in stool character, hematochezia or melena : Denies: dysuria or hematuria Skin/Breast: Denies: rash or pruritus PFSH ED PFSH: Medical History Activity extremely limited Anxiety and depression Breast cancer Degenerative arthritis Fracture of left femur HLD (hyperlipidemia) HTN (hypertension) Partial small bowel obstruction PUD (peptic ulcer disease) Surgical History History of colostomy History of modified radical mastectomy History of partial colectomy Family History Other No significant family history Social History Smoking and tobacco status: never smoked Alcohol intake: never Housing: [facility] Marital status: / Current occupational status: retired Physical Exam Const: COMMON NORMALS: no acute distress GENERAL APPEARANCE: cooperative and comfortable ORIENTATION/CONSCIOUSNESS: Yes awake, Yes oriented to person, Yes oriented to place and Yes oriented to time HENMT: COMMON NORMALS: normocephalic, atraumatic and hearing grossly normal bilaterally HEAD & SCALP: normocephalic and atraumatic Neck/C-Spine: COMMON NORMALS: no JVD Resp: COMMON NORMALS: normal respiratory effort, No retractions, No use of accessory muscles and clear to auscultation bilaterally AUSCULTATION: clear to auscultation bilaterally Cardio: COMMON NORMALS: no JVD, regular rate, regular rhythm and No murmurs present (Cardio) RATE: regular rate RHYTHM: regular rhythm GI: COMMON NORMALS: No hepatosplenomegaly present AUSCULTATION: Yes normoactive bowel sounds PALPATION: Yes Tenderness to palpation present (GI) (diffuse), No Guarding due to palpation present (GI) and Yes No hepatosplenomegaly present OTHER: redness of abdominal wall in the left lower quadrant Extremity: COMMON NORMALS: normal to inspection, capillary refill normal, no clubbing, cyanosis or edema, no calf tenderness and no pedal edema Neuro: SENSORIUM/ORIENTATION: Yes oriented to person, Yes oriented to place and Yes oriented to time Skin: COMMON NORMALS: no rashes or lesions noted GENERAL SKIN EXAM: no rashes or lesions noted Course Vital Signs: Vital signs: Vital Signs Temperature 98.6 F 04/20/21 11:51 Pulse Rate 83 04/20/21 14:36 Respiratory Rate 17 04/20/21 14:36 Blood Pressure 134/76 04/20/21 11:51 Pulse Oximetry 98 04/20/21 14:36 MDM - Abdominal Pain MDM Narrative: Medical decision making narrative: Patient has acute UTI as well as panniculitis with redness and erythema of the pannus extending in the left lower quadrant. Started on IV antibiotics discussed Dr. cleary orders written Lab Data: Labs: Lab Results 04/19/21 04/19/21 04/19/21 10:35 10:35 10:35 WBC 19.0 10^3/uL H 10 ^3/uL (4.0-10.0) RBC 4.90 10^6/uL 10^6 /uL (4.1-5.3) Hgb 12.9 g/dL g/dL (11.5-15.3) Hct 40.3 % % (37.0-47.0) MCV 82.2 fl fl (81-99) MCH 26.3 pg L pg (28.0-34.0) MCHC 32.0 g/dL g/dL (30.0-36.0) RDW 18.8 % H % (12.1-15.1) Plt Count 357 10^3/cmm 10^3 /cmm (130-400) MPV 10.3 fL fL (7.4-10.4) Neut % (Auto) 74.1 % % Lymph % (Auto) 18.5 % % Catron % (Auto) 5.2 % % Eos % (Auto) 1.4 % % Baso % (Auto) 0.3 % % Neut # (Auto) 14.12 10^3/uL H 1 0^3/uL (1.8-7.7) Lymph # (Auto) 3.5 10^3/uL 10^3/ uL (0.8-4.8) Catron # (Auto) 1.0 10^3/uL H 10^ 3/uL (0.2-0.9) Eos # (Auto) 0.3 10^3/uL 10^3/ uL (0.0-0.8) Baso # (Auto) 0.1 10^3/uL 10^3/ uL (0.0-0.1) Nucleated RBC % (a uto) 0 % % Nucleated RBCs # 0.0 /100WBC /100W BC Sodium 132 mmol/L L mmol /L (136-145) Potassium 4.3 mmol/L mmol/L (3.5-5.1) Chloride 98 mmol/L mmol/L (98-107) Carbon Dioxide 27 mmol/L mmol/L (22-29) Anion Gap 11.3 (5-19) BUN 27 mg/dL H mg/dL (8-23) Creatinine 1.0 mg/dL H mg/dL (0.5-0.9) GFR Calculation Not Reportable Glucose 161 mg/dL H mg/dL (65-115) Calculated Osmolal ity 283 mOsm/kg L mOs m/kg (285-295) Lactic Acid 1.1 mmol/L mmol/L (0.5-2.2) Calcium 8.6 mg/dL mg/dL (8.5-10.5) Total Bilirubin 0.2 mg/dL mg/dL (0.15-1.2) AST 10 U/L U/L (0-32) ALT 10 U/L U/L (0-33) Alkaline Phosphata se 93 IU/L IU/L (35-105) Total Protein 6.5 g/dL L g/dL (6.6-8.7) Albumin 3.0 g/dL L g/dL (3.5-5.2) Globulin 3.5 g/dL g/dL (1.3-4.6) Urine Color Urine Appearance Urine pH Ur Specific Gravit y Urine Protein Urine Glucose (UA) Urine Ketones Urine Blood Urine Nitrate Urine Bilirubin Urine Urobilinogen Ur Leukocyte Lorenza ase Urine RBC Urine WBC Ur Squamous Epith Cells Amorphous Sediment Urine Bacteria 04/19/21 11:35 WBC RBC Hgb Hct MCV MCH MCHC RDW Plt Count MPV Neut % (Auto) Lymph % (Auto) Catron % (Auto) Eos % (Auto) Baso % (Auto) Neut # (Auto) Lymph # (Auto) Catron # (Auto) Eos # (Auto) Baso # (Auto) Nucleated RBC % (a uto) Nucleated RBCs # Sodium Potassium Chloride Carbon Dioxide Anion Gap BUN Creatinine GFR Calculation Glucose Calculated Osmolal ity Lactic Acid Calcium Total Bilirubin AST ALT Alkaline Phosphata se Total Protein Albumin Globulin Urine Color Yellow (Yellow) Urine Appearance Hazy A (CLEAR) Urine pH 5 (5-7) Ur Specific Gravit y 1.020 (1.005-1.030) Urine Protein 1+ H (Negative) Urine Glucose (UA) Norm (Normal) Urine Ketones Negative (Negative) Urine Blood 2+ H (Negative) Urine Nitrate Negative (Negative) Urine Bilirubin Neg (Negative) Urine Urobilinogen Norm mg/dL mg/dL (Negative) Ur Leukocyte Lorenza ase 2+ H (Negative) Urine RBC 10-15 /hpf H /hpf (0-2) Urine WBC >100 /hpf H /hpf (0-5) Ur Squamous Epith Cells 0-4 /hpf H /hpf (0-5) Amorphous Sediment Not Reportable Urine Bacteria 1+ /hpf H /hpf (NONE) Discharge Plan Discharge Patient Disposition: Admitted As Inpatient Admit Provider: Cyndi Tuttle Clinical Impression: Acute UTI, Diabetes, Panniculitis, D-dimer, elevated, Chronic hypoxemic respiratory failure, HTN (hypertension) Condition: Stable Coding Level of Care Code ED Sleeping Room Cleaner for Chg Fwd Exam Comprehensive
[2021-04-19 11:27] VITALS: BP 119/59; PULSE 52; PULSE 53; RESP 16; TEMP 37.1; O2SAT 96
[2021-04-19 11:50] LABS: Add Urine Microscopic? YES; Bilirubin Urine Neg (Negative); Blood Urine 2+ (Negative); Glucose Urine UA Norm (Normal); Ketones Urine Negative (Negative); Leukocyte Esterase Urine 2+ (Negative); Nitrate Urine Negative (Negative); Protein Urine 1+ (Negative); Urine Appearance Hazy (CLEAR); Urine Color Yellow (Yellow); Urobilinogen Urine Norm (Negative); pH Urine 5 (5-7)
[2021-04-19 11:51] LABS: Add Urine Culture? Yes; Bacteria Urine 1+ /hpf; Squamous Epithelial Cell Urine 0-4 /hpf (0-5); WBC Urine >100 /hpf (0-5)
--- NOTE | 2021-04-19 12:27 | CT_ITS ---
WS: [id number] CT ABDOMEN AND PELVIS WITH CONTRAST HISTORY: Diffuse abdominal pain. TECHNIQUE: Imaging performed of the abdomen and pelvis with IV contrast. Single phase imaging of the abdomen. Coronal and sagittal reformats are submitted. All CT scans at [facility] use at [facility] st one of these dose optimization techniques: automated exposure control; mA and/or kV adjustment per patient size (includes targeted exams where dose is matched to clinical indication); or iterative re construction. IV CONTRAST: Visipaque 320; 95 mL IV. Oral contrast: No DLP: 1839.81 mGy.cm COMPARISON: 05/25/2020 Lower thorax: Mild bilateral patchy interstitial thickening at the lung bases. Improved since 05/25/20 20. No dense consolidation or pneumonia. Mild enlargement of the LEFT heart chambers. Small hiatal he rnia. Liver/biliary system: Normal size liver. Stable RIGHT hepatic cyst at 2.3 cm. Very mild central bile duct dilatation may be physiologic. Similar to prior studies. Gallbladder: Status post cholecystectomy. Pancreas: Atrophic pancreas. Common bile duct is mildly dilated through the pancreatic head which is probably physiologic. Pancreatic duct is not dilated. Spleen: Prior splenectomy. There are a few splenules in the LEFT upper quadrant persisting. Adrenal glands: Normal. Right kidney: Mild cortical thinning. Several small cortical cysts throughout the kidney. No change s johnson the prior exam. No hydronephrosis. Left kidney: Diffuse mild cortical thinning. No obstruction. Aorta: Mild atherosclerosis with no aneurysm. Lymphadenopathy: None. Free fluid: None. GI tract: LEFT lower quadrant colostomy site. There is a large parastomal hernia. The hernia contains loops of small bowel and colon. Significant progression of the hernia since 05/25/2020. There is no o bstruction or ischemic changes noted. Patient has a Solomon's pouch with numerous diverticula present . Abdominal wall: Large LEFT abdominal wall hernia contains the colostomy site. No obstruction. Pelvis: Heart. No free fluid or adenopathy. Bones: Mild thoracolumbar scoliosis and osteopenia. No osteoblastic or osteolytic bone disease. CT/CT abdomen pelvis w con* [id number] IMPRESSION: 1. LEFT lower quadrant colostomy. There is now an enlarging parastomal hernia at the ostomy site containing both small bowel and colon but no obstruction or ischemic change. 2. Solomon's pouch with diverticula. No acute diverticulitis. 3. Prior cholecystectomy. 4. Pancreatic atrophy. 5. Stable RIGHT hepatic cyst. 6. Prior splenectomy.
[2021-04-19] MEDS: iodixanol 320 mg/mL 100mL Btl IV ×2 (13:08→14:28)
--- NOTE | 2021-04-19 14:11 | CT_ITS ---
WS: [id number] CT CHEST ANGIOGRAPHY WITH REFORMATS HISTORY: hypoxia TECHNIQUE: Contiguous axial images are obtained through the chest during arterial injection of intrav enous contrast. Images are reconstructed to evaluate the pulmonary arteries. MIP imaging also reviewe d. All CT scans at [facility] use at least one of these dose optimization techniques: automat ed exposure control; mA and/or kV adjustment per patient size (includes targeted exams where dose is matched to clinical indication); or iterative reconstruction. CONTRAST: Visipaque 320; 95 mL IV. DLP: 525.16 mGy.cm COMPARISON: 05/25/2020 Good opacification of the pulmonary arteries. Normal sized pulmonary arteries with no filling defects . Mild atherosclerosis aorta. No aneurysm. There is scattered bilateral areas of groundglass attenuation throughout both lungs. No areas of dens e consolidation. Mild enlargement of the LEFT heart chambers. There are mildly prominent lymphoid tissue in the medias tinum and hilum is probably reactive. No adenopathy. Visualized upper abdominal structures were described on a recent CT performed of the abdomen. Increase in thoracic kyphosis. Diffuse osteopenia. CT/CT angio chest PE protcl [id number] IMPRESSION: 1. No pulmonary embolism. 2. Very mild bilateral pneumonitis and interstitial thickening. No pneumonia. 3. Mild LEFT heart enlargement. Mild atherosclerosis aorta.
[2021-04-19] MEDS: cefTRIAXone 1,000 MG in sodium chloride 0.9% (plus) 50 ML 100 MG IV (14:52)
[2021-04-19] MEDS: piperacillin-tazobactam 3.375 GM in sodium chloride 0.9% (plus) 50 ML IV (14:52)
[2021-04-19] MEDS: vancomycin 1,000 MG in sodium chloride 0.9% 250 ML 250 MG IV (15:58)
--- NOTE | 2021-04-19 16:11 | XRR_ITS ---
PROCEDURE INFORMATION: Exam: XR Chest Exam date and time: 04/19/2021 4:11 PM Age: 80 years old Clinical indication: Shortness of breath; Prior surgery; Surgery type: Masectomy; Patient HX: HX breast cancer; Additional info: Follow up TECHNIQUE: Imaging protocol: XR of the chest. Views: 1 view. Total images: 1 COMPARISON: CR XR chest 1V portable [id number] 04/19/2021 10:26 AM FINDINGS: Lungs: No radiographically visible active interstitial or alveolar airspace disease. Pleural spaces: No visible pleural effusion. No pneumothorax. Heart/Mediastinum: Cardiomegaly. Arteriosclerosis. Tortuous thoracic aorta often seen in hypertensive cardiovascular disease. Bones/joints: Unremarkable as visualized for age. Soft tissues: Status post right mastectomy. Other findings: Obesity. XR/XR chest 1V portable [id number] IMPRESSION: Nonacute. Radiation Dose CTDIVOL = (mGy): DLP = (mGy-cm)
--- NOTE | 2021-04-19 16:23 | PC.NURSE ---
Hospitalist in room with pt while Vanc is rinning, pt c/o hives, itching and redness on both lower arms. Vanc stopped, newverbal order for Benadryl given, 25mg IV Benadryl.
[2021-04-19] MEDS: diphenhydrAMINE 50 mg/mL SDV 1mL (16:32)
--- NOTE | 2021-04-19 18:48 | PM.HP ---
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 She states her abdomen has been very red. Patient is a poor historian. She states that she used to be on oxygen but was able to come off of it for 2 to 3 weeks until she required it again a few days ago overnight. She says she woke up confused. She states she was told she had pneumonia and a urinary tract infection. Patient was placed on amoxicillin 1000 3 times daily, Rocephin intramuscular, doxycycline 100 twice daily. She has been having pyuria and is requiring oxygen at this point. She says at baseline she does not ambulate and stays in bed all day. She requires assistance to transfer her from the bed to the wheelchair. She has been having fevers at the [facility] along with left-sided abdominal pain that started a few days ago. She also complains of constant headaches. She also states that she has problem with memory loss and not sure why that is happening. At this point in time when seen she denies any chest pain, shortness of breath, abdominal pain, leg pain, back pain. She is on oxygen at this time which she states is her baseline but she was able to come off of it for couple weeks and then went back on it again. ED course: Blood pressure 119/59, respirate 16, pulse 52, temperature 98.8, pulse ox 96%. CT abdomen pelvis was done which showed a left lower quadrant colostomy. There is now enlarging parastomal hernia at the ostomy site containing both small bowel and colon but no obstruction or ischemic change. Celeste pouch with diverticula no acute diverticulitis. Prior cholecystectomy, pancreatic atrophy, stable right hepatic cyst, prior splenectomy. CTA chest was also done which did not show any pulmonary embolism but did show very mild bilateral pneumonitis and interstitial thickening, no evidence of pneumonia. Mild left heart enlargement shown with mild atherosclerotic aorta. Review of Systems General: Reports: 10 or more systems reviewed and unremarkable except in HPI and below Medications/Allergies Home Medications Medication Instructions Recorded Confirmed Last Taken Type bisacodyl 5 mg PO Q24H PRN 04/24/20 04/19/21 Unknown History escitalopram oxalate 10 mg PO DAILY 04/24/20 04/19/21 04/19/21 History pregabalin [Lyrica] 75 mg PO BID 04/24/20 04/19/21 04/19/21 History sennosides-docusate sodium [Senna 1 tab-cap PO DAILY 04/24/20 04/19/21 04/19/21 History Plus] Cepacol Sore Throat (wiliam-men) See Rx Instructions .ROUTE .COMPLEX 05/25/20 04/19/21 Unknown History Incruse Ellipta 1 inh INHALATION DAILY 05/25/20 04/19/21 04/19/21 History albuterol sulfate 2.5 mg INHALATION Q6H PRN 05/25/20 04/19/21 04/17/21 History famotidine 20 mg PO DAILY 05/25/20 04/19/21 04/19/21 History ondansetron 4 mg PO Q6H PRN 05/25/20 04/19/21 04/11/21 History aspirin 81 mg PO DAILY #30 tab 05/30/20 04/19/21 04/19/21 Rx atorvastatin 40 mg PO BEDTIME #30 tab 05/30/20 04/19/21 04/18/21 Rx acetaminophen [Tylenol] 650 mg PO Q6H PRN 04/19/21 04/19/21 04/02/21 History albuterol sulfate 2.5 mg INHALATION Q6H 04/19/21 04/19/21 04/19/21 History amoxicillin 1,000 mg PO TID 04/19/21 04/19/21 04/19/21 History apixaban [Eliquis] 5 mg PO BID 04/19/21 04/19/21 04/19/21 History docusate sodium [Colace] 100 mg PO DAILY 04/19/21 04/19/21 04/19/21 History doxycycline hyclate 100 mg PO BID 04/19/21 04/19/21 04/19/21 History fluticasone propion-salmeterol 1 inh INHALATION BID 04/19/21 04/19/21 04/19/21 History [Advair Diskus] hydrocodone-acetaminophen 1 tab PO Q8H PRN 04/19/21 04/19/21 04/19/21 History naloxone 0.4 mg IM Q2M PRN 04/19/21 04/19/21 Unknown History oxycodone 15 mg PO BID 04/19/21 04/19/21 04/19/21 History polyethylene glycol 3350 [Miralax] 17 g PO DAILY 04/19/21 04/19/21 04/19/21 History tizanidine 4 mg PO TID PRN 04/19/21 04/19/21 04/19/21 History Allergies Allergy/AdvReac Type Severity Reaction Status Date / Time No Known Allergies Allergy Verified 05/25/20 17:50 PFSH Acute PFSH: Medical History Activity extremely limited Anxiety and depression Breast cancer Degenerative arthritis Fracture of left femur HLD (hyperlipidemia) HTN (hypertension) Partial small bowel obstruction PUD (peptic ulcer disease) Surgical History History of colostomy History of modified radical mastectomy History of partial colectomy Family History Other No significant family history Social History Smoking and tobacco status: never smoked Alcohol intake: never Housing: [facility] Marital status: / Current occupational status: retired Vitals/I&O/Wt Last Vital Signs Temp 98.8 F 04/19/21 11:27 Pulse 52 L 04/19/21 11:27 Resp 16 04/19/21 11:27 BP 119/59 04/19/21 11:27 Pulse Ox 96 04/19/21 11:27 04/19/21 04/19/21 04/19/21 06:59 14:59 22:59 Intake Total 204.167 / 204.167 Balance 204.167 / 204.167 Weight last 48 hrs Weight 158.757 kg Physical Exam Narrative: EXAM NARRATIVE: General: Alert oriented x3, patient seen laying in bed in the ED. On 2 L nasal cannula. Large obese woman lying in bed HEENT: Normocephalic, atraumatic, EOMI, Cardio: Regular rate rhythm, normal S1-S2, no murmurs rubs gallops, JVD unable to be assessed due to large neck and body habitus and positioning. Respiratory: Good bilateral air entry, no wheezes no rhonchi appreciated GI: Abdomen soft, nontender, obese rounded abdomen, colostomy bag present with brown mushy stool, no blood noted, bowel sounds +, extensive erythema present on abdominal pannus with no evidence of cheesy white material. Behavior: Appropriate and cooperative Extremities: Tough to appreciate pulses, no edema, no cyanosis, obese lower extremities Skin exam performed anteriorly and I did not notice any open sores. There was extensive erythema present on abdominal pannus. Unable to examine patient's back. I will reexamine tomorrow once the nurses flipper. ER nurse did report that she has erythema on her sacral region but no open sores. Data : 04/19/21 10:35 04/19/21 10:35 Micro: Microbiology 04/19/21 16:50 Blood Culture - Preliminary Blood SPECIMEN COLLECTED 04/19/21 16:45 Blood Culture - Preliminary Blood SPECIMEN COLLECTED 04/19/21 10:15 Blood Culture - Preliminary Blood SPECIMEN COLLECTED 04/19/21 10:00 Blood Culture - Preliminary Blood SPECIMEN COLLECTED A&P Assessment and plan (1) Panniculitis: Status: Acute (2) History of colostomy: Status: Acute (3) Diabetes: Status: Acute (4) Acute UTI: Status: Acute (5) Chronic hypoxemic respiratory failure: Status: Acute (6) Paroxysmal A-fib: Status: Acute (7) HTN (hypertension): Status: Acute Additional A&P Information #Infection secondary to unknown source, possibly panniculitis versus UTI WBC count 27.1. Urinalysis is positive for leukocyte esterase. There is also evidence of cellulitis/panniculitis on abdominal area Initially vancomycin and Zosyn was ordered but patient developed hives and itching with vancomycin so it was stopped. Since she has been on antibiotics outpatient I scheduled her therapy to Primaxin for now. We will check urine cultures, blood cultures, sputum culture Gram stain although there does not seem to be any evidence of pneumonia at this point. We will check procalcitonin Her last set of labs are from yesterday. I will repeat all her labs today. I will continue her home medications Eliquis, stool softeners, MiraLAX, Tylenol. We will do sliding scale insulin for diabetes although I do not see her being on any medications at home. Patient did report to me verbally that she is a diabetic. Will check hemoglobin A1c She did report constant headaches, will check a CT head. Fluids: Normal saline 75 cc/h Electrolyte: Replete as needed Nutrition: Cardiac diabetic diet Activity: Patient is bedbound she can move as tolerated DVT prophylaxis: Heparin subcu Attestations Medical Necessity Statement*: Will cross 2 midnights. Time Spent in Patient Care: Greater than 35 minutes Coding Level of Care Code Acute Roll Trucker for [facility] Fwd Diagnoses Panniculitis M79.3 History of colostomy Diabetes E11.9 Acute UTI N39.0 Chronic hypoxemic respiratory failure J96.11 Paroxysmal A-fib I48.0 HTN (hypertension) I10
--- NOTE | 2021-04-19 19:05 | CTR_ITS ---
PROCEDURE INFORMATION: Exam: CT Head Without Contrast Exam date and time: 04/19/2021 7:05 PM Age: 80 years old Clinical indication: Pain; Headache; Additional info: Headaches TECHNIQUE: Imaging protocol: Computed tomography of the head without contrast. Total images: 192 Radiation optimization: All CT scans at this facility use at least one of these dose optimization techniques: automated exposure control; mA and/or kV adjustment per patient size (includes targeted exams where dose is matched to clinical indication); or iterative reconstruction. COMPARISON: No relevant prior studies available. RADIATION DOSE METRICS: Total DLP (mGy-cm): 902.77 FINDINGS: Brain: No evidence of active or acute intracranial pathologic process, hemorrhage, or trauma. Advanced small vessel ischemic disease with senile periventricular leukomalacia. 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 No mass effect. No midline shift. No hyperdense MCA or insular ribbon sign. Atrophic changes greater than that anticipated for patient's chronological age. Empty sella turcica. Cerebral ventricles: No ventriculomegaly. Paranasal sinuses: Visualized sinuses are unremarkable. No fluid levels. Mastoid air cells: Visualized mastoid air cells are well aerated. Vasculature: Markedly prominent [id number] vasculature with associated cerebral arteriosclerosis but without visible saccular aneurysm. Posterior circulation appears intact and unremarkable. origin of the left posterior cerebral artery. This is a normal anatomical variant. Please note this is essentially a contrasted computed tomography exam of the brain with contrast within the vascular structures from the CTA PE chest same date. Bones/joints: Unremarkable. No acute fracture. Soft tissues: Unremarkable. Other findings: Motion artifact. CT/CT head wo con* [id number] IMPRESSION: No evidence of active or acute intracranial pathologic process, hemorrhage, or trauma. Radiation Dose CTDIVOL = (mGy): DLP = 902.77 (mGy-cm)
[2021-04-19 19:59] LABS: Hematocrit 43.7 % (37.0-47.0); Hemoglobin 13.4 g/dL (11.5-15.3); Mean Corpuscular HGB Conc 30.7 g/dL (30.0-36.0); Mean Corpuscular Hemoglobin 25.9 pg (28.0-34.0); Mean Corpuscular Volume 84.5 fl (81-99); Mean Platelet Volume 10.5 fL (7.4-10.4); Platelet Count 383 10^3/cmm (130-400); Red Blood Count 5.17 10^6/uL (4.1-5.3); Red Cell Distribution Width 19.9 % (12.1-15.1); White Blood Count 20.4 10^3/uL (4.0-10.0)
[2021-04-19 20:23] LABS: Alanine Aminotransferase 9 U/L (0-33); Albumin Level 3.2 g/dL (3.5-5.2); Alkaline Phosphatase 98 IU/L (35-105); Anion Gap 13.5 (5-19); Aspartate Amino Transferase 10 U/L (0-32); Blood Urea Nitrogen 24 mg/dL (8-23); Calcium 8.5 mg/dL (8.5-10.5); Carbon Dioxide 26 mmol/L (22-29); Chloride 98 mmol/L (98-107); Globulin 3.6 g/dL (1.3-4.6); Glucose 87 mg/dL (65-115); Osmolality Calculated 279 mOsm/kg (285-295); Potassium 4.5 mmol/L (3.5-5.1); Sodium 133 mmol/L (136-145); Total Bilirubin 0.2 mg/dL (0.15-1.2); Total Protein 6.8 g/dL (6.6-8.7)
[2021-04-19 20:25] LABS: Absolute Eosinophils 0.4 10^3/cmm (0.0-0.7); Absolute Segmented Neutrophil 12.4 10/cmm (1.6-7.1); Eosinophils 2 %; Lymphocytes 18 %; Lymphocytes Absolute 6.5 10^3/cmm (1.2-3.4); Segmented Neutrophils 61 %; Total Cells Counted 100 (0-100)
[2021-04-19 20:26] LABS: Anisocytosis 1+; Platelet Estimate Normal (Normal); Target Cells Trace; Tear Drop Cells Trace
[2021-04-19 20:31] LABS: Procalcitonin 0.27 ng/mL (0-0.5)
[2021-04-19 20:37] LABS: Charge for UA Resulting for Rev
[2021-04-19 20:44] LABS: Urine Appearance Clear (CLEAR); Urine Color Yellow (Yellow); pH Urine 5 (5-7)
[2021-04-19 20:45] LABS: Bilirubin Urine Neg (Negative); Blood Urine Neg (Negative); Glucose Urine UA Norm (Normal); Ketones Urine Negative (Negative); Nitrate Urine Negative (Negative); Protein Urine Trace (Negative); Urobilinogen Urine Norm (Negative)
[2021-04-19 20:48] LABS: Leukocyte Esterase Urine Trace (Negative)
[2021-04-19 20:49] VITALS: BP 149/84; PULSE 59; RESP 18; TEMP 36.6; O2SAT 96; BMI 61.9
--- NOTE | 2021-04-19 20:49 | ECG_ITS ---
[facility] Test Date: 2021-04-19 Pat Name: Hermelinda Mckeon Department: Room: 255 Gender: Female Career Law Clerk: : 1940 Requested By: Cyndi Tuttle Order Number: [id number] Rosalba MD: Bianca Mancera M.D. Measurements Intervals [place] Rate: 60 P: -31 IL: 227 QRS: -31 QRSD: 104 T: 25 QT: 405 QTc: 408 Interpretive Statements SINUS RHYTHM WITH FIRST DEGREE AV BLOCK LEFT AXIS DEVIATION [QRS AXIS < -30] MINIMAL VOLTAGE CRITERIA FOR LVH, CONSIDER NORMAL VARIANT [MEETS CRITERIA IN ONE OF: R(aVL), S(V1), R(V5), R(V5/V6)+S(V1)] POSSIBLE ANTERIOR MYOCARDIAL INFARCTION , OF INDETERMINATE AGE [30 ms Q WAVE IN V3/V4, OR R < 0.2 mV IN V4] Compared to ECG 05/25/2020 22:52:06 First degree AV block now present Myocardial infarct finding still present Electronically Signed On 04-20-2021 0:02:47 CDT by Bianca Mancera M.D. [id number]
[2021-04-19 20:51] LABS: Add Urine Microscopic? NO
[2021-04-19 20:55] LABS: SARS Covid-2 Antigen Negative (Negative)
[2021-04-19] MEDS: apixaban 5 mg Tablet PO (22:04)
[2021-04-19] MEDS: atorvastatin 40 mg Tablet PO (22:04)
[2021-04-19] MEDS: pregabalin 75 mg Capsule PO (22:04)
[2021-04-19] MEDS: sodium chloride 0.9% 1,000 ML 75 ML IV (22:05)
--- NOTE | 2021-04-19 23:17 | PC.NURSE ---
24g iv started to left wrist per protocol for primary nurse. charted under worklist. pt tolerated well
[2021-04-20] VITALS (15 sets, daily range): BP systolic 134–148; BP diastolic 69–78; PULSE 62–96; RESP 17–19; TEMP 36.6–37; O2SAT 92–98
[2021-04-20 05:40] LABS: Basophils # 0.1 10^3/uL (0.0-0.1); Basophils % 0.3 %; Eosinophils # 0.7 10^3/uL (0.0-0.8); Eosinophils % 2.6 %; Hematocrit 42.9 % (37.0-47.0); Hemoglobin 13.1 g/dL (11.5-15.3); Lymphocytes # 9.2 10^3/uL (0.8-4.8); Lymphocytes % 36.2 %; Mean Corpuscular HGB Conc 30.5 g/dL (30.0-36.0); Mean Corpuscular Hemoglobin 25.9 pg (28.0-34.0); Mean Corpuscular Volume 84.8 fl (81-99); Mean Platelet Volume 10.6 fL (7.4-10.4); Monocytes # 1.8 10^3/uL (0.2-0.9); Neutrophils # 13.64 10^3/uL (1.8-7.7); Neutrophils % 53.5 %; Nucleated Red Blood Cells % 0 %; Platelet Count 403 10^3/cmm (130-400); Red Blood Count 5.06 10^6/uL (4.1-5.3); Red Cell Distribution Width 19.7 % (12.1-15.1); White Blood Count 25.5 10^3/uL (4.0-10.0)
[2021-04-20 06:14] LABS: Alanine Aminotransferase 9 U/L (0-33); Alkaline Phosphatase 96 IU/L (35-105); Anion Gap 15.3 (5-19); Aspartate Amino Transferase 10 U/L (0-32); Blood Urea Nitrogen 20 mg/dL (8-23); Calcium 8.8 mg/dL (8.5-10.5); Carbon Dioxide 24 mmol/L (22-29); Chloride 103 mmol/L (98-107); Chol HDL Ratio 3.42 mg/dL (0.0-4.40); Cholesterol 106 mg/dL (0-200); Globulin 3.5 g/dL (1.3-4.6); Glucose 78 mg/dL (65-115); HDL Cholesterol 31 mg/dL (60-100); LDL Cholesterol Calculated 48 mg/dL (50-129); LDL HDL Ratio 1.55 RATIO (0.00-3.22); Magnesium 1.9 mg/dL (1.7-2.3); Osmolality Calculated 287 mOsm/kg (285-295); Phosphorus 2.9 mg/dL (2.5-4.5); Potassium 4.3 mmol/L (3.5-5.1); Sodium 138 mmol/L (136-145); Thyroid Stimulating Hormone 1.41 uIU/mL (0.27-4.20); Total Bilirubin 0.2 mg/dL (0.15-1.2); Total Protein 6.5 g/dL (6.6-8.7); Triglycerides 134 mg/dL (0-150)
[2021-04-20 07:43] LABS: Slide Review Slide Review Perform
[2021-04-20] MEDS: sennosides-docusate Tablet 1 TAB PO (08:42)
[2021-04-20] MEDS: aspirin 81 mg EC Tablet PO (08:42)
[2021-04-20] MEDS: famotidine 20 mg Tablet PO (08:42)
[2021-04-20] MEDS: apixaban 5 mg Tablet PO ×2 (08:42→17:23)
[2021-04-20] MEDS: polyethylene glycol 3350 Pkt 17 gm PO (08:43)
[2021-04-20] MEDS: escitalopram 10 mg Tablet PO (08:43)
[2021-04-20] MEDS: pregabalin 75 mg Capsule PO ×2 (08:43→17:23)
[2021-04-20] MEDS: linezolid premix 600 MG/300 ML PREMIX 300 MG IV ×2 (10:16→20:30)
--- NOTE | 2021-04-20 10:20 | PC.CHAP ---
Pastoral Care Encounter/Spiritual Assessment Type of Contact [] Declined fabrication engineer visit [] Patient/Family/Request visit [] Outpatient visit [] Follow-up visit [] Physician referral [] Code/Alert [x] Routine visit [] Staff referral [] Actively dying [] Patient sleeping [] Family support [] [] Out of room [] Palliative care [] [] Receiving care in room [] Pre-surgical visit [] Trauma [] Long length of stay [] ICU visit [] Other: Relational/Emotional Strength [x] Patient feels connected with others/family/visitors/staff [] Distress [] Loneliness/isolation [] Abandonment Spirituality of Patient [x] Person of April [x] Attends Gnosticism of their April [x] Believes in Prayer [] Reads Bible or Confucianism materials [] There are Spiritual issues to be addressed Shirrer Interventions [x] Prayer [x] Active listening [x] Non-anxious presence [x] Spiritual/emotional support [] Crisis/trauma care [] Spiritual counseling [] Bereavement support [] Provided bereavement packet [] Provided Bible/devotional materials [] Provided toy/stuffed animal, coloring book to patient or family member [] Provided Communion [] Anointing/[place] [] Salvation [x] Completed spiritual assessment [] Other: Impact on Illness or Injury [] Angry [] Fearful [] Anxious [] Often cries [] Exhaustion [] Unable to work [] Unable to attend catholic [] Unable to walk/stand [] Unable to read [] Unable to drive [] Unable to eat/drink [] Unable to sleep [] Unable to be with family [] Patient intubated [] Other: Summary Time spent with patient 15 min
--- NOTE | 2021-04-20 14:28 | P.PN_ITS ---
Subjective Subjective: Interval history: Seen this morning. Patient had an uneventful night. She states she feels little bit better abdominal pain has also improved. The redness on her abdominal pannus has also decreased compared to admission. Vitals/I&O/Wt Last Vital Signs Temp 98.6 F 04/20/21 11:51 Pulse 92 04/20/21 11:51 Resp 17 04/20/21 11:51 BP 134/76 04/20/21 11:51 Pulse Ox 97 04/20/21 11:51 04/19/21 04/20/21 04/20/21 22:59 06:59 14:59 Intake Total 204.167 / 204.167 300 / 504.167 120 / 120 Output Total 300 / 300 Balance -95.833 / -95.833 300 / 204.167 120 / 120 Weight last 48 hrs Weight 158.757 kg Weight 158.757 kg Physical Exam Narrative: EXAM NARRATIVE: General: Alert oriented x3, patient seen laying in bed in the ED. on room air today.. Large obese woman lying in bed HEENT: Normocephalic, atraumatic, EOMI, Cardio: Regular rate rhythm, normal S1-S2, no murmurs rubs gallops, JVD unable to be assessed due to large neck and body habitus and positioning. Respiratory: Good bilateral air entry, no wheezes no rhonchi appreciated GI: Abdomen soft, nontender, obese rounded abdomen, colostomy bag present with brown mushy stool, no blood noted, bowel sounds +, extensive erythema present on abdominal pannus with no evidence of cheesy white material however significantly improved compared to yesterday.. Behavior: Appropriate and cooperative Extremities: Tough to appreciate pulses, no edema, no cyanosis, obese lower extremities Data : 04/20/21 04:48 04/20/21 04:48 Micro: Microbiology 04/19/21 10:15 Blood Culture - Preliminary Blood NEGATIVE TO DATE 04/19/21 10:00 Blood Culture - Preliminary Blood NEGATIVE TO DATE 04/19/21 11:35 Urine Culture - Preliminary Urine,Clean Catch A&P Assessment and plan (1) Panniculitis: Status: Acute (2) History of colostomy: Status: Acute (3) Diabetes: Status: Acute (4) Acute UTI: Status: Acute (5) Chronic hypoxemic respiratory failure: Status: Acute (6) Paroxysmal A-fib: Status: Acute (7) HTN (hypertension): Status: Acute Additional A&P Information #Infection secondary to unknown source, possibly abdominal wall cellulitis versus UTI WBC count 27.1 on admission, it has come down to 25 today.. Urinalysis is positive for leukocyte esterase. There is also evidence of cellulitis/panniculitis on abdominal area Initially vancomycin and Zosyn was ordered but patient developed hives and itching with vancomycin so it was stopped. Since she has been on antibiotics outpatient I scheduled her therapy to Primaxin for now. Blood cultures negative so far, sputum Gram stain unable to be obtained since patient has not coughed up anything. Urine culture does not show any growth so far. It is possible that patient has been on antibiotics recently outpatient and got antibiotics in the hospital and therefore culture is not growing. Procalcitonin is negative, TSH 1.41. I will continue her home medications Eliquis, stool softeners, MiraLAX, Tylenol. Continue sliding scale insulin for diabetes. Hemoglobin A1c pending. Head CT negative for intracranial pathology. We will continue patient on linezolid and Primaxin for now. Fluids: Normal saline 75 cc/h Electrolyte: Replete as needed Nutrition: Cardiac diabetic diet Activity: Patient is bedbound she can move as tolerated DVT prophylaxis: Heparin subcu Attestations Medical Necessity Statement*: Requires greater than 48-hour inpatient stay. Time Spent in Patient Care: 16 - 35 minutes Coding Level of Care Code Acute Student Accounts Coordinator for [facility] Fwd Diagnoses Panniculitis M79.3 History of colostomy Diabetes E11.9 Acute UTI N39.0 Chronic hypoxemic respiratory failure J96.11 Paroxysmal A-fib I48.0 HTN (hypertension) I10
[2021-04-20] MEDS: sodium chloride 0.9% 1,000 ML 75 ML IV ×2 (14:50→23:04)
--- NOTE | 2021-04-20 16:30 | PC.PT ---
Contacted patient residential staff regarding patient prior abilities, found patient to be predominantly Oralia lift transfer, from bed to wheelchair, although sometimes he uses a sit to stand and great effort of staff to get patient into wheelchair; patient inappropriate for physical therapy due to is at her prior level of function, discussed same with patient physician, who told me to cancel the order. No further PT visits planned at this time.
[2021-04-20] MEDS: atorvastatin 40 mg Tablet PO (20:27)
[2021-04-20] MEDS: tizanidine 4 mg Tablet PO (20:30)
[2021-04-20] MEDS: diphenhydrAMINE 25 mg Capsule PO (23:07)
[2021-04-21] VITALS (11 sets, daily range): BP systolic 148–188; BP diastolic 79–98; PULSE 63–77; RESP 16–20; TEMP 36.5–36.8; O2SAT 87–96
[2021-04-21 05:20] LABS: Basophils # 0.1 10^3/uL (0.0-0.1); Basophils % 0.3 %; Eosinophils # 0.3 10^3/uL (0.0-0.8); Eosinophils % 1.4 %; Hematocrit 39.2 % (37.0-47.0); Hemoglobin 12.3 g/dL (11.5-15.3); Lymphocytes % 32.8 %; Mean Corpuscular HGB Conc 31.4 g/dL (30.0-36.0); Mean Corpuscular Hemoglobin 25.9 pg (28.0-34.0); Mean Corpuscular Volume 82.7 fl (81-99); Mean Platelet Volume 11.1 fL (7.4-10.4); Monocytes # 1.6 10^3/uL (0.2-0.9); Monocytes % 7.5 %; Neutrophils # 12.32 10^3/uL (1.8-7.7); Neutrophils % 57.5 %; Nucleated Red Blood Cells % 0 %; Platelet Count 424 10^3/cmm (130-400); Red Blood Count 4.74 10^6/uL (4.1-5.3); Red Cell Distribution Width 18.7 % (12.1-15.1); White Blood Count 21.4 10^3/uL (4.0-10.0)
[2021-04-21 05:43] LABS: Anion Gap 15.2 (5-19); Blood Urea Nitrogen 16 mg/dL (8-23); Calcium 8.8 mg/dL (8.5-10.5); Carbon Dioxide 25 mmol/L (22-29); Chloride 104 mmol/L (98-107); Glucose 83 mg/dL (65-115); Magnesium 1.9 mg/dL (1.7-2.3); Osmolality Calculated 290 mOsm/kg (285-295); Potassium 4.2 mmol/L (3.5-5.1); Sodium 140 mmol/L (136-145)
[2021-04-21 06:16] LABS: Slide Review Slide Review Perform
[2021-04-21] MEDS: ondansetron 2 mg/ML SDV 2 mL 4 MG IVP ×3 (08:53→21:21)
[2021-04-21] MEDS: aspirin 81 mg EC Tablet PO (08:53)
[2021-04-21] MEDS: pregabalin 75 mg Capsule PO (08:53)
[2021-04-21] MEDS: escitalopram 10 mg Tablet PO (08:53)
[2021-04-21] MEDS: apixaban 5 mg Tablet PO (08:53)
[2021-04-21] MEDS: sennosides-docusate Tablet 1 TAB PO (08:53)
[2021-04-21] MEDS: famotidine 20 mg Tablet PO (08:53)
[2021-04-21] MEDS: polyethylene glycol 3350 Pkt 17 gm PO (08:55)
[2021-04-21] MEDS: linezolid premix 600 MG/300 ML PREMIX 100 MG IV ×2 (10:20→20:15)
--- NOTE | 2021-04-21 11:56 | P.PN_ITS ---
Subjective Subjective: Interval history: Seen this morning. Patient reports an episode of vomiting this morning. She also states that she feels she was not drinking enough water after admission and therefore feels her colostomy output was thicker. She has started to increase her fluid intake at this point. Later on after a few hours I was reported by the nurse that patient is having projectile vomiting at this point. Patient was made n.p.o. stat abdominal films were ordered. Urine culture is negative. Blood cultures are negative to date. Vitals/I&O/Wt Last Vital Signs Temp 97.8 F 04/21/21 08:07 Pulse 65 04/21/21 08:07 Resp 16 04/21/21 08:07 BP 168/87 04/21/21 08:07 Pulse Ox 95 04/21/21 08:07 04/20/21 04/21/21 04/21/21 22:59 06:59 14:59 Intake Total 1160 / 2380 1237.5 / 3617.5 Output Total 1500 / 1500 2200 / 3700 Balance -340 / 880 -962.5 / -82.5 Weight last 48 hrs Weight 158.757 kg Physical Exam 2 Narrative: EXAM NARRATIVE: General: Alert oriented x3, patient seen laying in bed Large obese woman lying in bed HEENT: Normocephalic, atraumatic, EOMI, Cardio: Regular rate rhythm, normal S1-S2, no murmurs rubs gallops, JVD unable to be assessed due to large neck and body habitus and positioning. Patient is on room air. Respiratory: Good bilateral air entry, no wheezes no rhonchi appreciated GI: Abdomen soft, nontender, obese rounded abdomen, colostomy bag present with brown mushy stool, no blood noted, bowel sounds +, mild erythema present on abdominal pannus with no evidence of cheesy white material however significantly improved compared to yesterday.. Erythema has gone down significantly compared to admission. She is getting better from that aspect. Behavior: Appropriate and cooperative Extremities: Tough to appreciate pulses, no edema, no cyanosis, obese lower extremities Data : 04/21/21 04:18 04/21/21 04:18 Micro: Microbiology 04/19/21 11:35 Urine Culture - Final Urine,Clean Catch 04/19/21 10:15 Blood Culture - Preliminary Blood NEGATIVE TO DATE 04/19/21 10:00 Blood Culture - Preliminary Blood NEGATIVE TO DATE A&P Assessment and plan (1) Panniculitis: Status: Acute (2) History of colostomy: Status: Acute (3) Diabetes: Status: Acute (4) Acute UTI: Status: Acute (5) Chronic hypoxemic respiratory failure: Status: Acute (6) Paroxysmal A-fib: Status: Acute (7) HTN (hypertension): Status: Acute Additional A&P Information #Infection secondary to unknown source, possibly abdominal wall cellulitis versus UTI WBC count 27.1 on admission, it has come down to 25 today.. Urinalysis is positive for leukocyte esterase. There is also evidence of cellulitis/panniculitis on abdominal area Initially vancomycin and Zosyn was ordered but patient developed hives and itching with vancomycin so it was stopped. Since she has been on antibiotics outpatient I scheduled her therapy to Primaxin for now. Blood cultures negative so far, sputum Gram stain unable to be obtained since patient has not coughed up anything. Urine culture does not show any growth so far. It is possible that patient has been on antibiotics recently outpatient and got antibiotics in the hospital and therefore culture is not growing. Procalcitonin is negative, TSH 1.41. I will continue her home medications Eliquis, stool softeners, MiraLAX, Tylenol. Continue sliding scale insulin for diabetes. Hemoglobin A1c pending. Head CT negative for intracranial pathology. We will continue patient on linezolid and Primaxin for now. Abdominal cellulitis has improved significantly. WBC count is down to 20. We will continue antibiotics for now. #Possible bowel obstruction ?Patient had an episode of vomiting this morning and later on had production of vomiting x2. Stat abdominal films were ordered. We will consider general surgery consult with Dr. Andrade. I will review report and see how patient is doing and if needed will consult him. Fluids: Normal saline 75 cc/h Electrolyte: Replete as needed Nutrition: Cardiac diabetic diet Activity: Patient is bedbound she can move as tolerated DVT prophylaxis: Heparin subcu Attestations Medical Necessity Statement*: Will require greater than 48-hour stay at this point Time Spent in Patient Care: 16 - 35 minutes Coding Level of Care Code Acute Dielectric Machine Operator for [facility] Diagnoses Panniculitis M79.3 History of colostomy Diabetes E11.9 Acute UTI N39.0 Chronic hypoxemic respiratory failure J96.11 Paroxysmal A-fib I48.0 HTN (hypertension) I10
--- NOTE | 2021-04-21 14:05 | XRR_ITS ---
PROCEDURE INFORMATION: Exam: XR Abdomen Exam date and time: 04/21/2021 2:05 PM Age: 80 years old Clinical indication: Vomiting; Additional info: Vomiting, erect and supine images TECHNIQUE: Imaging protocol: XR of the abdomen. Views: 2 Views. Upright and supine views. COMPARISON: CT abdomen pelvis w con* [id number] 04/19/2021 1:01 PM FINDINGS: Gastrointestinal tract: Air-filled loops of bowel noted in the left lower abdomen in the region of the previously noted hernia. The demonstrate haustral markings consistent with colon. There is however a loop of small bowel centrally which appears mildly dilated up to 3.7 cm. Intraperitoneal space: Normal. No free air. Bones/joints: Multilevel degenerative changes of the thoracolumbar spine. XR/XR abdomen min 2V [id number] IMPRESSION: Air-filled loops of colon in the previously noted parastomal hernia. There is a mildly dilated loop of small bowel centrally in this region. This can be re-evaluated with either radiographic follow-up or CT to evaluate for developing obstruction. Radiation Dose CTDIVOL = (mGy): DLP = (mGy-cm)
[2021-04-21] MEDS: sodium chloride 0.9% 1,000 ML 100 ML IV ×2 (14:55→23:46)
[2021-04-21] MEDS: tizanidine 4 mg Tablet PO ×2 (14:56→20:20)
--- NOTE | 2021-04-21 16:30 | P.CONIM_ITS ---
Providers/Reason For Consult Consulting Physician/Specialty*: Arnav Andrade MD Reason for Consult*: Projectile vomiting Requesting Physician: Dr. Tuttle Attending Physician: Cyndi Tuttle MD Primary Care Provider: Favian Clark DO History of Present Illness History of Present Illness Chief Complaint: I got sick to my stomach History of present illness: Ms.Margaret Maira Mckeon is a 80 year old female well-known to me from previous clinical encounters.Patient is well-known with multiple medical comorbidities breast cancer, anxiety and depression, breast cancer, degenerative arthritis, hypertension, hyperlipidemia, peptic ulcer disease, history of colostomy and partial colectomy, subsequently the patient developed a large parastomal hernia.Patient is admitted to the hospitalist service with concern of UTI, patient sustained cellulitic change on her abdominal wall that is not present at the moment but per Dr. Tuttle's assessment she responded to antibiotics. Patient currently has a functional stoma and continues to pass gas and bowel movements. Earlier after breakfast patient reports that she had projectile vomiting and she thinks that she had a bug. Was approached by the hospitalist service and requested x-rays KUB to be done that was read as below: Air-filled loops of colon in the previously noted parastomal hernia. There is a mildly dilated loop of small bowel centrally in this region. This can be re-evaluated with either radiographic follow-up or CT to evaluate for developing obstruction. On admission patient had a CT scan of the abdomen and pelvis:1. LEFT lower quadrant colostomy. There is now an enlarging parastomal hernia at the ostomy site containing both small bowel and colon but no obstruction or ischemic change. 2. Solomon's pouch with diverticula. No acute diverticulitis. 3. Prior cholecystectomy. 4. Pancreatic atrophy. 5. Stable RIGHT hepatic cyst. 6. Prior splenectomy. General surgery was consulted for further evaluation Review of Systems General: Reports: 10 or more systems reviewed and unremarkable except in HPI and below Meds/Allergies Home Medications and Allergies Home Medications Medication Instructions Recorded Confirmed Last Taken Type bisacodyl 5 mg PO Q24H PRN 04/24/20 04/19/21 Unknown History escitalopram oxalate 10 mg PO DAILY 04/24/20 04/19/21 04/19/21 History pregabalin [Lyrica] 75 mg PO BID 04/24/20 04/19/21 04/19/21 History sennosides-docusate sodium [Senna 1 tab-cap PO DAILY 04/24/20 04/19/21 04/19/21 History Plus] Cepacol Sore Throat (wiliam-men) See Rx Instructions .ROUTE .COMPLEX 05/25/20 04/19/21 Unknown History Incruse Ellipta 1 inh INHALATION DAILY 05/25/20 04/19/21 04/19/21 History albuterol sulfate 2.5 mg INHALATION Q6H PRN 05/25/20 04/19/21 04/17/21 History famotidine 20 mg PO DAILY 05/25/20 04/19/21 04/19/21 History ondansetron 4 mg PO Q6H PRN 05/25/20 04/19/21 04/11/21 History aspirin 81 mg PO DAILY #30 tab 05/30/20 04/19/21 04/19/21 Rx atorvastatin 40 mg PO BEDTIME #30 tab 05/30/20 04/19/21 04/18/21 Rx acetaminophen [Tylenol] 650 mg PO Q6H PRN 04/19/21 04/19/21 04/02/21 History albuterol sulfate 2.5 mg INHALATION Q6H 04/19/21 04/19/21 04/19/21 History amoxicillin 1,000 mg PO TID 04/19/21 04/19/21 04/19/21 History apixaban [Eliquis] 5 mg PO BID 04/19/21 04/19/21 04/19/21 History docusate sodium [Colace] 100 mg PO DAILY 04/19/21 04/19/21 04/19/21 History doxycycline hyclate 100 mg PO BID 04/19/21 04/19/21 04/19/21 History fluticasone propion-salmeterol 1 inh INHALATION BID 04/19/21 04/19/21 04/19/21 History [Advair Diskus] hydrocodone-acetaminophen 1 tab PO Q8H PRN 04/19/21 04/19/21 04/19/21 History naloxone 0.4 mg IM Q2M PRN 04/19/21 04/19/21 Unknown History oxycodone 15 mg PO BID 04/19/21 04/19/21 04/19/21 History polyethylene glycol 3350 [Miralax] 17 g PO DAILY 04/19/21 04/19/21 04/19/21 History tizanidine 4 mg PO TID PRN 04/19/21 04/19/21 04/19/21 History Allergies Allergy/AdvReac Type Severity Reaction Status Date / Time No Known Allergies Allergy Verified 05/25/20 17:50 Current Medications Current Medications Generic Name Dose Route Start Last Admin Trade Name Freq PRN Reason Stop Dose Admin Albuterol Sulfate 2.5 mg 04/20/21 03:00 04/21/21 15:28 Albuterol 2.5 Mg/0.5 Ml Neb INHALATION 2.5 mg Q6H.RESPIRATORY YAN Administration Apixaban 5 mg 04/19/21 20:49 04/21/21 08:53 Apixaban 5 Mg Tablet PO 5 mg BID YAN Administration Aspirin 81 mg 04/20/21 09:00 04/21/21 08:53 Aspirin 81 Mg Ec Tablet PO 81 mg DAILY YAN Administration Atorvastatin Calcium 40 mg 04/19/21 21:00 04/20/21 20:27 Atorvastatin 40 Mg Tablet PO 40 mg BEDTIME YAN Administration Diphenhydramine HCl 25 mg 04/20/21 22:55 04/20/21 23:07 Diphenhydramine 25 Mg Capsule PO 25 mg Q4H PRN Administration ITCHING Escitalopram Oxalate 10 mg 04/20/21 09:00 04/21/21 08:53 Escitalopram 10 Mg Tablet PO 10 mg DAILY YAN Administration Famotidine 20 mg 04/20/21 09:00 04/21/21 08:53 Famotidine 20 Mg Tablet PO 20 mg DAILY YAN Administration Linezolid 600 mg in 300 mls @ 300 mls/hr 04/20/21 09:00 04/21/21 15:22 Zyvox Premix IV Infused Q12H YAN Infusion Protocol Imipenem/Cilastatin Sodium 500 100 mls @ 200 mls/hr 04/20/21 08:15 04/21/21 15:22 mg/ Sodium Chloride IV Infused Q6H YAN Infusion Protocol Sodium Chloride 1,000 mls @ 100 mls/hr 04/21/21 14:15 04/21/21 14:55 Sodium Chloride 0.9% IV 100 mls/hr .Q10H YAN Administration Non-Formulary Medication 1 inh 04/20/21 09:00 04/20/21 15:41 Umeclidinium [Incruse Ellipta] INHALATION Not Given DAILY YAN Ondansetron HCl 4 mg 04/19/21 20:49 04/21/21 14:56 Ondansetron 2 Mg/Ml Sdv 2 Ml IVP 4 mg Q6H PRN Administration NAUSEA AND VOMITING Polyethylene Glycol 17 gm 04/20/21 09:00 04/21/21 08:55 Polyethylene Glycol 3350 Pkt 17 Gm PO 17 gm DAILY YAN Administration Pregabalin 75 mg 04/19/21 20:49 04/21/21 08:53 Pregabalin 75 Mg Capsule PO 75 mg BID YAN Administration Fluticasone/Salmeterol 1 puff 04/20/21 09:00 04/21/21 15:27 Fluticasone-Salmeterol 250-50 Diskus INHALATION Not Given BID YAN Senna/Docusate Sodium 1 tab 04/20/21 09:00 04/21/21 08:53 Sennosides-Docusate Tablet PO 1 tab DAILY YAN Administration Tizanidine HCl 4 mg 04/19/21 20:49 04/21/21 14:56 Tizanidine 4 Mg Tablet PO 4 mg TID PRN Administration Muscle Pain PFSH Acute PFSH: Medical History Activity extremely limited Anxiety and depression Breast cancer Degenerative arthritis Fracture of left femur HLD (hyperlipidemia) HTN (hypertension) Partial small bowel obstruction PUD (peptic ulcer disease) Surgical History History of colostomy History of modified radical mastectomy History of partial colectomy Family History Other No significant family history Social History Smoking and tobacco status: never smoked Alcohol intake: never Housing: Longterm Marital status: / Current occupational status: retired Vitals/I&O/Wt Last Vital Signs Temp 97.7 F 04/21/21 15:57 Pulse 74 04/21/21 15:57 Resp 20 H 04/21/21 15:57 BP 188/98 04/21/21 15:57 Pulse Ox 90 04/21/21 15:57 04/21/21 04/21/21 04/21/21 06:59 14:59 22:59 Intake Total 1237.5 / 3617.5 100 / 100 400 / 500 Output Total 2200 / 3700 200 / 200 Balance -962.5 / -82.5 100 / 100 200 / 300 Weight last 48 hrs Weight 350 lb Physical Exam Narrative: EXAM NARRATIVE: Patient is conscious alert oriented X3, no apparent distress BMI 62 Head and neck examination PERRLA no masses no cervical lymphadenopathy no jaundice Cardiac examination audible S1-S2 no murmurs no gallops no arrhythmias Chest is clear bilateral,abscence of Rhonchi or wheezes,no surgical emphysema Abdomen nontender nondistended soft no organomegaly guarding or rigidity/no signs of peritonitis, large parastomal hernia with widemouth. Colostomy in place and functioning well in the bag is full of stools brown liquidy and gas. Data Micro: Micro: Microbiology 04/19/21 11:35 Urine Culture - Fi nal Urine,Clean Catch A&P Assessment and plan (1) Projectile vomiting with nausea: After thorough history physical examination reviewing the chart and images with my personal interpretation. I do not see enough signs at the moment for bowel obstruction, certainly with the patient's episodes of projectile vomiting I would have the patient n.p.o. except for ice chips. Repeated physical examination IV fluid gentle hydration Strict I's and O's Thank you for consulting general surgery to participate taking care Status: Acute Consult Attestations Medical Necessity Statement: Per admitting service Time Spent in Patient Care: (>than 50% of time spent in counselling and/or direct pt care on unit) . Coding Level of Care Code Acute Wallpaper Consultant for Chg Fwd Diagnoses Projectile vomiting with nausea R11.12
[2021-04-21] MEDS: NON-FORMULARY MEDICATION (Umeclidinium [Incruse Ellipta] 62.5 mcg/actuation Blister With D 1 EACH INHALATION (16:46)
[2021-04-21 17:10] LABS: Base Excess VBG 7.5 mmol/L (-3.0-3.0); Blood Gas Operator Identificat MONRO; HCO3 VBG 31.6 mmol/L (24-28); PCO2 VBG 41.4 mmHg (41-51); PO2 VBG 33.8 mmHg (25-40); Venous Blood Gas Hematocrit 43.5 % (37-47); pH VBG 7.49 (7.32-7.42)
[2021-04-21 17:13] LABS: Blood Gas Sample Site Not specified; Blood Gas Sample Type Venous; Oxygen Device NC
[2021-04-21] MEDS: morphine 4 mg/mL SDV 1 mL 1 MG IVP (18:42)
[2021-04-21] MEDS: atorvastatin 40 mg Tablet PO (20:16)
[2021-04-21] MEDS: diphenhydrAMINE 25 mg Capsule PO (20:20)
[2021-04-22] VITALS (7 sets, daily range): BP systolic 140–184; BP diastolic 74–95; PULSE 54–74; RESP 12–19; TEMP 36.6–37.2; O2SAT 90–94
[2021-04-22] MEDS: diphenhydrAMINE 25 mg Capsule PO (01:05)
[2021-04-22] MEDS: ondansetron 2 mg/ML SDV 2 mL 4 MG IVP ×2 (01:06→09:59)
--- NOTE | 2021-04-22 06:13 | PC.NURSE ---
Patient AAOx4, sitting up in bed, multiple episodes of emesis throughout shift with antiemetic on board, elevated BP, c/o pain in lower posterior neck. No new events, catheter in place and patient, room clutter free and call light in reach. Refuses Q2 turns.
--- NOTE | 2021-04-22 07:56 | P.PN_ITS ---
Subjective Subjective: Interval history: Patient was seen and examined and it seems that she did have a couple of episodes of vomiting. Per nursing staff observation whenever patient get started on her IV antibiotics she starts to have vomiting episodes. Particular observation was noticed with the Primaxin. Patient reports to me that she does not want more IV antibiotics and she wants to go home Medications: Reviewed: Yes Vitals/I&O/Wt Last Vital Signs Temp 98.3 F 04/22/21 04:29 Pulse 65 04/22/21 04:29 Resp 16 04/22/21 04:29 BP 184/95 04/22/21 04:29 Pulse Ox 93 04/22/21 04:29 04/21/21 04/22/21 04/22/21 22:59 06:59 14:59 Intake Total 1500 / 1600 1485 / 3085 Output Total 200 / 200 1450 / 1650 Balance 1300 / 1400 35 / 1435 Physical Exam Narrative: EXAM NARRATIVE: Patient is conscious alert oriented X3, no apparent distress BMI 62 Head and neck examination PERRLA no masses no cervical lymphadenopathy no jaundice Abdomen nontender nondistended soft no organomegaly guarding or rigidity/no signs of peritonitis, large parastomal hernia with widemouth. Colostomy in place and functioning well in the bag is full of stools brown liquidy and gas. Urinary Catheter Management^: Jara: Cath Placed During This Visit: yes Reason for Continuing Indwelling Catheter: Accurate Measurement of Urinary Output in Critically Ill Patients Urinary Catheter Date of Insertion: 04/21/21 Urinary Catheter Time of Insertion: 17:09 Data : 04/21/21 04:18 04/21/21 04:18 Micro: Microbiology 04/19/21 11:35 Urine Culture - Final Urine,Clean Catch A&P Assessment and plan (1) Projectile vomiting with nausea: From surgical standpoint of view I do not see an indication of bowel o bstruction. I do believe that the patient whenever she has the IV bag of antibiotics hung she starts to have nausea and vomiting. My recommendations is to look into the potential side effects of medications as clinically patient continues to pass gas and stool per stoma. I would add PPI twice a day and Carafate. I do not think further imaging will add an additional benefit at this point and I would rather follow on the patient clinically and correlate the potential side effects of her medications. Thank you for consulting general surgery to participate taking care Status: Acute Attestations Medical Necessity Statement*: Per admitting service Time Spent in Patient Care: (>than 50% of time spent in counselling and/or direct pt care on unit) . Coding Level of Care Code Acute Printing Supervisor for Shante Alvarenga Diagnoses Projectile vomiting with nausea R11.12
[2021-04-22] MEDS: sennosides-docusate Tablet 1 TAB PO (09:14)
[2021-04-22] MEDS: pregabalin 75 mg Capsule PO ×2 (09:14→16:38)
[2021-04-22] MEDS: escitalopram 10 mg Tablet PO (09:14)
[2021-04-22] MEDS: apixaban 5 mg Tablet PO ×2 (09:14→16:38)
[2021-04-22] MEDS: aspirin 81 mg EC Tablet PO (09:14)
[2021-04-22] MEDS: famotidine 20 mg/2 mL INJ IVP ×2 (09:15→21:32)
[2021-04-22] MEDS: polyethylene glycol 3350 Pkt 17 gm PO (09:15)
[2021-04-22] MEDS: sucralfate 1 gm/10 mL Oral Liq UDC PO ×3 (11:55→21:32)
[2021-04-22] MEDS: NON-FORMULARY MEDICATION (Umeclidinium [Incruse Ellipta] 62.5 mcg/actuation Blister With D 1 EACH INHALATION (11:56)
[2021-04-22] MEDS: sodium chloride 0.9% 1,000 ML 100 ML IV ×2 (11:58→21:35)
[2021-04-22 12:49] LABS: Basophils # 0.1 10^3/uL (0.0-0.1); Basophils % 0.3 %; Hematocrit 43.4 % (37.0-47.0); Hemoglobin 13.7 g/dL (11.5-15.3); Lymphocytes # 4.3 10^3/uL (0.8-4.8); Lymphocytes % 20.4 %; Mean Corpuscular HGB Conc 31.6 g/dL (30.0-36.0); Mean Corpuscular Hemoglobin 25.7 pg (28.0-34.0); Mean Corpuscular Volume 81.3 fl (81-99); Mean Platelet Volume 10.3 fL (7.4-10.4); Monocytes % 4.9 %; Neutrophils # 15.49 10^3/uL (1.8-7.7); Neutrophils % 73.6 %; Nucleated Red Blood Cells % 0 %; Platelet Count 471 10^3/cmm (130-400); Red Blood Count 5.34 10^6/uL (4.1-5.3); Red Cell Distribution Width 18.4 % (12.1-15.1)
[2021-04-22 13:19] LABS: Anion Gap 15.5 (5-19); Blood Urea Nitrogen 13 mg/dL (8-23); Calcium 8.8 mg/dL (8.5-10.5); Carbon Dioxide 27 mmol/L (22-29); Chloride 104 mmol/L (98-107); Glucose 138 mg/dL (65-115); Osmolality Calculated 298 mOsm/kg (285-295); Potassium 3.5 mmol/L (3.5-5.1); Sodium 143 mmol/L (136-145)
--- NOTE | 2021-04-22 14:02 | PC.SOCIAL ---
IM follow up explained and copy provided. NO questions voiced.
[2021-04-22 15:33] LABS: LAB Peripheral Smear Sent for Review
--- NOTE | 2021-04-22 18:39 | P.PN_ITS ---
Subjective Subjective: Interval history: Seen today. She did have episodes of vomiting this morning which she claims happens every time she gets the imipenem. However she has had 2 days of imipenem where she did not have any nausea vomiting. Patient states she feels well enough to go back home. Redness on the abdomen has resolved as well. Urine culture is negative so far. White count is still elevated at 21,000. She will be advanced to clear liquid diet today. Vitals/I&O/Wt Last Vital Signs Temp 98 F 04/22/21 16:00 Pulse 65 04/22/21 16:00 Resp 16 04/22/21 11:47 BP 161/82 04/22/21 16:00 Pulse Ox 94 04/22/21 16:00 04/22/21 04/22/21 04/22/21 06:59 14:59 22:59 Intake Total 1485 / 3085 1999 400 / 2400 Output Total 1450 / 1650 700 / 700 Balance 35 / 1435 1999 -300 / 1700 Physical Exam Narrative: EXAM NARRATIVE: General: Alert oriented x3, patient seen laying in bed Large obese woman lying in bed HEENT: Normocephalic, atraumatic, EOMI, Cardio: Regular rate rhythm, normal S1-S2, no murmurs rubs gallops, JVD unable to be assessed due to large neck and body habitus and positioning. Patient is on room air. Respiratory: Good bilateral air entry, no wheezes no rhonchi appreciated GI: Abdomen soft, nontender, obese rounded abdomen, colostomy bag present with brown mushy stool, no blood noted, bowel sounds +, abdominal wall erythema has resolved completely. Behavior: Appropriate and cooperative Extremities: Tough to appreciate pulses, no edema, no cyanosis, obese lower extremities Urinary Catheter Management^: Jara: Cath Placed During This Visit: yes Reason for Continuing Indwelling Catheter: Not indwelling catheter Urinary Catheter Date of Insertion: 04/21/21 Urinary Catheter Time of Insertion: 17:09 Data : 04/22/21 12:40 04/22/21 12:40 A&P Assessment and plan (1) Panniculitis: Status: Acute (2) History of colostomy: Status: Acute (3) Diabetes: Status: Acute (4) Acute UTI: Status: Acute (5) Chronic hypoxemic respiratory failure: Status: Acute (6) Paroxysmal A-fib: Status: Acute (7) HTN (hypertension): Status: Acute Additional A&P Information #Infection secondary to unknown source, possibly abdominal wall cellulitis versus UTI #Chronic leukocytosis WBC count 27.1 on admission, it has come down to 25 today.. Urinalysis is positive for leukocyte esterase. There is also evidence of cellulitis/panniculitis on abdominal area Initially vancomycin and Zosyn was ordered but patient developed hives and itching with vancomycin so it was stopped. Since she has been on antibiotics outpatient I scheduled her therapy to Primaxin for now. Blood cultures negative so far, sputum Gram stain unable to be obtained since patient has not coughed up anything. Urine culture does not show any growth so far. It is possible that patient has been on antibiotics recently outpatient and got antibiotics in the hospital and therefore culture is not growing. Procalcitonin is negative, TSH 1.41. I will continue her home medications Eliquis, stool softeners, MiraLAX, Tylenol. Continue sliding scale insulin for diabetes. Hemoglobin A1c pending. Head CT negative for intracranial pathology. I will stop linezolid and Primaxin at this point. Abdominal cellulitis has improved significantly. WBC count still at 21,000. I have looked the trend of her WBC count from previous admissions. It seems patient has a chronic leukocytosis. I have ordered a peripheral smear. Clinically patient is improving and looks a lot better compared to admission. Potential discharge in a.m. I will start her on oral Augmentin 875 twice daily. #Possible bowel obstruction ?Patient had an episode of vomiting this morning and later on had production of vomiting x2. Stat abdominal films were ordered. General surgery saw the patient. There does not seem to be an evidence of small bowel obstruction at this time. She does have vomiting which is being attributed to her antibiotic usage. We will start her on clear liquids today and see how she tolerates. Fluids: Normal saline 75 cc/h Electrolyte: Replete as needed Nutrition: Clear liquids today. Discussed with general surgery before advancing diet. Activity: Patient is bedbound she can move as tolerated DVT prophylaxis: Heparin subcu Attestations Medical Necessity Statement*: Will need additional 24-hour in hospital stay. Time Spent in Patient Care: 16 - 35 minutes Coding Level of Care Code Acute Hardwood Floor Sander for Shante Alvarenga Diagnoses Panniculitis M79.3 History of colostomy Diabetes E11.9 Acute UTI N39.0 Chronic hypoxemic respiratory failure J96.11 Paroxysmal A-fib I48.0 HTN (hypertension) I10
[2021-04-22] MEDS: atorvastatin 40 mg Tablet PO (21:32)
[2021-04-23] VITALS: BP 153/82; PULSE 58; RESP 18; TEMP 36.8; O2SAT 93
[2021-04-23 03:50] VITALS: BP 150/72; PULSE 61; RESP 18; TEMP 36.7; O2SAT 91
[2021-04-23 05:39] LABS: Basophils # 0.1 10^3/uL (0.0-0.1); Basophils % 0.4 %; Eosinophils # 0.2 10^3/uL (0.0-0.8); Eosinophils % 1.2 %; Hematocrit 40.3 % (37.0-47.0); Hemoglobin 12.7 g/dL (11.5-15.3); Lymphocytes # 4.1 10^3/uL (0.8-4.8); Lymphocytes % 23.8 %; Mean Corpuscular HGB Conc 31.5 g/dL (30.0-36.0); Mean Corpuscular Hemoglobin 26.1 pg (28.0-34.0); Mean Corpuscular Volume 82.8 fl (81-99); Mean Platelet Volume 10.5 fL (7.4-10.4); Monocytes # 1.6 10^3/uL (0.2-0.9); Monocytes % 8.9 %; Neutrophils # 11.34 10^3/uL (1.8-7.7); Neutrophils % 65.1 %; Nucleated Red Blood Cells % 0 %; Platelet Count 450 10^3/cmm (130-400); Red Blood Count 4.87 10^6/uL (4.1-5.3); Red Cell Distribution Width 18.6 % (12.1-15.1); White Blood Count 17.4 10^3/uL (4.0-10.0)
[2021-04-23 05:57] LABS: Anion Gap 12.4 (5-19); Blood Urea Nitrogen 15 mg/dL (8-23); Calcium 8.3 mg/dL (8.5-10.5); Carbon Dioxide 27 mmol/L (22-29); Chloride 106 mmol/L (98-107); Glucose 94 mg/dL (65-115); Osmolality Calculated 295 mOsm/kg (285-295); Potassium 3.4 mmol/L (3.5-5.1); Sodium 142 mmol/L (136-145)
[2021-04-23] MEDS: sodium chloride 0.9% 1,000 ML 100 ML IV (06:22)
[2021-04-23] MEDS: sucralfate 1 gm/10 mL Oral Liq UDC PO (06:22)
[2021-04-23 07:17] VITALS: BP 173/87; PULSE 63; RESP 17; TEMP 36.7; O2SAT 92
[2021-04-23] MEDS: famotidine 20 mg/2 mL INJ IVP (07:34)
[2021-04-23] MEDS: amoxicillin-clav 875-125 mg Tablet 1 TAB PO (07:35)
[2021-04-23] MEDS: aspirin 81 mg EC Tablet PO (07:35)
[2021-04-23] MEDS: apixaban 5 mg Tablet PO (07:35)
[2021-04-23] MEDS: pregabalin 75 mg Capsule PO (07:35)
[2021-04-23] MEDS: polyethylene glycol 3350 Pkt 17 gm PO (07:36)
--- NOTE | 2021-04-23 09:44 | P.PN_ITS ---
Subjective Subjective: Interval history: Patient feels a whole lot better and tolerating p.o. intake. Continues to pass gas and having stoma output. No acute events overnight. Medications: Reviewed: Yes Vitals/I&O/Wt Last Vital Signs Temp 98.1 F 04/23/21 07:17 Pulse 63 04/23/21 07:17 Resp 17 04/23/21 07:17 BP 173/87 04/23/21 07:17 Pulse Ox 92 04/23/21 07:17 04/22/21 04/23/21 04/23/21 22:59 06:59 14:59 Intake Total 400 / 2400 878.333 / 3278.333 240 / 240 Output Total 700 / 700 300 / 1000 Balance -300 / 1700 578.333 / 2278.333 240 / 240 Physical Exam Narrative: EXAM NARRATIVE: Patient is conscious alert oriented X3, no apparent distress BMI 62 Abdomen nontender nondistended soft no organomegaly guarding or rigidity/no signs of peritonitis, large parastomal hernia with widemouth. Colostomy in place and functioning well in the bag is full of stools brown liquidy and gas. Urinary Catheter Management^: Jara: Cath Placed During This Visit: yes Reason for Continuing Indwelling Catheter: Chronic Indwelling Urinary Catheter on Admission Urinary Catheter Date of Insertion: 04/21/21 Urinary Catheter Time of Insertion: 17:09 Data : 04/23/21 05:15 04/23/21 05:15 A&P Assessment and plan (1) Projectile vomiting with nausea: Can advance diet as tolerated No evidence of bowel obstruction, can be discharged home when appropriate from medical side Continue PPI therapy and Carafate upon discharge Thank you for consulting general surgery to participate taking care Status: Acute Attestations Medical Necessity Statement*: Per admitting service Time Spent in Patient Care: (>than 50% of time spent in counselling and/or direct pt care on unit) . Coding Level of Care Code Acute Bundle Tier for Sierrag Fwd Diagnoses Projectile vomiting with nausea R11.12
[2021-04-23 11:07] VITALS: BP 170/75; PULSE 49; RESP 16; TEMP 36.7; O2SAT 93
--- NOTE | 2021-04-23 11:10 | P.DES_ITS ---
Discharge Providers DDS Date of Admission: 04/19/21 15:16 Date Summary Completed: 04/23/21 Attending Provider at Admission: Cyndi Tuttle MD Attending Provider at Discharge: Lucila Ross MD Primary Care Provider: DO JAIME Zepeda Diagnoses Hospital Diagnoses (1) Projectile vomiting with nausea: Reason for Visit Reason for Visit: UTI, PNEUMONIA Summary Additional Data Advance directives?: No Discharge Plan Discharge Patient Disposition: Xfer Other Condition: Stable Prescriptions: New sucralfate 100 mg/mL Suspension 1 g PO AC&BEDTIME Qty: 1000 RF: 0 amoxicillin-pot clavulanate 875-125 mg Tablet 1 tab PO BID 5 Days Qty: 10 RF: 0 omeprazole 20 mg capsule,delayed release(DR/EC) 20 mg PO DAILY Qty: 30 RF: 3 Continued famotidine 20 mg Tablet 20 mg PO DAILY RF: 0 ondansetron 4 mg Tablet,Disintegrating 4 mg PO Q6H PRN (Reason: Nausea And Vomiting) RF: 0 Cepacol Sore Throat (wilaim-men) 15-3.6 mg Lozenge See Rx Instructions .ROUTE .COMPLEX RF: 0 Incruse Ellipta 62.5 mcg/actuation Blister With Device 1 inh INHALATION DAILY RF: 0 albuterol sulfate 2.5 mg /3 mL (0.083 %) Solution For Nebulization 2.5 mg INHALATION Q6H PRN (Reason: Shortness Of Breath Or Wheezing) RF: 0 atorvastatin 40 mg Tablet 40 mg PO BEDTIME Qty: 30 RF: 0 aspirin 81 mg Tablet,Delayed Release (Dr/Ec) 81 mg PO DAILY Qty: 30 RF: 0 bisacodyl 5 mg Tablet 5 mg PO Q24H PRN (Reason: Constipation) RF: 0 escitalopram oxalate 10 mg Tablet 10 mg PO DAILY RF: 0 pregabalin [Lyrica] 75 mg Capsule 75 mg PO BID RF: 0 sennosides-docusate sodium [Senna Plus] 8.6-50 mg Tablet 1 tab-cap PO DAILY RF: 0 Tylenol 325 mg Tablet 650 mg PO Q6H PRN (Reason: Pain) RF: 0 albuterol sulfate 2.5 mg /3 mL (0.083 %) Solution For Nebulization 2.5 mg INHALATION Q6H RF: 0 hydrocodone-acetaminophen 5-325 mg Tablet 1 tab PO Q8H PRN (Reason: Pain) RF: 0 naloxone 0.4 mg/mL Solution 0.4 mg IM Q2M PRN (Reason: overdose) RF: 0 Advair Diskus 500-50 mcg/dose Blister With Device 1 inh INHALATION BID RF: 0 Colace 100 mg Capsule 100 mg PO DAILY RF: 0 Miralax 17 gram/dose Powder 17 g PO DAILY RF: 0 tizanidine 4 mg Capsule 4 mg PO TID PRN (Reason: Muscle Pain) RF: 0 Eliquis 5 mg Tablet 5 mg PO BID RF: 0 oxycodone 15 mg Tablet,Oral Only,Ext.Rel.12 Hr 15 mg PO BID RF: 0 Discontinued doxycycline hyclate 100 mg Capsule 100 mg PO BID RF: 0 amoxicillin 500 mg Tablet 1,000 mg PO TID RF: 0 Discharge Orders: Discharge Order (Routine); Ordered 04/23/21 Ordered By: Lucila Ross Discharge Diet: GI Soft Discharge Activity: Limit activity as instructed DS Attestations Quality - Stroke: Symptom Onset Unknown: No Quality - VTE: Deep Vein Thrombosis/Pulmonary Embolism Present on Admission: No Coding Level of Care Code Acute Telephone Order Dispatcher for g Fwd Diagnoses Projectile vomiting with nausea R11.12
--- NOTE | 2021-04-23 12:35 | P.DS_ITS ---
Discharge Providers Date of Admission: 04/19/21 15:16 Date of Discharge: April 23, 2021 Attending Provider at Admission: Cyndi Tuttle MD Attending Provider at Discharge: Lucila Ross MD Primary Care Provider: Favian Clark DO Diagnoses at Discharge Discharge Diagnosis (1) Projectile vomiting with nausea: Status: Acute Reason for Visit Reason for Visit: UTI, PNEUMONIA Hospital Course Hospital Course History of Present Illness by Dr Tuttle Hermelinda Mckeon is a 80 year old female with past medical history of breast cancer, anxiety, depression, degenerative arthritis, hypertension, hyperlipidemia, peptic ulcer disease, 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 She states her abdomen has been very red. Patient is a poor historian. She states that she used to be on oxygen but was able to come off of it for 2 to 3 weeks until she required it again a few days ago overnight. She says she woke up confused. She states she was told she had pneumonia and a urinary tract infection. Patient was placed on amoxicillin 1000 3 times daily, Rocephin intramuscular, doxycycline 100 twice daily. She has been having pyuria and is requiring oxygen at this point. She says at baseline she does not ambulate and stays in bed all day. She requires assistance to transfer her from the bed to the wheelchair. She has been having fevers at the fdc along with left-sided abdominal pain that started a few days ago. She also complains of constant headaches. She also states that she has problem with memory loss and not sure why that is happening. At this point in time when seen she denies any chest pain, shortness of breath, abdominal pain, leg pain, back pain. She is on oxygen at this time which she states is her baseline but she was able to come off of it for couple weeks and then went back on it again. ED course: Blood pressure 119/59, respirate 16, pulse 52, temperature 98.8, pulse ox 96%. CT abdomen pelvis was done which showed a left lower quadrant colostomy. There is now enlarging parastomal hernia at the ostomy site containing both small bowel and colon but no obstruction or ischemic change. Celeste pouch with diverticula no acute diverticulitis. Prior cholecystectomy, pancreatic atrophy, stable right hepatic cyst, prior splenectomy. CTA chest was also done which did not show any pulmonary embolism but did show very mild bilateral pneumonitis and interstitial thickening, no evidence of pneumonia. Mild left heart enlargement shown with mild atherosclerotic aorta. Hosp Course Patient was admitted for management of partial small bowel obstruction, at the time of admission patient was diagnosed with abdominal wall cellulitis which was treated with linezolid and Primaxin. For bowel obstruction general surgery was consulted who managed patient conservatively. Patient did experience 5-6 episode of emesis during hospitalization which resolved with conservative management. NG tube was not inserted as per general surgery recommendations. Patient stoma started putting good amount of output. She remained afebrile wit hout any signs of sepsis. Her episodes of emesis were deemed secondary to use of Primaxin. Patient does have history of chronic leukocytosis which ranges between 17-20,000( may benefit from outpatient automobile parker referral). Her cultures remained sterile. For her esophagitis/enteritis she will be discharged on Augmentin, omeprazole and sucralfate. Patient will follow up with Dr. Greenberg in case of worsening of her symptoms ( she is well-known to Dr. Andrade's service) Physical Exam Narrative: EXAM NARRATIVE: Patient was resting comfortably in her bed Supine Jara catheter will be removed before discharge Lower extremity nonpitting edema Stoma with air and brown feculent material S1, S2 No audible stridor or wheezing Soft abdomen No abdominal wall cellulitis at the time of discharge EOMI, PERRLA Nonfocal neuro exam Urinary Catheter Management^: Jara: Cath Placed During This Visit: yes Reason for Continuing Indwelling Catheter: Chronic Indwelling Urinary Catheter on Admission Urinary Catheter Date of Insertion: 04/21/21 Urinary Catheter Time of Insertion: 17:09 Discharge Data Data Completed and Pending: Completed Studies During Hospitalization Category Date Time Status CT abdomen pelvis w con* [id number] Stat Cat Scan 04/19/21 12:[address] angio chest PE protcl [id number] Stat Cat Scan 04/19/21 14:[address] head wo con* [id number] Routine Cat Scan 04/19/21 19:05 Completed XR abdomen min 2V [id number] Stat Exams 04/21/21 14:05 Completed XR chest 1V shirin ble [id number] Stat Exams 04/19/21 10:16 Completed XR chest 1V shirin ble [id number] Stat Exams 04/19/21 16:11 Completed Pending at discharge Category Date Time Status CT abdomen pelvis w con* [id number] Rout ine Cat Scan 04/23/21 06:38 Ordered Blood Culture Sta t Lab 04/19/21 10:15 Results Coronavirus Test [facility] Fernandez ne Lab 04/19/21 14:11 Uncollected Labs from last 24 hours 04/23/21 04/23/21 04/22/21 05:15 05:15 12:40 WBC 17.4 H RBC 4.87 Hgb 12.7 Hct 40.3 MCV 82.8 MCH 26.1 L MCHC 31.5 RDW 18.6 H Plt Count 450 H MPV 10.5 H Neut % (Auto) 65.1 Lymph % (Auto) 23.8 Peach % (Auto) 8.9 Eos % (Auto) 1.2 Baso % (Auto) 0.4 Neut # (Auto) 11.34 H Lymph # (Auto) 4.1 Peach # (Auto) 1.6 H Eos # (Auto) 0.2 Baso # (Auto) 0.1 Nucleated RBC % (a uto) 0 Nucleated RBCs # 0.0 Sodium 142 143 Potassium 3.4 L 3.5 Chloride 106 104 Carbon Dioxide 27 27 Anion Gap 12.4 15.5 BUN 15 13 Creatinine 0.8 0.7 GFR Calculation Not Reportable Not Reportable Glucose 94 138 H Calculated Osmolal ity 295 298 H Calcium 8.3 L 8.8 04/22/21 12:40 WBC 21.0 H RBC 5.34 H Hgb 13.7 Hct 43.4 MCV 81.3 MCH 25.7 L MCHC 31.6 RDW 18.4 H Plt Count 471 H MPV 10.3 Neut % (Auto) 73.6 Lymph % (Auto) 20.4 Peach % (Auto) 4.9 Eos % (Auto) 0.0 Baso % (Auto) 0.3 Neut # (Auto) 15.49 H Lymph # (Auto) 4.3 Peach # (Auto) 1.0 H Eos # (Auto) 0.0 Baso # (Auto) 0.1 Nucleated RBC % (a uto) 0 Nucleated RBCs # 0.0 Sodium Potassium Chloride Carbon Dioxide Anion Gap BUN Creatinine GFR Calculation Glucose Calculated Osmolal ity Calcium Vitals: Last Vital Signs Temp 98.1 F 04/23/21 11:07 Pulse 49 L 04/23/21 11:07 Resp 16 04/23/21 11:07 BP 170/75 04/23/21 11:07 Pulse Ox 93 04/23/21 11:07 Discharge Plan Discharge Patient Disposition: Xfer [facility] Condition: Stable Prescriptions: New sucralfate 100 mg/mL Suspension 1 g PO AC&BEDTIME Qty: 1000 RF: 0 omeprazole 20 mg capsule,delayed release(DR/EC) 20 mg PO DAILY Qty: 30 RF: 3 amoxicillin-pot clavulanate 875-125 mg Tablet 1 tab PO BID 5 Days Qty: 10 RF: 0 Continued famotidine 20 mg Tablet 20 mg PO DAILY RF: 0 ondansetron 4 mg Tablet,Disintegrating 4 mg PO Q6H PRN (Reason: Nausea And Vomiting) RF: 0 Cepacol Sore Throat (wiliam-men) 15-3.6 mg Lozenge See Rx Instructions .ROUTE .COMPLEX RF: 0 Incruse Ellipta 62.5 mcg/actuation Blister With Device 1 inh INHALATION DAILY RF: 0 albuterol sulfate 2.5 mg /3 mL (0.083 %) Solution For Nebulization 2.5 mg INHALATION Q6H PRN (Reason: Shortness Of Breath Or Wheezing) RF: 0 atorvastatin 40 mg Tablet 40 mg PO BEDTIME Qty: 30 RF: 0 aspirin 81 mg Tablet,Delayed Release (Dr/Ec) 81 mg PO DAILY Qty: 30 RF: 0 bisacodyl 5 mg Tablet 5 mg PO Q24H PRN (Reason: Constipation) RF: 0 escitalopram oxalate 10 mg Tablet 10 mg PO DAILY RF: 0 pregabalin [Lyrica] 75 mg Capsule 75 mg PO BID RF: 0 sennosides-docusate sodium [Senna Plus] 8.6-50 mg Tablet 1 tab-cap PO DAILY RF: 0 Tylenol 325 mg Tablet 650 mg PO Q6H PRN (Reason: Pain) RF: 0 albuterol sulfate 2.5 mg /3 mL (0.083 %) Solution For Nebulization 2.5 mg INHALATION Q6H RF: 0 hydrocodone-acetaminophen 5-325 mg Tablet 1 tab PO Q8H PRN (Reason: Pain) RF: 0 naloxone 0.4 mg/mL Solution 0.4 mg IM Q2M PRN (Reason: overdose) RF: 0 Advair Diskus 500-50 mcg/dose Blister With Device 1 inh INHALATION BID RF: 0 Colace 100 mg Capsule 100 mg PO DAILY RF: 0 Miralax 17 gram/dose Powder 17 g PO DAILY RF: 0 tizanidine 4 mg Capsule 4 mg PO TID PRN (Reason: Muscle Pain) RF: 0 Eliquis 5 mg Tablet 5 mg PO BID RF: 0 oxycodone 15 mg Tablet,Oral Only,Ext.Rel.12 Hr 15 mg PO BID RF: 0 Discontinued doxycycline hyclate 100 mg Capsule 100 mg PO BID RF: 0 amoxicillin 500 mg Tablet 1,000 mg PO TID RF: 0 Discharge Orders: Discharge Order (Routine); Ordered 04/23/21 Ordered By: Lucila Ross Referrals: [facility] [Outside] Discharge Diet: GI Soft Discharge Activity: Limit activity as instructed Patient Instructions: Sucralfate (By mouth), Omeprazole (By mouth), Amoxicillin/Clavulanate Potassium (By mouth) (Augmentin, Augmentin..., Cellulitis (GEN) Discharge Attestations Time Spent in Discharge Care*: less than 30 min Status at Discharge: Cognitive status at discharge: cognitively intact , Behavioral status at discharge: cooperative , Quality Metrics Clinical Quality Measures During this hospital stay, did patient experience: None Coding Level of Care Code Acute [place] ALAN BROWNE note Diagnoses Projectile vomiting with nausea R11.12
== END 2021-04-23 14:30 | disposition skilled nursing facility (03) | DRG 603 ==
LOC: ER 18:46 → MEDSURG 18:56
PROVIDERS: Admitting Provider Internal Medicine; Emergency Provider Family Medicine; PCP Internal Medicine; Visit Provider Internal Medicine
DX: L03.311 Cellulitis of abdominal wall (principal); N39.0 Urinary tract infection, site not specified; J96.11 Chronic respiratory failure with hypoxia; K56.609 Unspecified intestinal obstruction, unspecified as to partial versus complete obstruction; K43.5 Parastomal hernia without obstruction or gangrene; Z90.49 Acquired absence of other specified parts of digestive tract; F41.9 Anxiety disorder, unspecified; Z85.3 Personal history of malignant neoplasm of breast; E78.5 Hyperlipidemia, unspecified; I10 Essential (primary) hypertension; Z87.11 Personal history of peptic ulcer disease; Z90.10 Acquired absence of unspecified breast and nipple; Z93.3 Colostomy status; M79.3 Panniculitis, unspecified; Z86.16 Personal history of COVID-19; Z87.01 Personal history of pneumonia (recurrent); I48.0 Paroxysmal atrial fibrillation; Z79.01 Long term (current) use of anticoagulants; Z79.891 Long term (current) use of opiate analgesic; Z79.82 Long term (current) use of aspirin; Z79.51 Long term (current) use of inhaled steroids; K52.9 Noninfective gastroenteritis and colitis, unspecified; L50.0 Allergic urticaria; T36.8X5A Adverse effect of other systemic antibiotics, initial encounter; T36.0X5A Adverse effect of penicillins, initial encounter
CPT/HCPCS: 36415; 51702; 70450; 71045; 71275; 74019; 74177; 80048; 80053; 80061; 80500; 81001; 81003; 82803; 83605; 83735; 83880; 84100; 84145; 84443; 85007; 85025; 85027; 87040; 87086; 87426; 93005; 94640; 94664; 96365; 96367; 99285; J0696; J0743; J1200; J2020; J2270; J2405; J2543; J3370; J3490; J7030; J7050; J7611; Q9967

== ENCOUNTER 2021-08-26 02:27 | Inpatient (IN) | payer MEDICARE, MEDICAID, SELFPAY ==
[2021-08-26] VITALS (16 sets, daily range): BP systolic 133–173; BP diastolic 74–122; PULSE 66–101; RESP 16–22; TEMP 36.6–36.8; O2SAT 94–98
--- NOTE | 2021-08-26 02:42 | ECG_ITS ---
[facility] Test Date: 2021-08-26 Pat Name: Hermelinda Mckeon Department: Room: Gender: Female Ob/Gyn: : 1940 Requested By: Feliciano Simons Order Number: [id number] Rosalba MD: Rachel Yoo M.D. Measurements Intervals [place] Rate: P: [place]: QRS: QRSD: T: QT: QTc: Interpretive Statements Sinus tachycardia with first-degree AV block and PACs Left axis deviation Borderline voltage criteria for LVH Possible anterior TN of indeterminate age WARNING: DATA QUALITY MAY AFFECT INTERPRETATION Compared to ECG 04/19/2021 22:51:48 Sinus rhythm no longer present First degree AV block no longer present Left-axis deviation no longer present Myocardial infarct finding no longer present Electronically Signed On 08-26-2021 12:05:29 LAUNDRY OPERATOR by Rachel Yoo M.D. [id number]
--- NOTE | 2021-08-26 02:48 | CTR_ITS ---
PROCEDURE INFORMATION: Exam: CT Abdomen And Pelvis With Contrast Exam date and time: 08/26/2021 2:48 AM Age: 80 years old Clinical indication: Nausea and vomiting; Abdominal pain; Generalized; Prior surgery; Surgery date: 6+ months; Surgery type: Colostomy, partial colectomy; Additional info: Abdominal pain vomiting TECHNIQUE: Imaging protocol: Computed tomography of the abdomen and pelvis with contrast. Radiation optimization: All CT scans at this facility use at least one of these dose optimization techniques: automated exposure control; mA and/or kV adjustment per patient size (includes targeted exams where dose is matched to clinical indication); or iterative reconstruction. Contrast material: VISI; Contrast volume: 90 ml; Contrast route: INTRAVENOUS (IV); COMPARISON: CT abdomen pelvis w con* [id number] 04/19/2021 1:01 PM RADIATION DOSE METRICS: Total DLP (mGy-cm): 1910.6 FINDINGS: Tubes, catheters and devices: Enteric tube tip is beyond the proximal portion of the stomach and is not seen because it is below the inferior margin of the film. Lungs: Increased yjzm-ay-tlexclms bibasilar pneumonia. Liver: Normal. No mass. Gallbladder and bile ducts: Normal. No calcified stones. No ductal dilation. Pancreas: Normal. No ductal dilation. Spleen: Normal. No splenomegaly. Adrenal glands: Normal. No mass. Kidneys and ureters: Normal. No hydronephrosis. Stomach and bowel: Multiple dilated loops of small bowel up to the 3.8 cm in diameter with 2 transition points noted in the mid abdomen consistent with closed loop obstruction. Rectosigmoid colon stump with moderate diverticulosis in the proximal portion of the stump. Near total colectomy except for rectosigmoid stump. Right colostomy. Appendix: No evidence of appendicitis. Intraperitoneal space: Unremarkable. No free air. No significant fluid collection. Vasculature: Unremarkable. No abdominal aortic aneurysm. Lymph nodes: Unremarkable. No enlarged lymph nodes. Urinary bladder: Unremarkable as visualized. Reproductive: Unremarkable as visualized. Bones/joints: Severe thoracic spondylosis. Soft tissues: Large anterior abdominal hernia containing loops of large and small bowel. CT/CT abdomen pelvis w con* [id number] IMPRESSION: 1. Multiple dilated loops of small bowel up to the 3.8 cm in diameter with 2 transition points noted in the mid abdomen consistent with closed loop obstruction. 2. Increased qqmt-gz-eojrklvd bibasilar pneumonia. 3. Enteric tube tip is beyond the proximal portion of the stomach and is not seen because it is below the inferior margin of the film. 4. Large anterior abdominal hernia containing loops of large and small bowel. 5. Rectosigmoid colon stump with moderate diverticulosis in the proximal portion of the stump. 6. Near total colectomy except for rectosigmoid stump. 7. Right colostomy.
[2021-08-26] MEDS: ondansetron 2 mg/ML SDV 2 mL 4 MG IVP (03:25)
[2021-08-26] MEDS: metoclopramide 5 mg/mL SDV 2 mL 10 MG IVP (03:25)
[2021-08-26 03:42] LABS: Add Urine Microscopic? YES; Bilirubin Urine 1+ (Negative); Blood Urine 2+ (Negative); Glucose Urine UA Norm (Normal); Ketones Urine 1+ (Negative); Leukocyte Esterase Urine 2+ (Negative); Nitrate Urine Positive (Negative); Protein Urine 2+ (Negative); Specific Gravity, Urine 1.025 (1.005-1.030); Urine Color Yellow (Yellow); Urobilinogen Urine Norm (Negative); pH Urine 5 (5-7)
[2021-08-26 03:44] LABS: Add Urine Culture? Yes; Bacteria Urine 3+ /hpf; WBC Urine 25-40 /hpf (0-5)
[2021-08-26 03:55] LABS: Basophils # 0.1 10^3/uL (0.0-0.1); Basophils % 0.2 %; Hematocrit 50.8 % (37.0-47.0); Hemoglobin 16.2 g/dL (11.5-15.3); Lymphocytes # 1.8 10^3/uL (0.8-4.8); Lymphocytes % 5.4 %; Mean Corpuscular HGB Conc 31.9 g/dL (30.0-36.0); Mean Corpuscular Hemoglobin 26.8 pg (28.0-34.0); Mean Corpuscular Volume 84.1 fl (81-99); Mean Platelet Volume 10.4 fL (7.4-10.4); Neutrophils # 30.39 10^3/uL (1.8-7.7); Neutrophils % 90.7 %; Nucleated Red Blood Cells % 0.1 %; Platelet Count 493 10^3/cmm (130-400); Red Blood Count 6.04 10^6/uL (4.1-5.3); Red Cell Distribution Width 19.5 % (12.1-15.1)
[2021-08-26 04:18] LABS: Troponin(5th) Baseline 12 ng/L (0-10)
--- NOTE | 2021-08-26 04:22 | XRR_ITS ---
PROCEDURE INFORMATION: Exam: XR Chest Exam date and time: 08/26/2021 4:22 AM Age: 80 years old Clinical indication: Device placement; Ng tube; Additional info: Post ng tube placement TECHNIQUE: Imaging protocol: XR of the chest. Views: 1 view. COMPARISON: CR XR chest 1V portable [id number] 04/19/2021 4:54 PM FINDINGS: Tubes, catheters and devices: Enteric tube is looped over the fundus with tip beyond the proximal portion of the stomach and is not seen because it is below the inferior margin of the film. Lungs: Unremarkable. No consolidation. Pleural spaces: Unremarkable. No pleural effusion. No pneumothorax. Heart/Mediastinum: Unremarkable. No cardiomegaly. Bones/joints: Unremarkable. Other findings: Patient rotation to the left. XR/XR chest 1V portable [id number] IMPRESSION: Enteric tube is looped over the fundus with tip beyond the proximal portion of the stomach and is not seen because it is below the inferior margin of the film.
[2021-08-26 04:23] LABS: Alanine Aminotransferase 13 U/L (0-33); Albumin Level 3.9 g/dL (3.5-5.2); Alkaline Phosphatase 115 IU/L (35-105); Anion Gap 21.9 (5-19); Aspartate Amino Transferase 11 U/L (0-32); Blood Urea Nitrogen 19 mg/dL (8-23); Calcium 9.2 mg/dL (8.5-10.5); Carbon Dioxide 24 mmol/L (22-29); Chloride 98 mmol/L (98-107); Globulin 2.8 g/dL (1.3-4.6); Glucose 214 mg/dL (65-115); Lipase 22 U/L (13-60); Osmolality Calculated 297 mOsm/kg (285-295); Potassium 4.9 mmol/L (3.5-5.1); Sodium 139 mmol/L (136-145); Total Bilirubin 0.3 mg/dL (0.15-1.2); Total Protein 6.7 g/dL (6.6-8.7)
--- NOTE | 2021-08-26 04:32 | ED_ITS ---
HPI - Nausea/Vomiting/Diarrhea General: Chief complaint: Nausea/Vomiting/Diarrhea Stated complaint: ABD PAIN Time Seen by Provider: 08/26/21 02:48 History of Present Illness: 80-year-old female presenting from [facility]. She has a history of colostomy from hemicolectomy. She has had abdominal pain for 2 to 4 weeks according to [facility] staff. She is also been vomiting. This is been intermittent into the last 24 hours, which has been more constant. Patient presents vomiting stool colored vomitus. Multiple episodes. She is complaining of belly pain. No fever MD elicited complaint: nausea, vomiting and abdominal pain Onset (ago): hour(s) Description of vomiting: feculent Associated nausea: Yes Associated abdominal pain: Yes Location of pain: Diffuse Pain consistency: constant Severity: moderate Quality: cramping Exacerbating factors: vomiting Relieving factors: none Associated symtoms: Reports bloating, diaphoresis, decreased urine output, dysuria and nausea; Denies altered mental status, chest pain, fevers/chills or headache(s) Review of Systems General: Reports: ROS unobtainable due to mental status Const: Reports: diaphoresis; Denies: fever(s) Card: Denies: chest pain GI: Reports: nausea and bloating : Reports: dysuria Neuro: Denies: headache(s) PFSH ED PFSH: Medical History Activity extremely limited Anxiety and depression Breast cancer Degenerative arthritis Fracture of left femur HLD (hyperlipidemia) HTN (hypertension) Partial small bowel obstruction PUD (peptic ulcer disease) Surgical History History of colostomy History of modified radical mastectomy History of partial colectomy Family History Other No significant family history Social History Smoking and tobacco status: never smoked Alcohol intake: never Housing: Retirement Marital status: / Current occupational status: retired Physical Exam Const: EXAM LIMITATIONS: no altered mental status GENERAL APPEARANCE: cooperative, in distress, ill appearing and frail appearing NUTRITIONAL APPEARANCE: obese ORIENTATION/CONSCIOUSNESS: Yes awake, Yes oriented to person and Yes oriented to place; not oriented to time HENMT: COMMON NORMALS: normocephalic, atraumatic and Normal external nose present HEAD & SCALP: normocephalic and atraumatic FACE & SINUS: normal facial exam NOSE: Normal external nose present Eye: COMMON NORMALS: EOMs intact bilaterally Chest: COMMONS NORMALS: normal inspection of the chest Resp: COMMON NORMALS: No use of accessory muscles and clear to auscultation bilaterally EFFORT & INSPECTION: Yes tachypneic AUSCULTATION: clear to auscultation bilaterally Cardio: COMMON NORMALS: regular rhythm RATE: tachycardic RHYTHM: regular rhythm GI: COMMON NORMALS: Soft to palpation INSPECTION: Yes abdominal distension PALPATION: Yes Soft to palpation, Yes Tenderness to palpation present (GI) and No Guarding due to palpation present (GI) Neuro: SENSORIUM/ORIENTATION: Yes oriented to person, Yes oriented to place and No oriented to time Course Vital Signs: Vital signs: Vital Signs Temperature 97.9 F 08/26/21 02:32 Pulse Rate 91 08/26/21 06:00 Respiratory Rate 18 08/26/21 06:00 Blood Pressure 173/98 08/26/21 06:00 Pulse Oximetry 98 08/26/21 06:00 MDM - Nausea/Vomiting/Diarrhea Medical Decision Making White blood cell count is 33.5. Hemoglobin 16. Patient continues to vomit fecal-like vomitus in the ER. NG tube was placed with some return. CT shows a closed-loop obstruction. No vomiting since NG tube placed. Patient will be admitted. Patient is mildly tachycardic with significant leukocytosis, however she is hypertensive. Given the fact that she has had ARDS in the past, risk of fluid overload is significant. Sepsis bolus not given. She was given 1 L in the ER. Lab Data : 08/26/21 03:40 08/26/21 03:40 Radiology Impressions Abdomen/Pelvis CT 08/26/21 02:48 IMPRESSION: 1. Multiple dilated loops of small bowel up to the 3.8 cm in diameter with 2 transition points noted in the mid abdomen consistent with closed loop obstruction. 2. Increased rldd-oz-ceftayut bibasilar pneumonia. 3. Enteric tube tip is beyond the proximal portion of the stomach and is not seen because it is below the inferior margin of the film. 4. Large anterior abdominal hernia containing loops of large and small bowel. 5. Rectosigmoid colon stump with moderate diverticulosis in the proximal portion of the stump. 6. Near total colectomy except for rectosigmoid stump. 7. Right colostomy. ADDENDUM: 08/26/21630 History: Fecal emesis. THIS REPORT CONTAINS FINDINGS THAT MAY BE CRITICAL TO PATIENT CARE. The findings were verbally communicated via telephone conference with MARVIN MORALES at 6:29 AM TAPE FASTENER MACHINE OPERATOR on 08/26/2021. The findings were acknowledged and understood. Chest X-Ray 08/26/21 04:22 IMPRESSION: Enteric tube is looped over the fundus with tip beyond the proximal portion of the stomach and is not seen because it is below the inferior margin of the film. Laboratory Results WBC 33.5 10^3/uL (4.0-10.0) H* 08/26/21 03:40 RBC 6.04 10^6/uL (4.1-5.3) H 08/26/21 03:40 Hgb 16.2 g/dL (11.5-15.3) H 08/26/21 03:40 Hct 50.8 % (37.0-47.0) H 08/26/21 03:40 MCV 84.1 fl (81-99) 08/26/21 03:40 MCH 26.8 pg (28.0-34.0) L 08/26/21 03:40 MCHC 31.9 g/dL (30.0-36.0) 08/26/21 03:40 RDW 19.5 % (12.1-15.1) H 08/26/21 03:40 Plt Count 493 10^3/cmm (130-400) H 08/26/21 03:40 MPV 10.4 fL (7.4-10.4) 08/26/21 03:40 Neut % (Auto) 90.7 % 08/26/21 03:40 Lymph % (Auto) 5.4 % 08/26/21 03:40 Jack % (Auto) 3.0 % 08/26/21 03:40 Eos % (Auto) 0.0 % 08/26/21 03:40 Baso % (Auto) 0.2 % 08/26/21 03:40 Neut # (Auto) 30.39 10^3/uL (1.8-7.7) H 08/26/21 03:40 Lymph # (Auto) 1.8 10^3/uL (0.8-4.8) 08/26/21 03:40 Jack # (Auto) 1.0 10^3/uL (0.2-0.9) H 08/26/21 03:40 Eos # (Auto) 0.0 10^3/uL (0.0-0.8) 08/26/21 03:40 Baso # (Auto) 0.1 10^3/uL (0.0-0.1) 08/26/21 03:40 Nucleated RBC % (auto) 0.1 % 08/26/21 03:40 Nucleated RBCs # 0.0 /100WBC 08/26/21 03:40 Sodium 139 mmol/L (136-145) 08/26/21 03:40 Potassium 4.9 mmol/L (3.5-5.1) 08/26/21 03:40 Chloride 98 mmol/L (98-107) 08/26/21 03:40 Carbon Dioxide 24 mmol/L (22-29) 08/26/21 03:40 Anion Gap 21.9 (5-19) H 08/26/21 03:40 BUN 19 mg/dL (8-23) 08/26/21 03:40 Creatinine 1.0 mg/dL (0.5-0.9) H 08/26/21 03:40 GFR Calculation Not Reportable 08/26/21 03:40 Glucose 214 mg/dL (65-115) H 08/26/21 03:40 Calculated Osmolality 297 mOsm/kg (285-295) H 08/26/21 03:40 Calcium 9.2 mg/dL (8.5-10.5) 08/26/21 03:40 Total Bilirubin 0.3 mg/dL (0.15-1.2) 08/26/21 03:40 AST 11 U/L (0-32) 08/26/21 03:40 ALT 13 U/L (0-33) 08/26/21 03:40 Alkaline Phosphatase 115 IU/L (35-105) H 08/26/21 03:40 Troponin T Baseline 12 ng/L (0-10) H 08/26/21 03:40 Total Protein 6.7 g/dL (6.6-8.7) 08/26/21 03:40 Albumin 3.9 g/dL (3.5-5.2) 08/26/21 03:40 Globulin 2.8 g/dL (1.3-4.6) 08/26/21 03:40 Lipase 22 U/L (13-60) 08/26/21 03:40 Urine Color Yellow (Yellow) 08/26/21 02:55 Urine Appearance Sl cloudy (CLEAR) A 08/26/21 02:55 Urine pH 5 (5-7) 08/26/21 02:55 Ur Specific [place] 1.025 (1.005-1.030) 08/26/21 02:55 Urine Protein 2+ (Negative) H 08/26/21 02:55 Urine Glucose (UA) Norm (Normal) 08/26/21 02:55 Urine Ketones 1+ (Negative) H 08/26/21 02:55 Urine Blood 2+ (Negative) H 08/26/21 02:55 Urine Nitrate Positive (Negative) H 08/26/21 02:55 Urine Bilirubin 1+ (Negative) H 08/26/21 02:55 Urine Urobilinogen Norm mg/dL (Negative) 08/26/21 02:55 Ur Leukocyte Esterase 2+ (Negative) H 08/26/21 02:55 Urine RBC 5-10 /hpf (0-2) H 08/26/21 02:55 Urine WBC 25-40 /hpf (0-5) H 08/26/21 02:55 Ur Squamous Epith Cells 5-10 /hpf (0-5) H 08/26/21 02:55 Amorphous Sediment Not Reportable 08/26/21 02:55 Urine Bacteria 3+ /hpf (NONE) H 08/26/21 02:55 Discharge Plan Discharge Patient Disposition: Admitted As Inpatient Clinical Impression: Small bowel obstruction, Sepsis Condition: Stable Coding Level of Care Code ED Machine Hoop Maker Helper for Shante Fwcolby Exam Detailed
--- NOTE | 2021-08-26 04:42 | ECG_ITS ---
[facility] Test Date: 2021-08-26 Pat Name: Hermelinda Mckeon Department: Room: Gender: Female Timber Grader: : 1940 Requested By: Feliciano Simons Order Number: [id number] Rosalba MD: Rachel Yoo M.D. Measurements Intervals [place] Rate: 94 P: -29 MD: 204 QRS: -55 QRSD: 93 T: 2 QT: 331 QTc: 416 Interpretive Statements SINUS RHYTHM with first-degree AV block LEFT ANTERIOR FASCICULAR BLOCK MINIMAL VOLTAGE CRITERIA FOR LVH, CONSIDER NORMAL VARIANT POSSIBLE ANTERIOR MYOCARDIAL INFARCTION , PROBABLY OLD Compared to ECG 08/26/2021 02:43:22 Left anterior fascicular block now present Myocardial infarct finding now present Electronically Signed On 08-26-2021 12:16:20 ENVIRONMENTAL ENGINEERING MANAGER by Rachel Yoo M.D. [email or web address]
[2021-08-26] MEDS: iodixanol 320 mg/mL 100mL Btl IV ×2 (05:13→10:03)
[2021-08-26 05:38] LABS: White Blood Count 33.5 10^3/uL (4.0-10.0)
[2021-08-26] MEDS: piperacillin-tazobactam 3.375 GM in sodium chloride 0.9% (plus) 50 ML IV ×3 (06:46→20:24)
[2021-08-26 06:57] LABS: Troponin 5 2HR 12.59 ng/L (0-10)
[2021-08-26 07:08] LABS: Troponin 5 2HR Delta 0.59 ABS# (0-10)
--- NOTE | 2021-08-26 08:08 | CTR_ITS ---
PROCEDURE INFORMATION: Exam: CT Abdomen And Pelvis With Contrast Exam date and time: 08/26/2021 8:08 AM Age: 80 years old Clinical indication: Other: Concern for closed loop obstruction, on a previous CT scan yet the patient continues to pass gas; Prior surgery TECHNIQUE: Imaging protocol: Computed tomography of the abdomen and pelvis with contrast. Radiation optimization: All CT scans at this facility use at least one of these dose optimization techniques: automated exposure control; mA and/or kV adjustment per patient size (includes targeted exams where dose is matched to clinical indication); or iterative reconstruction. Contrast material: VISI 320; Contrast volume: 75 ml; Contrast route: INTRAVENOUS (IV); COMPARISON: CT abdomen pelvis w con* [id number] 08/26/2021 5:12 AM RADIATION DOSE METRICS: Total DLP (mGy-cm): 1876.25 FINDINGS: Tubes, catheters and devices: The feeding tube enters the stomach with the tip in the lower gastric body. Lungs: Bilateral patchy pulmonary ground-glass opacities with architectural distortion, stable. Subpleural cystic changes anterolateral right middle lobe. Mild right lower lobe medial basilar segment bronchiectasis. Heart: Atherosclerotic calcifications are present involving the RCA coronary artery. Liver: Hepatic bilobed right lobe 3.2 cm benign cyst. Gallbladder and bile ducts: The gallbladder is surgically absent, with metallic clips in the gallbladder fossa. No extrahepatic biliary ductal dilatation or calculus. Pancreas: Normal. No ductal dilation. Spleen: Small left upper quadrant splenules. Adrenal glands: Normal. No mass. Kidneys and ureters: Excreted contrast is present in the bilateral renal collecting systems. Right renal benign cysts, largest 18.5 cm. Moderate left renal atrophy, stable. Mild left renal cortical scarring, stable. Stomach and bowel: Dilated mid abdominal small bowel loops with increased intraluminal fluid and air-fluid levels, with proximal (series 2, image 39) and distal (series 601, image 42) caliber transitions similar to prior study, with increased proximal jejunal decompression compared to the prior study. Mid sigmoid colonic Celeste pouch. Sigmoid colonic diverticula are present without evidence of diverticulitis. Appendix: No evidence of appendicitis. Intraperitoneal space: Mild right lower quadrant peritoneal fluid. No pneumoperitoneum. Vasculature: Unremarkable. No abdominal aortic aneurysm. Lymph nodes: No enlarged lymph nodes. Urinary bladder: Excreted contrast is present in the urinary bladder. Reproductive: The uterus is status post hysterectomy. The ovaries are not identified. Bones/joints: Diffuse osteopenia. Bilateral lower lumbar facet primary osteoarthritis. Lumbar spine vertebral body marginal osteophytes are noted at multiple levels. There is degenerative disc disease at multiple lumbar spine disk levels. Chronic healed left lower lateral rib fractures. Soft tissues: Abdominal diastasis recti. Other findings: Lower abdominal sigmoidostomy. CT/CT abdomen pelvis w con* [id number] IMPRESSION: 1. Abdominal diastasis recti. 2. Findings again suggestive of possible closed loop small bowel obstruction. No specific evidence of bowel wall ischemia. 3. Lower abdominal sigmoidostomy. 4. Mid sigmoid colonic Celeste pouch. 5. Diverticulosis. 6. Hepatic benign cyst. No follow-up imaging is recommended. 7. Right renal benign cysts. No follow-up imaging is recommended. 8. Moderate left renal atrophy, stable. 9. Mild left renal cortical scarring, stable. 10. Prior cholecystectomy. 11. Prior hysterectomy. 12. Coronary atherosclerosis. COMMENTS: Consistent with the [employer]'s Incidental Findings Committee white paper (J Am Cherise Radiol 2018): Any incidental renal lesion less than 1 cm or classified as too small to characterize, or any incidental cystic renal lesion characterized as simple-appearing, is likely benign. No follow-up imaging is recommended for these lesions per consensus recommendations based on imaging criteria.
--- NOTE | 2021-08-26 08:11 | PM.CONSULT ---
Providers/Reason For Consult Consulting Physician/Specialty*: Arnav Andrade MD Reason for Consult*: Bowel obstruction Requesting Physician: Dr. Felipe Kramer Primary Care Provider: Favian Clark DO History of Present Illness History of Present Illness Chief Complaint: I am tired and weak History of present illness: Ms. Hermelinda Mckeon is a pleasant 80 year old female known to me from previous clinical encounters. Patient is well-known with multiple medical comorbidities in the form of breast cancer, anxiety and depression, breast cancer, degenerative arthritis, hypertension, hyperlipidemia, peptic ulcer disease, history of colostomy and partial colectomy, subsequently the patient developed a large parastomal hernia.Patient is admitted to the hospitalist service with concern of UTI. Patient presented to the ER with repeated nausea and vomiting and was found to have severe UTI. A CT scan of the abdomen pelvis was done; 1. Multiple dilated loops of small bowel up to the 3.8 cm in diameter with 2 transition points noted in the mid abdomen consistent with closed loop obstruction. 2. Increased [id number] bibasilar pneumonia. 3. Enteric tube tip is beyond the proximal portion of the stomach and is not seen because it is below the inferior margin of the film. 4. Large anterior abdominal hernia containing loops of large and small bowel. 5. Rectosigmoid colon stump with moderate diverticulosis in the proximal portion of the stump. 6. Near total colectomy except for rectosigmoid stump. 7. Right colostomy. ? General surgery was consulted for further evaluation due to the concern of the closed-loop obstruction, further questioning the patient she continues to pass gas and having bowel movements per stoma.A NGT was placed in the emergency department revealing about half a canister of green content. Blood work shows WBC count of 33.5, hemoglobin of 16.2, platelet count of 493, neutrophil count 30.39. Sodium 139, potassium 4.9 anion gap 21.9, creatinine 1.0. I do not see lactic acid ordered. Patient was seen evaluated emergency department room #12 Review of Systems General: Reports: 10 or more systems reviewed and unremarkable except in HPI and below Medications/Allergies Home Medications Medication Instructions Recorded Confirmed Last Taken Type bisacodyl 5 mg tablet 5 mg PO Q24H PRN 04/24/20 08/26/21 Unknown History pregabalin 75 mg capsule (Lyrica) 75 mg PO BID 04/24/20 08/26/21 04/19/21 History sennosides 8.6 mg-docusate sodium 1 tab-cap PO DAILY 04/24/20 08/26/21 04/19/21 History 50 mg tablet (Senna Plus) albuterol sulfate 2.5 mg INHALATION Q6H PRN 05/25/20 08/26/21 04/17/21 History benzocaine 15 mg-menthol 3.6 mg See Rx Instructions .ROUTE .COMPLEX 05/25/20 08/26/21 Unknown History lozenges (Cepacol Sore Throat (benzocaine-menthol)) famotidine 20 mg tablet 20 mg PO BID 05/25/20 08/26/21 04/19/21 History ondansetron 4 mg disintegrating 4 mg PO Q6H PRN 05/25/20 08/26/21 04/11/21 History tablet umeclidinium 62.5 mcg/actuation 1 inh INHALATION DAILY 05/25/20 08/26/21 04/19/21 History blister powder for inhalation (Incruse Ellipta) aspirin 81 mg tablet,delayed 81 mg PO DAILY #30 tab 05/30/20 08/26/21 04/19/21 Rx release atorvastatin 40 mg tablet 40 mg PO BEDTIME #30 tab 05/30/20 08/26/21 04/18/21 Rx acetaminophen 325 mg tablet 650 mg PO Q6H PRN 04/19/21 08/26/21 04/02/21 History (Tylenol) apixaban 5 mg tablet (Eliquis) 5 mg PO BID 04/19/21 08/26/21 04/19/21 History docusate sodium 100 mg capsule 200 mg PO DAILY 04/19/21 08/26/21 04/19/21 History (Colace) fluticasone 500 mcg-salmeterol 50 1 inh INHALATION BID 04/19/21 08/26/21 04/19/21 History mcg/dose blistr powdr for inhalation (Advair Diskus) hydrocodone 5 mg-acetaminophen 325 1 tab PO Q8H PRN 04/19/21 08/26/21 04/19/21 History mg tablet naloxone 0.4 mg/mL injection 0.4 mg IM Q2M PRN 04/19/21 08/26/21 Unknown History solution oxycodone 15 mg tablet,crush 15 mg PO BID 04/19/21 08/26/21 04/19/21 History resistant,extended release 12 hr polyethylene glycol 3350 17 17 g PO DAILY 04/19/21 08/26/21 04/19/21 History gram/dose oral powder (Miralax) tizanidine 4 mg capsule 4 mg PO TID PRN 04/19/21 08/26/21 04/19/21 History omeprazole 20 mg capsule,delayed 20 mg PO DAILY #30 cap 04/23/21 08/26/21 Unknown Rx release methyl salicylate 15 %-menthol 10 1 applic TOPICAL BID PRN 08/26/21 08/26/21 Unknown History % topical cream (Muscle Rub) promethazine 25 mg/mL injection 25 mg IM Q6H PRN 08/26/21 08/26/21 Unknown History solution (Phenergan) sertraline 25 mg tablet (Zoloft) 25 mg PO DAILY 08/26/21 08/26/21 Unknown History trazodone 50 mg tablet 50 mg PO DAILY 08/26/21 08/26/21 Unknown History vitamin A-vitamin C-vit E-min 1 tab PO DAILY 08/26/21 08/26/21 Unknown History tablet Allergies Allergy/AdvReac Type Severity Reaction Status Date / Time vancomycin Allergy Intermediate ALGY-Redness Verified 08/26/21 08:15 of Skin PFSH Acute PFSH: Medical History Activity extremely limited Acute UTI Anxiety and depression Breast cancer Chronic hypoxemic respiratory failure D-dimer, elevated Degenerative arthritis Diabetes Fracture of left femur HLD (hyperlipidemia) HTN (hypertension) Paroxysmal A-fib Partial small bowel obstruction PUD (peptic ulcer disease) Surgical History History of colostomy History of modified radical mastectomy History of partial colectomy Family History Other No significant family history Social History Smoking and tobacco status: never smoked Alcohol intake: never Housing: Skilled Nursing Marital status: / Current occupational status: retired Vitals/I&O/Wt Last Vital Signs Temp 97.9 F 08/26/21 02:32 Pulse 101 H 08/26/21 07:23 Resp 16 08/26/21 07:23 BP 156/105 08/26/21 07:23 Pulse Ox 95 08/26/21 07:23 08/25/21 08/26/21 08/26/21 22:59 06:59 14:59 Intake Total 50 / 50 Balance 50 / 50 Physical Exam Narrative: Patient is conscious alert oriented X3 In moderate distress Morbidly obese Head and neck examination PERRLA no masses no cervical lymphadenopathy no jaundice NG in place with gastric content Cardiac examination audible S1-S2 no murmurs no gallops no arrhythmias Chest is clear bilateral,abscence of Rhonchi or wheezes,no surgical emphysema Abdomen nontender soft slightly but no signs of acute peritonitis. nondistended soft no organomegaly guarding or rigidity. Colostomy in place and evidence of reducible ventral incisional hernias. Data : 08/26/21 03:40 08/26/21 03:40 A&P Assessment and plan (1) Small bowel obstruction: After history taking physical examination and reviewing the chart and images of the CT scan of the abdomen pelvis with IV contrast. And further evaluating the patient and having a reducible ventral incisional hernia. I have my doubts about the closed-loop obstruction as the patient has continued to have passed gas and having bowel movements yet there is always a concern since she has nausea and vomiting, but in the presence of severe UTI makes me concerned more that the patient current clinical picture due to the UTI. Anyways I am going to be repeating the CT scan of the abdomen pelvis with oral contrast via the NG tube for a better evaluation of the bowel. Lactic acid was ordered and came back as 4.[address] scan of the abdomen and pelvis repeat was done and the oral contrast was sucked via the NG due to fragmented communication with endorsement from the patient going from the ER to the floor per nursing reporting, subsequently patient undergone the CT scan without evidence of much oral contrast. Yet I was able to discuss the findings with the radiologist on-call and it seems that the patient has a baseline chronic small bowel obstruction, is no signs of ischemia or pneumatosis and clinically the patient is passing gas and having bowel movement through the stoma. Likely the elevated lactic acid and leukocytosis in the presence of benign physical examination of the abdomen would be more attributed to her UTI. I will continue to follow on the patient clinical progress and will continue NG to low intermittent wall suction Repeated physical examination IV fluid resuscitation Assurance and education All questions have been answered and all concerns have been addressed to patient's satisfaction. On evening rounds 4:30 PM Patient reports that she feels a whole lot better and have been passing more gas per stoma. We will continue repeated physical exam and IV fluid resuscitation We will repeat lactic acid Thank you for consulting general surgery to participate taking care Ms. 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
[2021-08-26] MEDS: iohexol 300 mg/mL 50 mL Btl PO (09:38)
[2021-08-26 09:48] LABS: Lactate (Lactic Acid level) 4.3 mmol/L (0.5-2.2)
--- NOTE | 2021-08-26 10:54 | PM.HP ---
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 Patient tells me that for the last few days, she has had epigastric and diffuse abdominal pain, with a lot of nausea, vomiting, she has had decreased output from colostomy in the last 3 4 hours, does report fevers, does report cough, no shortness of breath, no chills Review of Systems Const: Denies: fever(s) Eyes: Denies: change in vision ENMT: Denies: nasal congestion Resp: Denies: dyspnea, productive cough, non-productive cough or wheezing GI: Denies: abdominal pain, nausea, vomiting, hematemesis or diarrhea : Denies: dysuria Skin/Breast: Denies: rash Neuro: Denies: headache(s), dizziness or vertigo Psych: Denies: anxiety or depression Endo: Denies: polyuria or polydipsia Medications/Allergies Home Medications Medication Instructions Recorded Confirmed Last Taken Type bisacodyl 5 mg tablet 5 mg PO Q24H PRN 04/24/20 08/26/21 Unknown History pregabalin 75 mg capsule (Lyrica) 75 mg PO BID 04/24/20 08/26/21 04/19/21 History sennosides 8.6 mg-docusate sodium 1 tab-cap PO DAILY 04/24/20 08/26/21 04/19/21 History 50 mg tablet (Senna Plus) albuterol sulfate 2.5 mg INHALATION Q6H PRN 05/25/20 08/26/21 04/17/21 History benzocaine 15 mg-menthol 3.6 mg See Rx Instructions .ROUTE .COMPLEX 05/25/20 08/26/21 Unknown History lozenges (Cepacol Sore Throat (benzocaine-menthol)) famotidine 20 mg tablet 20 mg PO BID 05/25/20 08/26/21 04/19/21 History ondansetron 4 mg disintegrating 4 mg PO Q6H PRN 05/25/20 08/26/21 04/11/21 History tablet umeclidinium 62.5 mcg/actuation 1 inh INHALATION DAILY 05/25/20 08/26/21 04/19/21 History blister powder for inhalation (Incruse Ellipta) aspirin 81 mg tablet,delayed 81 mg PO DAILY #30 tab 05/30/20 08/26/21 04/19/21 Rx release atorvastatin 40 mg tablet 40 mg PO BEDTIME #30 tab 05/30/20 08/26/21 04/18/21 Rx acetaminophen 325 mg tablet 650 mg PO Q6H PRN 04/19/21 08/26/21 04/02/21 History (Tylenol) apixaban 5 mg tablet (Eliquis) 5 mg PO BID 04/19/21 08/26/21 04/19/21 History docusate sodium 100 mg capsule 200 mg PO DAILY 04/19/21 08/26/21 04/19/21 History (Colace) fluticasone 500 mcg-salmeterol 50 1 inh INHALATION BID 04/19/21 08/26/21 04/19/21 History mcg/dose blistr powdr for inhalation (Advair Diskus) hydrocodone 5 mg-acetaminophen 325 1 tab PO Q8H PRN 04/19/21 08/26/21 04/19/21 History mg tablet naloxone 0.4 mg/mL injection 0.4 mg IM Q2M PRN 04/19/21 08/26/21 Unknown History solution oxycodone 15 mg tablet,crush 15 mg PO BID 04/19/21 08/26/21 04/19/21 History resistant,extended release 12 hr polyethylene glycol 3350 17 17 g PO DAILY 04/19/21 08/26/21 04/19/21 History gram/dose oral powder (Miralax) tizanidine 4 mg capsule 4 mg PO TID PRN 04/19/21 08/26/21 04/19/21 History omeprazole 20 mg capsule,delayed 20 mg PO DAILY #30 cap 04/23/21 08/26/21 Unknown Rx release methyl salicylate 15 %-menthol 10 1 applic TOPICAL BID PRN 08/26/21 08/26/21 Unknown History % topical cream (Muscle Rub) promethazine 25 mg/mL injection 25 mg IM Q6H PRN 08/26/21 08/26/21 Unknown History solution (Phenergan) sertraline 25 mg tablet (Zoloft) 25 mg PO DAILY 08/26/21 08/26/21 Unknown History trazodone 50 mg tablet 50 mg PO DAILY 08/26/21 08/26/21 Unknown History vitamin A-vitamin C-vit E-min 1 tab PO DAILY 08/26/21 08/26/21 Unknown History tablet Allergies Allergy/AdvReac Type Severity Reaction Status Date / Time vancomycin Allergy Intermediate ALGY-Redness Verified 08/26/21 08:15 of Skin PFSH Acute PFSH: Medical History (Updated 08/26/21 @ 11:08 by Demetri Cowan MD) Activity extremely limited Acute UTI Anxiety and depression Breast cancer Chronic hypoxemic respiratory failure D-dimer, elevated Degenerative arthritis Diabetes Fracture of left femur HLD (hyperlipidemia) HTN (hypertension) Paroxysmal A-fib Partial small bowel obstruction PUD (peptic ulcer disease) Surgical History History of colostomy History of modified radical mastectomy History of partial colectomy Family History Other No significant family history Social History Smoking and tobacco status: never smoked Alcohol intake: never Housing: Jail Marital status: / Current occupational status: retired Vitals/I&O/Wt Last Vital Signs Temp 98.3 F 08/26/21 09:30 Pulse 100 08/26/21 09:33 Resp 20 H 08/26/21 09:30 BP 136/83 08/26/21 09:30 Pulse Ox 95 08/26/21 09:33 08/25/21 08/26/21 08/26/21 22:59 06:59 14:59 Intake Total 50 / 50 Balance 50 / 50 Physical Exam Const: COMMON NORMALS: no acute distress and patient oriented x3 HENMT: COMMON NORMALS: normocephalic HEAD & SCALP: normocephalic Resp: COMMON NORMALS: normal respiratory effort, No retractions, No use of accessory muscles and clear to auscultation bilaterally AUSCULTATION: clear to auscultation bilaterally Cardio: COMMON NORMALS: no JVD, regular rate, regular rhythm, S1 normal heart sound present and S2 normal heart sound present RATE: regular rate RHYTHM: regular rhythm HEART SOUNDS: S1 normal heart sound present and S2 normal heart sound present GI: INSPECTION: Yes Abdominal wall edema and Yes abdominal distension AUSCULTATION: Yes normoactive bowel sounds PALPATION: Yes Soft to palpation, Yes Tenderness to palpation present (GI) Details: LLQ, RLQ, LUQ and RUQ, No Guarding due to palpation present (GI) and No Rigid due to palpation OTHER: Colostomy in place Extremity: COMMON NORMALS: capillary refill normal, no clubbing, cyanosis or edema, no calf tenderness and no pedal edema Neuro: COMMON NORMALS: patient oriented x3 Psych: COMMON NORMALS: mental status grossly normal Data : 08/26/21 03:40 08/26/21 03:40 A&P Assessment and plan (1) Small bowel obstruction: Status: Acute (2) Sepsis: Status: Acute (3) UTI (urinary tract infection): Status: Acute (4) Paroxysmal A-fib: Status: Acute (5) Diabetes: Status: Acute Plan Nausea, vomiting, abdominal pain -Secondary to closed-loop obstruction -CT scan abdomen pelvis shows 1. Multiple dilated loops of small bowel up to the 3.8 cm in diameter with 2 transition points noted in the mid abdomen consistent with closed loop obstruction. 3. Enteric tube tip is beyond the proximal portion of the stomach and is not seen because it is below the inferior margin of the film. 4. Large anterior abdominal hernia containing loops of large and small bowel. 5. Rectosigmoid colon stump with moderate diverticulosis in the proximal portion of the stump. 6. Near total colectomy except for rectosigmoid stump. 7. Right colostomy. -Status post NG tube placement, to suction -Currently n.p.o. -Gentle IV fluids -Repeat CT scan -General surgery on consult -SCDs for DVT prophylaxis, Lovenox currently on hold just in case if she requires surgery -DNR/DNI Sepsis secondary UTI and pneumonia -Over 33,000 -Elevated lactic acid -CRP, pro-Romeo pending -UA with evidence of UTI -Chest x-ray showing bibasilar pneumonia -Required 4 L, advised me that she uses only oxygen during the night Plan -Oxygen therapy -Ipratropium budesonide -Monitor respiratory status closely -Respiratory consult -Broad-spectrum antibiotic therapy Zyvox, Zosyn -Monitor lactic acids Lactic acidosis from sepsis sec to UTI, pneumonia, possible closed-loop obstruction versus ischemia Type 2 diabetes mellitus, low-dose sliding scale check A1c Paroxysmal atrial fibrillation, hold Eliquis will consider therapeutic Lovenox based upon clinical progress Attestations Medical Necessity Statement*: Patient requires hospitalization for closed-loop small bowel obstruction, UTI, lactic acidosis Coding Level of Care Code Acute 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
[2021-08-26] MEDS: ipratropium-albuterol 3 mL Neb INHALATION ×3 (11:27→21:25)
[2021-08-26 11:33] LABS: Troponin 5 6HR 14.16 ng/L (0-10)
[2021-08-26 11:37] LABS: Troponin 5 6HR Delta 2.16 ng/L (0-12)
[2021-08-26 11:54] LABS: Glucose Point of Care 129 mg/dL (70-110)
[2021-08-26 11:56] LABS: Estmated Average Glucose 134; Hemoglobin A1C 6.3 % (4.0-6.0)
[2021-08-26] MEDS: pantoprazole 40 mg SDV IVP (11:58)
[2021-08-26] MEDS: sodium chloride 0.9% 1,000 ML 75 ML IV (11:59)
[2021-08-26] MEDS: linezolid premix 600 MG/300 ML PREMIX 300 MG IV (11:59)
[2021-08-26 12:05] LABS: Procalcitonin 0.16 ng/mL (0-0.5); Thyroid Stimulating Hormone 2.49 uIU/mL (0.27-4.20)
[2021-08-26 12:16] LABS: C Reactive Protein 31.6 mg/L (0.0-4.9)
[2021-08-26] MEDS: enoxaparin 150 mg/mL Syringe SUBCUT (13:56)
[2021-08-26 17:04] LABS: Glucose Point of Care 131 mg/dL (70-110)
[2021-08-26 17:27] LABS: Lactate (Lactic Acid level) 1.4 mmol/L (0.5-2.2)
[2021-08-26] MEDS: atorvastatin 40 mg Tablet PO (20:23)
[2021-08-26 21:02] LABS: Glucose Point of Care 106 mg/dL (70-110)
[2021-08-26] MEDS: budesonide 0.5 mg/2 mL Neb INHALATION (21:25)
[2021-08-27] VITALS (18 sets, daily range): BP systolic 127–136; BP diastolic 71–89; PULSE 70–112; RESP 12–18; TEMP 36.4–37.6; O2SAT 94–98
[2021-08-27] MEDS: linezolid premix 600 MG/300 ML PREMIX 300 MG IV ×3 (00:08→22:58)
[2021-08-27] MEDS: pantoprazole 40 mg SDV IVP ×3 (00:13→22:58)
[2021-08-27] MEDS: enoxaparin 150 mg/mL Syringe SUBCUT ×2 (00:49→13:34)
[2021-08-27] MEDS: ipratropium-albuterol 3 mL Neb INHALATION ×6 (00:53→22:01)
[2021-08-27] MEDS: sodium chloride 0.9% 1,000 ML 75 ML IV ×2 (01:15→16:28)
[2021-08-27] MEDS: piperacillin-tazobactam 3.375 GM in sodium chloride 0.9% (plus) 50 ML IV ×3 (04:49→20:03)
[2021-08-27 05:30] LABS: Basophils # 0.1 10^3/uL (0.0-0.1); Basophils % 0.3 %; Eosinophils # 0.3 10^3/uL (0.0-0.8); Eosinophils % 1.4 %; Hematocrit 41.1 % (37.0-47.0); Hemoglobin 13.1 g/dL (11.5-15.3); Lymphocytes # 6.4 10^3/uL (0.8-4.8); Lymphocytes % 34.5 %; Mean Corpuscular HGB Conc 31.9 g/dL (30.0-36.0); Mean Corpuscular Hemoglobin 27.1 pg (28.0-34.0); Mean Corpuscular Volume 84.9 fl (81-99); Mean Platelet Volume 10.9 fL (7.4-10.4); Monocytes # 1.7 10^3/uL (0.2-0.9); Monocytes % 9.1 %; Neutrophils # 10.08 10^3/uL (1.8-7.7); Neutrophils % 54.2 %; Nucleated Red Blood Cells % 0 %; Platelet Count 424 10^3/cmm (130-400); Red Blood Count 4.84 10^6/uL (4.1-5.3); Red Cell Distribution Width 18.8 % (12.1-15.1); White Blood Count 18.6 10^3/uL (4.0-10.0)
[2021-08-27 05:51] LABS: Lactic Sepsis W/Reflex 1.4 mmol/L (0.5-2.2)
[2021-08-27 06:05] LABS: NT Pro B Type Natriuretic Pept 883 pg/mL (0-450); Procalcitonin 0.13 ng/mL (0-0.5); Thyroid Stimulating Hormone 0.53 uIU/mL (0.27-4.20)
[2021-08-27 06:16] LABS: Alanine Aminotransferase 7 U/L (0-33); Albumin Level 2.9 g/dL (3.5-5.2); Alkaline Phosphatase 77 IU/L (35-105); Anion Gap 15.8 (5-19); Aspartate Amino Transferase 8 U/L (0-32); Blood Urea Nitrogen 13 mg/dL (8-23); C Reactive Protein 48.2 mg/L (0.0-4.9); Calcium 8.6 mg/dL (8.5-10.5); Carbon Dioxide 23 mmol/L (22-29); Chloride 105 mmol/L (98-107); Globulin 2.9 g/dL (1.3-4.6); Glucose 108 mg/dL (65-115); Magnesium 1.6 mg/dL (1.7-2.3); Osmolality Calculated 291 mOsm/kg (285-295); Phosphorus 2.8 mg/dL (2.5-4.5); Potassium 3.8 mmol/L (3.5-5.1); Sodium 140 mmol/L (136-145); Total Bilirubin 0.4 mg/dL (0.15-1.2); Total Protein 5.8 g/dL (6.6-8.7)
[2021-08-27 06:33] LABS: Glucose Point of Care 94 mg/dL (70-110)
--- NOTE | 2021-08-27 07:00 | XRR_ITS ---
PROCEDURE INFORMATION: Exam: XR Chest Exam date and time: 08/27/2021 7:00 AM Age: 80 years old Clinical indication: Shortness of breath; Additional info: SOB TECHNIQUE: Imaging protocol: XR of the chest. Views: 1 view. COMPARISON: CR (CHEST, ) 08/26/2021 4:29 AM FINDINGS: Tubes, catheters and devices: Enteric tube tip is beyond the proximal portion of the stomach and is not seen because it is below the inferior margin of the film. The tube position is also partially obscured by multiple coiled EKG wires. Lungs: Unremarkable. No consolidation. Pleural spaces: Unremarkable. No pleural effusion. No pneumothorax. Heart/Mediastinum: Unremarkable. No cardiomegaly. Bones/joints: Unremarkable. XR/XR chest 1V portable [id number] IMPRESSION: Enteric tube tip is beyond the proximal portion of the stomach and is not seen because it is below the inferior margin of the film. The tube position is also partially obscured by multiple coiled EKG wires.
[2021-08-27] MEDS: magnesium sulfate premix 2 GM/50 ML PIGGYBACK IV (08:56)
--- NOTE | 2021-08-27 09:00 | PC.NURSE ---
NG tube residual was 30 ml, and patient had no complaints of nausea. NGT removed. pt tolerated well.
[2021-08-27] MEDS: budesonide 0.5 mg/2 mL Neb INHALATION ×2 (09:01→22:02)
--- NOTE | 2021-08-27 09:21 | P.PN_ITS ---
Subjective Subjective: Patient overall feels better and minimal output per NG tube, continues to pass gas and having stools per stoma, normalization of lactic acid. Trending down of leukocytosis Medications: Reviewed: Yes Vitals/I&O/Wt Last Vital Signs Temp 97.9 F 08/27/21 07:35 Pulse 89 08/27/21 09:05 Resp 16 08/27/21 09:02 BP 136/89 08/27/21 07:35 Pulse Ox 95 08/27/21 09:02 08/26/21 08/27/21 08/27/21 22:59 06:59 14:59 Intake Total 50 / 400 1345.0 / 1745.0 50 / 50 Output Total 1000 / 1000 0 / 1000 300 / 300 Balance -950 / -600 1345.0 / 745.0 -250 / -250 Weight last 48 hrs Weight 350 lb 8.56 oz Physical Exam Narrative: Patient is conscious alert oriented X3 No apparent distress BMI 64 Head and neck examination PERRLA no masses no cervical lymphadenopathy no ortiz dice Abdomen nontender nondistended soft no organomegaly guarding or rigidity/no signs of peritonitis Ventral incisional hernia stable and functioning stoma Data : 08/27/21 05:03 08/27/21 05:03 Micro: Microbiology 08/26/21 02:55 Bacterial Antigens - Final Urine,Clean Catch 08/26/21 02:55 Legionella Urinary Antigen - Final Urine Kidney 08/26/21 12:30 Blood Culture - Preliminary Blood SPECIMEN COLLECTED 08/26/21 12:30 Blood Culture - Preliminary Blood SPECIMEN COLLECTED A&P Assessment and plan (1) Small bowel obstruction: From surgical standpoint of view my recommendation is to clamp the NG for 2 hours and check residuals of less than 200 mL, DC NG tube and start the patient clear liquid. Continue fluid resuscitation Management of medical comorbidities per hospitalist service Please call for any questions or concerns Assurance and education All questions have been answered and all concerns have been addressed to patient's satisfaction. Status: Acute Attestations Medical Necessity Statement*: Per admitting service Coding Level of Care Code Acute Travel Registered Nurse Pacu for g [facility] Diagnoses Small bowel obstruction K56.609
[2021-08-27] MEDS: sertraline 50 mg Tablet 25 MG PO (09:33)
[2021-08-27] MEDS: trazodone 50 mg Tablet PO (09:34)
[2021-08-27] MEDS: aspirin 81 mg EC Tablet PO (09:34)
[2021-08-27 11:37] LABS: Glucose Point of Care 100 mg/dL (70-110)
--- NOTE | 2021-08-27 13:42 | P.PN_ITS ---
Subjective Subjective: Patient was seen this morning, she tells me that she is feeling fair this morning, no nausea, no vomiting, passing gas, denies any shortness of breath, on 3 L, denies fevers overnight Patient tells me that she is from the long-term, she is nonambulatory at baseline, she tells me that she has not ambulated in the last few years, uses an electric wheelchair Vitals/I&O/Wt Last Vital Signs Temp 97.9 F 08/27/21 07:35 Pulse 90 08/27/21 13:26 Resp 16 08/27/21 13:26 BP 127/73 08/27/21 12:00 Pulse Ox 94 08/27/21 13:26 08/26/21 08/27/21 08/27/21 22:59 06:59 14:59 Intake Total 50 / 400 1345.0 / 1745.0 400 / 400 Output Total 1000 / 1000 0 / 1000 500 / 500 Balance -950 / -600 1345.0 / 745.0 -100 / -100 Weight last 48 hrs Weight 159 kg Physical Exam Const: COMMON NORMALS: no acute distress and patient oriented x3 HENMT: OTHER: Nasogastric tube in place Resp: COMMON NORMALS: normal respiratory effort, No retractions, No use of accessory muscles and clear to auscultation bilaterally AUSCULTATION: clear to auscultation bilaterally GI: COMMON NORMALS: Normal to inspection, nondistended, normoactive bowel sounds present, Soft to palpation, non-tender and No hepatosplenomegaly present PALPATION: Yes Soft to palpation and Yes No hepatosplenomegaly present Extremity: COMMON NORMALS: no pedal edema Neuro: COMMON NORMALS: patient oriented x3 Psych: COMMON NORMALS: mental status grossly normal Data : 08/27/21 05:03 08/27/21 05:03 Micro: Microbiology 08/26/21 12:30 Blood Culture - Preliminary Blood NEGATIVE TO DATE 08/26/21 12:30 Blood Culture - Preliminary Blood NEGATIVE TO DATE 08/26/21 13:45 MRSA Culture - Final Nose 08/26/21 02:55 Urine Culture - Preliminary Urine Catheterized Gram Negative Rods 08/26/21 02:55 Bacterial Antigens - Final Urine,Clean Catch 08/26/21 02:55 Legionella Urinary Antigen - Final Urine Kidney A&P Assessment and plan (1) Small bowel obstruction: Status: Acute (2) Sepsis: Status: Acute (3) UTI (urinary tract infection): Status: Acute (4) Paroxysmal A-fib: Status: Acute (5) Diabetes: Status: Acute Plan Nausea, vomiting, abdominal pain -Secondary to closed-loop obstruction -CT scan abdomen pelvis shows 1. Multiple dilated loops of small bowel up to the 3.8 cm in diameter with 2 transition points noted in the mid abdomen consistent with closed loop obstruction. 3. Enteric tube tip is beyond the proximal portion of the stomach and is not seen because it is below the inferior margin of the film. 4. Large anterior abdominal hernia containing loops of large and small bowel. 5. Rectosigmoid colon stump with moderate diverticulosis in the proximal portion of the stump. 6. Near total colectomy except for rectosigmoid stump. -Passing gas from below, abdomen less distended, good bowel sounds, nontender during examination 7. Right colostomy. -NG tube in place, clamped -Currently n.p.o. -Gentle IV fluids -General surgery on consult -SCDs for DVT prophylaxis, therapeutic Lovenox -DNR/DNI Sepsis secondary UTI and pneumonia -Over 18.6 -Elevated lactic acid -CRP, 40.2 -UA with evidence of UTI -Chest x-ray showing bibasilar pneumonia -Required 4 L, advised me that she uses only oxygen during the night Plan -Oxygen therapy -Ipratropium budesonide -Monitor respiratory status closely -Respiratory consult -Broad-spectrum antibiotic therapy Zyvox, Zosyn -Monitor lactic acids Lactic acidosis from sepsis sec to UTI, pneumonia, possible closed-loop obstruction versus ischemia -Resolved 1.4 Type 2 diabetes mellitus, low-dose sliding scale, A1c six-point Paroxysmal atrial fibrillation currently on therapeutic Lovenox, discharged on Eliquis Attestations Medical Necessity Statement*: Patient requires hospitalization Coding Level of Care Code Acute Cooperative Manager for [facility] Diagnoses Small bowel obstruction K56.609 Sepsis A41.9 UTI (urinary tract infection) N39.0 Paroxysmal A-fib I48.0 Diabetes E11.9
[2021-08-27 17:52] LABS: Glucose Point of Care 85 mg/dL (70-110)
[2021-08-27] MEDS: acetaminophen 325 mg Tablet 650 MG PO ×2 (18:46→22:59)
[2021-08-27] MEDS: atorvastatin 40 mg Tablet PO (20:03)
[2021-08-27 20:24] LABS: SARS Covid-2 Antigen Negative (Negative)
[2021-08-27 20:55] LABS: Glucose Point of Care 93 mg/dL (70-110)
[2021-08-27] MEDS: ALPRAZolam 0.5 mg Tablet 0.25 MG PO (21:22)
[2021-08-28] VITALS (20 sets, daily range): BP systolic 120–150; BP diastolic 69–85; PULSE 65–94; RESP 12–22; TEMP 36.6–38.2; O2SAT 94–98
[2021-08-28] MEDS: enoxaparin 150 mg/mL Syringe SUBCUT (00:57)
[2021-08-28 01:24] LABS: Basophils # 0.1 10^3/uL (0.0-0.1); Basophils % 0.3 %; Eosinophils # 0.5 10^3/uL (0.0-0.8); Eosinophils % 2.9 %; Hematocrit 36.6 % (37.0-47.0); Hemoglobin 11.8 g/dL (11.5-15.3); Lymphocytes # 6.7 10^3/uL (0.8-4.8); Lymphocytes % 35.7 %; Mean Corpuscular HGB Conc 32.2 g/dL (30.0-36.0); Mean Corpuscular Hemoglobin 26.9 pg (28.0-34.0); Mean Corpuscular Volume 83.4 fl (81-99); Mean Platelet Volume 10.4 fL (7.4-10.4); Monocytes # 1.8 10^3/uL (0.2-0.9); Monocytes % 9.5 %; Neutrophils # 9.61 10^3/uL (1.8-7.7); Neutrophils % 51.2 %; Nucleated Red Blood Cells % 0 %; Platelet Count 412 10^3/cmm (130-400); Red Blood Count 4.39 10^6/uL (4.1-5.3); Red Cell Distribution Width 18.5 % (12.1-15.1); White Blood Count 18.8 10^3/uL (4.0-10.0)
[2021-08-28] MEDS: ipratropium-albuterol 3 mL Neb INHALATION ×5 (01:34→19:27)
[2021-08-28 01:53] LABS: Alanine Aminotransferase 6 U/L (0-33); Alkaline Phosphatase 68 IU/L (35-105); Anion Gap 13.6 (5-19); Aspartate Amino Transferase 7 U/L (0-32); Blood Urea Nitrogen 8 mg/dL (8-23); C Reactive Protein 28.2 mg/L (0.0-4.9); Calcium 8.3 mg/dL (8.5-10.5); Carbon Dioxide 24 mmol/L (22-29); Chloride 104 mmol/L (98-107); Globulin 2.3 g/dL (1.3-4.6); Glucose 100 mg/dL (65-115); Magnesium 1.9 mg/dL (1.7-2.3); Osmolality Calculated 284 mOsm/kg (285-295); Phosphorus 2.6 mg/dL (2.5-4.5); Potassium 3.6 mmol/L (3.5-5.1); Sodium 138 mmol/L (136-145); Total Bilirubin 0.4 mg/dL (0.15-1.2); Total Protein 5.3 g/dL (6.6-8.7)
[2021-08-28 02:11] LABS: Slide Review Slide Review Perform
[2021-08-28 02:40] LABS: NT Pro B Type Natriuretic Pept 807 pg/mL (0-450); Procalcitonin 0.09 ng/mL (0-0.5)
[2021-08-28] MEDS: piperacillin-tazobactam 3.375 GM in sodium chloride 0.9% (plus) 50 ML IV ×3 (04:08→20:48)
[2021-08-28] MEDS: acetaminophen 325 mg Tablet 650 MG PO ×2 (04:38→10:13)
[2021-08-28 06:33] LABS: Glucose Point of Care 92 mg/dL (70-110)
[2021-08-28] MEDS: budesonide 0.5 mg/2 mL Neb INHALATION ×2 (07:53→19:27)
[2021-08-28] MEDS: sodium chloride 0.9% 1,000 ML 75 ML IV (08:17)
[2021-08-28] MEDS: sertraline 50 mg Tablet 25 MG PO (08:18)
[2021-08-28] MEDS: aspirin 81 mg EC Tablet PO (08:18)
[2021-08-28] MEDS: trazodone 50 mg Tablet PO (08:18)
[2021-08-28 09:08] LABS: Lactate Dehydrogenase 136 U/L (135-214)
[2021-08-28 09:37] LABS: LAB Peripheral Smear Sent for Review
--- NOTE | 2021-08-28 09:42 | XRR_ITS ---
PROCEDURE INFORMATION: Exam: XR Left Elbow Exam date and time: 08/28/2021 9:42 AM Age: 80 years old Clinical indication: Elbow; Left; Patient HX: No injury, pain since yesterday, PT had to be held, best images possible. ; Additional info: Painful TECHNIQUE: Imaging protocol: XR Left elbow. Views: 1 or 2 views. COMPARISON: No relevant prior studies available. FINDINGS: Bones/joints: No acute fracture or malalignment. Moderate degenerative changes of the elbow. No elbow joint effusion. Soft tissues: Normal. XR/XR elbow LT 2V [id number] IMPRESSION: No acute fracture or malalignment.
--- NOTE | 2021-08-28 09:42 | USCV_ITS ---
Hermelinda Mckeon Age: 80 Gender: F : 1940 Exam Date: 08/28/2021 10:04 Ordering Phys: Demetri Cowan MD Technologist: KATHRYN Exam Location: [facility] [place] Indication: LUE PAIN AND SWELLING HISTORY: Upper extremity swelling. Upper extremity pain. PROCEDURES: Venous duplex imaging was performed in only the left upper extremity. The following venous structures were evaluated: internal jugular vein, subclavian vein, axillary vein, and brachial veins. In addition, the basilic vein, cephalic vein, radial vein, and ulnar vein. Serial compression, augmentation maneuvers, and spectral Doppler flow evaluation were performed. FINDINGS: No evidence of deep vein thrombosis or superficial thrombophlebitis in the left upper extremity. Large complex mass seen in left antecubital fossa. No increased vascularity but is solid.Mass measures 6.2 x 3.6 x 2.7 cm. CONCLUSIONS No left upper extremity DVT. Solid mass in left antecubital fossa with no vascularity. Consider follow up left upper extremity CT evaluation with contrast. Dr. Sanam Kilpatrick DO (Electronically Signed) Final Date: 28 August 2021 13:05 S
--- NOTE | 2021-08-28 09:43 | PC.CHAP ---
Pastoral Care Encounter/Spiritual Assessment Type of Contact [] Declined mascara molder visit [] Patient/Family/Request visit [] Outpatient visit [] Follow-up visit [] Physician referral [] Code/Alert [x] Routine visit [] Staff referral [] Actively dying [] Patient sleeping [] Family support [] [] Out of room [] Palliative care [] [] Receiving care in room [] Pre-surgical visit [] Trauma [] Long length of stay [] ICU visit [] Other: Relational/Emotional Strength [x] Patient feels connected with others/family/visitors/staff [] Distress [] Loneliness/isolation [] Abandonment Spirituality of Patient [x] Person of April [] Attends Restorationist of their April [x] Believes in Prayer [] Reads Bible or Church materials [] There are Spiritual issues to be addressed Animal Control Officer Interventions [] Prayer [x] Active listening [x] Non-anxious presence [x] Spiritual/emotional support [] Crisis/trauma care [] Spiritual counseling [] Bereavement support [] Provided bereavement packet [] Provided Bible/devotional materials [] Provided toy/stuffed animal, coloring book to patient or family member [] Provided Communion [] Anointing/[place] [] Salvation [x] Completed spiritual assessment [] Other: Impact on Illness or Injury [] Angry [] Fearful [] Anxious [] Often cries [] Exhaustion [] Unable to work [] Unable to attend latter day [] Unable to walk/stand [] Unable to read [] Unable to drive [] Unable to eat/drink [] Unable to sleep [] Unable to be with family [] Patient intubated [] Other: Summary Pt lives in [facility] in [place]. Is very happy with the facility and living arrangement. She has a daughter in [facility] and several grandchildren and great grandchildren in the area. Pt said she came in due to a bowel blockage which is now corrected but she has developed severe pain in her left arm and cannot move it. She has not yet seen the doctor regarding this new problem. As we were visiting, the doctor arrived so mascara molder concluded the visit. Time spent with patient 10m
[2021-08-28] MEDS: pantoprazole 40 mg SDV IVP (10:14)
[2021-08-28] MEDS: linezolid premix 600 MG/300 ML PREMIX 300 MG IV (10:15)
[2021-08-28 11:17] LABS: Glucose Point of Care 146 mg/dL (70-110)
[2021-08-28] MEDS: insulin lispro 100 unit/1 mL SUBCUT (11:59)
[2021-08-28] MEDS: magnesium citrate Btl 296 mL 148 ML PO (12:02)
--- NOTE | 2021-08-28 12:12 | P.DS_ITS ---
Discharge Providers Date of Admission: 08/26/21 06:44 Date of Discharge: August 28, 2021 Attending Provider at Admission: Demetri Cowan MD Attending Provider at Discharge: Demetri Cowan MD Primary Care Provider: Favian Clark DO Diagnoses at Discharge Discharge Diagnosis (1) Small bowel obstruction: Status: Acute (2) Sepsis: Status: Acute (3) UTI (urinary tract infection): Status: Acute (4) Paroxysmal A-fib: Status: Acute (5) Diabetes: Status: Acute Reason for Visit Reason for Visit: ABD PAIN Hospital Course Hospital Course Hermelinda Mckeon is a 80 year old female with a past medical history of morbid obesity, history of chronic small bowel obstructions, history of breast cancer, anxiety, depression, degenerative arthritis, hypertension, hyperlipidemia, peptic ulcer disease, 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 Patient was admitted to the hospital service for nausea, vomiting secondary to small bowel obstruction. General surgery was consulted. CT scan of the pelvis showed concerns for obstruction, after discussion with radiology general surgery it was felt that likely patient did not have closed-loop obstruction. Patient was medically managed, bowel rest, IV fluids, she continues to have good stool output from her colostomy bag, abdominal pain distention significantly improved. She was transitioned to liquid diet, tolerated advance to full diet. She will be discharged on instructions to slowly advance diet, bowel regimen, follow-up with primary care provider as outpatient Patient also had sepsis secondary to UTI and pneumonia during hospitalization, with elevated lactic acid, and leukocytosis. No hemodynamic compromise, r equiring 3 to 4 L, treated with broad-spectrum IV therapy, clinically improved. So far her blood cultures have been unremarkable, urine cultures are pending but show gram-negative rods. I have discharged her on 7 remaining days of Augmentin. Patient does have persistent leukocytosis, etiology unclear, peripheral smear obtained, leukemia lymphoma panel ordered, follow with Dr. Bergeron as outpatient Physical Exam Const: COMMON NORMALS: no acute distress and patient oriented x3 Resp: COMMON NORMALS: normal respiratory effort, No retractions, No use of accessory muscles and clear to auscultation bilaterally AUSCULTATION: clear to auscultation bilaterally Cardio: COMMON NORMALS: regular rate, regular rhythm, S1 normal heart sound present and S2 normal heart sound present RATE: regular rate RHYTHM: regular rhythm HEART SOUNDS: S1 normal heart sound present and S2 normal heart sound present GI: COMMON NORMALS: Normal to inspection, nondistended, normoactive bowel sounds present, Soft to palpation, non-tender and No hepatosplenomegaly present PALPATION: Yes Soft to palpation and Yes No hepatosplenomegaly present Extremity: COMMON NORMALS: no pedal edema Neuro: COMMON NORMALS: patient oriented x3 Psych: COMMON NORMALS: mental status grossly normal Discharge Data Studies Completed and Pending Completed Studies During Hospitalization Category Date Time Status CT abdomen pelvis w con* [id number] Urgent Cat Scan 08/26/21 02:[address] abdomen pelvis w con* [id number] Urgent Cat Scan 08/26/21 08:08 Completed XR chest 1V portable [id number] Routine Exams 08/27/21 07:00 Completed XR chest 1V portable [id number] Stat Exams 08/26/21 04:22 Completed XR elbow LT 2V [id number] Routine Exams 08/28/21 09:42 Completed Pending at discharge Category Date Time Status Blood Culture Stat Lab 08/26/21 12:30 Results C Reactive Protein AM LABS Lab 08/29/21 04:00 Ordered Complete Blood Count w/Auto AM LABS Lab 08/29/21 04:00 Ordered Comprehensive Metabolic Panel AM LABS Lab 08/29/21 04:00 Ordered Leukemia/Lymphoma Evaluation Routine Lab 08/28/21 01:13 Received Magnesium AM LABS Lab 08/29/21 04:00 Ordered NT Pro B Type Natriuretic Pept QAM Lab 08/29/21 06:00 Ordered Phosphorus AM LABS Lab 08/29/21 04:00 Ordered Procalcitonin AM LABS Lab 08/29/21 04:00 Ordered Sputum Culture and Gram Stain Stat Lab 08/26/21 11:08 Uncollected Urine Culture Stat Lab 08/26/21 02:55 Results US venous duplex upper extremity LT [CV venous duplex Ultrasound 08/28/21 09:[place] [id number]] Routine Radiology Impressions Abdomen/Pelvis CT 08/26/21 08:08 IMPRESSION: 1. Abdominal diastasis recti. 2. Findings again suggestive of possible closed loop small bowel obstruction. No specific evidence of bowel wall ischemia. 3. Lower abdominal sigmoidostomy. 4. Mid sigmoid colonic Celeste pouch. 5. Diverticulosis. 6. Hepatic benign cyst. No follow-up imaging is recommended. 7. Right renal benign cysts. No follow-up imaging is recommended. 8. Moderate left renal atrophy, stable. 9. Mild left renal cortical scarring, stable. 10. Prior cholecystectomy. 11. Prior hysterectomy. 12. Coronary atherosclerosis. COMMENTS: Consistent with the [employer]'s Incidental Findings Committee white paper (J Am Cherise Radiol 2018): Any incidental renal lesion less than 1 cm or classified as too small to characterize, or any incidental cystic renal lesion characterized as simple-appearing, is likely benign. No follow-up imaging is recommended for these lesions per consensus recommendations based on imaging criteria. ADDENDUM: 08/26/21 1144 THIS REPORT CONTAINS FINDINGS THAT MAY BE CRITICAL TO PATIENT CARE. The findings were verbally communicated by me to DR. MELLY ROBLERO via telephone conference at 11:42 AM ASSISTANT PROFESSOR OF GERMAN on 08/26/2021. The findings were acknowledged and understood. Chest X-Ray 08/27/21 07:00 IMPRESSION: Enteric tube tip is beyond the proximal portion of the stomach and is not seen because it is below the inferior margin of the film. The tube position is also partially obscured by multiple coiled EKG wires. Elbow X-Ray 08/28/21 09:42 IMPRESSION: No acute fracture or malalignment. Laboratory Results WBC 18.8 10^3/uL (4.0-10.0) H 08/28/21 01:13 RBC 4.39 10^6/uL (4.1-5.3) 08/28/21 01:13 Hgb 11.8 g/dL (11.5-15.3) 08/28/21 01:13 Hct 36.6 % (37.0-47.0) L 08/28/21 01:13 MCV 83.4 fl (81-99) 08/28/21 01:13 MCH 26.9 pg (28.0-34.0) L 08/28/21 01:13 MCHC 32.2 g/dL (30.0-36.0) 08/28/21 01:13 RDW 18.5 % (12.1-15.1) H 08/28/21 01:13 Plt Count 412 10^3/cmm (130-400) H 08/28/21 01:13 MPV 10.4 fL (7.4-10.4) 08/28/21 01:13 Neut % (Auto) 51.2 % 08/28/21 01:13 Lymph % (Auto) 35.7 % 08/28/21 01:13 Sharkey % (Auto) 9.5 % 08/28/21 01:13 Eos % (Auto) 2.9 % 08/28/21 01:13 Baso % (Auto) 0.3 % 08/28/21 01:13 Neut # (Auto) 9.61 10^3/uL (1.8-7.7) H 08/28/21 01:13 Lymph # (Auto) 6.7 10^3/uL (0.8-4.8) H 08/28/21 01:13 Sharkey # (Auto) 1.8 10^3/uL (0.2-0.9) H 08/28/21 01:13 Eos # (Auto) 0.5 10^3/uL (0.0-0.8) 08/28/21 01:13 Baso # (Auto) 0.1 10^3/uL (0.0-0.1) 08/28/21 01:13 Nucleated RBC % (auto) 0 % 08/28/21 01:13 Nucleated RBCs # 0.0 /100WBC 08/28/21 01:13 Sodium 138 mmol/L (136-145) 08/28/21 01:13 Potassium 3.6 mmol/L (3.5-5.1) 08/28/21 01:13 Chloride 104 mmol/L (98-107) 08/28/21 01:13 Carbon Dioxide 24 mmol/L (22-29) 08/28/21 01:13 Anion Gap 13.6 (5-19) 08/28/21 01:13 BUN 8 mg/dL (8-23) 08/28/21 01:13 Creatinine 0.7 mg/dL (0.5-0.9) 08/28/21 01:13 GFR Calculation Not Reportable 08/28/21 01:13 Glucose 100 mg/dL (65-115) 08/28/21 01:13 POC Glucose 146 mg/dL (70-110) H 08/28/21 11:06 Estimat Average Glucose 134 08/26/21 03:40 Hemoglobin A1c 6.3 % (4.0-6.0) H 08/26/21 03:40 Calculated Osmolality 284 mOsm/kg (285-295) L 08/28/21 01:13 Lactic Acid 1.4 mmol/L (0.5-2.2) 08/27/21 05:03 Lactate 1.4 mmol/L (0.5-2.2) 08/26/21 16:53 Calcium 8.3 mg/dL (8.5-10.5) L 08/28/21 01:13 Phosphorus 2.6 mg/dL (2.5-4.5) 08/28/21 01:13 Magnesium 1.9 mg/dL (1.7-2.3) 08/28/21 01:13 Total Bilirubin 0.4 mg/dL (0.15-1.2) 08/28/21 01:13 AST 7 U/L (0-32) 08/28/21 01:13 ALT 6 U/L (0-33) 08/28/21 01:13 Alkaline Phosphatase 68 IU/L (35-105) 08/28/21 01:13 Lactate Dehydrogenase 136 U/L (135-214) 08/28/21 01:13 Troponin T Baseline 12 ng/L (0-10) H 08/26/21 03:40 Troponin T 120 Minute 12.59 ng/L (0-10) H 08/26/21 06:00 Delta Troponin T 0.59 ABS# (0-10) 08/26/21 06:00 Troponin T Hi Sens 6Hr 14.16 ng/L (0-10) H 08/26/21 10:54 Troponin T Hi Sens 6Hr Delta 2.16 ng/L (0-12) 08/26/21 10:54 C-Reactive Protein 28.2 mg/L (0.0-4.9) H 08/28/21 01:13 NT-Pro-B Natriuret Pep 807 pg/mL (0-450) H 08/28/21 01:13 Total Protein 5.3 g/dL (6.6-8.7) L 08/28/21 01:13 Albumin 3.0 g/dL (3.5-5.2) L 08/28/21 01:13 Globulin 2.3 g/dL (1.3-4.6) 08/28/21 01:13 Lipase 22 U/L (13-60) 08/26/21 03:40 Procalcitonin 0.09 ng/mL (0-0.5) 08/28/21 01:13 TSH 0.53 uIU/mL (0.27-4.20) 08/27/21 05:03 Urine Color Yellow (Yellow) 08/26/21 02:55 Urine Appearance Sl cloudy (CLEAR) A 08/26/21 02:55 Urine pH 5 (5-7) 08/26/21 02:55 Ur Specific [place] 1.025 (1.005-1.030) 08/26/21 02:55 Urine Protein 2+ (Negative) H 08/26/21 02:55 Urine Glucose (UA) Norm (Normal) 08/26/21 02:55 Urine Ketones 1+ (Negative) H 08/26/21 02:55 Urine Blood 2+ (Negative) H 08/26/21 02:55 Urine Nitrate Positive (Negative) H 08/26/21 02:55 Urine Bilirubin 1+ (Negative) H 08/26/21 02:55 Urine Urobilinogen Norm mg/dL (Negative) 08/26/21 02:55 Ur Leukocyte Esterase 2+ (Negative) H 08/26/21 02:55 Urine RBC 5-10 /hpf (0-2) H 08/26/21 02:55 Urine WBC 25-40 /hpf (0-5) H 08/26/21 02:55 Ur Squamous Epith Cells 5-10 /hpf (0-5) H 08/26/21 02:55 Amorphous Sediment Not Reportable 08/26/21 02:55 Urine Bacteria 3+ /hpf (NONE) H 08/26/21 02:55 SARS-CoV-2 Ag (Rapid) Negative (Negative) 08/27/21 19:20 Vitals Last Vital Signs Temp 98 F 08/28/21 07:14 Pulse 66 08/28/21 11:53 Resp 14 08/28/21 11:53 BP 150/76 08/28/21 11:53 Pulse Ox 95 08/28/21 11:53 Discharge Plan Discharge Patient Disposition: Home Condition: Stable Prescriptions: New Augmentin 875-125 mg tablet 1 tab PO BID 7 Days Qty: 14 0RF Colace 100 mg capsule 100 mg PO BID 30 Days Qty: 60 0RF Miralax 17 gram powder in packet 17 g PO DAILY 30 Days Qty: 30 0RF Continued famotidine 20 mg Tablet 20 mg PO BID 0RF ondansetron 4 mg Tablet,Disintegrating 4 mg PO Q6H PRN (Reason: Nausea And Vomiting) 0RF Cepacol Sore Throat (wiliam-men) 15-3.6 mg Lozenge See Rx Instructions .ROUTE .COMPLEX 0RF Rx Instructions: DISSOLVE 1 LOZENGE BEFORE MEALS AND AT BEDTIME PRN Incruse Ellipta 62.5 mcg/actuation Blister With Device 1 inh INHALATION DAILY 0RF albuterol sulfate 2.5 mg /3 mL (0.083 %) Solution For Nebulization 2.5 mg INHALATION Q6H PRN (Reason: Shortness Of Breath Or Wheezing) 0RF atorvastatin 40 mg Tablet 40 mg PO BEDTIME Qty: 30 0RF aspirin 81 mg Tablet,Delayed Release (Dr/Ec) 81 mg PO DAILY Qty: 30 0RF trazodone 50 mg Tablet 50 mg PO DAILY 0RF Phenergan 25 mg/mL Solution 25 mg IM Q6H PRN (Reason: Nausea) 0RF Zoloft 25 mg Tablet 25 mg PO DAILY 0RF vitamin A-vitamin C-vit E-min Tablet 1 tab PO DAILY 0RF Muscle Rub 15-10 % Cream 1 applic TOPICAL BID PRN (Reason: Pain) 0RF bisacodyl 5 mg Tablet 5 mg PO Q24H PRN (Reason: Constipation) 0RF pregabalin [Lyrica] 75 mg Capsule 75 mg PO BID 0RF sennosides-docusate sodium [Senna Plus] 8.6-50 mg Tablet 1 tab-cap PO DAILY 0RF acetaminophen [Tylenol] 325 mg Tablet 650 mg PO Q6H PRN (Reason: Pain) 0RF hydrocodone-acetaminophen 5-325 mg Tablet 1 tab PO Q8H PRN (Reason: Pain) 0RF naloxone 0.4 mg/mL Solution 0.4 mg IM Q2M PRN (Reason: overdose) 0RF fluticasone propion-salmeterol [Advair Diskus] 500-50 mcg/dose Blister With Device 1 inh INHALATION BID 0RF docusate sodium [Colace] 100 mg Capsule 200 mg PO DAILY 0RF polyethylene glycol 3350 [Miralax] 17 gram/dose Powder 17 g PO DAILY 0RF tizanidine 4 mg Capsule 4 mg PO TID PRN (Reason: Muscle Pain) 0RF Eliquis 5 mg Tablet 5 mg PO BID 0RF oxycodone 15 mg Tablet,Oral Only,Ext.Rel.12 Hr 15 mg PO BID 0RF omeprazole 20 mg capsule,delayed release(DR/EC) 20 mg PO DAILY Qty: 30 3RF Discharge Orders: Discharge Order (Routine); Ordered 08/28/21 Ordered By: Demetri Cowan Referrals: [facility] [Outside] Melly Roblero MD [Physician] - 1 month Favian Bergeron MD [Hospitalist] - 1 week Favian Clark DO [Primary Care Provider] - Discharge Diet: Cardiac and Diabetic Discharge Activity: Resume usual activity Patient Instructions: Opioid Safety Activity Restrictions/Additional Instructions: -Slowly advance diet -Continue bowel regimen -Take antibiotics as prescribed for pneumonia, UTI -Follow-up with primary care provider in 1 week Discharge Attestations Time Spent in Discharge Care*: less than 30 min Status at Discharge: Cognitive status at discharge: cognitively intact , Behavioral status at discharge: cooperative , Quality Metrics Clinical Quality Measures [ No reported AMI, CVA or VTE this stay] Coding Level of Care Code Acute g [facility] note Diagnoses Small bowel obstruction K56.609 Sepsis A41.9 UTI (urinary tract infection) N39.0 Paroxysmal A-fib I48.0 Diabetes E11.9
--- NOTE | 2021-08-28 13:16 | CT_ITS ---
WS: [id number] CT LEFT ELBOW WITH CONTRAST. HISTORY: Antecubital mass? Painful Technique: All CT scans at [facility] use at least one of these dose optimization techniques: automated exposure control; mA and/or kV adjustment per patient size (includes targeted exams where dose is matched to clinical indication); or iterative reconstruction. DLP: 3101.85 mGy.cm Contrast: Omnipaque 300, 95 mL IV. COMPARISON: LEFT elbow radiograph 08/28/2021 and recent ultrasound 08/28/2021. There is soft tissue mass without significant enhancement along the anterior distal humerus at the le marge of the antecubital fossa. There is no enhancement. This mass is better seen by ultrasound but is distorting the soft tissues and the planes between the muscles. This is predominantly centered within the brachialis muscle. Within the central portion of the soft tissue mass is an area of increased de nsity and enhancement. There are 2 areas of active bleeding. Favor this is a soft tissue hematoma ce ntered within the brachialis muscle. There is a nondisplaced fracture involving the radial head and neck. There is a small avulsion fractu re versus osteophyte from the coronoid process. CT/CT elbow LT w con [id number] IMPRESSION: 1. Soft tissue mass seen by ultrasound of the antecubital fossa corresponds to a hematoma with active bleeding centered in the brachialis muscle. 2. Nondisplaced radial head and neck fracture. Notified Demetri Cowan MD at 08/28/2021 3:16 PM.
[2021-08-28] MEDS: HYDROcodone-acetaminophen 5-325 mg Tablet 1 TAB PO ×3 (14:00→21:48)
[2021-08-28] MEDS: iohexol 300 mg/mL 100 mL Btl IV (14:37)
--- NOTE | 2021-08-28 15:24 | P.PN_ITS ---
Subjective Subjective: Patient was seen this morning, her only complaint is significant pain at the left elbow joint, at the antecubital fossa she has a palpable density, measuring 10 cm long, significantly painful she does have the pain rating up to the left shoulder, pain with range of motion Vitals/I&O/Wt Last Vital Signs Temp 98 F 08/28/21 07:14 Pulse 65 08/28/21 14:00 Resp 14 08/28/21 11:53 BP 150/76 08/28/21 11:53 Pulse Ox 95 08/28/21 11:53 08/28/21 08/28/21 08/28/21 06:59 14:59 22:59 Intake Total 1350 / 3040 600 / 600 Output Total 600 / 1375 600 / 600 Balance 750 / 1665 0 / 0 Physical Exam Const: COMMON NORMALS: no acute distress and patient oriented x3 Resp: COMMON NORMALS: normal respiratory effort, No retractions, No use of accessory muscles and clear to auscultation bilaterally AUSCULTATION: clear to auscultation bilaterally Cardio: COMMON NORMALS: regular rate, regular rhythm, S1 normal heart sound present and S2 normal heart sound present RATE: regular rate RHYTHM: regular rhythm HEART SOUNDS: S1 normal heart sound present and S2 normal heart sound present GI: COMMON NORMALS: Normal to inspection, nondistended, normoactive bowel sounds present, Soft to palpation, non-tender and No hepatosplenomegaly present PALPATION: Yes Soft to palpation and Yes No hepatosplenomegaly present OTHER: Colostomy bag in place Good stool output Extremity: COMMON NORMALS: no pedal edema NARRATIVE EXTREMITY EXAM: Left antecubital fossa, palpable abnormality, 10 cm in diameter, tender to palpation, warm Neuro: COMMON NORMALS: patient oriented x3 Psych: COMMON NORMALS: mental status grossly normal Data : 08/28/21 01:13 08/28/21 01:13 Micro: Microbiology 08/26/21 02:55 Urine Culture - Final Urine Catheterized Escherichia coli esbl 08/26/21 12:30 Blood Culture - Preliminary Blood Staphylococcus sp coag neg 08/26/21 12:30 Blood Culture - Preliminary Blood NEGATIVE TO DATE 08/26/21 13:45 MRSA Culture - Final Nose A&P Assessment and plan (1) Small bowel obstruction: Status: Acute (2) Sepsis: Status: Acute (3) UTI (urinary tract infection): Status: Acute (4) Paroxysmal A-fib: Status: Acute (5) Diabetes: Status: Acute Plan Nausea, vomiting, abdominal pain -Secondary to closed-loop obstruction -CT scan abdomen pelvis shows 1. Multiple dilated loops of small bowel up to the 3.8 cm in diameter with 2 transition points noted in the mid abdomen consistent with closed loop obstruction. 3. Enteric tube tip is beyond the proximal portion of the stomach and is not seen because it is below the inferior margin of the film. 4. Large anterior abdominal hernia containing loops of large and small bowel. 5. Rectosigmoid colon stump with moderate diverticulosis in the proximal portion of the stump. 6. Near total colectomy except for rectosigmoid stump. -Passing gas from below, abdomen less distended, good bowel sounds, nontender during examination 7. Right colostomy. -NG tube removed -On full liquid diet, advance as tolerated -Bowel regimen -General surgery on consult -SCDs for DVT prophylaxis, therapeutic Lovenox on hold -DNR/DNI Sepsis secondary UTI and pneumonia -Over 80.8 -Elevated lactic acid -CRP, 40.2 -UA with evidence of UTI -Chest x-ray showing bibasilar pneumonia -Required 4 L, advised me that she uses only oxygen during the night Plan -Oxygen therapy -Ipratropium budesonide -Monitor respiratory status closely -Respiratory consult -Broad-spectrum antibiotic therapy Zyvox, Zosyn -Monitor lactic acids Lactic acidosis from sepsis sec to UTI, pneumonia, possible closed-loop obstruction versus ischemia -Resolved 1.4 Type 2 diabetes mellitus, low-dose sliding scale, A1c six-point Paroxysmal atrial fibrillation therapeutic Lovenox on hold, discharged on Eliquis Left elbow pain, at antecubital fossa, will do ultrasound, x-ray, pain control with [place] Attestations Medical Necessity Statement*: Patient requires hospitalization for bowel obstruction, pneumonia, UTI, with left elbow pain Coding Level of Care Code Acute Glass Installer for g Fwd Diagnoses Small bowel obstruction K56.609 Sepsis A41.9 UTI (urinary tract infection) N39.0 Paroxysmal A-fib I48.0 Diabetes E11.9
[2021-08-28 16:57] LABS: Glucose Point of Care 114 mg/dL (70-110)
--- NOTE | 2021-08-28 17:52 | PM.CONSULT ---
Providers/Reason For Consult Consulting Physician/Specialty*: Rajiv Daniel MD; orthopedic surgery Reason for Consult*: Swelling left arm Attending Physician: Demetri Cowan MD Primary Care Provider: Favian Clark DO History of Present Illness History of Present Illness Hermelinda Mckeon is a 80 year old female admitted with the small bowel obstruction sepsis. She was noted today to have swelling and pain in her distal left arm. She recalls no trauma to the area. She describes no a difficult use with the left arm. She describes pain with extremes of motion. Work-up to this point including radiographs and a CT scan which was suggestive of a possible radial head fracture. Medications/Allergies Home Medications Medication Instructions Recorded Confirmed Last Taken Type bisacodyl 5 mg tablet 5 mg PO Q24H PRN 04/24/20 08/26/21 Unknown History pregabalin 75 mg capsule (Lyrica) 75 mg PO BID 04/24/20 08/26/21 04/19/21 History sennosides 8.6 mg-docusate sodium 1 tab-cap PO DAILY 04/24/20 08/26/21 04/19/21 History 50 mg tablet (Senna Plus) albuterol sulfate 2.5 mg INHALATION Q6H PRN 05/25/20 08/26/21 04/17/21 History benzocaine 15 mg-menthol 3.6 mg See Rx Instructions .ROUTE .COMPLEX 05/25/20 08/26/21 Unknown History lozenges (Cepacol Sore Throat (benzocaine-menthol)) famotidine 20 mg tablet 20 mg PO BID 05/25/20 08/26/21 04/19/21 History ondansetron 4 mg disintegrating 4 mg PO Q6H PRN 05/25/20 08/26/21 04/11/21 History tablet umeclidinium 62.5 mcg/actuation 1 inh INHALATION DAILY 05/25/20 08/26/21 04/19/21 History blister powder for inhalation (Incruse Ellipta) aspirin 81 mg tablet,delayed 81 mg PO DAILY #30 tab 05/30/20 08/26/21 04/19/21 Rx release atorvastatin 40 mg tablet 40 mg PO BEDTIME #30 tab 05/30/20 08/26/21 04/18/21 Rx acetaminophen 325 mg tablet 650 mg PO Q6H PRN 04/19/21 08/26/21 04/02/21 History (Tylenol) apixaban 5 mg tablet (Eliquis) 5 mg PO BID 04/19/21 08/26/21 04/19/21 History docusate sodium 100 mg capsule 200 mg PO DAILY 04/19/21 08/26/21 04/19/21 History (Colace) fluticasone 500 mcg-salmeterol 50 1 inh INHALATION BID 04/19/21 08/26/21 04/19/21 History mcg/dose blistr powdr for inhalation (Advair Diskus) hydrocodone 5 mg-acetaminophen 325 1 tab PO Q8H PRN 04/19/21 08/26/21 04/19/21 History mg tablet naloxone 0.4 mg/mL injection 0.4 mg IM Q2M PRN 04/19/21 08/26/21 Unknown History solution oxycodone 15 mg tablet,crush 15 mg PO BID 04/19/21 08/26/21 04/19/21 History resistant,extended release 12 hr polyethylene glycol 3350 17 17 g PO DAILY 04/19/21 08/26/21 04/19/21 History gram/dose oral powder (Miralax) tizanidine 4 mg capsule 4 mg PO TID PRN 04/19/21 08/26/21 04/19/21 History omeprazole 20 mg capsule,delayed 20 mg PO DAILY #30 cap 04/23/21 08/26/21 Unknown Rx release methyl salicylate 15 %-menthol 10 1 applic TOPICAL BID PRN 08/26/21 08/26/21 Unknown History % topical cream (Muscle Rub) promethazine 25 mg/mL injection 25 mg IM Q6H PRN 08/26/21 08/26/21 Unknown History solution (Phenergan) sertraline 25 mg tablet (Zoloft) 25 mg PO DAILY 08/26/21 08/26/21 Unknown History trazodone 50 mg tablet 50 mg PO DAILY 08/26/21 08/26/21 Unknown History vitamin A-vitamin C-vit E-min 1 tab PO DAILY 08/26/21 08/26/21 Unknown History tablet amoxicillin 875 mg-potassium 1 tab PO BID 7 Days #14 tab 08/28/21 Unknown Rx clavulanate 125 mg tablet (Augmentin) docusate sodium 100 mg capsule 100 mg PO BID 30 Days #60 cap 08/28/21 Unknown Rx (Colace) polyethylene glycol 3350 17 gram 17 g PO DAILY 30 Days #30 ea 08/28/21 Unknown Rx oral powder packet (Miralax) Allergies Allergy/AdvReac Type Severity Reaction Status Date / Time vancomycin Allergy Intermediate ALGY-Redness Verified 08/26/21 08:15 of Skin Current Medications Generic Name Dose Route Start Last Admin Trade Name Freq PRN Reason Stop Dose Admin Acetaminophen 650 mg 08/26/21 11:08 08/28/21 10:13 Acetaminophen 325 Mg Tablet PO 650 mg Q6H PRN Administration Mild/Mod Pain Or Temp >/= 101 Hydrocodone Bitart/Acetaminophen 1 tab 08/28/21 13:55 08/28/21 14:00 Hydrocodone-Acetaminophen 5-325 Mg Tablet PO 1 tab Q4H PRN Administration MODERATE PAIN Albuterol/Ipratropium 3 ml 08/26/21 12:00 08/28/21 15:53 Ipratropium-Albuterol 3 Ml Neb INHALATION 3 ml Q4H.RESPIRATORY YAN Administration Aspirin 81 mg 08/27/21 09:00 08/28/21 08:18 Aspirin 81 Mg Ec Tablet PO 81 mg DAILY YAN Administration Atorvastatin Calcium 40 mg 08/26/21 21:00 08/27/21 20:03 Atorvastatin 40 Mg Tablet PO 40 mg BEDTIME YAN Administration Budesonide 0.5 mg 08/26/21 20:00 08/28/21 07:53 Budesonide 0.5 Mg/2 Ml Neb INHALATION 0.5 mg BID.RESPIRATORY AYN Administration Linezolid 600 mg in 300 mls @ 300 mls/hr 08/26/21 11:15 08/28/21 11:15 Zyvox Premix IV Infused Q12H YAN Infusion Protocol Sodium Chloride 1,000 mls @ 75 mls/hr 08/26/21 11:15 08/28/21 08:17 Sodium Chloride 0.9% IV 75 mls/hr .[id number] YAN Administration Piperacillin Sod/Tazobactam 50 mls @ 12.5 mls/hr 08/26/21 12:30 08/28/21 17:10 Sod 3.375 gm/ Sodium Chloride IV Infused Q8H YAN Infusion Insulin Human Lispro 0 unit 08/26/21 12:00 08/28/21 17:11 Insulin Lispro 100 Unit/1 Ml SUBCUT Not Given TIDWM [facility] Protocol Pantoprazole Sodium 40 mg 08/26/21 11:15 08/28/21 10:14 Pantoprazole 40 Mg Sdv IVP 40 mg Q12H YAN Administration Sertraline HCl 25 mg 08/27/21 09:00 08/28/21 08:18 Sertraline 50 Mg Tablet PO 25 mg DAILY YAN Administration Trazodone HCl 50 mg 08/27/21 09:00 08/28/21 08:18 Trazodone 50 Mg Tablet PO 50 mg DAILY YAN Administration PFSH Acute PFSH: Medical History Activity extremely limited Acute UTI Anxiety and depression Breast cancer Chronic hypoxemic respiratory failure D-dimer, elevated Degenerative arthritis Diabetes Fracture of left femur HLD (hyperlipidemia) HTN (hypertension) Paroxysmal A-fib Partial small bowel obstruction PUD (peptic ulcer disease) Surgical History History of colostomy History of modified radical mastectomy History of partial colectomy Family History Other No significant family history Social History Smoking and tobacco status: never smoked Alcohol intake: never Housing: [facility] Marital status: / Current occupational status: retired Vitals/I&O/Wt Last Vital Signs Temp 100.7 F H 08/28/21 16:00 Pulse 78 08/28/21 16:00 Resp 12 08/28/21 16:00 BP 133/69 08/28/21 16:00 Pulse Ox 95 08/28/21 16:00 08/28/21 08/28/21 08/28/21 06:59 14:59 22:59 Intake Total 1350 / 3040 600 / 600 50 / 650 Output Total 600 / 1375 600 / 600 Balance 750 / 1665 0 / 0 50 / 50 Physical Exam Narrative: On examination of the patient patient's left arm is examined. Over the distal medial arm there does appear to be firm indurated mass perhaps 5 or 6 cm in diameter with associated medial elbow ecchymoses. There is slight erythema over the overlying skin but no proximal or distal extension. She lacks approximately 30 degrees of short of full extension and can flex to 150 degrees. She can pronate and supinate 70 degrees in each direction without pain. She has a strong left radial pulse She can flex extend her ulnar 4 fingers as well as extend oppose and abduct her thumb. Her sensation is intact light touch. Data : 08/28/21 01:13 08/28/21 01:13 Micro: Microbiology 08/26/21 02:55 Urine Culture - Final Urine Catheterized Escherichia coli esbl 08/26/21 12:30 Blood Culture - Preliminary Blood Staphylococcus sp coag neg 08/26/21 12:30 Blood Culture - Preliminary Blood NEGATIVE TO DATE Xray Ortho: My impression: 3 views of the left elbow are personally interpreted dated today 08/28/2021. The patient has a congruent ulnohumeral and radial humeral articulation. There is some irregularity about the cortices of the radial necks and spurring likely degenerative in nature Other CT: Radiologist's impression: Radiology/Elbow. They suggest active bleeding the brachialis muscle. They suggest a nondisplaced fracture of the radial head. A&P Assessment and plan (1) Traumatic hematoma of left elbow: The patient to have a hematoma in the in the left brachialis musculature. Her previous anticoagulationis likely contributing. I would suggest warm compress and with holding anticoagulation until swelling improves. She has no pain with pronation supination arm and no trauma and I doubt this represents a fracture. 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
--- NOTE | 2021-08-28 18:43 | P.PN_ITS ---
Subjective Subjective: Patient overall feels better, denies any abdominal pain and has been tolerating p.o. and colostomy continues to function well Medications: Reviewed: Yes Vitals/I&O/Wt Last Vital Signs Temp 100.7 F H 08/28/21 16:00 Pulse 78 08/28/21 16:00 Resp 12 08/28/21 16:00 BP 133/69 08/28/21 16:00 Pulse Ox 95 08/28/21 16:00 08/28/21 08/28/21 08/28/21 06:59 14:59 22:59 Intake Total 1350 / 3040 600 / 600 50 / 650 Output Total 600 / 1375 600 / 600 Balance 750 / 1665 0 / 0 50 / 50 Physical Exam Narrative: Patient is conscious alert oriented X3 No apparent distress BMI 64 Head and neck examination PERRLA no masses no cervical lymphadenopathy no jaundice Abdomen nontender nondistended soft no organomegaly guarding or rigidity/no signs of peritonitis Ventral incisional hernia stable and functioning stoma Data : 08/28/21 01:13 08/28/21 01:13 Micro: Microbiology 08/26/21 02:55 Urine Culture - Final Urine Catheterized Escherichia coli esbl 08/26/21 12:30 Blood Culture - Preliminary Blood Staphylococcus sp coag neg 08/26/21 12:30 Blood Culture - Preliminary Blood NEGATIVE TO DATE A&P Assessment and plan (1) Small bowel obstruction: Advance diet as tolerated Patient can be discharged from surgical standpoint of view Assurance and education All questions have been answered and all concerns have been addressed to patient's satisfaction. Status: Suspected Attestations Medical Necessity Statement*: Per admitting service Coding Level of Care Code Acute Exhibit Display Representative for [facility] Fwd Diagnoses Small bowel obstruction K56.609
[2021-08-28] MEDS: morphine 4 mg/mL SDV 1 mL 1 MG IVP (20:47)
[2021-08-28] MEDS: atorvastatin 40 mg Tablet PO (21:22)
[2021-08-28 21:27] LABS: Glucose Point of Care 99 mg/dL (70-110)
--- NOTE | 2021-08-28 23:08 | PC.NURSE ---
LEFT ARM PAIN Pt has had c/o severe pain in left arm all evening and has obtained no relief with meds given. Have called Dr Delatorre with update. Arm icontinues to increase swelling and where was soft before now has some firmness around mid arm. Bruising has increased. Arm is extremely tender. Strong radial pulse present. Arm is now warmer to touch. Had requested heat to be removed at beginning of shift stating it made pain worse. Has kept arm elevated on pillow. ordered dose of IV Toradol and to replace ice to arm. She is going to review CT result
[2021-08-28] MEDS: ketorolac 30 mg/mL INJ 15 MG IVP (23:29)
[2021-08-29] VITALS (22 sets, daily range): BP systolic 135–170; BP diastolic 50–98; PULSE 71–88; RESP 15–23; TEMP 36.4–36.9; O2SAT 94–98
[2021-08-29] MEDS: pantoprazole 40 mg SDV IVP ×3 (00:19→22:47)
--- NOTE | 2021-08-29 00:20 | PC.NURSE ---
LEFT ARM PAIN Continues to cry & yell out with pain in arm. Continues to have strong radial pulse and am monitoring it often. Says she has to have something else for pain. Dr Delatorre notified and is changing pain med. pharmacist in charge nurse Vanessa is also helping monitor arm for compromise
[2021-08-29] MEDS: HYDROmorphone 1 mg/mL INJ 1 mL IVP ×9 (00:27→23:14)
[2021-08-29] MEDS: linezolid premix 600 MG/300 ML PREMIX 100 MG IV (00:30)
[2021-08-29] MEDS: sodium chloride 0.9% 1,000 ML 75 ML IV (00:31)
--- NOTE | 2021-08-29 00:44 | PC.NURSE ---
PAIN/DILAUDID Was just given IV Dilaudid by RN for severe pain in left arm. After just few minutes is finally for the first time tonight not maoning and crying out. Eyes closed
[2021-08-29] MEDS: HYDROcodone-acetaminophen 5-325 mg Tablet 1 TAB PO (01:39)
--- NOTE | 2021-08-29 01:48 | PC.NURSE ---
DR DELATORRE IN ROOM Dr Delatorre came up and evaluated arm. Arm appears to have stopped swelling and bruising at this time but remains qute tender and painful. Strong radial pulse. Can move hand & fingers but does say her fingers are having some tingling now. Received good relief with the IV Dilaudid but says pain is starting back up Dr Delatorre gave order that IV Dilaudid 1mg can be increased to q2hrs. Also says will have Dr Daniel revaluate arm in the am to see if needs clot evacuation. Order to place pt NPO as of now
--- NOTE | 2021-08-29 02:38 | PC.NURSE ---
PAIN/INCONT Has been incont large amt of urine but absolutely would not let us change her until just now when another dose of IV Dilaudid was given. CLC done and actually did pretty well with it.
[2021-08-29] MEDS: ipratropium-albuterol 3 mL Neb INHALATION ×4 (03:58→20:13)
--- NOTE | 2021-08-29 04:25 | PC.NURSE ---
PAIN/LEFT ARM Went full 2hours since last Dilaudid dose without crying & screamng out with pain. Says is really starting to hurt again. RN medicating with IV Dilaudid. Arm continues to be extremely swollen, bruised, tender and painful. Strong radial pulse continues to be presant and is able to move hand/fingers. Still some numbness/tingling in fingers.
[2021-08-29] MEDS: piperacillin-tazobactam 3.375 GM in sodium chloride 0.9% (plus) 50 ML IV ×2 (04:39→15:40)
[2021-08-29 05:34] LABS: Basophils # 0.1 10^3/uL (0.0-0.1); Basophils % 0.2 %; Eosinophils # 0.1 10^3/uL (0.0-0.8); Eosinophils % 0.3 %; Hematocrit 37.1 % (37.0-47.0); Hemoglobin 11.2 g/dL (11.5-15.3); Lymphocytes # 5.1 10^3/uL (0.8-4.8); Lymphocytes % 21.3 %; Mean Corpuscular HGB Conc 30.2 g/dL (30.0-36.0); Mean Corpuscular Hemoglobin 26.9 pg (28.0-34.0); Mean Platelet Volume 10.5 fL (7.4-10.4); Monocytes # 1.2 10^3/uL (0.2-0.9); Neutrophils # 17.47 10^3/uL (1.8-7.7); Neutrophils % 72.7 %; Nucleated Red Blood Cells % 0 %; Platelet Count 404 10^3/cmm (130-400); Red Blood Count 4.17 10^6/uL (4.1-5.3); Red Cell Distribution Width 18.8 % (12.1-15.1)
[2021-08-29 06:03] LABS: NT Pro B Type Natriuretic Pept 1112 pg/mL (0-450); Procalcitonin 0.07 ng/mL (0-0.5)
[2021-08-29 06:14] LABS: Alanine Aminotransferase 7 U/L (0-33); Albumin Level 3.1 g/dL (3.5-5.2); Alkaline Phosphatase 73 IU/L (35-105); Anion Gap 17.7 (5-19); Aspartate Amino Transferase 10 U/L (0-32); Blood Urea Nitrogen 6 mg/dL (8-23); C Reactive Protein 16.1 mg/L (0.0-4.9); Calcium 8.2 mg/dL (8.5-10.5); Carbon Dioxide 21 mmol/L (22-29); Chloride 101 mmol/L (98-107); Globulin 2.7 g/dL (1.3-4.6); Glucose 164 mg/dL (65-115); Magnesium 1.9 mg/dL (1.7-2.3); Osmolality Calculated 283 mOsm/kg (285-295); Phosphorus 2.8 mg/dL (2.5-4.5); Potassium 3.7 mmol/L (3.5-5.1); Sodium 136 mmol/L (136-145); Total Bilirubin 0.3 mg/dL (0.15-1.2); Total Protein 5.8 g/dL (6.6-8.7)
[2021-08-29 06:32] LABS: Glucose Point of Care 157 mg/dL (70-110)
--- NOTE | 2021-08-29 06:36 | PC.NURSE ---
LEFT ARM/PAIN Continues to have c/o pain in left arm. Says it does ease up with the Dilaudid but as gets close to time for it pain is rated back up to a 10. Is not crying out as earlier in shift. Has not slept. Left arm remains elevated. Is quite swollen and bruised. Still with strong radial pulse and can move fingers and hand.
[2021-08-29 08:37] LABS: INR 0.98 (0.8-1.2)
[2021-08-29] MEDS: aspirin 81 mg EC Tablet PO (08:52)
[2021-08-29] MEDS: sertraline 50 mg Tablet 25 MG PO (08:53)
[2021-08-29] MEDS: trazodone 50 mg Tablet PO (09:12)
[2021-08-29] MEDS: ondansetron 2 mg/ML SDV 2 mL 4 MG IVP (09:12)
--- NOTE | 2021-08-29 09:43 | USCV_ITS ---
Hermelinda Mckeon Age: 80 Gender: F : 1940 Exam Date: 08/29/2021 10:31 Ordering Phys: Demetri Cowan MD Technologist: YOLANDA Exam Location: [facility] [place] Indication: Concern for arterial injury Risk Factors: Previous Vascular Surgery: Right BP: / Left BP: / RIGHT LEFT PSV PSV (cm/s) (cm/s) Waveform Waveform Subclavian Proximal 50.3 Subclavian Distal 59.3 Axillary 50.2 Brachial Proximal 23.9 Brachial Mid 16.8 Brachial at AC 40.8 Radial Proximal 92.3 Triphasic Ulnar Proximal 87.2 Triphasic FINDINGS Diminished Doppler flow velocity in the proximal, mid and distal brachial artery on the left side. Normal Doppler flow velocity and waveforms in the radial and ulnar artery on the left side CONCLUSIONS This is a technically difficult study. The flow in the left brachial artery appears to be sluggish, possibly from extrinsic compression Normal flow pattern in the radial and ulnar artery on the left side Dr Bianca Mancera MD [facility] (Electronically Signed) Final Date: 30 August 2021 17:04 S
--- NOTE | 2021-08-29 10:10 | CT_ITS ---
WS: [id number] CTA LEFT UPPER EXTREMITY HISTORY: Compartment syndrome. Technique: All CT scans at [facility] use at least one of these dose optimization techniques: automated exposure control; mA and/or kV adjustment per patient size (includes targeted exams where dose is matched to clinical indication); or iterative reconstruction. Contrast: Omnipaque 300; 95 mL IV. DLP: 4044.82 mGy.cm COMPARISON: Prior CT elbow 08/28/2021. Patient has a known hematoma centered at the antecubital fossa. Active bleeding was identified on the recent CT. The hematoma has now increased in its extent and extends approximately 12 cm above the el bow joint. There is increased fluid extending approximately 8 cm below the elbow joint. There are now several low-attenuation multiloculated collection predominantly within the mid to distal humeral sof t tissues. These collections are within the biceps muscle and the brachialis muscle. These lobulated collections are probably due to liquefying hematoma. Also again noted is a small arterial bleed which continues. This is probably a muscular branch near the brachialis muscle. There is extensive soft ti ssue stranding extending into the subcutaneous fat beginning in the upper humerus and extending nearl y circumferential around the mid to distal humerus through the elbow joint to the mid forearm. Patient has a known radial head fracture. The entire arm and in particular the elbow are not included on this examination due to patient's body habitus and difficulty positioning the arm within the jail[place]. CT/[place] [id number] IMPRESSION: 1. Progression of the intramuscular hematoma which was centered at the antecub ital fossa on the study from 08/28/2021. Liquefying hematoma extends 12 cm above the elbow joint and 8 cm below the elbow joint. 2. There is continued active extravasation from a small muscular branch at the elbow joint. 3. Patient has a known radial neck fracture which is not included. This is a v yomaira limited evaluation due to patient's body habitus and difficulty positioning the elbow with in the gantry. 4. Compartment syndrome cannot be excluded by imaging. It is typically a clinic al/physical examination diagnosis and may need intracompartmental pressures per formed.
--- NOTE | 2021-08-29 10:50 | PC.SOCIAL ---
IMM Update pg 2 of IMM updated and reviewed w/ patient. Copy provided and copy placed in chart.
[2021-08-29 11:25] LABS: Creatine Phosphokinase 132 U/L (26-192); Lactate (Lactic Acid level) 1.8 mmol/L (0.5-2.2)
--- NOTE | 2021-08-29 11:53 | PM.PN ---
Subjective Subjective: Patient was seen this morning, she continues to complain of significant left forearm, elbow, shoulder pain, with significant swelling, edema, minimal pain with range of motion, tightness, no fevers overnight, treated with ice packs, elevation Vitals/I&O/Wt Last Vital Signs Temp 97.5 F L 08/29/21 08:00 Pulse 80 08/29/21 08:29 Resp 18 08/29/21 10:57 BP 170/50 08/29/21 08:00 Pulse Ox 97 08/29/21 10:57 08/28/21 08/29/21 08/29/21 22:59 06:59 14:59 Intake Total 1050 / 1650 590 / 2240 50 / 50 Output Total 700 / 1300 0 / 1300 Balance 350 / 350 590 / 940 50 / 50 Physical Exam Const: COMMON NORMALS: no acute distress and patient oriented x3 Resp: COMMON NORMALS: normal respiratory effort, No retractions, No use of accessory muscles and clear to auscultation bilaterally AUSCULTATION: clear to auscultation bilaterally Cardio: COMMON NORMALS: regular rate, regular rhythm, S1 normal heart sound present and S2 normal heart sound present RATE: regular rate RHYTHM: regular rhythm HEART SOUNDS: S1 normal heart sound present and S2 normal heart sound present GI: COMMON NORMALS: Normal to inspection, nondistended, normoactive bowel sounds present, Soft to palpation, non-tender and No hepatosplenomegaly present PALPATION: Yes Soft to palpation and Yes No hepatosplenomegaly present Extremity: COMMON NORMALS: no pedal edema Neuro: COMMON NORMALS: patient oriented x3 Psych: COMMON NORMALS: mental status grossly normal Data : 08/29/21 05:21 08/29/21 05:21 Micro: Microbiology 08/26/21 02:55 Urine Culture - Final Urine Catheterized Escherichia coli esbl 08/26/21 12:30 Blood Culture - Preliminary Blood Staphylococcus sp coag neg A&P Assessment and plan (1) Small bowel obstruction: Status: Suspected (2) Sepsis: Status: Acute (3) UTI (urinary tract infection): Status: Acute (4) Paroxysmal A-fib: Status: Acute (5) Diabetes: Status: Acute (6) Traumatic hematoma of left elbow: Status: Acute Plan Traumatic hematoma left elbow -Etiology is unclear, possible minimal trauma, BMI 64, has not gotten up out of bed -Venous ultrasound shows No evidence of deep vein thrombosis or superficial ?thrombophlebitis in the left upper extremity. ?Large complex mass seen in left antecubital fossa. No increased ?vascularity but is solid.Mass measures 6.2 x 3.6 x 2.7 cm. -CT scan of the elbow shows There is soft tissue mass without significant enhancement along the anterior distal humerus at the level of the antecubital fossa. There is no enhancement. This mass is better seen by ultrasound but is distorting the soft tissues and the planes between the muscles. This is predominantly centered within the brachialis muscle. Within the central portion of the soft tissue mass is an area of increased density and enhancement. There are 2 areas of active bleeding. Favor this is a soft tissue hematoma? centered within the brachialis muscle. There is a nondisplaced fracture involving the radial head and neck. There is a small avulsion fracture versus osteophyte from the coronoid process. -Dr. Daniel consulted -Radial pulses palpated -He has rapidly evolved from the left elbow to involve the entire left upper extremity -On physical exam, has circumferential swelling of forearm, humerus, shoulder, with tightness, complaints of paresthesias -CK 132, lactic acid 1.8 -We will do CT of extremity to evaluate for possible compartment syndrome -Ultrasound to evaluate for vascular flow -Continue to manage pain with Dilaudid, hydrocodone, keep elevated, ice packs Nausea, vomiting, abdominal pain -Secondary to closed-loop obstruction -Resolved -CT scan abdomen pelvis shows 1. Multiple dilated loops of small bowel up to the 3.8 cm in diameter with 2 transition points noted in the mid abdomen consistent with closed loop obstruction. 3. Enteric tube tip is beyond the proximal portion of the stomach and is not seen because it is below the inferior margin of the film. 4. Large anterior abdominal hernia containing loops of large and small bowel. 5. Rectosigmoid colon stump with moderate diverticulosis in the proximal portion of the stump. 6. Near total colectomy except for rectosigmoid stump. -Passing gas from below, abdomen less distended, good bowel sounds, nontender during examination 7. Right colostomy. -NG tube removed -On full liquid diet, advance as tolerated -Bowel regimen -General surgery on consult -SCDs for DVT prophylaxis, therapeutic Lovenox on hold -DNR/DNI Sepsis secondary UTI and pneumonia -Over 80.8 -Elevated lactic acid -CRP, 40.2 -UA with evidence of UTI -Chest x-ray showing bibasilar pneumonia -Required 4 L, advised me that she uses only oxygen during the night Plan -Oxygen therapy -Ipratropium budesonide -Monitor respiratory status closely -Respiratory consult -Broad-spectrum antibiotic therapy Zyvox, Zosyn -Monitor lactic acids Lactic acidosis from sepsis sec to UTI, pneumonia, possible closed-loop obstruction versus ischemia -Resolved Type 2 diabetes mellitus, low-dose sliding scale, A1c six-point Paroxysmal atrial fibrillation therapeutic Lovenox on hold, discharged on Eliquis Attestations Medical Necessity Statement*: Patient requires hospitalization for bowel obstruction, pneumonia, UTI, now with left arm hematoma Coding Level of Care Code Acute [employer] Leader [employer] Processing for Chg Fwd Diagnoses Small bowel obstruction K56.609 Sepsis A41.9 UTI (urinary tract infection) N39.0 Paroxysmal A-fib I48.0 Diabetes E11.9 Traumatic hematoma of left elbow S50.02XA
[2021-08-29] MEDS: iohexol 300 mg/mL 100 mL Btl IV (11:58)
[2021-08-29] MEDS: linezolid premix 600 MG/300 ML PREMIX 300 MG IV (12:33)
[2021-08-29 12:42] LABS: Glucose Point of Care 142 mg/dL (70-110)
[2021-08-29 15:45] LABS: Partial Thromboplastin Time 28.8 SECONDS (23.9-36.7)
--- NOTE | 2021-08-29 16:38 | P.PN_ITS ---
Subjective Subjective: Continued pain and swelling left arm. No complaints of numbness in the digits. Vitals/I&O/Wt Last Vital Signs Temp 98.3 F 08/29/21 15:53 Pulse 80 08/29/21 16:25 Resp 16 08/29/21 16:24 BP 138/94 08/29/21 15:53 Pulse Ox 94 08/29/21 16:24 08/29/21 08/29/21 08/29/21 06:59 14:59 22:59 Intake Total 590 / 2240 350 / 350 Output Total 0 / 1300 150 / 150 Balance 590 / 940 350 / 350 -150 / 200 Physical Exam Narrative: Enlargement left arm with dusky hematoma discoloration extending proximally and to elbow. Holds left elbow flexed 90 degrees. Lacks 45 degrees short of full extension but only will flex to approximately 100 degrees. Will flex and extend digits and thumb on the left although motion complete. Subjective complaints of global numbness left digits. Data : 08/29/21 05:21 08/29/21 05:21 Micro: Microbiology 08/26/21 02:55 Urine Culture - Final Urine Catheterized Escherichia coli esbl 08/26/21 12:30 Blood Culture - Preliminary Blood Staphylococcus sp coag neg Other CT: Radiologist's impression: 1. Progression of the intramuscular hematoma which was centered at the antecubital fossa on the study from 08/28/2021. Liquefying hematoma extends 12 cm above the elbow joint and 8 cm below the elbow joint. 2. There is continued active extravasation from a small muscular branch at the elbow joint. 3. Patient has a known radial neck fracture which is not included. This is a very limited evaluation due to patient's body habitus and difficulty positioning the elbow with in the gantry. 4. Compartment syndrome cannot be excluded by imaging. It is typically a clinical/physical examination diagnosis and may need intracompartmental pressures performed. A&P Assessment and plan (1) Traumatic hematoma of left elbow: Hermelinda has progressive swelling in the left arm and now with feelings of numbness in her digits. This appears to be arising from an active arterial bleed near the elbow. With the progressive enlargement of the hematoma and now neurologic complaints I think surgical drainage would be preferable. She will be n.p.o. tonight and will proceed with surgery tomorrow. Status: Acute Attestations Medical Necessity Statement*: Surgery tomorrow. Coding Level of Care Code Acute Analytical Laboratory Technician for Chg Fwd Diagnoses Traumatic hematoma of left elbow S50.02XA
[2021-08-29 17:25] LABS: Glucose Point of Care 114 mg/dL (70-110)
[2021-08-29] MEDS: budesonide 0.5 mg/2 mL Neb INHALATION (20:13)
[2021-08-29] MEDS: atorvastatin 40 mg Tablet PO (20:58)
[2021-08-29 20:59] LABS: Glucose Point of Care 133 mg/dL (70-110)
[2021-08-29] MEDS: linezolid premix 600 MG/300 ML PREMIX IV (22:46)
[2021-08-30] VITALS (27 sets, daily range): BP systolic 84–147; BP diastolic 51–91; PULSE 74–109; RESP 13–20; TEMP 36.2–37.1; O2SAT 90–98
[2021-08-30] MEDS: piperacillin-tazobactam 3.375 GM in sodium chloride 0.9% (plus) 50 ML IV ×3 (00:56→15:13)
[2021-08-30] MEDS: HYDROmorphone 1 mg/mL INJ 1 mL IVP ×4 (01:48→14:10)
[2021-08-30 06:20] LABS: Glucose Point of Care 139 mg/dL (70-110)
[2021-08-30] MEDS: ondansetron 2 mg/ML SDV 2 mL 4 MG IVP ×3 (06:32→19:44)
[2021-08-30] MEDS: ipratropium-albuterol 3 mL Neb INHALATION ×3 (07:24→15:30)
[2021-08-30] MEDS: budesonide 0.5 mg/2 mL Neb INHALATION (07:24)
[2021-08-30] MEDS: sertraline 50 mg Tablet 25 MG PO (08:07)
[2021-08-30 08:29] LABS: Basophils # 0.1 10^3/uL (0.0-0.1); Basophils % 0.3 %; Eosinophils # 0.3 10^3/uL (0.0-0.8); Eosinophils % 1.2 %; Hematocrit 30.2 % (37.0-47.0); Hemoglobin 9.9 g/dL (11.5-15.3); Lymphocytes # 4.7 10^3/uL (0.8-4.8); Lymphocytes % 17.5 %; Mean Corpuscular HGB Conc 32.8 g/dL (30.0-36.0); Mean Corpuscular Hemoglobin 27.3 pg (28.0-34.0); Mean Corpuscular Volume 83.4 fl (81-99); Mean Platelet Volume 10.4 fL (7.4-10.4); Monocytes # 1.8 10^3/uL (0.2-0.9); Monocytes % 6.7 %; Neutrophils # 19.66 10^3/uL (1.8-7.7); Neutrophils % 73.7 %; Nucleated Red Blood Cells % 0 %; Platelet Count 360 10^3/cmm (130-400); Red Blood Count 3.62 10^6/uL (4.1-5.3); Red Cell Distribution Width 17.8 % (12.1-15.1); White Blood Count 26.7 10^3/uL (4.0-10.0)
[2021-08-30 08:40] LABS: INR 1.03 (0.8-1.2)
[2021-08-30 08:48] LABS: Alanine Aminotransferase 11 U/L (0-33); Alkaline Phosphatase 73 IU/L (35-105); Anion Gap 13.8 (5-19); Aspartate Amino Transferase 23 U/L (0-32); Blood Urea Nitrogen 8 mg/dL (8-23); Calcium 8.6 mg/dL (8.5-10.5); Carbon Dioxide 25 mmol/L (22-29); Chloride 95 mmol/L (98-107); Globulin 2.9 g/dL (1.3-4.6); Glucose 136 mg/dL (65-115); Osmolality Calculated 270 mOsm/kg (285-295); Potassium 3.8 mmol/L (3.5-5.1); Sodium 130 mmol/L (136-145); Total Bilirubin 0.5 mg/dL (0.15-1.2); Total Protein 5.9 g/dL (6.6-8.7)
--- NOTE | 2021-08-30 09:02 | ANES.PREANE2 ---
Pre-Anesthetic Assessment Height/Weight: Height 1.57 m Weight 159 kg Temp Pulse Resp BP Pulse Ox 98.6 F 99 13 118/69 96 08/30/21 07:36 08/30/21 07:36 08/30/21 07:36 08/30/21 07:36 08/30/21 07:36 Preop Diagnosis: Hematoma left arm Operation Date: 08/30/21 16:10 Proposed Procedures p Incision & Drainage Upper Extremity(Left) - Rajiv Daniel MD Familial anesthetic complications: None Was Beta Odilia taken within 24 hours: N/A Was Clonidine taken within 24 hours: N/A Social No alcohol and No tobacco Exam alert, oriented x 3, clear to auscultation bilaterally and regular rate & rhythm Airway Submandibular: within normal limits Cervical ROM: within normal limits Mallampati: Class II Dentition: false Pulmonary Occasional home O2 CV/HEM Atrial Fibrillation, Anemia, Arrythmia and Hypertension GI Gastroesophageal Reflux Disease Metabolic Hyperlipidemia and Morbid Obesity Neuropsych Anxiety and Depression Anesthetic Plan ASA status: 3 Anesthesia: General Risk of > 500 ml blood loss (7ml/kg in children): No Medications/Allergies Home Medications Medication Instructions Recorded Confirmed Last Taken Type bisacodyl 5 mg tablet 5 mg PO Q24H PRN 04/24/20 08/26/21 Unknown History pregabalin 75 mg capsule (Lyrica) 75 mg PO BID 04/24/20 08/26/21 04/19/21 History sennosides 8.6 mg-docusate sodium 1 tab-cap PO DAILY 04/24/20 08/26/21 04/19/21 History 50 mg tablet (Senna Plus) albuterol sulfate 2.5 mg INHALATION Q6H PRN 05/25/20 08/26/21 04/17/21 History benzocaine 15 mg-menthol 3.6 mg See Rx Instructions .ROUTE .COMPLEX 05/25/20 08/26/21 Unknown History lozenges (Cepacol Sore Throat (benzocaine-menthol)) famotidine 20 mg tablet 20 mg PO BID 05/25/20 08/26/21 04/19/21 History ondansetron 4 mg disintegrating 4 mg PO Q6H PRN 05/25/20 08/26/21 04/11/21 History tablet umeclidinium 62.5 mcg/actuation 1 inh INHALATION DAILY 05/25/20 08/26/21 04/19/21 History blister powder for inhalation (Incruse Ellipta) aspirin 81 mg tablet,delayed 81 mg PO DAILY #30 tab 05/30/20 08/26/21 04/19/21 Rx release atorvastatin 40 mg tablet 40 mg PO BEDTIME #30 tab 05/30/20 08/26/21 04/18/21 Rx acetaminophen 325 mg tablet 650 mg PO Q6H PRN 04/19/21 08/26/21 04/02/21 History (Tylenol) apixaban 5 mg tablet (Eliquis) 5 mg PO BID 04/19/21 08/26/21 04/19/21 History docusate sodium 100 mg capsule 200 mg PO DAILY 04/19/21 08/26/21 04/19/21 History (Colace) fluticasone 500 mcg-salmeterol 50 1 inh INHALATION BID 04/19/21 08/26/21 04/19/21 History mcg/dose blistr powdr for inhalation (Advair Diskus) hydrocodone 5 mg-acetaminophen 325 1 tab PO Q8H PRN 04/19/21 08/26/21 04/19/21 History mg tablet naloxone 0.4 mg/mL injection 0.4 mg IM Q2M PRN 04/19/21 08/26/21 Unknown History solution oxycodone 15 mg tablet,crush 15 mg PO BID 04/19/21 08/26/21 04/19/21 History resistant,extended release 12 hr polyethylene glycol 3350 17 17 g PO DAILY 04/19/21 08/26/21 04/19/21 History gram/dose oral powder (Miralax) tizanidine 4 mg capsule 4 mg PO TID PRN 04/19/21 08/26/21 04/19/21 History omeprazole 20 mg capsule,delayed 20 mg PO DAILY #30 cap 04/23/21 08/26/21 Unknown Rx release methyl salicylate 15 %-menthol 10 1 applic TOPICAL BID PRN 08/26/21 08/26/21 Unknown History % topical cream (Muscle Rub) promethazine 25 mg/mL injection 25 mg IM Q6H PRN 08/26/21 08/26/21 Unknown History solution (Phenergan) sertraline 25 mg tablet (Zoloft) 25 mg PO DAILY 08/26/21 08/26/21 Unknown History trazodone 50 mg tablet 50 mg PO DAILY 08/26/21 08/26/21 Unknown History vitamin A-vitamin C-vit E-min 1 tab PO DAILY 08/26/21 08/26/21 Unknown History tablet amoxicillin 875 mg-potassium 1 tab PO BID 7 Days #14 tab 08/28/21 Unknown Rx clavulanate 125 mg tablet (Augmentin) docusate sodium 100 mg capsule 100 mg PO BID 30 Days #60 cap 08/28/21 Unknown Rx (Colace) polyethylene glycol 3350 17 gram 17 g PO DAILY 30 Days #30 ea 08/28/21 Unknown Rx oral powder packet (Miralax) Allergies Allergy/AdvReac Type Severity Reaction Status Date / Time vancomycin Allergy Intermediate ALGY-Redness Verified 08/26/21 08:15 of Skin Current Medications Generic Name Dose Route Start Last Admin Trade Name Freq PRN Reason Stop Dose Admin Acetaminophen 650 mg 08/26/21 11:08 08/28/21 10:13 Acetaminophen 325 Mg Tablet PO 650 mg Q6H PRN Administration Mild/Mod Pain Or Temp >/= 101 Hydrocodone Bitart/Acetaminophen 1 tab 08/28/21 13:55 08/29/21 01:39 Hydrocodone-Acetaminophen 5-325 Mg Tablet PO 1 tab Q4H PRN Administration MODERATE PAIN Albuterol/Ipratropium 3 ml 08/26/21 12:00 08/30/21 07:24 Ipratropium-Albuterol 3 Ml Neb INHALATION 3 ml Q4H.RESPIRATORY YAN Administration Aspirin 81 mg 08/27/21 09:00 08/29/21 08:52 Aspirin 81 Mg Ec Tablet PO 81 mg DAILY YAN Administration Atorvastatin Calcium 40 mg 08/26/21 21:00 08/29/21 20:58 Atorvastatin 40 Mg Tablet PO 40 mg BEDTIME YAN Administration Budesonide 0.5 mg 08/26/21 20:00 08/30/21 07:24 Budesonide 0.5 Mg/2 Ml Neb INHALATION 0.5 mg BID.RESPIRATORY YAN Administration Hydromorphone HCl 1 mg 08/29/21 01:55 08/30/21 07:23 Hydromorphone 1 Mg/Ml Inj 1 Ml IVP 1 mg Q2H PRN Administration pain Linezolid 600 mg in 300 mls @ 300 mls/hr 08/26/21 11:15 08/29/21 22:46 Zyvox Premix IV 1 mls/hr Q12H YAN Administration Protocol Piperacillin Sod/Tazobactam 50 mls @ 12.5 mls/hr 08/26/21 12:30 08/30/21 06:23 Sod 3.375 gm/ Sodium Chloride IV 12.5 mls/hr Q8H YAN Administration Insulin Human Lispro 0 unit 08/26/21 12:00 08/30/21 07:34 Insulin Lispro 100 Unit/1 Ml SUBCUT Not Given TIDWM YAN Protocol Ondansetron HCl 4 mg 08/29/21 08:48 08/30/21 06:32 Ondansetron 2 Mg/Ml Sdv 2 Ml IVP 4 mg Q6H PRN Administration NAUSEA AND VOMITING Pantoprazole Sodium 40 mg 08/26/21 11:15 08/29/21 22:47 Pantoprazole 40 Mg Sdv IVP 40 mg Q12H YAN Administration Sertraline HCl 25 mg 08/27/21 09:00 08/30/21 08:07 Sertraline 50 Mg Tablet PO 25 mg DAILY YAN Administration PFSH Anesthesia Medical History Activity extremely limited Acute UTI Anxiety and depression Breast cancer Chronic hypoxemic respiratory failure D-dimer, elevated Degenerative arthritis Diabetes Fracture of left femur HLD (hyperlipidemia) HTN (hypertension) Paroxysmal A-fib Partial small bowel obstruction PUD (peptic ulcer disease) Surgical History History of colostomy History of modified radical mastectomy History of partial colectomy Family History Other No significant family history Social History Smoking and tobacco status: never smoked Alcohol intake: never Housing: Retirement Marital status: / Current occupational status: retired Data Anesthesia : 08/30/21 08:19 08/30/21 08:19 Short CBC 08/29/21 08/30/21 Range/Units 05:21 08:19 WBC 24.0 H 26.7 H (4.0-10.0) 10^3/uL Hgb 11.2 L 9.9 L (11.5-15.3) g/dL Hct 37.1 30.2 L (37.0-47.0) % MCV 89.0 D 83.4 D (81-99) fl Plt Count 404 H 360 (130-400) 10^3/cmm Neut % (Auto) 72.7 73.7 % Neut # (Auto) 17.47 H 19.66 H (1.8-7.7) 10^3/uL BMP 08/29/21 08/30/21 05:21 08:19 Sodium 136 130 L Potassium 3.7 3.8 Chloride 101 95 L Carbon Dioxide 21 L 25 BUN 6 L 8 Creatinine 0.6 0.6 Glucose 164 H 136 H Calcium 8.2 L 8.6 Cardiac Enzymes 08/29/21 08/29/21 Range/Units 05:21 10:26 Creatine Kinase 132 (26-192) U/L NT-Pro-B Natriuret Pep 1112 H (0-450) pg/mL Liver Function 08/29/21 08/30/21 Range/Units 05:21 08:19 Total Bilirubin 0.3 0.5 (0.15-1.2) mg/dL AST 10 23 (0-32) U/L ALT 7 11 (0-33) U/L Alkaline Phosphatase 73 73 (35-105) IU/L Albumin 3.1 L 3.0 L (3.5-5.2) g/dL Blood Bank 08/29/21 16:53 Blood Type O Positive Rho(D) Type Positive Coags 08/29/21 08/29/21 08/29/21 05:21 08:12 15:23 PT 13.30 INR 0.98 APTT 28.8 C-Reactive Protein 16.1 H 08/30/21 08:19 PT 13.90 INR 1.03 APTT C-Reactive Protein Cardiac Studies: Echocardiogram Ultrasound 04/26/20
[2021-08-30] MEDS: sodium chloride 0.9% 100 mL Bag XX (09:49)
--- NOTE | 2021-08-30 10:01 | P.OP_ITS ---
Operative Report Date of procedure: August 30, 2021 Pre-op diagnosis: Preop Diagnosis Hematoma left arm Post-op diagnosis: same Post-op findings: The patient has a large hematoma deep to the medial brachialis musculature adjacent to the humerus of approximately 150 cc of clotted blood. No acute bleeding was identified. No necrotic muscle or evidence of infection noted. Procedure done: Irrigation debridement and evacuation (incisional) deep hematoma left arm Pathology: none sent Surgeon: Rajiv Daniel Anesthesia: General Estimated blood loss (mL): 10 Condition: stable Disposition: PACU Brief History: Hermelinda is an 80-year-old anticoagulated female who developed progressive swelling and ecchymoses with a CT scan suggesting a deep hematoma of the left arm. She developed increasing pain and numbness in her left hand. Surgical evacuation was chosen to improve pain and compression on neurological structures Procedure: The patient was taken to the operating room and given a general anesthesia. A timeout was performed. She was prepped and draped in the usual fashion. A 6 cm long incision was made over the anterior medial distal arm. Dissection was carried down through the skin. The interval between the biceps and brachialis was identified bringing us to a prominent swollen bulging brachialis muscle. The brachialis muscle was identified midline bringing us into continuity with a very large hematoma. Approximately 150 cc of clotted blood were evacuated. The wound was then irrigated with saline. 1/2 inch Sutherlin drain was placed extending from the base beneath the brachialis anteriorly and laterally exiting a small centimeter wide incision over the medial arm. Deep tissues were closed with 3-0 Vicryl and the skin was closed with skin paul. Xeroflo gauze 4 x 4's Kerlix ABD pads and compressive web roll and an Ovi wrap were applied. The patient was extubated taken recovery room in stable condition.
--- NOTE | 2021-08-30 10:51 | PM.PN ---
Subjective Subjective: Patient was seen this morning, she continues to have significant left upper extremity swelling, particular in the biceps, she tells that she can still feel her fingers, but her hand is also swollen, which was not yesterday, she tells me her pain is minimal, the pain medications helping Vitals/I&O/Wt Last Vital Signs Temp 97.2 F L 08/30/21 10:12 Pulse 86 08/30/21 10:12 Resp 18 08/30/21 10:12 BP 124/73 08/30/21 10:12 Pulse Ox 94 08/30/21 10:12 08/29/21 08/30/21 08/30/21 22:59 06:59 14:59 Intake Total 650 / 1000 347 / 1347 500 / 500 Output Total 150 / 150 225 / 375 0 / 0 Balance 500 / 850 122 / 972 500 / 500 Physical Exam Const: COMMON NORMALS: no acute distress and patient oriented x3 Resp: COMMON NORMALS: normal respiratory effort, No retractions, No use of accessory muscles and clear to auscultation bilaterally AUSCULTATION: clear to auscultation bilaterally Cardio: COMMON NORMALS: regular rate, regular rhythm, S1 normal heart sound present and S2 normal heart sound present RATE: regular rate RHYTHM: regular rhythm HEART SOUNDS: S1 normal heart sound present and S2 normal heart sound present GI: COMMON NORMALS: Normal to inspection, nondistended, normoactive bowel sounds present, Soft to palpation, non-tender and No hepatosplenomegaly present PALPATION: Yes Soft to palpation and Yes No hepatosplenomegaly present Extremity: COMMON NORMALS: no pedal edema NARRATIVE EXTREMITY EXAM: Left upper extremity swelling, at the biceps circumferential, significant, measuring roughly 12 cm, elbow swelling, forearm swelling, measuring roughly 6 to 7 cm, swelling around her peripheral digits, radial pulse palpated, Neuro: COMMON NORMALS: patient oriented x3 Psych: COMMON NORMALS: mental status grossly normal Data : 08/30/21 08:19 08/30/21 08:19 A&P Assessment and plan (1) Small bowel obstruction: Status: Suspected (2) Sepsis: Status: Acute (3) UTI (urinary tract infection): Status: Acute (4) Paroxysmal A-fib: Status: Acute (5) Diabetes: Status: Acute (6) Traumatic hematoma of left elbow: Status: Acute Plan Traumatic hematoma left elbow -Etiology is unclear, possible minimal trauma, BMI 64, has not gotten up out of bed, -Venous ultrasound shows No evidence of deep vein thrombosis or superficial ?thrombophlebitis in the left upper extremity. ?Large complex mass seen in left antecubital fossa. No increased ?vascularity but is solid.Mass measures 6.2 x 3.6 x 2.7 cm. -CT scan of the elbow shows There is soft tissue mass without significant enhancement along the anterior distal humerus at the level of the antecubital fossa. There is no enhancement. This mass is better seen by ultrasound but is distorting the soft tissues and the planes between the muscles. This is predominantly centered within the brachialis muscle. Within the central portion of the soft tissue mass is an area of increased density and enhancement. There are 2 areas of active bleeding. Favor this is a soft tissue hematoma? centered within the brachialis muscle. There is a nondisplaced fracture involving the radial head and neck. There is a small avulsion fracture versus osteophyte from the coronoid process. -Dr. Daneil consulted -Radial pulses palpated -He has rapidly evolved from the left elbow to involve the entire left upper extremity -On physical exam, has circumferential swelling of forearm, humerus, shoulder, with tightness, complaints of paresthesias -CK 132, lactic acid 1.8 -Currently n.p.o., awaiting surgical drainage by Dr. Daniel -Hold all blood thinners, including aspirin -Continue to manage pain with Dilaudid, hydrocodone, keep elevated, ice packs Nausea, vomiting, abdominal pain -Secondary to closed-loop obstruction -Resolved -CT scan abdomen pelvis shows 1. Multiple dilated loops of small bowel up to the 3.8 cm in diameter with 2 transition points noted in the mid abdomen consistent with closed loop obstruction. 3. Enteric tube tip is beyond the proximal portion of the stomach and is not seen because it is below the inferior margin of the film. 4. Large anterior abdominal hernia containing loops of large and small bowel. 5. Rectosigmoid colon stump with moderate diverticulosis in the proximal portion of the stump. 6. Near total colectomy except for rectosigmoid stump. -Passing gas from below, abdomen less distended, good bowel sounds, nontender during examination 7. Right colostomy. -NG tube removed -On full liquid diet, advance as tolerated -Bowel regimen -General surgery on consult -SCDs for DVT prophylaxis, therapeutic Lovenox on hold -DNR/DNI Sepsis secondary UTI and pneumonia -Over 80.8 -Elevated lactic acid -CRP, 40.2 -UA with evidence of UTI -Chest x-ray showing bibasilar pneumonia -Required 4 L, advised me that she uses only oxygen during the night Plan -Oxygen therapy -Ipratropium budesonide -Monitor respiratory status closely -Respiratory consult -Broad-spectrum antibiotic therapy Zyvox, Zosyn -Monitor lactic acids Lactic acidosis from sepsis sec to UTI, pneumonia, possible closed-loop obstruction versus ischemia -Resolved Type 2 diabetes mellitus, low-dose sliding scale, Paroxysmal atrial fibrillation likely hold all anticoagulation on discharge Attestations Medical Necessity Statement*: Patient requires hospitalization for left upper extremity extensive hematoma Coding Level of Care Code Acute Hydrometeorology Teacher for g Fwd Diagnoses Small bowel obstruction K56.609 Sepsis A41.9 UTI (urinary tract infection) N39.0 Paroxysmal A-fib I48.0 Diabetes E11.9 Traumatic hematoma of left elbow S50.02XA
[2021-08-30] MEDS: pantoprazole 40 mg SDV IVP ×2 (11:24→23:40)
[2021-08-30] MEDS: linezolid premix 600 MG/300 ML PREMIX 300 MG IV ×2 (11:40→23:56)
[2021-08-30 11:43] LABS: Glucose Point of Care 138 mg/dL (70-110)
--- NOTE | 2021-08-30 12:51 | ANE.PACU2 ---
Inpatient post-anesthesia follow up: Airway intact: Yes Vital signs: Temperature 97.9 F Pulse Rate 85 Respiratory Rate 16 Blood Pressure 119/78 Pulse Oximetry 90 Oxygen Delivery Me thod [ Nasal Cannula Current Rate & Del valerie] Oxygen Delivery Me thod Nasal Cannula Oxygen Flow Rate [ Current Rate 4 & Delivery] Oxygen Flow Rate 2 Fraction of Inspir ed Oxygen Hydration adequate: Yes Nausea and vomiting: No Pain level: 2 Mental status: Baseline
[2021-08-30] MEDS: HYDROcodone-acetaminophen 5-325 mg Tablet 1 TAB PO ×2 (15:24→22:54)
[2021-08-30 15:34] LABS: Leukemia Profile (BBPL) See Report; Lymphoma Profile (BBPL) See Report
[2021-08-30 16:09] LABS: Glucose Point of Care 121 mg/dL (70-110)
[2021-08-30 21:07] LABS: Glucose Point of Care 110 mg/dL (70-110)
[2021-08-30] MEDS: trazodone 50 mg Tablet PO (22:53)
[2021-08-30] MEDS: atorvastatin 40 mg Tablet PO (22:53)
[2021-08-31] VITALS (19 sets, daily range): BP systolic 92–187; BP diastolic 60–99; PULSE 64–99; RESP 16–24; TEMP 36.7–37.3; O2SAT 92–98
[2021-08-31] MEDS: piperacillin-tazobactam 3.375 GM in sodium chloride 0.9% (plus) 50 ML IV ×2 (01:30→08:41)
--- NOTE | 2021-08-31 02:09 | PC.NURSE ---
Nurse informed Dr. Delatorre pt was c/o excessive belching and nausea. Pt is uncomfortable and has been unable to rest due to belching, also excessive flatus from colostomy bag, bowel sounds hyperactive. Nausea unrelieved by zofran. Good output from colostomy bag brown/green loose stool. Dr. Delatorre ordered tums 500mg PO Q4H.
[2021-08-31] MEDS: calcium carbonate 500 mg Chew Tablet PO (02:13)
[2021-08-31] MEDS: ondansetron 2 mg/ML SDV 2 mL 4 MG IVP ×3 (03:47→19:32)
[2021-08-31 04:58] LABS: Basophils # 0.1 10^3/uL (0.0-0.1); Basophils % 0.2 %; Eosinophils # 0.1 10^3/uL (0.0-0.8); Eosinophils % 0.4 %; Hematocrit 27.2 % (37.0-47.0); Hemoglobin 8.6 g/dL (11.5-15.3); Lymphocytes # 3.6 10^3/uL (0.8-4.8); Lymphocytes % 14.4 %; Mean Corpuscular HGB Conc 31.6 g/dL (30.0-36.0); Mean Corpuscular Volume 85.5 fl (81-99); Mean Platelet Volume 10.6 fL (7.4-10.4); Monocytes # 2.1 10^3/uL (0.2-0.9); Monocytes % 8.3 %; Neutrophils # 18.95 10^3/uL (1.8-7.7); Neutrophils % 75.9 %; Nucleated Red Blood Cells % 0 %; Platelet Count 337 10^3/cmm (130-400); Red Blood Count 3.18 10^6/uL (4.1-5.3); Red Cell Distribution Width 17.7 % (12.1-15.1)
[2021-08-31 05:19] LABS: Anion Gap 15.3 (5-19); Blood Urea Nitrogen 10 mg/dL (8-23); Calcium 8.5 mg/dL (8.5-10.5); Carbon Dioxide 23 mmol/L (22-29); Chloride 96 mmol/L (98-107); Glucose 122 mg/dL (65-115); Magnesium 1.8 mg/dL (1.7-2.3); Osmolality Calculated 272 mOsm/kg (285-295); Potassium 3.3 mmol/L (3.5-5.1); Sodium 131 mmol/L (136-145)
--- NOTE | 2021-08-31 06:01 | PC.NURSE ---
This nurse called to inform Dr. Daniel pt left arm dressing has been C/D/I all night until about 0500 when dressing became rapidly saturated. Dr. Daniel gave nurse verbal order to not change the dressing but to reinforce dressing and stated he would be in to see patient later and would do the dressing change. Nurse removed emma wrap, reinforced dressing with abd pads and wrapped with kerlix.
[2021-08-31 06:42] LABS: Glucose Point of Care 131 mg/dL (70-110)
[2021-08-31] MEDS: budesonide 0.5 mg/2 mL Neb INHALATION (07:39)
[2021-08-31] MEDS: ipratropium-albuterol 3 mL Neb INHALATION ×4 (07:39→23:36)
[2021-08-31] MEDS: simethicone 40 mg/0.6 mL Bottle 30mL PO (09:09)
[2021-08-31] MEDS: metoclopramide 5 mg/mL SDV 2 mL IVP ×2 (09:38→14:12)
[2021-08-31] MEDS: pantoprazole 40 mg SDV IVP ×2 (11:19→22:23)
[2021-08-31] MEDS: linezolid premix 600 MG/300 ML PREMIX 300 MG IV (11:19)
[2021-08-31 11:20] LABS: Glucose Point of Care 139 mg/dL (70-110)
[2021-08-31] MEDS: aspirin 81 mg EC Tablet PO (11:20)
[2021-08-31] MEDS: potassium chloride ER 20 mEq Tablet 40 MEQ PO (11:20)
[2021-08-31] MEDS: sertraline 50 mg Tablet 25 MG PO (11:20)
--- NOTE | 2021-08-31 11:27 | PM.PN ---
Subjective Subjective: Pain much better. Patient vomitting. Vitals/I&O/Wt Last Vital Signs Temp 98.7 F 08/31/21 11:08 Pulse 95 08/31/21 11:21 Resp 16 08/31/21 11:10 BP 102/64 08/31/21 11:08 Pulse Ox 98 08/31/21 11:10 08/30/21 08/31/21 08/31/21 22:59 06:59 14:59 Intake Total 590 / 1607.883 590 / 2197.883 240 / 240 Output Total 200 / 200 350 / 550 Balance 390 / 1407.883 240 / 1647.883 240 / 240 Physical Exam Narrative: Left arm dressing with sanguinous staining medially. Dressing changed. No active bleeding from anurag. New dressing applied Data : 08/31/21 04:40 08/31/21 04:40 Micro: Microbiology 08/26/21 12:30 Blood Culture - Final Blood Staphylococcus sp coag neg A&P Assessment and plan (1) Traumatic hematoma of left elbow: New compressive dressing applied. Will continue to follow Status: Acute Attestations Medical Necessity Statement*: as per medicine Coding Level of Care Code Acute Digital Business Analyst for [facility] Diagnoses Traumatic hematoma of left elbow S50.02XA
--- NOTE | 2021-08-31 12:49 | PC.SOCIAL ---
IMM Updated Updated pt on IMM. No questions voiced. Provided pt a copy. Initialed, dated, & timed copy in chart.
--- NOTE | 2021-08-31 13:44 | PM.PN ---
Vitals/I&O/Wt Last Vital Signs Temp 98.7 F 08/31/21 11:08 Pulse 95 08/31/21 12:00 Resp 16 08/31/21 11:10 BP 102/64 08/31/21 11:08 Pulse Ox 98 08/31/21 11:10 08/30/21 08/31/21 08/31/21 22:59 06:59 14:59 Intake Total 590 / 1607.883 590 / 2197.883 590 / 590 Output Total 200 / 200 350 / 550 Balance 390 / 1407.883 240 / 1647.883 590 / 590 Physical Exam Const: COMMON NORMALS: no acute distress and patient oriented x3 Resp: COMMON NORMALS: normal respiratory effort, No retractions, No use of accessory muscles and clear to auscultation bilaterally AUSCULTATION: clear to auscultation bilaterally Cardio: COMMON NORMALS: regular rate, regular rhythm, S1 normal heart sound present and S2 normal heart sound present RATE: regular rate RHYTHM: regular rhythm HEART SOUNDS: S1 normal heart sound present and S2 normal heart sound present GI: COMMON NORMALS: Normal to inspection, nondistended, normoactive bowel sounds present, Soft to palpation, non-tender and No hepatosplenomegaly present PALPATION: Yes Soft to palpation and Yes No hepatosplenomegaly present Extremity: COMMON NORMALS: no pedal edema Neuro: COMMON NORMALS: patient oriented x3 Psych: COMMON NORMALS: mental status grossly normal Data : 08/31/21 04:40 08/31/21 04:40 Micro: Microbiology 08/26/21 12:30 Blood Culture - Final Blood NO GROWTH AFTER 5 DAYS 08/26/21 12:30 Blood Culture - Final Blood Staphylococcus sp coag neg A&P Assessment and plan (1) Small bowel obstruction: Status: Suspected (2) Sepsis: Status: Acute (3) UTI (urinary tract infection): Status: Acute (4) Paroxysmal A-fib: Status: Acute (5) Diabetes: Status: Acute (6) Traumatic hematoma of left elbow: Status: Acute Plan Traumatic hematoma left elbow -Etiology is unclear, possible minimal trauma, BMI 64, has not gotten up out of bed, -Venous ultrasound shows No evidence of deep vein thrombosis or superficial ?thrombophlebitis in the left upper extremity. ?Large complex mass seen in left antecubital fossa. No increased ?vascularity but is solid.Mass measures 6.2 x 3.6 x 2.7 cm. -CT scan of the elbow shows There is soft tissue mass without significant enhancement along the anterior distal humerus at the level of the antecubital fossa. There is no enhancement. This mass is better seen by ultrasound but is distorting the soft tissues and the planes between the muscles. This is predominantly centered within the brachialis muscle. Within the central portion of the soft tissue mass is an area of increased density and enhancement. There are 2 areas of active bleeding. Favor this is a soft tissue hematoma? centered within the brachialis muscle. There is a nondisplaced fracture involving the radial head and neck. There is a small avulsion fracture versus osteophyte from the coronoid process. -Dr. Daniel consulted -Radial pulses palpated -He has rapidly evolved from the left elbow to involve the entire left upper extremity -On physical exam, has circumferential swelling of forearm, humerus, shoulder, with tightness, complaints of paresthesias -CK 132, lactic acid 1.8 -Status post incision and drainage by Dr. Daniel, postop day 1, [place] drain in place -Hold all blood thinners, including aspirin -Continue to manage pain with Dilaudid, hydrocodone, keep elevated, ice packs Nausea, vomiting, abdominal pain -Secondary to closed-loop obstruction -Resolved -CT scan abdomen pelvis shows 1. Multiple dilated loops of small bowel up to the 3.8 cm in diameter with 2 transition points noted in the mid abdomen consistent with closed loop obstruction. 3. Enteric tube tip is beyond the proximal portion of the stomach and is not seen because it is below the inferior margin of the film. 4. Large anterior abdominal hernia containing loops of large and small bowel. 5. Rectosigmoid colon stump with moderate diverticulosis in the proximal portion of the stump. 6. Near total colectomy except for rectosigmoid stump. -Passing gas from below, abdomen less distended, good bowel sounds, nontender during examination 7. Right colostomy. -NG tube removed -On full liquid diet, advance as tolerated -Bowel regimen -General surgery on consult -SCDs for DVT prophylaxis, therapeutic Lovenox on hold -DNR/DNI Sepsis secondary UTI and pneumonia -Resolved -Elevated lactic acid -CRP, 40.2 -UA with evidence of UTI -Chest x-ray showing bibasilar pneumonia -Currently on 2 L, advised me that she uses only oxygen during the night Plan -Oxygen therapy -Ipratropium budesonide -Monitor respiratory status closely -Respiratory consult -De-escalate antibiotic to doxycycline Augmentin -Monitor lactic acids Lactic acidosis from sepsis sec to UTI, pneumonia, possible closed-loop obstruction versus ischemia -Resolved Type 2 diabetes mellitus, low-dose sliding scale, Paroxysmal atrial fibrillation likely hold all anticoagulation on discharge Attestations Medical Necessity Statement*: Patient requires hospitalization for traumatic hematoma left elbow Coding Level of Care Code Acute Senior Financial Consultant for g Fwd Diagnoses Small bowel obstruction K56.609 Sepsis A41.9 UTI (urinary tract infection) N39.0 Paroxysmal A-fib I48.0 Diabetes E11.9 Traumatic hematoma of left elbow S50.02XA
--- NOTE | 2021-08-31 13:47 | XR_ITS ---
WS: [id number], portable AP supine view, 08/31/2021 Clinical Data: n/v Comparison: KUB, 04/21/2021. Findings: There are dilated loops of colon on the left side of the abdomen. There is now a large loop of dilate d bowel within the left upper quadrant. This could represent the stomach or a portion of small bowel. The right-sided the abdomen is relatively gasless. There is a fecal impaction. Monitor leads are on t he normal wall. XR/XR KUB portable [id number] Impression: 1. Development of dilated bowel in left upper quadrant. New 2. Increase in dilated bowel on left side of the abdomen which is mainly the c olon.
[2021-08-31 14:32] LABS: SARS Covid-2 Antigen Negative (Negative)
[2021-08-31 16:52] LABS: Glucose Point of Care 127 mg/dL (70-110)
[2021-08-31] MEDS: HYDROmorphone 1 mg/mL INJ 1 mL IVP ×2 (16:59→20:46)
[2021-08-31] MEDS: amoxicillin-clav 875-125 mg Tablet 1 TAB PO (17:55)
[2021-08-31] MEDS: doxycycline 100 mg Tablet PO (17:56)
[2021-08-31] MEDS: atorvastatin 40 mg Tablet PO (20:43)
[2021-08-31] MEDS: trazodone 50 mg Tablet PO (20:43)
[2021-08-31 21:17] LABS: Glucose Point of Care 120 mg/dL (70-110)
[2021-09-01] VITALS (20 sets, daily range): BP systolic 88–132; BP diastolic 57–74; PULSE 70–95; RESP 16–18; TEMP 36.4–37.1; O2SAT 91–95
[2021-09-01] MEDS: ipratropium-albuterol 3 mL Neb INHALATION ×2 (03:06→07:30)
[2021-09-01] MEDS: HYDROmorphone 1 mg/mL INJ 1 mL IVP (04:34)
[2021-09-01 05:01] LABS: Basophils # 0.1 10^3/uL (0.0-0.1); Basophils % 0.3 %; Eosinophils # 0.5 10^3/uL (0.0-0.8); Eosinophils % 1.7 %; Hematocrit 23.5 % (37.0-47.0); Hemoglobin 7.5 g/dL (11.5-15.3); Lymphocytes # 6.3 10^3/uL (0.8-4.8); Lymphocytes % 23.3 %; Mean Corpuscular HGB Conc 31.9 g/dL (30.0-36.0); Mean Corpuscular Hemoglobin 27.3 pg (28.0-34.0); Mean Corpuscular Volume 85.5 fl (81-99); Mean Platelet Volume 10.2 fL (7.4-10.4); Monocytes # 1.9 10^3/uL (0.2-0.9); Neutrophils # 18.18 10^3/uL (1.8-7.7); Neutrophils % 66.9 %; Nucleated Red Blood Cells % 0 %; Platelet Count 325 10^3/cmm (130-400); Red Blood Count 2.75 10^6/uL (4.1-5.3); Red Cell Distribution Width 18.4 % (12.1-15.1); White Blood Count 27.1 10^3/uL (4.0-10.0)
[2021-09-01 05:18] LABS: Blood Urea Nitrogen 15 mg/dL (8-23); Calcium 7.7 mg/dL (8.5-10.5); Carbon Dioxide 24 mmol/L (22-29); Chloride 99 mmol/L (98-107); Glucose 91 mg/dL (65-115); Magnesium 1.9 mg/dL (1.7-2.3); Osmolality Calculated 274 mOsm/kg (285-295); Sodium 132 mmol/L (136-145)
[2021-09-01 06:36] LABS: Glucose Point of Care 109 mg/dL (70-110)
[2021-09-01] MEDS: budesonide 0.5 mg/2 mL Neb INHALATION (07:31)
[2021-09-01] MEDS: doxycycline 100 mg Tablet PO ×2 (08:51→17:21)
[2021-09-01] MEDS: amoxicillin-clav 875-125 mg Tablet 1 TAB PO (08:51)
[2021-09-01] MEDS: sertraline 50 mg Tablet 25 MG PO (08:52)
[2021-09-01] MEDS: midodrine 5 mg TABLET 10 MG PO ×3 (08:54→20:26)
[2021-09-01] MEDS: pantoprazole 40 mg SDV IVP ×2 (10:42→22:15)
[2021-09-01 11:29] LABS: Glucose Point of Care 114 mg/dL (70-110)
[2021-09-01] MEDS: HYDROcodone-acetaminophen 5-325 mg Tablet 1 TAB PO ×2 (11:44→20:26)
[2021-09-01] MEDS: ondansetron 2 mg/ML SDV 2 mL 4 MG IVP ×2 (13:15→20:47)
[2021-09-01] MEDS: sodium chloride 0.9% (100 ml) 100 ML (13:22)
[2021-09-01] MEDS: acetaminophen 325 mg Tablet 650 MG PO ×2 (14:08→22:18)
--- NOTE | 2021-09-01 14:39 | P.PN_ITS ---
Subjective Subjective: Patient was seen this morning, she is alert and oriented x3, she is off oxygen, denies any nausea, no vomiting, having good colostomy output, continues to have left upper extremity swelling, but improved, improved range of motion, she is feeling better, pain is well controlled Vitals/I&O/Wt Last Vital Signs Temp 98.8 F 09/01/21 13:51 Pulse 79 09/01/21 13:51 Resp 16 09/01/21 13:51 BP 103/63 09/01/21 13:51 Pulse Ox 93 09/01/21 13:51 08/31/21 09/01/21 09/01/21 22:59 06:59 14:59 Intake Total 360 / 950 720 / 1670 240 / 240 Output Total 50 / 50 400 / 450 250 / 250 Balance 310 / 900 320 / 1220 -10 / -10 Physical Exam Const: COMMON NORMALS: no acute distress and patient oriented x3 Resp: COMMON NORMALS: normal respiratory effort, No retractions, No use of accessory muscles and clear to auscultation bilaterally AUSCULTATION: clear to auscultation bilaterally Cardio: COMMON NORMALS: regular rate, regular rhythm, S1 normal heart sound present and S2 normal heart sound present RATE: regular rate RHYTHM: regular rhythm HEART SOUNDS: S1 normal heart sound present and S2 normal heart sound present GI: COMMON NORMALS: Normal to inspection, nondistended, normoactive bowel sounds present, Soft to palpation and non-tender PALPATION: Yes Soft to p alpation OTHER: Colostomy in place, good output Extremity: COMMON NORMALS: no pedal edema Neuro: COMMON NORMALS: patient oriented x3 Psych: COMMON NORMALS: mental status grossly normal Data : 09/01/21 04:25 09/01/21 04:25 Micro: Microbiology 08/26/21 12:30 Blood Culture - Final Blood NO GROWTH AFTER 5 DAYS 08/26/21 12:30 Blood Culture - Final Blood Staphylococcus sp coag neg A&P Assessment and plan (1) Small bowel obstruction: Status: Suspected (2) Sepsis: Status: Acute (3) UTI (urinary tract infection): Status: Acute (4) Paroxysmal A-fib: Status: Acute (5) Diabetes: Status: Acute (6) Traumatic hematoma of left elbow: Status: Acute Plan Traumatic hematoma left elbow -Etiology is unclear, possible minimal trauma, BMI 64, has not gotten up out of bed, -Venous ultrasound shows No evidence of deep vein thrombosis or superficial ?thrombophlebitis in the left upper extremity. ?Large complex mass seen in left antecubital fossa. No increased ?vascularity but is solid.Mass measures 6.2 x 3.6 x 2.7 cm. -CT scan of the elbow shows There is soft tissue mass without significant enhancement along the anterior distal humerus at the level of the antecubital fossa. There is no enhancement. This mass is better seen by ultrasound but is distorting the soft tissues and the planes between the muscles. This is predominantly centered within the brachialis muscle. Within the central portion of the soft tissue mass is an area of increased density and enhancement. There are 2 areas of active bleeding. Favor this is a soft tissue hematoma? centered within the brachialis muscle. There is a nondisplaced fracture involving the radial head and neck. There is a small avulsion fracture versus osteophyte from the coronoid process. -Dr. Daniel consulted -Radial pulses palpated -He has rapidly evolved from the left elbow to involve the entire left upper extremity -On physical exam, has circumferential swelling of forearm, humerus, shoulder, with tightness, complaints of paresthesias -CK 132, lactic acid 1.8 -Status post incision and drainage by Dr. Daniel, postop day 2, drain removed -Improving range of motion, improving swelling -Hold all blood thinners, including aspirin -Continue to manage pain with hydrocodone, keep elevated, range of motion exercises -Developing anemia, hemoglobin 7.5 we will give 1 unit PRBC Nausea, vomiting, abdominal pain -Secondary to closed-loop obstruction -Resolved -CT scan abdomen pelvis shows 1. Multiple dilated loops of small bowel up to the 3.8 cm in diameter with 2 transition points noted in the mid abdomen consistent with closed loop obstruction. 3. Enteric tube tip is beyond the proximal portion of the stomach and is not seen because it is below the inferior margin of the film. 4. Large anterior abdominal hernia containing loops of large and small bowel. 5. Rectosigmoid colon stump with moderate diverticulosis in the proximal portion of the stump. 6. Near total colectomy except for rectosigmoid stump. -Passing gas from below, abdomen less distended, good bowel sounds, nontender during examination 7. Right colostomy. -NG tube removed -On a diabetic diet -Bowel regimen -General surgery on consult -SCDs for DVT prophylaxis -DNR/DNI Sepsis secondary UTI and pneumonia -Resolved -Elevated lactic acid -CRP, 40.2 -UA with evidence of UTI, ESBL -Chest x-ray showing bibasilar pneumonia -Currently on 2 L, advised me that she uses only oxygen during the night Plan -Oxygen therapy -Ipratropium budesonide -Monitor respiratory status closely -Respiratory consult -Add Zosyn given ESBL -Monitor lactic acids Leukocytosis 27,000, likely secondary to traumatic hematoma left upper extremity, afebrile overnight, continue to monitor Lactic acidosis from sepsis sec to UTI, pneumonia, possible closed-loop obstruction versus ischemia -Resolved Type 2 diabetes mellitus, low-dose sliding scale, Paroxysmal atrial fibrillation likely hold all anticoagulation on discharge Attestations Medical Necessity Statement*: Patient requires hospitalization for left arm hematoma, requiring incision and drainage, now with anemia, leukocytosis Coding Level of Care Code Acute Business Office Technology Instructor for [facility] Fwd Diagnoses Small bowel obstruction K56.609 Sepsis A41.9 UTI (urinary tract infection) N39.0 Paroxysmal A-fib I48.0 Diabetes E11.9 Traumatic hematoma of left elbow S50.02XA
[2021-09-01] MEDS: metoclopramide 5 mg/mL SDV 2 mL IVP (14:42)
[2021-09-01] MEDS: piperacillin-tazobactam 3.375 GM in sodium chloride 0.9% (plus) 50 ML IV ×2 (16:35→22:42)
[2021-09-01] MEDS: insulin lispro 100 unit/1 mL SUBCUT (17:21)
[2021-09-01 17:22] LABS: Glucose Point of Care 165 mg/dL (70-110)
[2021-09-01 20:06] LABS: Glucose Point of Care 98 mg/dL (70-110)
[2021-09-01] MEDS: trazodone 50 mg Tablet PO (20:26)
[2021-09-01] MEDS: atorvastatin 40 mg Tablet PO (20:26)
[2021-09-02] VITALS (12 sets, daily range): BP systolic 106–134; BP diastolic 66–85; PULSE 63–81; RESP 16–18; TEMP 36.5–36.9; O2SAT 91–95
[2021-09-02 04:41] LABS: Basophils # 0.1 10^3/uL (0.0-0.1); Basophils % 0.3 %; Eosinophils # 0.8 10^3/uL (0.0-0.8); Eosinophils % 3.9 %; Hematocrit 26.3 % (37.0-47.0); Hemoglobin 8.4 g/dL (11.5-15.3); Lymphocytes # 3.4 10^3/uL (0.8-4.8); Mean Corpuscular HGB Conc 31.9 g/dL (30.0-36.0); Mean Corpuscular Hemoglobin 27.9 pg (28.0-34.0); Mean Corpuscular Volume 87.4 fl (81-99); Mean Platelet Volume 9.7 fL (7.4-10.4); Monocytes # 1.6 10^3/uL (0.2-0.9); Monocytes % 7.6 %; Neutrophils # 15.15 10^3/uL (1.8-7.7); Neutrophils % 71.5 %; Nucleated Red Blood Cells % 0.1 %; Platelet Count 338 10^3/cmm (130-400); Red Blood Count 3.01 10^6/uL (4.1-5.3); Red Cell Distribution Width 17.6 % (12.1-15.1); White Blood Count 21.2 10^3/uL (4.0-10.0)
[2021-09-02 05:01] LABS: Anion Gap 14.2 (5-19); Blood Urea Nitrogen 19 mg/dL (8-23); Calcium 7.8 mg/dL (8.5-10.5); Carbon Dioxide 23 mmol/L (22-29); Chloride 101 mmol/L (98-107); Glucose 93 mg/dL (65-115); Osmolality Calculated 280 mOsm/kg (285-295); Potassium 4.2 mmol/L (3.5-5.1); Sodium 134 mmol/L (136-145)
[2021-09-02] MEDS: HYDROcodone-acetaminophen 5-325 mg Tablet 1 TAB PO ×4 (06:30→19:42)
[2021-09-02] MEDS: piperacillin-tazobactam 3.375 GM in sodium chloride 0.9% (plus) 50 ML IV ×3 (06:31→23:10)
[2021-09-02 06:44] LABS: Glucose Point of Care 88 mg/dL (70-110)
[2021-09-02] MEDS: ipratropium-albuterol 3 mL Neb INHALATION ×2 (08:48→20:30)
[2021-09-02] MEDS: budesonide 0.5 mg/2 mL Neb INHALATION ×2 (08:48→20:30)
[2021-09-02] MEDS: midodrine 5 mg TABLET 10 MG PO ×3 (08:57→19:41)
[2021-09-02] MEDS: sertraline 50 mg Tablet 25 MG PO (08:57)
[2021-09-02] MEDS: doxycycline 100 mg Tablet PO ×2 (08:58→18:00)
--- NOTE | 2021-09-02 09:48 | PC.SOCIAL ---
IMM Update pg 2 of IMM updated and reviewed w/ patient. Copy provided and copy in chart updated.
--- NOTE | 2021-09-02 10:30 | PM.PN ---
Subjective Subjective: Patient was seen this morning, nursing staff at bedside, she tells me that she is been doing physical therapy with her left arm, has been doing elbow exercises, wrist exercises, try to lift her shoulder up, she is feels that she is doing better, but still has some pain, tells me that the swelling is going down Vitals/I&O/Wt Last Vital Signs Temp 98.1 F 09/02/21 08:00 Pulse 76 09/02/21 08:48 Resp 18 09/02/21 08:48 BP 134/85 09/02/21 08:00 Pulse Ox 92 09/02/21 08:51 09/01/21 09/02/21 09/02/21 21:59 06:59 14:59 Intake Total 360 / 360 Output Total Balance 360 / 360 Physical Exam Const: COMMON NORMALS: no acute distress and patient oriented x3 HENMT: COMMON NORMALS: normocephalic HEAD & SCALP: normocephalic Resp: COMMON NORMALS: normal respiratory effort, No retractions, No use of accessory muscles and clear to auscultation bilaterally AUSCULTATION: clear to auscultation bilaterally Cardio: COMMON NORMALS: regular rate, regular rhythm, S1 normal heart sound present and S2 normal heart sound present RATE: regular rate RHYTHM: regular rhythm HEART SOUNDS: S1 normal heart sound present and S2 normal heart sound present GI: COMMON NORMALS: Normal to inspection, nondistended, normoactive bowel sounds present, Soft to palpation, non-tender and No hepatosplenomegaly present PALPATION: Yes Soft to palpation and Yes No hepatosplenomegaly present Extremity: COMMON NORMALS: no pedal edema OTHER: Left arm swollen, currently wrapped, has range of motion in the elbow, in the wrist, continues to have shoulder pain with range of motion, radial pulses palpated Neuro: COMMON NORMALS: patient oriented x3 Psych: COMMON NORMALS: mental status grossly normal Data : 09/02/21 04:25 09/02/21 04:25 A&P Assessment and plan (1) Small bowel obstruction: Status: Suspected (2) Sepsis: Status: Acute (3) UTI (urinary tract infection): Status: Acute (4) Paroxysmal A-fib: Status: Acute (5) Diabetes: Status: Acute (6) Traumatic hematoma of left elbow: Status: Acute Plan Traumatic hematoma left elbow -Etiology is unclear, possible minimal trauma, BMI 64, has not gotten up out of bed, -Venous ultrasound shows No evidence of deep vein thrombosis or superficial ?thrombophlebitis in the left upper extremity. ?Large complex mass seen in left antecubital fossa. No increased ?vascularity but is solid.Mass measures 6.2 x 3.6 x 2.7 cm. -CT scan of the elbow shows There is soft tissue mass without significant enhancement along the anterior distal humerus at the level of the antecubital fossa. There is no enhancement. This mass is better seen by ultrasound but is distorting the soft tissues and the planes between the muscles. This is predominantly centered within the brachialis muscle. Within the central portion of the soft tissue mass is an area of increased density and enhancement. There are 2 areas of active bleeding. Favor this is a soft tissue hematoma? centered within the brachialis muscle. There is a nondisplaced fracture involving the radial head and neck. There is a small avulsion fracture versus osteophyte from the coronoid process. -Dr. Daniel consulted -Radial pulses palpated -He has rapidly evolved from the left elbow to involve the entire left upper extremity -On physical exam, has circumferential swelling of forearm, humerus, shoulder, with tightness, complaints of paresthesias -CK 132, lactic acid 1.8 -Status post incision and drainage by Dr. Daniel, postop day 2, drain removed -Improving range of motion, improving swelling -Hold all blood thinners, including aspirin -Continue to manage pain with hydrocodone, keep elevated, range of motion exercises -Developing anemia, status post 1 unit PRBC, hemoglobin 8.4 Nausea, vomiting, abdominal pain -Secondary to closed-loop obstruction -Resolved -CT scan abdomen pelvis shows 1. Multiple dilated loops of small bowel up to the 3.8 cm in diameter with 2 transition points noted in the mid abdomen consistent with closed loop obstruction. 3. Enteric tube tip is beyond the proximal portion of the stomach and is not seen because it is below the inferior margin of the film. 4. Large anterior abdominal hernia containing loops of large and small bowel. 5. Rectosigmoid colon stump with moderate diverticulosis in the proximal portion of the stump. 6. Near total colectomy except for rectosigmoid stump. -Passing gas from below, abdomen less distended, good bowel sounds, nontender during examination 7. Right colostomy. -NG tube removed -On a diabetic diet -Bowel regimen -General surgery on consult -SCDs for DVT prophylaxis -DNR/DNI Sepsis secondary UTI and pneumonia -Resolved -Elevated lactic acid -CRP, 40.2 -UA with evidence of UTI, ESBL -Chest x-ray showing bibasilar pneumonia -Currently on 2 L, advised me that she uses only oxygen during the night Plan -Oxygen therapy -Ipratropium budesonide -Monitor respiratory status closely -Respiratory consult -On Zosyn for ESBL -Monitor lactic acids Leukocytosis 21.2 likely secondary to traumatic hematoma left upper extremity, afebrile overnight, continue to monitor Lactic acidosis from sepsis sec to UTI, pneumonia, possible closed-loop obstruction versus ischemia -Resolved Type 2 diabetes mellitus, low-dose sliding scale, Paroxysmal atrial fibrillation likely hold all anticoagulation on discharge Attestations Medical Necessity Statement*: Patient requires hospitalization for atraumatic swelling of left upper extremity, hematoma Coding Level of Care Code Acute [employer] Programs Director for [facility] Fwd Diagnoses Small bowel obstruction K56.609 Sepsis A41.9 UTI (urinary tract infection) N39.0 Paroxysmal A-fib I48.0 Diabetes E11.9 Traumatic hematoma of left elbow S50.02XA
[2021-09-02 11:01] LABS: Glucose Point of Care 177 mg/dL (70-110)
[2021-09-02] MEDS: pantoprazole 40 mg SDV IVP ×2 (12:18→23:08)
[2021-09-02] MEDS: insulin lispro 100 unit/1 mL SUBCUT (12:51)
[2021-09-02] MEDS: acetaminophen 325 mg Tablet 650 MG PO (14:24)
[2021-09-02] MEDS: ondansetron 2 mg/ML SDV 2 mL 4 MG IVP (14:30)
[2021-09-02 16:37] LABS: Glucose Point of Care 109 mg/dL (70-110)
[2021-09-02] MEDS: trazodone 50 mg Tablet PO (19:41)
[2021-09-02] MEDS: atorvastatin 40 mg Tablet PO (19:42)
[2021-09-02 20:48] LABS: Glucose Point of Care 110 mg/dL (70-110)
--- NOTE | 2021-09-02 21:27 | P.PN_ITS ---
Subjective Subjective: Less left arm pain Vitals/I&O/Wt Last Vital Signs Temp 97.9 F 09/02/21 20:00 Pulse 71 09/02/21 20:00 Resp 17 09/02/21 20:00 BP 117/67 09/02/21 20:00 Pulse Ox 94 09/02/21 20:00 09/02/21 09/02/21 09/02/21 06:59 14:59 22:59 Intake Total 770 / 770 410 / 1180 Balance 770 / 770 410 / 1180 Physical Exam Narrative: Much less swelling left arm Fully extends elbow Fully moves digits left hand without motor deficits Data : 09/02/21 04:25 09/02/21 04:25 A&P Assessment and plan (1) Traumatic hematoma of left elbow: Clinically doing much better. If drainage decreases overnight we will remove Sharee in a.m. Status: Acute Attestations Medical Necessity Statement*: As per medicine Coding Level of Care Code Acute Career And Technology Education Teacher for [facility] Diagnoses Traumatic hematoma of left elbow S50.02XA
[2021-09-03] VITALS (7 sets, daily range): BP systolic 122–145; BP diastolic 71–77; PULSE 68–72; RESP 16–18; TEMP 36.6–36.8; O2SAT 92–95
[2021-09-03] MEDS: HYDROcodone-acetaminophen 5-325 mg Tablet 1 TAB PO ×5 (00:21→16:37)
[2021-09-03 03:05] LABS: Basophils # 0.1 10^3/uL (0.0-0.1); Basophils % 0.5 %; Eosinophils % 5.2 %; Hematocrit 24.8 % (37.0-47.0); Lymphocytes # 5.1 10^3/uL (0.8-4.8); Lymphocytes % 25.8 %; Mean Corpuscular HGB Conc 32.3 g/dL (30.0-36.0); Mean Corpuscular Hemoglobin 27.9 pg (28.0-34.0); Mean Corpuscular Volume 86.4 fl (81-99); Mean Platelet Volume 9.9 fL (7.4-10.4); Monocytes # 1.8 10^3/uL (0.2-0.9); Monocytes % 8.9 %; Neutrophils # 11.48 10^3/uL (1.8-7.7); Neutrophils % 58.4 %; Nucleated Red Blood Cells # 0.2 /100WBC; Platelet Count 408 10^3/cmm (130-400); Red Blood Count 2.87 10^6/uL (4.1-5.3); Red Cell Distribution Width 17.8 % (12.1-15.1); White Blood Count 19.6 10^3/uL (4.0-10.0)
[2021-09-03 03:34] LABS: Alanine Aminotransferase 7 U/L (0-33); Albumin Level 2.5 g/dL (3.5-5.2); Alkaline Phosphatase 64 IU/L (35-105); Anion Gap 16.2 (5-19); Aspartate Amino Transferase 12 U/L (0-32); Blood Urea Nitrogen 19 mg/dL (8-23); Calcium 8.8 mg/dL (8.5-10.5); Carbon Dioxide 22 mmol/L (22-29); Chloride 101 mmol/L (98-107); Globulin 3.3 g/dL (1.3-4.6); Glucose 96 mg/dL (65-115); Magnesium 1.8 mg/dL (1.7-2.3); Osmolality Calculated 282 mOsm/kg (285-295); Potassium 4.2 mmol/L (3.5-5.1); Sodium 135 mmol/L (136-145); Total Bilirubin 0.7 mg/dL (0.15-1.2); Total Protein 5.8 g/dL (6.6-8.7)
[2021-09-03] MEDS: metoclopramide 5 mg/mL SDV 2 mL IVP (04:58)
[2021-09-03 06:37] LABS: Glucose Point of Care 113 mg/dL (70-110)
[2021-09-03] MEDS: piperacillin-tazobactam 3.375 GM in sodium chloride 0.9% (plus) 50 ML IV (06:42)
[2021-09-03] MEDS: doxycycline 100 mg Tablet PO (08:44)
[2021-09-03] MEDS: sertraline 50 mg Tablet 25 MG PO (08:44)
[2021-09-03] MEDS: midodrine 5 mg TABLET 10 MG PO ×2 (08:44→16:37)
[2021-09-03] MEDS: pantoprazole 40 mg SDV IVP (08:46)
--- NOTE | 2021-09-03 09:19 | PM.DCS ---
Discharge Providers Date of Admission: 08/26/21 06:44 Date of Discharge: September 03, 2021 Attending Provider at Admission: Demetri Cowan MD Attending Provider at Discharge: Demetri Cowan MD Primary Care Provider: Favian Clark DO Diagnoses at Discharge Discharge Diagnosis (1) Traumatic hematoma of left elbow: Status: Acute Reason for Visit Reason for Visit: ABD PAIN Hospital Course Hospital Course Hermelinda Mckeon is a 80 year old female with a past medical history of morbid obesity, history of chronic small bowel obstructions, history of breast cancer, anxiety, depression, degenerative arthritis, hypertension, hyperlipidemia, peptic ulcer disease, 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 Patient was admitted to the hospital service for nausea, vomiting secondary to small bowel obstruction. General surgery was consulted. CT scan of the pelvis showed concerns for obstruction, after discussion with radiology general surgery it was felt that likely patient did not have closed-loop obstruction. Patient was medically managed, bowel rest, IV fluids, she continues to have good stool output from her colostomy bag, abdominal pain distention significantly improved. She was transitioned to liquid diet, tolerated advance to full diet. She will be discharged on instructions to slowly advance diet, bowel regimen, follow-up with primary care provider as outpatient Patient also had sepsis secondary to UTI and pneumonia during hospitalization, with elevated lactic acid, and leukocytosis. No hemodynamic compromise, requiring 3 to 4 L, treated with broad-spectrum IV therapy, clinically improved. So far her blood cultures have been unremarkable, urine cultures are pending but show gram-negative rods. Patient's cultures, urine culture, positive for ESBL, completed 7 days of IV antibiotics as inpatient Patient does have persistent leukocytosis, etiology unclear, peripheral smear obtained, leukemia lymphoma panel ordered, follow with Dr. Bergeron as outpatient Patient's hospital course was complicated by Traumatic hematoma left elbow -Etiology is unclear, possible minimal trauma, BMI 64, has not gotten up out of bed, -Venous ultrasound shows No evidence of deep vein thrombosis or superficial ?thrombophlebitis in the left upper extremity. ?Large complex mass seen in left antecubital fossa. No increased ?vascularity but is solid.Mass measures 6.2 x 3.6 x 2.7 cm. -CT scan of the elbow shows There is soft tissue mass without significant enhancement along the anterior distal humerus at the level of the antecubital fossa. There is no enhancement. This mass is better seen by ultrasound but is distorting the soft tissues and the planes between the muscles. This is predominantly centered within the brachialis muscle. Within the central portion of the soft tissue mass is an area of increased density and enhancement. There are 2 areas of active bleeding. Favor this is a soft tissue hematoma? centered within the brachialis muscle. -There is a nondisplaced fracture involving the radial head and neck. There is a small avulsion fracture versus osteophyte from the coronoid process. -Dr. Daniel consulted -Radial pulses palpated -He has rapidly evolved from the left elbow to involve the entire left upper extremity -On physical exam, has circumferential swelling of forearm, humerus, shoulder, with tightness, complaints of paresthesias -CK 132, lactic acid 1.8 -Status post incision and drainage by Dr. Daniel, -Improving range of motion, improving swelling -Hold all blood thinners, including aspirin on discharge -Continue to manage pain with hydrocodone, keep elevated, range of motion exercises -Developing anemia, status post 1 unit PRBC, hemoglobin 8 on discharge -Discontinue Eliquis, aspirin on discharge, prior follow-up with primary care provider in a month for decision to resume -Continue range of motion exercises -Follow-up with Dr. Daniel as outpatient -Hydrocodone increased to 5-325 every 4 hours as needed for pain, to be used regularly, and for physical therapy Discharge Data Studies Completed and Pending Completed Studies During Hospitalization Category Date Time Status CT abdomen pelvis w con* [id number] Urgent Cat Scan 08/26/21 02:[address] abdomen pelvis w con* [id number] Urgent Cat Scan 08/26/21 08:[address] [place] [address] Routine Cat Scan 08/29/21 10:[address] elbow LT w con [id number] Stat Cat Scan 08/28/21 13:16 Completed XR KUB portable [id number] Routine Exams 08/31/21 13:47 Completed XR chest 1V portable [id number] Routine Exams 08/27/21 07:00 Completed XR chest 1V portable [id number] Stat Exams 08/26/21 04:22 Completed XR elbow LT 2V 69113 Routine Exams 08/28/21 09:42 Completed US arterial duplex upper extremity LT [CV arterial Ultrasound 08/29/21 09:43 [place] [id number]] Stat US venous duplex upper extremity LT [CV venous duplex Ultrasound 08/28/21 09:[place] [address]] Routine Pending at discharge Category Date Time Status ABO/Rh Type Routine Lab 08/29/21 16:53 Results Complete Blood Count w/Auto AM LABS Lab 09/04/21 04:00 Ordered Complete Blood Count w/Auto AM LABS Lab 09/05/21 04:00 Ordered Complete Crossmatch Routine Lab 08/29/21 16:53 Results Comprehensive Metabolic Panel AM LABS Lab 09/04/21 04:00 Ordered Comprehensive Metabolic Panel AM LABS Lab 09/05/21 04:00 Ordered FFP [Frozen Plasma FZ <24 1st Cont] Routine Lab 08/29/21 16:53 Results Magnesium AM LABS Lab 09/04/21 04:00 Ordered Magnesium AM LABS Lab 09/05/21 04:00 Ordered Sputum Culture and Gram Stain Stat Lab 08/26/21 11:08 Uncollected Radiology Impressions Abdomen/Pelvis CT 08/26/21 08:08 IMPRESSION: 1. Abdominal diastasis recti. 2. Findings again suggestive of possible closed loop small bowel obstruction. No specific evidence of bowel wall ischemia. 3. Lower abdominal sigmoidostomy. 4. Mid sigmoid colonic Celeste pouch. 5. Diverticulosis. 6. Hepatic benign cyst. No follow-up imaging is recommended. 7. Right renal benign cysts. No follow-up imaging is recommended. 8. Moderate left renal atrophy, stable. 9. Mild left renal cortical scarring, stable. 10. Prior cholecystectomy. 11. Prior hysterectomy. 12. Coronary atherosclerosis. COMMENTS: Consistent with the [employer]'s Incidental Findings Committee white paper (J Am Cherise Radiol 2018): Any incidental renal lesion less than 1 cm or classified as too small to characterize, or any incidental cystic renal lesion characterized as simple-appearing, is likely benign. No follow-up imaging is recommended for these lesions per consensus recommendations based on imaging criteria. ADDENDUM: 08/26/21 1144 THIS REPORT CONTAINS FINDINGS THAT MAY BE CRITICAL TO PATIENT CARE. The findings were verbally communicated by me to DR. MELLY ROBLERO via telephone conference at 11:42 AM DIRECTOR INFORMATION SECURITY on 08/26/2021. The findings were acknowledged and understood. Chest X-Ray 08/27/21 07:00 IMPRESSION: Enteric tube tip is beyond the proximal portion of the stomach and is not seen because it is below the inferior margin of the film. The tube position is also partially obscured by multiple coiled EKG wires. Elbow X-Ray 08/28/21 09:42 IMPRESSION: No acute fracture or malalignment. Elbow CT 08/28/21 13:16 IMPRESSION: 1. Soft tissue mass seen by ultrasound of the antecubital fossa corresponds to a hematoma with active bleeding centered in the brachialis muscle. 2. Nondisplaced radial head and neck fracture. Notified Demetri Cowan MD at 08/28/2021 3:16 PM. Upper Extremity CTA 08/29/21 10:10 IMPRESSION: 1. Progression of the intramuscular hematoma which was centered at the antecubital fossa on the study from 08/28/2021. Liquefying hematoma extends 12 cm above the elbow joint and 8 cm below the elbow joint. 2. There is continued active extravasation from a small muscular branch at the elbow joint. 3. Patient has a known radial neck fracture which is not included. This is a very limited evaluation due to patient's body habitus and difficulty positioning the elbow with in the gantry. 4. Compartment syndrome cannot be excluded by imaging. It is typically a clinical/physical examination diagnosis and may need intracompartmental pressures performed. KUB X-Ray 08/31/21 13:47 Impression: 1. Development of dilated bowel in left upper quadrant. New 2. Increase in dilated bowel on left side of the abdomen which is mainly the colon. Laboratory Results WBC 19.6 10^3/uL (4.0-10.0) H 09/03/21 02:47 RBC 2.87 10^6/uL (4.1-5.3) L 09/03/21 02:47 Hgb 8.0 g/dL (11.5-15.3) L 09/03/21 02:47 Hct 24.8 % (37.0-47.0) L 09/03/21 02:47 MCV 86.4 fl (81-99) 09/03/21 02:47 MCH 27.9 pg (28.0-34.0) L 09/03/21 02:47 MCHC 32.3 g/dL (30.0-36.0) 09/03/21 02:47 RDW 17.8 % (12.1-15.1) H 09/03/21 02:47 Plt Count 408 10^3/cmm (130-400) H 09/03/21 02:47 MPV 9.9 fL (7.4-10.4) 09/03/21 02:47 Neut % (Auto) 58.4 % 09/03/21 02:47 Lymph % (Auto) 25.8 % 09/03/21 02:47 [place] % (Auto) 8.9 % 09/03/21 02:47 Eos % (Auto) 5.2 % 09/03/21 02:47 Baso % (Auto) 0.5 % 09/03/21 02:47 Neut # (Auto) 11.48 10^3/uL (1.8-7.7) H 09/03/21 02:47 Lymph # (Auto) 5.1 10^3/uL (0.8-4.8) H 09/03/21 02:47 [place] # (Auto) 1.8 10^3/uL (0.2-0.9) H 09/03/21 02:47 Eos # (Auto) 1.0 10^3/uL (0.0-0.8) H 09/03/21 02:47 Baso # (Auto) 0.1 10^3/uL (0.0-0.1) 09/03/21 02:47 Nucleated RBC % (auto) 1.0 % 09/03/21 02:47 Nucleated RBCs # 0.2 /100WBC 09/03/21 02:47 PT 13.90 SECONDS (12.1-14.9) 08/30/21 08:19 INR 1.03 (0.8-1.2) 08/30/21 08:19 APTT 28.8 SECONDS (23.9-36.7) 08/29/21 15:23 Sodium 135 mmol/L (136-145) L 09/03/21 02:47 Potassium 4.2 mmol/L (3.5-5.1) 09/03/21 02:47 Chloride 101 mmol/L (98-107) 09/03/21 02:47 Carbon Dioxide 22 mmol/L (22-29) 09/03/21 02:47 Anion Gap 16.2 (5-19) 09/03/21 02:47 BUN 19 mg/dL (8-23) 09/03/21 02:47 Creatinine 0.9 mg/dL (0.5-0.9) 09/03/21 02:47 GFR Calculation Not Reportable 09/03/21 02:47 Glucose 96 mg/dL (65-115) 09/03/21 02:47 POC Glucose 113 mg/dL (70-110) H 09/03/21 06:28 Estimat Average Glucose 134 08/26/21 03:40 Hemoglobin A1c 6.3 % (4.0-6.0) H 08/26/21 03:40 Calculated Osmolality 282 mOsm/kg (285-295) L 09/03/21 02:47 Lactic Acid 1.4 mmol/L (0.5-2.2) 08/27/21 05:03 Lactate 1.8 mmol/L (0.5-2.2) 08/29/21 10:26 Calcium 8.8 mg/dL (8.5-10.5) 09/03/21 02:47 Phosphorus 2.8 mg/dL (2.5-4.5) 08/29/21 05:21 Magnesium 1.8 mg/dL (1.7-2.3) 09/03/21 02:47 Total Bilirubin 0.7 mg/dL (0.15-1.2) 09/03/21 02:47 AST 12 U/L (0-32) 09/03/21 02:47 ALT 7 U/L (0-33) 09/03/21 02:47 Alkaline Phosphatase 64 IU/L (35-105) 09/03/21 02:47 Lactate Dehydrogenase 136 U/L (135-214) 08/28/21 01:13 Creatine Kinase 132 U/L (26-192) 08/29/21 10:26 Troponin T Baseline 12 ng/L (0-10) H 08/26/21 03:40 Troponin T 120 Minute 12.59 ng/L (0-10) H 08/26/21 06:00 Delta Troponin T 0.59 ABS# (0-10) 08/26/21 06:00 Troponin T Hi Sens 6Hr 14.16 ng/L (0-10) H 08/26/21 10:54 Troponin T Hi Sens 6Hr Delta 2.16 ng/L (0-12) 08/26/21 10:54 C-Reactive Protein 16.1 mg/L (0.0-4.9) H 08/29/21 05:21 NT-Pro-B Natriuret Pep 1112 pg/mL (0-450) H 08/29/21 05:21 Total Protein 5.8 g/dL (6.6-8.7) L 09/03/21 02:47 Albumin 2.5 g/dL (3.5-5.2) L 09/03/21 02:47 Globulin 3.3 g/dL (1.3-4.6) 09/03/21 02:47 Lipase 22 U/L (13-60) 08/26/21 03:40 Procalcitonin 0.07 ng/mL (0-0.5) 08/29/21 05:21 TSH 0.53 uIU/mL (0.27-4.20) 08/27/21 05:03 Urine Color Yellow (Yellow) 08/26/21 02:55 Urine Appearance Sl cloudy (CLEAR) A 08/26/21 02:55 Urine pH 5 (5-7) 08/26/21 02:55 Ur Specific [place] 1.025 (1.005-1.030) 08/26/21 02:55 Urine Protein 2+ (Negative) H 08/26/21 02:55 Urine Glucose (UA) Norm (Normal) 08/26/21 02:55 Urine Ketones 1+ (Negative) H 08/26/21 02:55 Urine Blood 2+ (Negative) H 08/26/21 02:55 Urine Nitrate Positive (Negative) H 08/26/21 02:55 Urine Bilirubin 1+ (Negative) H 08/26/21 02:55 Urine Urobilinogen Norm mg/dL (Negative) 08/26/21 02:55 Ur Leukocyte Esterase 2+ (Negative) H 08/26/21 02:55 Urine RBC 5-10 /hpf (0-2) H 08/26/21 02:55 Urine WBC 25-40 /hpf (0-5) H 08/26/21 02:55 Ur Squamous Epith Cells 5-10 /hpf (0-5) H 08/26/21 02:55 Amorphous Sediment Not Reportable 08/26/21 02:55 Urine Bacteria 3+ /hpf (NONE) H 08/26/21 02:55 Lymphoma Panel See report 08/28/21 01:13 Leuk/Lym Spec Type Cancelled 08/28/21 01:13 Leuk/Lym Clinical Info Cancelled 08/28/21 01:13 Leuk/Lymph Viability Cancelled 08/28/21 01:13 Leuk/Lym Sample Descrip Cancelled 08/28/21 01:13 Leuk/Lym # of Markers Cancelled 08/28/21 01:13 Leuk/Lym Markers Cancelled 08/28/21 01:13 Leuk/Lym Gating Strategy Cancelled 08/28/21 01:13 Leuk/Lym Interpretation Cancelled 08/28/21 01:13 Immunophenotype Interp See report 08/28/21 01:13 SARS-CoV-2 Ag (Rapid) Negative (Negative) 08/31/21 13:30 Blood Type O Positive 09/01/21 08:47 Rho(D) Type Positive 09/01/21 08:47 Antibody Screen Negative 09/01/21 08:47 Crossmatch See Detail 09/01/21 08:47 Vitals Last Vital Signs Temp 98.2 F 09/03/21 07:27 Pulse 69 09/03/21 07:32 Resp 17 09/03/21 07:32 BP 145/77 09/03/21 07:27 Pulse Ox 93 09/03/21 07:32 Discharge Plan Discharge Patient Disposition: Home Condition: Stable Prescriptions: New Colace 100 mg capsule 100 mg PO BID 30 Days Qty: 60 0RF Miralax 17 gram powder in packet 17 g PO DAILY 30 Days Qty: 30 0RF Continued famotidine 20 mg Tablet 20 mg PO BID 0RF ondansetron 4 mg Tablet,Disintegrating 4 mg PO Q6H PRN (Reason: Nausea And Vomiting) 0RF Cepacol Sore Throat (wiliam-men) 15-3.6 mg Lozenge See Rx Instructions .ROUTE .COMPLEX 0RF Rx Instructions: DISSOLVE 1 LOZENGE BEFORE MEALS AND AT BEDTIME PRN Incruse Ellipta 62.5 mcg/actuation Blister With Device 1 inh INHALATION DAILY 0RF albuterol sulfate 2.5 mg /3 mL (0.083 %) Solution For Nebulization 2.5 mg INHALATION Q6H PRN (Reason: Shortness Of Breath Or Wheezing) 0RF atorvastatin 40 mg Tablet 40 mg PO BEDTIME Qty: 30 0RF aspirin 81 mg Tablet,Delayed Release (Dr/Ec) 81 mg PO DAILY Qty: 30 0RF trazodone 50 mg Tablet 50 mg PO DAILY 0RF Phenergan 25 mg/mL Solution 25 mg IM Q6H PRN (Reason: Nausea) 0RF Zoloft 25 mg Tablet 25 mg PO DAILY 0RF vitamin A-vitamin C-vit E-min Tablet 1 tab PO DAILY 0RF Muscle Rub 15-10 % Cream 1 applic TOPICAL BID PRN (Reason: Pain) 0RF bisacodyl 5 mg Tablet 5 mg PO Q24H PRN (Reason: Constipation) 0RF pregabalin [Lyrica] 75 mg Capsule 75 mg PO BID 0RF sennosides-docusate sodium [Senna Plus] 8.6-50 mg Tablet 1 tab-cap PO DAILY 0RF acetaminophen [Tylenol] 325 mg Tablet 650 mg PO Q6H PRN (Reason: Pain) 0RF naloxone 0.4 mg/mL Solution 0.4 mg IM Q2M PRN (Reason: overdose) 0RF fluticasone propion-salmeterol [Advair Diskus] 500-50 mcg/dose Blister With Device 1 inh INHALATION BID 0RF docusate sodium [Colace] 100 mg Capsule 200 mg PO DAILY 0RF polyethylene glycol 3350 [Miralax] 17 gram/dose Powder 17 g PO DAILY 0RF tizanidine 4 mg Capsule 4 mg PO TID PRN (Reason: Muscle Pain) 0RF omeprazole 20 mg capsule,delayed release(DR/EC) 20 mg PO DAILY Qty: 30 3RF Changed hydrocodone-acetaminophen 5-325 mg Tablet 1 tab PO Q4H PRN (Reason: Pain) 7 Days Qty: 42 0RF Discontinued Eliquis 5 mg Tablet 5 mg PO BID 0RF oxycodone 15 mg Tablet,Oral Only,Ext.Rel.12 Hr 15 mg PO BID 0RF Discharge Orders: Discharge Order (Routine); Ordered 09/03/21 Ordered By: Demetri Cowan Referrals: [facility] [Outside] Melly Roblero MD [Physician] - 1 month Favian Bergeron MD [Hospitalist] - 1 week Rajiv Daniel MD [Physician] - 2 Favian Sharpe DO [Primary Care Provider] - Discharge Diet: Cardiac and Diabetic Discharge Activity: Resume usual activity Patient Instructions: Laxative, Stool Softeners (By mouth), Opioid Safety Activity Restrictions/Additional Instructions: -Slowly advance diet -Continue bowel regimen -Follow-up with primary care provider in 1 week -Follow-up with orthopedic service Discharge Attestations Time Spent in Discharge Care*: less than 30 min Status at Discharge: Cognitive status at discharge: cognitively intact, Behavioral status at discharge: cooperative, Quality Metrics Clinical Quality Measures [ No reported AMI, CVA or VTE this stay] Coding Level of Care Code Acute Chg FW DC note Diagnoses Traumatic hematoma of left elbow S50.02XA
[2021-09-03] MEDS: ipratropium-albuterol 3 mL Neb INHALATION (11:20)
[2021-09-03 11:43] LABS: Glucose Point of Care 146 mg/dL (70-110)
[2021-09-03 14:38] LABS: SARS Covid-2 Antigen Negative (Negative)
[2021-09-03 16:34] LABS: Glucose Point of Care 106 mg/dL (70-110)
== END 2021-09-03 18:36 | disposition skilled nursing facility (03) | DRG 853 ==
LOC: ER 07:44 → MEDSURG 08:27
PROVIDERS: Emergency Medicine; Nurse Practitioner Family; Orthopaedic Surgery; Surgery; Admitting Provider Family Medicine; Emergency Provider Emergency Medicine; PCP Internal Medicine; Visit Provider Family Medicine
PROC: 0KCB0ZZ Extirpation of Matter from Left Lower Arm and Wrist Muscle, Open Approach (ICD-10-PCS; principal; 2021-08-30 16:00)
DX: A41.9 Sepsis, unspecified organism (principal); J18.9 Pneumonia, unspecified organism; K56.609 Unspecified intestinal obstruction, unspecified as to partial versus complete obstruction; N39.0 Urinary tract infection, site not specified; Z68.44 Body mass index [BMI] 60.0-69.9, adult; J96.11 Chronic respiratory failure with hypoxia; Z93.3 Colostomy status; Z90.49 Acquired absence of other specified parts of digestive tract; F41.8 Other specified anxiety disorders; Z85.3 Personal history of malignant neoplasm of breast; E78.5 Hyperlipidemia, unspecified; I10 Essential (primary) hypertension; Z87.11 Personal history of peptic ulcer disease; Z90.10 Acquired absence of unspecified breast and nipple; M19.90 Unspecified osteoarthritis, unspecified site; K43.9 Ventral hernia without obstruction or gangrene; E66.01 Morbid (severe) obesity due to excess calories; B96.20 Unspecified Escherichia coli [E. coli] as the cause of diseases classified elsewhere; Z79.01 Long term (current) use of anticoagulants; Z79.891 Long term (current) use of opiate analgesic; Z79.82 Long term (current) use of aspirin; Z79.51 Long term (current) use of inhaled steroids; E11.9 Type 2 diabetes mellitus without complications; I48.0 Paroxysmal atrial fibrillation; Z87.01 Personal history of pneumonia (recurrent); Z87.440 Personal history of urinary (tract) infections; Z86.16 Personal history of COVID-19; M25.522 Pain in left elbow; M79.81 Nontraumatic hematoma of soft tissue
CPT/HCPCS: 36415; 36416; 36430; 51701; 71045; 73070; 73201; 73206; 74018; 74177; 80048; 80053; 80500; 81001; 82550; 82962; 83036; 83605; 83615; 83690; 83735; 83880; 84100; 84145; 84443; 84484; 85025; 85610; 85730; 86140; 86403; 86850; 86900; 86920; 86927; 87040; 87077; 87086; 87186; 87205; 87426; 87449; 87641; 88184; 88185; 93005; 93931; 93971; 94640; 94664; 96365; 96372; 96375; 97161; 97530; 99285; C9113; J1170; J1580; J1650; J1815; J1885; J2020; J2270; J2405; J2543; J2704; J2765; J3010; J3475; J7030; J7626; P9017; P9040; Q9967

== ENCOUNTER 2021-09-13 08:27 | Outpatient (CLI) | payer OTHER, MEDICARE, MEDICAID, SELFPAY ==
[2021-09-13 10:07] LABS: Basophils # 0.1 10^3/uL (0.0-0.1); Basophils % 0.4 %; Eosinophils # 0.7 10^3/uL (0.0-0.8); Hematocrit 35.1 % (37.0-47.0); Hemoglobin 10.9 g/dL (11.5-15.3); Lymphocytes # 3.2 10^3/uL (0.8-4.8); Lymphocytes % 14.4 %; Mean Corpuscular HGB Conc 31.1 g/dL (30.0-36.0); Mean Corpuscular Hemoglobin 28.3 pg (28.0-34.0); Mean Corpuscular Volume 91.2 fl (81-99); Mean Platelet Volume 10.1 fL (7.4-10.4); Monocytes # 0.7 10^3/uL (0.2-0.9); Monocytes % 3.4 %; Neutrophils # 16.91 10^3/uL (1.8-7.7); Neutrophils % 76.9 %; Nucleated Red Blood Cells # 0.1 /100WBC; Nucleated Red Blood Cells % 0.5 %; Platelet Count 760 10^3/cmm (130-400); Red Blood Count 3.85 10^6/uL (4.1-5.3); Red Cell Distribution Width 22.4 % (12.1-15.1)
[2021-09-13 10:25] LABS: Erythrocyte Sedimentation Rate 46 mm/hr (0-15)
[2021-09-13 10:35] LABS: Alanine Aminotransferase < 5 U/L (0-33); Albumin Level 3.4 g/dL (3.5-5.2); Alkaline Phosphatase 142 IU/L (35-105); Aspartate Amino Transferase 9 U/L (0-32); Blood Urea Nitrogen 11 mg/dL (8-23); C Reactive Protein 42.3 mg/L (0.0-4.9); Calcium 9.3 mg/dL (8.5-10.5); Carbon Dioxide 21 mmol/L (22-29); Chloride 102 mmol/L (98-107); Ferritin 145 ng/mL (15-150); Globulin 3.6 g/dL (1.3-4.6); Glucose 204 mg/dL (65-115); Iron 56 ug/dL (37-145); Osmolality Calculated 283 mOsm/kg (285-295); Percent Saturation 19.5 % (20-50); Sodium 134 mmol/L (136-145); Total Bilirubin 0.4 mg/dL (0.15-1.2); Total Iron Binding Capacity 287 mcg/dl; Unsaturated Iron Binding 231 ug/dL (112-347)
[2021-09-13 10:43] LABS: LAB Peripheral Smear Sent for Review
--- NOTE | 2021-09-13 19:23 | ONC FU_ITS ---
Dr. Bergeron Patient Follow-Up Note Patient: Hermelinda Mckeon Unit #: [id number]: 1940 Dicatated By: Favian Bergeron M.D.Date of Visit:Sep 13, 2021 Onc Med Follow-up/Prog Note Chief Complaint: Breast cancer/leukocytosis. History of Present Illness: This is an 79 year-old woman with grade 2 infiltrating ductal carcinoma of the right breast, stage IA (T1B, N0, M0), ER/MO positive, and HER2/edd negative. She is seen now in regard to persistent leukocytosis. She has a history of having undergone right modified radical mastectomy for breast cancer in January of 2007. Her Oncotype DX showed a recurrence score of 24, which was in the intermediate range, and the risk of recurrence at 10 years was estimated at 15%. She opted to limit adjuvant treatment to hormonal therapy. She was given anastrozole 1 mg daily, which she continued until October 2012. She had evidence of osteoporosis on her baseline bone density study, which showed a T-score of -5.27. She had been on treatment with IV Zometa initially and subsequently with Reclast. A colonoscopy on 03/14/2016 showed a severe, benign-appearing intrinsic stenosis in the mid descending colon. The stenosis was not able to be transversed. On 05/01/2016 showed underwent exploratory laparotomy with partial sigmoid colectomy and placement of descending end colostomy due to colonic obstruction from the stricture. Pathology showed chronic diverticulosis with focal acute inflammation. The procedure was complicated by abdominal wall cellulitis and retracting colostomy, requiring repeat exploratory laparotomy on 03/03/2016. The procedure included open takedown of the splenic flexure, partial colectomy, splenectomy, and placement of transverse end colostomy. She developed an open midline abdominal wound for which she underwent surgical debridement on 06/05/2016. She then continued treatment at wound care. Her surveillance unilateral left mammogram on 01/05/2018 was BI-RADS 0 with evidence of increasing density within a mass in the upper outer quadrant measuring 8.4 mm. It was noted to have the configuration of a lymph node. Additional mammographic views and left breast ultrasound on 01/26/2018 was BI-RADS 4B, suspicious, intermediate. The mammogram showed persistent high density lobulated nodule in the upper outer quadrant measuring 10 mm. By ultrasound the mass was hypoechoic measuring 9.7 mm. Ultrasound directed biopsy was consistent with a reactive lymph node. In February 2018 she suffered a traumatic fracture of the left femur. She underwent open reduction with bridgett fixation at [facility] in [place]. At discharge she was transferred to [facility] for rehab. On 11/27/2018 she was admitted to the hospital with partial small bowel obstruction. It resolved with conservative management. Her other medical illnesses include hypertension, hyperlipidemia, peptic ulcer disease, degenerative arthritis, and anxiety/depression. She has had some skin cancers removed from the facial area by Dr. Huntley. She had a previous admission to the hospital in August [address] scan at that time was suspicious for submucosal mass involving the medial margin of the stomach. Upper GI endoscopy showed gastritis but no mass, and her symptoms did improve with treatment. She is a nonsmoker. INTERIM HISTORY: In April 2020 she was admitted to the hospital with pneumonia and respiratory failure in association with COVID-19 virus infection. Her clinical course was complicated by atrial fibrillation. She eventually recovered, but she had significant decline in her overall condition with that illness, and she then remained nonambulatory. On 08/26/2021 she was admitted to the hospital with CT evidence of small bowel obstruction. The obstruction resolved with conservative management, but her clinical course was also complicated by sepsis due to urinary tract infection and pneumonia. The hospitalization was further complicated by traumatic hematoma of the left elbow for which she underwent surgical evacuation on 08/30/2021. She required PRBC transfusion. At the time she had been on anticoagulation with apixaban and aspirin, both of which were discontinued. At discharge her hemoglobin was still low at 8.0 g with her white blood cell count elevated at 19,600 and with her platelet count elevated at 408,000. Her renal function was normal with BUN 19 and creatinine 0.9 mg/dL. Bilirubin and liver enzymes were normal. Albumin was low at 2.5 g/dL. She complains that she does not have any energy. She has remained nonambulatory since the hospitalization for COVID in 2019. Her ECOG score is 3. She also complains that she has no appetite. She is forcing herself to eat. She has not had fever. She has frequent night sweating, severe enough to make her bed wet. She has some sinus drainage. She has not had sore mouth or throat. She does not complain of cough. She says her breathing has been pretty good. She occasionally has pain in the left side of her chest. She has nausea and she occasionally has acid reflux. Bowel function has been fair with the ostomy. Bladder function has been okay. She still has pain in her left arm and she sometimes has neck pain. She does not complain of headache. She does report having lightheadedness. She has numbness in her left hand and in her legs and feet. She says she has terrible anxiety/depression. Medications: Acetaminophen 2 Tablet (of 325 mg) Oral q 6 hours, Advair Diskus 1 Inhalation (of 500-50 mcg/dose) Aerosol Powder, Breath Activated Inhalation b.i.d., Albuterol Sulfate 1 Vial(s) (of (2.5 mg/3ml) 0.083%) Nebulization solution Inhalation q 6 hours PRN, Aspirin 1 Tablet (of 81 mg) Tablet, chewable Oral daily, Atorvastatin Calcium 1 Tablet (of 40 mg) Oral at bedtime, Bisacodyl 1 Tablet (of 5 mg) Tablet, enteric coated Oral daily PRN, Cepacol Lozenge Mouth/throat Take as Directed, Colace 1 Capsule (of 100 mg) Oral daily PRN, Eliquis 1 Tablet (of 5 mg) Oral b.i.d., Famotidine 1 Tablet (of 20 mg) Oral b.i.d., Hydrocodone-Acetaminophen 1 Tablet (of 5-325 mg) Oral q 4 hours PRN, Incruse Ellipta 1 Inhalation (of 62.5 mcg/inh) Aerosol Powder, Breath Activated Inhalation daily, MiraLax (17 ) Powder Oral daily, Muscle Rub (10-15 %) Cream Topical Take as Directed, Naloxone HCl Injection PRN, Ocuvite Adult 50+ 1 Capsule Oral daily, Omeprazole 1 Tablet (of 20 mg) Tablet, enteric coated Oral daily, Ondansetron HCl 1 Tablet (of 4 mg) Oral q 6 hours PRN, OxyCONTIN 1 Tablet (of 15 mg) Tablet ER 12 HR Abuse-Deterrent Oral b.i.d., Phenergan 1 mL (of 25 mg/mL) Injection PRN, Pregabalin 75 (75 mg) Capsule Oral b.i.d., Promethegan Suppository Rectal PRN, Protonix 1 Tablet (of 40 mg) Tablet, enteric coated Oral daily, Scopolamine 1 Patch(es) (of 1 mg/3days) Patch 72 Hr Transdermal q 3 days, Senna 1 Capsule (of 8.6 mg) Oral b.i.d., tiZANidine HCl 1 Tablet (of 4 mg) Oral t.i.d. PRN, traZODone HCl 1 Tablet (of 50 mg) Oral at bedtime PRN, Zoloft 1 Tablet (of 25 mg) Oral at bedtime, ZyrTEC Allergy 0.5 Tablet (of 10 mg) Oral daily Allergies: No Known Allergies. Vital Signs: Performed on Sep 13, 2021 09:44 Height - 65.00 in Temperature - 97.2 F (LOW) Pulse - 95 /min Respiration - 16 /min BP - 85/60 mm(hg) (LOW) O2 Sat - 97 % Pain - 8 Fatigue - 9 Physical Examination: Constitutional - She appears generally weak, Eyes - Sclerae nonicteric. Conjunctivae clear, ENMT - No lesions noted in the oral cavity, Hematologic/Lymphatic - No cervical or clavicular adenopathy, Respiratory - Lungs sound clear, Cardiovascular - Heart rhythm is regular. There is no murmur, gallop, or rub noted, Breasts - There are no lesions noted in the right chest wall. The left breast shows no mass. There is no axillary adenopathy, Abdomen - Distended but soft. The ostomy site looks okay. Liver is not enlarged. There is no abdominal mass or ascites noted and there is no inguinal adenopathy, Extremities - There is residual swelling of the left arm. There is a well-healed excision begetting in the the anterior aspect of the left arm just above the elbow and extending inferiorly. There is an open ulceration on the ventral aspect of the left forearm just below the elbow. There is no lower extremity edema, Neurologic - She does not appear to have any focal neurologic deficit. Problem List: 1. Leukocytosis and thrombocytosis in association with recent sepsis due to urinary tract infection and pneumonia. 2. Traumatic left elbow hematoma occurring on anticoagulation with apixaban. It appears to be resolving following surgical evacuation, but she has developed an open skin ulceration on the left forearm. 3. Recurrent episodes of small bowel obstruction. 4. History of grade 2 infiltrating duct carcinoma the right breast, stage I, ER/MO positive and HER-2/edd negative. 5. History of exploratory laparotomy with partial colectomy for benign descending colon stricture in April 2016. She required a second laparotomy with splenectomy and placement of transverse colostomy for abdominal wall cellulitis. 6. History of COVID-19 virus infection with pneumonia with acute respiratory failure in April 2020. 7. Hypertension. 8. Hyperlipidemia. 9. Peptic ulcer disease. 10. Degenerative arthritis. 11. Osteoporosis. 12. In February 2018 she underwent open reduction with bridgett fixation for a traumatic fracture of the left femur. 13. Anxiety/depression. Problems Addressed with this Encounter and Plan: 1. Patient with persistent leukocytosis following a recent hospitalization for small bowel obstruction. The obstruction resolved with conservative management, but the hospitalization was complicated by sepsis due to urinary tract infection and pneumonia and by traumatic left elbow hematoma which required surgical evacuation. At this point the leukocytosis would appear to be most likely reactive, though a myeloproliferative disorder is not completely excluded. At least initially I will recheck the blood count and additional laboratory studies including comprehensive metabolic profile, sed rate, CRP, and blood cultures. I also will review the blood smear. She will have further evaluation as indicated. 2. She has moderately severe anemia. It is most likely due to blood loss, but I will check additional studies for the anemia including serum iron studies, B12 level, reticulocyte count, LDH level, and haptoglobin level. She will have further evaluation as indicated. 3. She has a history of grade 2 infiltrating duct carcinoma the right breast, stage I, ER/MO positive and HER-2/edd negative. Her treatment included right modified radical mastectomy in January 2007. She was given 5 years of adjuvant hormonal therapy with anastrozole, completed in August 2012. During follow-up there has been no evidence of recurrence of the breast cancer. She continues on expectant management. Signed By: Favian Bergeron M.D. <<Signature on File>>
== END 2021-09-13 08:28 | disposition home or self-care (01) ==
PROVIDERS: PCP Internal Medicine; Visit Provider Internal Medicine Medical Oncology
DX: Z08 Encounter for follow-up examination after completed treatment for malignant neoplasm (principal); Z85.3 Personal history of malignant neoplasm of breast; D72.829 Elevated white blood cell count, unspecified; D75.839 Thrombocytosis, unspecified; A41.9 Sepsis, unspecified organism; N39.0 Urinary tract infection, site not specified; J18.9 Pneumonia, unspecified organism; S50.02XA Contusion of left elbow, initial encounter; Z79.01 Long term (current) use of anticoagulants; K56.609 Unspecified intestinal obstruction, unspecified as to partial versus complete obstruction; Z86.16 Personal history of COVID-19; I10 Essential (primary) hypertension; E78.5 Hyperlipidemia, unspecified; K27.7 Chronic peptic ulcer, site unspecified, without hemorrhage or perforation; M19.90 Unspecified osteoarthritis, unspecified site; M81.0 Age-related osteoporosis without current pathological fracture; F41.9 Anxiety disorder, unspecified; F32.A Depression, unspecified; D64.9 Anemia, unspecified; Z79.899 Other long term (current) drug therapy
CPT/HCPCS: 36415; 80053; 82728; 83540; 83550; 85025; 85651; 86140; 86850; 86900; 87040; 99215

== ENCOUNTER → 2021-10-10 13:38 | Outpatient (BNVA) | payer MEDICARE, MEDICAID, SELFPAY | PROVIDERS: PCP Internal Medicine; Visit Provider Surgery | DX: K43.5 Parastomal hernia without obstruction or gangrene (principal) | CPT/HCPCS: 99213 ==

== ENCOUNTER 2022-08-07 14:53 | Outpatient (CLI) | payer MEDICARE, MEDICAID, SELFPAY ==
--- NOTE | 2022-08-07 15:10 | MM_ITS ---
WS: [id number] Left breast diagnostic 3D tomosynthesis digital mammogram, 08/07/2022 Clinical Data: HX OF BREAST CA;RT MST Comparison: 02/25/2020, 06/24/2019, 01/26/2018, 01/05/2018, 09/11/2015, 09/05/2014, 08/10/2013, 07/07/2012, 07/08, 12/18/2010, 11/30/2008. Findings: The left breast shows fatty replacement. There is a biopsy clip in the lateral aspect of the left cleopatra ast. There are no spiculated masses or clustered calcifications. There are benign vascular calcificat ions. MM/[place] [address] Impression: 1. Negative left breast mammogram. 2. Recommend annual left breast mammogram. BIRADS: 1-Negative FOLLOW UP: 1 Year Follow-up The CAD mechanical car checker was used.
== END 2022-08-07 14:54 | disposition home or self-care (01) ==
PROVIDERS: PCP Internal Medicine; Visit Provider Internal Medicine
DX: Z85.3 Personal history of malignant neoplasm of breast (principal); Z90.11 Acquired absence of right breast and nipple
CPT/HCPCS: 77061; G0279

== ENCOUNTER 2022-08-18 05:16 | Emergency (ER) | payer MEDICARE, MEDICAID, SELFPAY ==
[2022-08-18 05:26] VITALS: BP 130/69; PULSE 63; RESP 16; TEMP 36.8; O2SAT 94; BMI 56.7
[2022-08-18 06:03] VITALS: BP 132/80; PULSE 63; RESP 16; O2SAT 97
[2022-08-18] MEDS: silver nitrate applicator 1 EACH TOPICAL (06:12)
--- NOTE | 2022-08-18 06:13 | ED_ITS ---
HPI - Wound/Laceration General: Chief Complaint: Wound/Laceration Stated Complaint: BLEEDING AT SURGICAL SITE Time Seen by Provider: 08/18/22 05:45 History of Present Illness: 81-year-old female brought in due to bleeding from right surgical site from a skin lesion removal. She reports that she had her procedure on the . That drain the night last night that started bleeding. They believe may be her gown irritated the wound and rubbed off the scab. They have tried pressure dressing for couple hours and been able to get it to stop bleeding. Associated symptoms: Denies chills, fever(s), nausea or vomiting Review of Systems Const: Denies: fever(s) or chills ENMT: Denies: throat pain Card: Denies: chest pain or palpitations Resp: Denies: dyspnea or productive cough GI: Denies: nausea or vomiting Musc: Denies: extremity pain Skin/Breast: Reports: other (Please see HPI) PFS ED PFSH: Medical History Activity extremely limited Acute UTI Anxiety and depression Breast cancer Chronic hypoxemic respiratory failure D-dimer, elevated Degenerative arthritis Diabetes Fracture of left femur HLD (hyperlipidemia) HTN (hypertension) Paroxysmal A-fib Partial small bowel obstruction PUD (peptic ulcer disease) Surgical History History of colostomy History of modified radical mastectomy History of partial colectomy Family History Other No significant family history Social History Smoking and tobacco status: never smoked Alcohol intake: never Housing: Jail Marital status: / Current occupational status: retired Physical Exam Const: COMMON NORMALS: no acute distress and patient oriented x3 HENMT: COMMON NORMALS: normocephalic and atraumatic HEAD & SCALP: normocephalic and atraumatic Chest: CHEST: Yes other (Chest wall lesion is bleeding) Resp: EFFORT & INSPECTION: Yes able to speak in complete sentences and No respiratory distress Cardio: COMMON NORMALS: regular rate and regular rhythm RATE: regular rate RHYTHM: regular rhythm Extremity: COMMON NORMALS: capillary refill normal Neuro: COMMON NORMALS: patient oriented x3, CN's II-XII intact bilaterally and no focal motor deficits Skin: OTHER: Skin lesion removal with very minimal bleeding Course Vital Signs: Vital signs: Vital Signs Temperature 98.2 F 08/18/22 05:26 Pulse Rate 63 08/18/22 06:03 Respiratory Rate 16 08/18/22 06:03 Blood Pressure 132/80 08/18/22 06:03 Pulse Oximetry 97 08/18/22 06:03 Oxygen Delivery Me thod 08/18/22 05:26 MDM - Wound/Laceration Medical Decision Making Patient had mild bleeding from her surgical site. Bleeding was controlled with silver nitrate and skin adhesive. Patient was monitored for while in the ER with no further bleeding. She was stable and discharged home Discharge Plan Discharge Patient Disposition: Home Clinical Impression: Postoperative bleeding from incision Condition: Stable Prescriptions: No Action famotidine 20 mg Tablet 20 mg PO BID ondansetron 4 mg Tablet,Disintegrating 4 mg PO Q6H PRN (Reason: Nausea And Vomiting) Cepacol Sore Throat (wiliam-men) 15-3.6 mg Lozenge See Rx Instructions .ROUTE .COMPLEX Rx Instructions: DISSOLVE 1 LOZENGE BEFORE MEALS AND AT BEDTIME PRN Incruse Ellipta 62.5 mcg/actuation Blister With Device 1 inh INHALATION DAILY albuterol sulfate 2.5 mg /3 mL (0.083 %) Solution For Nebulization 2.5 mg INHALATION Q6H PRN (Reason: Shortness Of Breath Or Wheezing) atorvastatin 40 mg Tablet 40 mg PO BEDTIME Qty: 30 0RF aspirin 81 mg Tablet,Delayed Release (Dr/Ec) 81 mg PO DAILY Qty: 30 0RF trazodone 50 mg Tablet 50 mg PO DAILY Phenergan 25 mg/mL Solution 25 mg IM Q6H PRN (Reason: Nausea) Zoloft 25 mg Tablet 25 mg PO DAILY vitamin A-vitamin C-vit E-min Tablet 1 tab PO DAILY Muscle Rub 15-10 % Cream 1 applic TOPICAL BID PRN (Reason: Pain) hydrocodone-acetaminophen 5-325 mg Tablet 1 tab PO Q4H PRN (Reason: Pain) 7 Days Qty: 42 0RF bisacodyl 5 mg Tablet 5 mg PO Q24H PRN (Reason: Constipation) pregabalin [Lyrica] 75 mg Capsule 75 mg PO BID sennosides-docusate sodium [Senna Plus] 8.6-50 mg Tablet 1 tab-cap PO DAILY acetaminophen [Tylenol] 325 mg Tablet 650 mg PO Q6H PRN (Reason: Pain) naloxone 0.4 mg/mL Solution 0.4 mg IM Q2M PRN (Reason: overdose) fluticasone propion-salmeterol [Advair Diskus] 500-50 mcg/dose Blister With Device 1 inh INHALATION BID docusate sodium [Colace] 100 mg Capsule 200 mg PO DAILY polyethylene glycol 3350 [Miralax] 17 gram/dose Powder 17 g PO DAILY tizanidine 4 mg Capsule 4 mg PO TID PRN (Reason: Muscle Pain) omeprazole 20 mg capsule,delayed release(DR/EC) 20 mg PO DAILY Qty: 30 3RF Discharge Orders: Discharge ED (Routine); Ordered 08/18/22 Ordered By: Jacobo Mcclendon Referrals: Favian Clark DO [Primary Care Provider] - Discharge Diet: Usual diet Discharge Activity: Resume usual activity Patient Instructions: Opioid Safety, Pain Management, Wound Care (General) Activity Restrictions/Additional Instructions: Keep clean with warm soapy water Coding Level of Care Code ED Office Receptionist for Shante Alvarenga
== END 2022-08-18 07:46 | disposition home or self-care (01) ==
PROVIDERS: Emergency Provider Student in an Organized Health Care Education/Training Program; PCP Internal Medicine
DX: L76.21 Postprocedural hemorrhage of skin and subcutaneous tissue following a dermatologic procedure (principal); Z79.82 Long term (current) use of aspirin; Z85.3 Personal history of malignant neoplasm of breast; E11.9 Type 2 diabetes mellitus without complications; E78.5 Hyperlipidemia, unspecified; I10 Essential (primary) hypertension
CPT/HCPCS: 99282

== ENCOUNTER 2023-08-01 09:10 | Inpatient (IN) | payer MEDICARE, MEDICAID, SELFPAY ==
[2023-08-01] VITALS (17 sets, daily range): BP systolic 125–160; BP diastolic 65–99; PULSE 68–164; RESP 18–32; TEMP 36.6–37.9; O2SAT 90–96; BMI 59.7
--- NOTE | 2023-08-01 09:20 | ECG_ITS ---
[facility] Test Date: 2023-08-01 Pat Name: Hermelinda Mckeon Department: Room: Gender: Female Laboratory Asst: : 1940 Requested By: Ankit Larson Order Number: [id number] Rosalba MD: Jae Kaiser M.D. Measurements Intervals [place] Rate: 145 P: 240 MS: 137 QRS: -71 QRSD: 87 T: 74 QT: 251 QTc: 391 Interpretive Statements ECTOPIC ATRIAL TACHYCARDIA WITH OCCASIONAL VENTRICULAR PREMATURE COMPLEXES, POSSIBLE ATRIAL FLUTTER LEFT ANTERIOR FASCICULAR BLOCK [QRS AXIS <= -45, QR IN I, RS IN II] POSSIBLE ANTERIOR MYOCARDIAL INFARCTION , PROBABLY OLD [30 ms Q WAVE IN V3/V4, OR R < 0.2 mV IN V4] Compared to ECG 08/26/2021 04:39:16 Ventricular premature complex(es) now present Sinus rhythm no longer present Myocardial infarct finding still present Electronically Signed On 08-01-2023 9:27:22 ARCHITECTURAL SUPERINTENDENT by Jae Kaiser M.D. [id number]
--- NOTE | 2023-08-01 09:21 | XR_ITS ---
WS: [id number] XR chest 1V portable [id number] REASON FOR EXAM: dyspnea/cough FINDINGS: Moderate tortuosity and ectasia of the thoracic aorta. Mild cardiac enlargement. Diffuse reticular interstitial and groundglass lung opacities throughout both lungs. Significant degenerative spondylosis in the mid thoracic spine. Significant osteoarthritis in both shoulder joints. IMPRESSION: Diffuse acute/subacute lung changes more likely congestive failure. However, pneumonitis not excluded .
--- NOTE | 2023-08-01 09:30 | ED_ITS ---
HPI - SOB/Dyspnea 2 General: Chief Complaint: Shortness of Breath/Dyspnea Stated Complaint: ams, resp distress Time Seen by Provider: 08/01/23 09:20 Source: EMS and RN notes reviewed Mode of arrival: EMS History of Present Illness: HPI Narrative: 82-year-old female presents emergency ro om with complaints of shortness of breath. She is in A-fib with RVR on arrival and is not able really to give much for history. She did receive fluids and route. She is to be fluid overloaded at this time. History from charts and snf records and EMS. She does not normally on oxygen regularly but does use occasionally. She has a known history of paroxysmal atrial fibrillation and is not on any anticoagulation. She denies chest pain or abdominal pain. longterm confirms no reports of these. She has seemed very short of breath and orthopneic MD elicited complaint: shortness of breath and cough Pertinent past history: COPD, congestive heart failure and diabetes Associated symptoms: Reports orthopnea; Deny abdominal pain, chest pain or fever(s) Treatment prior to arrival: oxygen and other (IV fluids and antiemetics) Review of Systems 2 General: Reports: Other (Limited due to condition mostly from snf reports) Const: Denies: fever(s) or chills Card: Reports: orthopnea; Denies: chest pain Resp: Denies: dyspnea GI: Denies: abdominal pain PFSH ED 2 PFSH: Medical History ARDS (adult respiratory distress syndrome) Diabetes Chronic hypoxemic respiratory failure Acute UTI Paroxysmal A-fib Partial small bowel obstruction Activity extremely limited Fracture of left femur Anxiety and depression Degenerative arthritis PUD (peptic ulcer disease) HLD (hyperlipidemia) HTN (hypertension) Breast cancer D-dimer, elevated Surgical History History of colostomy History of partial colectomy History of modified radical mastectomy Family History Other No significant family history Social History Smoking and tobacco/nicotine status: never used tobacco/nicotine Alcohol intake: never Housing: [facility]iary Marital status: / Current occupational status: retired Physical Exam 2 Const: GENERAL APPEARANCE: cooperative and comfortable O RIENTATION/CONSCIOUSNESS: Yes awake HENMT: COMMON NORMALS: normocephalic, atraumatic and hearing grossly normal bilaterally HEAD & SCALP: normocephalic and atraumatic Resp: COMMON NORMALS: normal respiratory effort, No retractions and No use of accessory muscles AUSCULTATION: rhonchi Cardio: RATE: tachycardic RHYTHM: abnormal rhythm irregularly irregular GI: COMMON NORMALS: Soft to palpation and No hepatosplenomegaly present A USCULTATION: Yes normoactive bowel sounds PALPATION: Yes Soft to palpation, No Tenderness to palpation present (GI), No Guarding due to palpation present (GI) and Yes No hepatosplenomegaly present Extremity: GENERAL: Yes edema Skin: COMMON NORMALS: no rashes or lesions noted GENERAL SKIN EXAM: no rashes or lesions noted Course 2 Vital Signs: Vital signs: Vital Signs Temperature 97.9 F 08/05/23 11:27 Pulse Rate 81 08/05/23 16:14 Respiratory Rate 18 08/05/23 16:14 Blood Pressure 167/97 08/05/23 11:27 Pulse Oximetry 93 08/05/23 16:14 Oxygen Delivery Me thod Nasal Cannula 08/05/23 14:00 Oxygen Flow Rate 3 08/05/23 14:00 Fraction of Inspir ed Oxygen 45 08/05/23 03:53 MDM - SOB/Dyspnea Medical Decision Making On arrival fluids stopped patient started on BiPAP. Leukocytosis with signs of cystitis. Cover with antibiotics. Rate controlled with diltiazem. CT of the abdomen showed a lot of constipation significant abdominal wall hernia with bowel contents but no signs of obstruction. Will admit discussed with hospitalist. Medical Records I reviewed the patient's medical records. Lab Data I reviewed the patient's lab results. 08/05/23 04:32 08/05/23 04:32 Labs/Radiology: Radiology Impressions Chest/Abdomen/Pelvis CT 08/02/23 10:32 IMPRESSION: 1. Prominent reticulonodular airspace opacities throughout the bilateral lungs. This may represent an acute infectious or inflammatory etiology superimposed upon chronic fibrotic lung disease. Lymphangitic carcinomatosis with elena metastatic disease to the mediastinum is considered less likely. Recommend follow-up CT chest in 2-3 months or upon resolution of current symptoms to assess the chronicity of these findings patient to evaluate for potential underlying nodes or masses. 2. Multiple prominent upper mediastinal lymph nodes, measuring up to 1.0 cm on short axis. This may represent reactive lymphadenopathy. IMPRESSION: 1. Large broad-based ventral abdominal hernia, containing fat and bowel. No evidence of strangulation or obstruction. 2. Moderate rectal stool burden with mild surrounding stranding and edema, mildly worsened compared to 08/26/2021. Mild stercoral colitis is not excluded. Laboratory Results WBC 24.69 10^3/uL (3.29-11.43) H 08/01/23 10:08 RBC 5.86 10^6/uL (3.85-5.65) H 08/01/23 10:08 Hgb 16.00 g/dL (11.27-16.99) 08/01/23 10:08 Hct 49.6 % (36-47) H 08/01/23 10:08 MCV 84.6 fl (85-98) L 08/01/23 10:08 MCH 27.3 pg (27-33) 08/01/23 10:08 MCHC 32.3 g/dL (30-55) 08/01/23 10:08 RDW 18.0 % (12.1-15.1) H 08/01/23 10:08 Plt Count 406 10^3/cmm (157-399) H 08/01/23 10:08 MPV 10.4 fL (7.4-10.4) 08/01/23 10:08 Neut % (Auto) 85.5 % 08/01/23 10:08 Lymph % (Auto) 6.2 % 08/01/23 10:08 Cascade % (Auto) 7.5 % 08/01/23 10:08 Eos % (Auto) 0.0 % 08/01/23 10:08 Baso % (Auto) 0.4 % 08/01/23 10:08 Neut # (Auto) 21.14 10^3/uL (1.8-7.7) H 08/01/23 10:08 Lymph # (Auto) 1.5 10^3/uL (0.8-4.8) 08/01/23 10:08 Cascade # (Auto) 1.8 10^3/uL (0.2-0.9) H 08/01/23 10:08 Eos # (Auto) 0.0 10^3/uL (0.0-0.8) 08/01/23 10:08 Baso # (Auto) 0.1 10^3/uL (0.0-0.1) 08/01/23 10:08 Nucleated RBC % (auto) 0 % 08/01/23 10:08 Nucleated RBCs # 0.0 /100WBC 08/01/23 10:08 Specimen Type Arterial 08/01/23 09:29 Sample Site Radial, right 08/01/23 09:29 ABG pH 7.39 (7.35-7.45) 08/01/23 09: ABG pCO2 47.5 mmHg (35-45) H 08/01/23 09: ABG pO2 78.1 mmHg (80.0-100.0) L 08/01/23 09: ABG HCO3 28.5 mmol/L (22-26) H 08/01/23 09:29 ABG O2 Saturation 96.5 08/01/23 09:29 ABG Base Excess 2.6 mmol/L (-2.0-2.0) H 08/01/23 09: Bi Test Pos 08/01/23 09: A-a O2 Gradient 1.6 mmHg (5-10) L 08/01/23 09:29 Hematocrit 48.8 % (37-47) H 08/01/23 09:29 Hgb O2 Saturation 94.4 % (95-100) L 08/01/23 09: Carboxyhemoglobin 1.6 %THgb (0.4-20.1) 08/01/23 09: Methemoglobin 0.5 % (0.4-1.5) 08/01/23 09: Total Hemoglobin 15.9 g/dL (12-16) 08/01/23 09: Sodium 134.0 mmol/L (131-143) 08/01/23 09: Potassium 3.5 mmol/L (3.5-5.0) 08/01/23 09: Glucose 195.0 mg/dL (70-115) H 08/01/23 09:29 Ionized Calcium 1.2 mmol/L (1.1-1.4) 08/01/23 09:29 O2 Delivery Device Nc 08/01/23 09:29 O2 Liters/Min 7.0 % 08/01/23 09:29 Hydro Mechanic ID Salome 08/01/23 09:29 Sodium 133 mmol/L (136-145) L 08/01/23 10:08 Potassium 3.9 mmol/L (3.5-5.1) 08/01/23 10:08 Chloride 90 mmol/L (98-107) L 08/01/23 10:08 Carbon Dioxide 26 mmol/L (22-29) 08/01/23 10:08 Anion Gap 20.9 (5-19) H 08/01/23 10:08 BUN 22 mg/dL (8-23) 08/01/23 10:08 Creatinine 1.1 mg/dL (0.5-0.9) H 08/01/23 10:08 GFR Calculation Not Reportable 08/01/23 10:08 Glucose 200 mg/dL (65-115) H 08/01/23 10:08 Calculated Osmolality 285 mOsm/kg (285-295) 08/01/23 10:08 Lactic Acid 3.9 mmol/L (0.5-2.2) H 08/01/23 10:08 Calcium 8.9 mg/dL (8.5-10.5) 08/01/23 10:08 Magnesium 2.0 mg/dL (1.7-2.3) 08/01/23 10:08 Total Bilirubin 1.1 mg/dL (0.15-1.2) 08/01/23 10:08 AST 14 U/L (0-32) 08/01/23 10:08 ALT 7 U/L (0-33) 08/01/23 10:08 Alkaline Phosphatase 152 U/L (35-105) H 08/01/23 10:08 Troponin T Baseline 30 ng/L (0-10) H 08/01/23 10:08 NT-Pro-B Natriuret Pep 3509 pg/mL (0-450) H 08/01/23 10:08 Total Protein 7.6 g/dL (6.6-8.7) 08/01/23 10:08 Albumin 3.1 g/dL (3.5-5.2) L 08/01/23 10:08 Globulin 4.5 g/dL (1.3-4.6) 08/01/23 10:08 Procalcitonin 0.37 ng/mL (0-0.5) 08/01/23 10:08 TSH 0.72 uIU/mL (0.27-4.20) 08/01/23 10:08 Urine Color Yellow (Yellow) 08/01/23 09:50 Urine Appearance Cloudy (CLEAR) A 08/01/23 09:50 Urine pH 5 (5-7) 08/01/23 09:50 Ur Specific [place] 1.020 (1.005-1.030) 08/01/23 09:50 Urine Protein Neg (Negative) 08/01/23 09:50 Urine Glucose (UA) Norm (Normal) 08/01/23 09:50 Urine Ketones 1+ (Negative) H 08/01/23 09:50 Urine Blood 2+ (Negative) H 08/01/23 09:50 Urine Nitrate Positive (Negative) H 08/01/23 09:50 Urine Bilirubin 1+ (Negative) H 08/01/23 09:50 Urine Urobilinogen 4 mg/dL (Negative) H 08/01/23 09:50 Ur Leukocyte Esterase Trace (Negative) H 08/01/23 09:50 Urine RBC 0-4 /hpf (0-2) H 08/01/23 09:50 Urine WBC 80-100 /hpf (0-5) H 08/01/23 09:50 Ur Squamous Epith Cells 5-10 /hpf (0-5) H 08/01/23 09:50 Amorphous Sediment Not Reportable 08/01/23 09:50 Urine Bacteria 4+ /hpf (NONE) H 08/01/23 09:50 All radiology interpretation(s) finalized by discharge Critical Care Time 2 Critical Care Time: Critical Care Time: Yes Total Critical Care Time: 40 Attestation: The high probability of a clinically significant, sudden or life threatening deterioration of the patient's cardiovascular respiratory system(s) required my full and direct attention, intervention and personal management. The critical care time is as shown. This time is in addition to time spent performing any reported procedures but includes the following: [x] Data and vital sign review and interpretation [x] Patient assessment, examination and intervention [x] Documentation [x] Medication orders and management Discharge Plan Discharge Patient Disposition: Admitted As Inpatient Admit Provider: Jordin Ayers Clinical Impression: Acute hypoxemic respiratory failure, Paroxysmal A-fib, Diabetes, UTI (urinary tract infection), Atrial fibrillation with rapid ventricular response Condition: Stable Discharge Diet: Cardiac and Diabetic Discharge Activity: Resume usual activity Coding Level of Care Code ED Front Desk Administrator for Shante Alvarenga
[2023-08-01] MEDS: dilTIAZem 5 mg/mL SDV 5 mL 20 MG IVP (09:35)
[2023-08-01] MEDS: dilTIAZem 100 MG in sodium chloride 0.9% (add-van) 100 ML IV (09:37)
[2023-08-01 09:40] LABS: ABG PCO2 47.5 mmHg (35-45); ABG PH Result 7.39 (7.35-7.45); Alveolar-Arterial Oxygen Gradi 1.6 mmHg (5-10); Arterial Blood Gas Hematocrit 48.8 % (37-47); Base Excess ABG 2.6 mmol/L (-2.0-2.0); Blood Gas Allen Test Pos; Blood Gas Operator Identificat WALCI; Blood Gas Sample Site Radial, right; Blood Gas Sample Type Arterial; Carboxyhemoglobin 1.6 %THgb (0.4-20.1); HCO3 ABG 28.5 mmol/L (22-26); HGB O2 Sat 94.4 % (95-100); Ionized Calcium Level - ABG 1.2 mmol/L (1.1-1.4); Methemoglobin 0.5 % (0.4-1.5); Oxygen Device NC; Oxygen Saturation ABG 96.5; PO2 ABG 78.1 mmHg (80.0-100.0); Potassium Level - ABG 3.5 mmol/L (3.5-5.0); Total Hemoglobin 15.9 g/dL (12-16)
--- NOTE | 2023-08-01 09:48 | PC.PHAR ---
PT IS FROM [facility] 08/01/23
[2023-08-01] MEDS: ipratropium-albuterol 3 mL Neb INHALATION (10:07)
[2023-08-01] MEDS: ondansetron 2 mg/ML SDV 2 mL 4 MG IVP (10:07)
[2023-08-01] MEDS: FUROsemide 10 mg/mL SDV 10mL 80 MG IVP (10:08)
[2023-08-01 10:18] LABS: Basophils # 0.1 10^3/uL (0.0-0.1); Basophils % 0.4 %; Hematocrit 49.6 % (36-47); Lymphocytes # 1.5 10^3/uL (0.8-4.8); Lymphocytes % 6.2 %; Mean Corpuscular HGB Conc 32.3 g/dL (30-55); Mean Corpuscular Hemoglobin 27.3 pg (27-33); Mean Corpuscular Volume 84.6 fl (85-98); Mean Platelet Volume 10.4 fL (7.4-10.4); Monocytes # 1.8 10^3/uL (0.2-0.9); Monocytes % 7.5 %; Neutrophils # 21.14 10^3/uL (1.8-7.7); Neutrophils % 85.5 %; Nucleated Red Blood Cells % 0 %; Platelet Count 406 10^3/cmm (157-399); Red Blood Count 5.86 10^6/uL (3.85-5.65); White Blood Count 24.69 10^3/uL (3.29-11.43)
[2023-08-01 10:34] LABS: Lactic Sepsis W/Reflex 3.9 mmol/L (0.5-2.2)
--- NOTE | 2023-08-01 10:37 | PC.PHAR ---
Addendum entered by Nathaly Hernandez 08/01/23 10:41: DISCONTINUED MEDS ARE ALBUTEROL SULF. 2.5MG/3ML, ASPIRIN 81 MG,PREGABALIN 75 MG, TIZANIDINE 4 MG, TRAZODONE 50 MG, ONDANSETRON 4 MG (DOSE CHANGE), PHENERGAN 25MG/ML AND ZOLOFT 25 MG. 08/01/23 Original Note: PTS' MAR HAS SIGNIFICANT CHANGES-SEVERAL MEDICATIONS DISCONTINUED.
[2023-08-01 10:40] LABS: Glucose Urine UA Norm (Normal); Protein Urine Neg (Negative); Urine Appearance Cloudy (CLEAR); Urine Color Yellow (Yellow); pH Urine 5 (5-7)
[2023-08-01 10:41] LABS: Add Urine Culture? Yes; Add Urine Microscopic? YES; Bacteria Urine 4+ /hpf; Bilirubin Urine 1+ (Negative); Blood Urine 2+ (Negative); Ketones Urine 1+ (Negative); Leukocyte Esterase Urine Trace (Negative); Nitrate Urine Positive (Negative); RBC Urine 0-4 /hpf (0-2); Urobilinogen Urine 4 mg/dL (Negative); WBC Urine 80-100 /hpf (0-5)
[2023-08-01 10:44] LABS: NT Pro B Type Natriuretic Pept 3509 pg/mL (0-450); Procalcitonin 0.37 ng/mL (0-0.5)
[2023-08-01 10:55] LABS: Alanine Aminotransferase 7 U/L (0-33); Albumin Level 3.1 g/dL (3.5-5.2); Alkaline Phosphatase 152 U/L (35-105); Anion Gap 20.9 (5-19); Aspartate Amino Transferase 14 U/L (0-32); Blood Urea Nitrogen 22 mg/dL (8-23); Calcium 8.9 mg/dL (8.5-10.5); Carbon Dioxide 26 mmol/L (22-29); Chloride 90 mmol/L (98-107); Globulin 4.5 g/dL (1.3-4.6); Glucose 200 mg/dL (65-115); Osmolality Calculated 285 mOsm/kg (285-295); Potassium 3.9 mmol/L (3.5-5.1); Sodium 133 mmol/L (136-145); Total Bilirubin 1.1 mg/dL (0.15-1.2); Total Protein 7.6 g/dL (6.6-8.7)
[2023-08-01] MEDS: piperacillin-tazobactam 3.375 GM in sodium chloride 0.9% (plus) 50 ML IV ×3 (11:01→21:21)
--- NOTE | 2023-08-01 11:16 | ECG_ITS ---
[facility] Test Date: 2023-08-01 Pat Name: Hermelinda Mckeon Department: Room: 105 Gender: Female Client Program Manager: : 1940 Requested By: Jordin Zaman Order Number: [id number] Rosalba MD: Jae Kaiser M.D. Measurements Intervals [place] Rate: 104 P: 0 [place]: 0 QRS: -68 QRSD: 101 T: 69 QT: 307 QTc: 404 Interpretive Statements ATRIAL FIBRILLATION WITH RAPID VENTRICULAR RESPONSE LEFT ANTERIOR FASCICULAR BLOCK [QRS AXIS <= -45, QR IN I, RS IN II] POSSIBLE ANTERIOR MYOCARDIAL INFARCTION , OF INDETERMINATE AGE [30 ms Q WAVE IN V3/V4, OR R < 0.2 mV IN V4] Compared to ECG 08/01/2023 09:19:29 Ventricular premature complex(es) no longer present Myocardial infarct finding still present Electronically Signed On 08-02-2023 5:58:06 BOOK BINDER by Jae Kaiser M.D. [id number]
[2023-08-01 11:59] LABS: Troponin(5th) Baseline 30 ng/L (0-10)
[2023-08-01 12:02] LABS: Reflex Lactate Order REFLEX LACTIC ORDERD
[2023-08-01 12:06] LABS: Thyroid Stimulating Hormone 0.72 uIU/mL (0.27-4.20)
--- NOTE | 2023-08-01 12:31 | P.HP_ITS ---
Providers/Chief Complaint 2 Admitting Physician: Jordin yAers MD Primary Care Provider: Favian Clark DO Chief Complaint: ams, resp distress History of Present Illness Hermelinda Mckeon is a 82 year old female presenting to the emergency department from [facility] skilled nursing. I spoke with the skilled nursing, patient, and the ER physician to gather the history. The patient herself is on BiPAP, and has difficulty relating her history. From what I understand she uses oxygen as needed, and typically is not severely short of breath. Over the last 24 hours she has had increasing shortness of breath. She reports some pain in her chest abdomen, and this appears to be something that has been going on chronically. She has felt like she has had some fevers lately. She does believe she has vomited once or twice in the last several days. When arriving in the emergency department she was also found to be in atrial fibrillation with rapid ventricular rate. She has had paroxysmal atrial fibrillation in the past, and is not on any chronic anticoagulation. In the emergency department she was given Lasix 80 mg IV, following ambulance crew giving isotonic fluids, Zosyn, a diltiazem drip, morphine, Zofran. Review of Systems 2 General: Reports: ROS unobtainable due to medical condition (Unable to obtain extensively secondary)) GI: Denies: hematochezia or melena Medications/Allergies Home Medications Medication Instructions Recorded Confirmed Last Taken Type bisacodyl 5 mg tablet 5 mg PO Q24H PRN Constipation 04/24/20 08/01/23 07/30/23 History sennosides 8.6 mg-docusate sodium 1 tab PO DAILY 04/24/20 08/01/23 07/31/23 History 50 mg tablet (Senna Plus) benzocaine 15 mg-menthol 3.6 mg See Rx Instructions .Route .COMPLEX 05/25/20 08/01/23 06/30/23 History lozenges (Cepacol Sore Throat (benzocaine-menthol)) umeclidinium 62.5 mcg/actuation 1 inh inhalation DAILY 05/25/20 08/01/23 07/31/23 History blister powder for inhalation (Incruse Ellipta) atorvastatin 40 mg tablet 40 mg PO BEDTIME #30 tabs 05/30/20 08/01/23 07/31/23 Rx acetaminophen 325 mg tablet 650 mg PO Q6H PRN Pain OR TEMP 04/19/21 08/01/23 07/30/23 History (Tylenol) docusate sodium 100 mg capsule 100 mg PO BID 04/19/21 08/01/23 07/31/23 History (Colace) fluticasone 500 mcg-salmeterol 50 1 inh inhalation BID 04/19/21 08/01/23 07/31/23 History mcg/dose blistr powdr for inhalation (Advair Diskus) naloxone 0.4 mg/mL injection 0.4 mg IM Q2M PRN overdose 04/19/21 08/01/23 Unknown History solution polyethylene glycol 3350 17 17 g PO BID 04/19/21 08/01/23 07/31/23 History gram/dose oral powder (Miralax) omeprazole 20 mg capsule,delayed 20 mg PO DAILY #30 caps 04/23/21 08/01/23 07/31/23 Rx release methyl salicylate 15 %-menthol 10 1 applic topical BID PRN Pain 08/26/21 08/01/23 06/10/23 History % topical cream (Muscle Rub) vitamin A-vitamin C-vit E-min 1 tab PO DAILY 08/26/21 08/01/23 07/31/23 History tablet (Vision tablet) hydrocodone 5 mg-acetaminophen 325 1 tab PO Q4H PRN Pain 7 days #42 09/03/21 08/01/23 07/31/23 Rx mg tablet tabs baclofen 10 mg tablet 10 mg PO TID PRN Spasms 08/01/23 08/01/23 07/31/23 History baclofen 20 mg tablet 20 mg PO DAILY 08/01/23 08/01/23 07/31/23 History carboxymethylcellulose sodium 1 % 1 drp ophthalmic (eye) BID 08/01/23 08/01/23 07/31/23 History eye liquid gel drops (Refresh Liquigel) chlorthalidone 25 mg tablet 25 mg PO DAILY 08/01/23 08/01/23 07/31/23 History gabapentin 300 mg capsule 300 mg PO BID 08/01/23 08/01/23 07/31/23 History (Neurontin) gabapentin 600 mg tablet 600 mg PO BEDTIME 08/01/23 08/01/23 07/31/23 History lorazepam 0.5 mg tablet 0.5 mg PO BID PRN ANXIETY OR 08/01/23 08/01/23 07/30/23 History AGITATION magnesium oxide 400 mg (241.3 mg 400 mg PO DAILY 08/01/23 08/01/23 07/31/23 History magnesium) tablet melatonin 1 mg tablet 1 mg PO BEDTIME 08/01/23 08/01/23 07/31/23 History olopatadine 0.7 % eye drops 1 drp ophthalmic (eye) DAILY PRN 08/01/23 08/01/23 07/31/23 History (Pataday Once Daily Relief) Dry Eyes ondansetron HCl 8 mg tablet 8 mg PO Q6H PRN NAUSEA OR VOMITING 08/01/23 08/01/23 07/31/23 History sennosides 8.6 mg-docusate sodium See Rx Instructions .Route 08/01/23 08/01/23 Unknown History 50 mg tablet (Senokot-S) .COMPLEX PRN Constipation Allergies Allergy/AdvReac Type Severity Reaction Status Date / Time vancomycin Allergy Intermediate ALGY-Redness Verified 10/11/21 17:25 of Skin PFSH Acute 2 PFSH: Medical History Diabetes Chronic hypoxemic respiratory failure Acute UTI Paroxysmal A-fib Partial small bowel obstruction Activity extremely limited Fracture of left femur Anxiety and depression Degenerative arthritis PUD (peptic ulcer disease) HLD (hyperlipidemia) HTN (hypertension) Breast cancer D-dimer, elevated Surgical History History of colostomy History of partial colectomy History of modified radical mastectomy Family History Other No significant family history Social History Smoking and tobacco/nicotine status: never used tobacco/nicotine Alcohol intake: never Housing: [facility] Marital status: / Current occupational status: retired Vitals/I&O/Wt Last Vital Signs Temp 98.8 F 08/01/23 11:49 Pulse 103 H 08/01/23 11:49 Resp 22 H 08/01/23 11:49 BP 126/65 08/01/23 11:49 Pulse Ox 92 08/01/23 11:49 O2 Del Method BiPAP 08/01/23 11:33 O2 Flow Rate 8 08/01/23 09:31 FiO2 50 08/01/23 10:05 07/31/23 08/01/23 08/01/23 22:59 06:59 14:59 Intake Total 11.416 / 11.416 Balance 11.416 / 11.416 Weight last 48 hrs Weight 140.614 kg Physical Exam 2 Narrative: General exam is a female, on BiPAP, somewhat difficult to understand, who reports she is breathing better on the BiPAP. HEENT: Atraumatic and normocephalic. Oropharynx not examined as she has BiPAP on Neck is supple no lymphadenopathy thyromegaly Cardiovascular irregular, irregular with accelerated rate Lungs coarse at the bases with a few crackles and expiratory wheezes Abdomen is soft with positive bowel sounds. Ostomy noted pink and viable. Nontender. exam demonstrates Jara Extremities no cyanosis clubbing or edema, cap refill brisk Urinary Catheter Management: Jara: Cath Placed During This Visit: yes Urinary Catheter Date of Insertion: 08/01/23 Urinary Catheter Time of Insertion: 10:00 Data 08/01/23 10:08 08/01/23 10:08 Other Labs: ABG demonstrates pH 7.39, pCO2 47, pO2 of 78 on 7 L LFTs are normal Lactic acid 3.9 Magnesium, TSH, procalcitonin normal. Albumin is 3.1. Calcium is normal Urinalysis shows 80-100 white blood cells, 0-4 reds Chest x-ray by my read demonstrates diffuse infiltrate consistent with congestive heart failure, cardiomegaly I have ordered blood cultures Urine culture was done on admission EKG per my read demonstrates A-fib with RVR, left axis deviation, nonspecific ST-T wave changes. Left anterior fascicular block. Troponin 30 BNP 3509 A&P Assessment and plan (1) Acute hypoxemic respiratory failure: Patient presents with acute hypoxic respiratory failure, secondary to acute CHF exacerbation She is currently on BiPAP Wean off as tolerated as well as oxygen. (2) Atrial fibrillation with rapid ventricular response: Patient presents with atrial fibrillation with rapid ventricular rate She is not on anticoagulation secondary to significant anemia. I will not start anticoagulation other than DVT prophylaxis anticoagulation currently. She is currently on a Cardizem drip. Initiate metoprolol 12.5 mg no, 25 mg twice daily starting tonight and try to wean as tolerated (3) Acute congestive heart failure: Patient has acute congestive heart failure. She was received Lasix appropriately in the emergency department. Continue 60 mg IV every 12 hours. Close follow-up of renal function, electrolytes tomorrow with CBC and BMP, magnesium I believe she has acute diastolic heart failure. I do not believe it would be useful to obtain an echocardiogram. Echocardiograms in the past have been such poor quality that they are hard to decipher Serial troponins (4) UTI (urinary tract infection): Patient has evidence of UTI Urine culture Blood cultures Zosyn IV (5) Diabetes: Check hemoglobin A1c Insulin sliding scale Plan Multiple other medical problems as outlined in past medical history Allow natural . Confirmed with patient and family Lovenox for DVT prophylaxis Attestations 2 Medical Necessity Statement*: Will require greater than 2 midnight stay for evaluation and treatment of acute diastolic heart failure requiring diuresis, UTI, A-fib with RVR Diagnoses Acute hypoxemic respiratory failure J96.01 Atrial fibrillation with rapid ventricular response I48.91 Acute congestive heart failure I50.9 UTI (urinary tract infection) N39.0 Diabetes E11.9 Time Spent (min) 68
--- NOTE | 2023-08-01 12:34 | PC.NURSE ---
admitted from er into room 105 at 1144.report received.pt is awake and alert.on bipap at 40%.tolerating well.afib w/rate 100-110.mid-abd colostomy w/appliance with liquid brown stool and leaking.requested bruce to obtain pt's supplies from [facility]...to insure proper fit and prevent skin breakdown.bruce agrees.oriented to room environment.instructed to notify staff for any sob,pain,or for any concerns at all.pt verb understanding of instructions
[2023-08-01 13:34] LABS: Troponin 5 2HR 33.11 ng/L (0-10); Troponin 5 2HR Delta 3.11 ABS# (0-10)
[2023-08-01 13:38] LABS: Estmated Average Glucose 206; Hemoglobin A1C 8.8 % (4.0-6.0)
[2023-08-01] MEDS: metoprolol tartrate 25 mg Tablet 12.5 MG PO (13:41)
[2023-08-01] MEDS: enoxaparin 40 mg/0.4 mL Syringe SUBCUT (13:41)
--- NOTE | 2023-08-01 13:59 | ECG_ITS ---
[facility] Test Date: 2023-08-01 Pat Name: Hermelinda Mckeon Department: Room: 105 Gender: Female Learning Strategist: : 1940 Requested By: Jordin Zaman Order Number: [id number] Rosalba MD: Jae Kaiser M.D. Measurements Intervals [place] Rate: 98 P: 0 NE: 0 QRS: -33 QRSD: 101 T: 137 QT: 318 QTc: 407 Interpretive Statements ATRIAL FIBRILLATION LEFT AXIS DEVIATION [QRS AXIS < -30] POSSIBLE ANTERIOR MYOCARDIAL INFARCTION , OF INDETERMINATE AGE [30 ms Q WAVE IN V3/V4, OR R < 0.2 mV IN V4] MODERATE T-WAVE ABNORMALITY, CONSIDER LATERAL ISCHEMIA [-0.1+ mV T-WAVE IN I/aVL/V5/V6] Compared to ECG 08/01/2023 11:33:19 Left-axis deviation now present T-wave abnormality now present Possible ischemia now present Left anterior fascicular block no longer present Myocardial infarct finding still present Electronically Signed On 08-02-2023 6:03:38 POLICE BOOKING OFFICER by Jae Kaiser M.D. [id number]
[2023-08-01 14:00] LABS: Lactic Acid level (Lactate) 4.9 mmol/L (0.5-2.2)
[2023-08-01 16:58] LABS: Glucose Point of Care 201 mg/dL (70-110)
--- NOTE | 2023-08-01 17:16 | ECG_ITS ---
[facility] Test Date: 2023-08-01 Pat Name: Hermelinda Mckeon Department: Room: 105 Gender: Female Grinder Machine Setter: : 1940 Requested By: Jordin Zaman Order Number: [id number] Rosalba MD: Jae Kaiser M.D. Measurements Intervals [place] Rate: 84 P: 256 FL: 96 QRS: -55 QRSD: 106 T: 73 QT: 352 QTc: 418 Interpretive Statements WANDERING PACEMAKER WITH PVCS LEFT ANTERIOR FASCICULAR BLOCK [QRS AXIS <= -45, QR IN I, RS IN II] POSSIBLE ANTERIOR MYOCARDIAL INFARCTION , OF INDETERMINATE AGE [30 ms Q WAVE IN V3/V4, OR R < 0.2 mV IN V4] Compared to ECG 08/01/2023 13:59:58 WANDERING PACEMAKER Ventricular premature complex(es) now present Left anterior fascicular block now present Atrial fibrillation no longer present Left-axis deviation no longer present T-wave abnormality no longer present Possible ischemia no longer present Myocardial infarct finding still present Electronically Signed On 08-02-2023 6:02:29 NEMATOLOGIST by Jae Kaiser M.D. [id number]
[2023-08-01] MEDS: dilTIAZem 100 MG in sodium chloride 0.9% (add-van) 100 ML 12.5 MG IV (17:19)
[2023-08-01] MEDS: polyethylene glycol 3350 Pkt 17 gm PO (17:19)
[2023-08-01] MEDS: gabapentin 300 mg Capsule PO (17:19)
[2023-08-01] MEDS: docusate sodium 100 mg Capsule PO (17:19)
[2023-08-01] MEDS: insulin lispro 100 unit/1 mL SUBCUT ×2 (17:26→21:22)
[2023-08-01] MEDS: budesonide 0.5 mg/2 mL Neb INHALATION (19:46)
[2023-08-01 21:03] LABS: Glucose Point of Care 164 mg/dL (70-110)
[2023-08-01] MEDS: FUROsemide 10 mg/mL SDV 10mL 60 MG IVP (21:21)
[2023-08-01] MEDS: gabapentin 300 mg Capsule 600 MG PO (21:22)
[2023-08-01] MEDS: metoprolol tartrate 25 mg Tablet PO (21:22)
[2023-08-01] MEDS: atorvastatin 40 mg Tablet PO (21:22)
[2023-08-02] VITALS (16 sets, daily range): BP systolic 105–139; BP diastolic 68–77; PULSE 70–102; RESP 16–30; TEMP 36.4–37; O2SAT 91–96
[2023-08-02] MEDS: piperacillin-tazobactam 3.375 GM in sodium chloride 0.9% (plus) 50 ML IV ×3 (04:35→22:05)
[2023-08-02] MEDS: HYDROcodone-acetaminophen 5-325 mg Tablet 1 TAB PO ×2 (06:33→15:35)
[2023-08-02 06:44] LABS: Basophils # 0.1 10^3/uL (0.0-0.1); Basophils % 0.3 %; Hematocrit 46.6 % (36-47); Lymphocytes # 2.4 10^3/uL (0.8-4.8); Lymphocytes % 9.7 %; Mean Corpuscular HGB Conc 31.1 g/dL (30-55); Mean Corpuscular Volume 86.8 fl (85-98); Mean Platelet Volume 10.8 fL (7.4-10.4); Monocytes % 8.2 %; Neutrophils # 20.12 10^3/uL (1.8-7.7); Neutrophils % 81.2 %; Nucleated Red Blood Cells % 0 %; Platelet Count 377 10^3/cmm (157-399); Red Blood Count 5.37 10^6/uL (3.85-5.65); Red Cell Distribution Width 17.6 % (12.1-15.1); White Blood Count 24.76 10^3/uL (3.29-11.43)
[2023-08-02 06:46] LABS: Glucose Point of Care 130 mg/dL (70-110)
[2023-08-02 07:06] LABS: Alanine Aminotransferase 6 U/L (0-33); Albumin Level 2.2 g/dL (3.5-5.2); Alkaline Phosphatase 244 U/L (35-105); Blood Urea Nitrogen 37 mg/dL (8-23); Calcium 8.2 mg/dL (8.5-10.5); Carbon Dioxide 28 mmol/L (22-29); Chloride 94 mmol/L (98-107); Globulin 4.7 g/dL (1.3-4.6); Glucose 113 mg/dL (65-115); Magnesium 2.3 mg/dL (1.7-2.3); Osmolality Calculated 295 mOsm/kg (285-295); Sodium 138 mmol/L (136-145); Total Bilirubin 0.5 mg/dL (0.15-1.2); Total Protein 6.9 g/dL (6.6-8.7)
[2023-08-02 07:07] LABS: Anion Gap 20.2 (5-19); Aspartate Amino Transferase 15 U/L (0-32); Potassium 4.2 mmol/L (3.5-5.1)
[2023-08-02] MEDS: FUROsemide 10 mg/mL SDV 10mL 60 MG IVP (08:01)
[2023-08-02] MEDS: polyethylene glycol 3350 Pkt 17 gm PO ×2 (08:01→17:38)
[2023-08-02] MEDS: magnesium oxide 400 mg tablet PO (08:02)
[2023-08-02] MEDS: docusate sodium 100 mg Capsule PO ×2 (08:02→17:38)
[2023-08-02] MEDS: metoprolol tartrate 25 mg Tablet PO (08:02)
[2023-08-02] MEDS: sennosides-docusate Tablet 1 TAB PO (08:02)
[2023-08-02] MEDS: gabapentin 300 mg Capsule PO ×3 (08:02→20:31)
[2023-08-02] MEDS: baclofen 10 mg Tablet 20 MG PO (08:03)
[2023-08-02] MEDS: pantoprazole DR 40 mg Tablet PO (08:03)
[2023-08-02] MEDS: budesonide 0.5 mg/2 mL Neb INHALATION ×2 (08:58→20:03)
--- NOTE | 2023-08-02 10:32 | CTR_ITS ---
PROCEDURE INFORMATION: Exam: CT Chest Without Contrast; Diagnostic Exam date and time: 08/02/2023 11:40 AM Age: 82 years old Clinical indication: Other: Hypoxia, chf vs pna, kenzie TECHNIQUE: Imaging protocol: Diagnostic computed tomography of the chest without contrast. Radiation optimization: All CT scans at this facility use at least one of these dose optimization techniques: automated exposure control; mA and/or kV adjustment per patient size (includes targeted exams where dose is matched to clinical indication); or iterative reconstruction. COMPARISON: CT angio chest PE protcl [id number] 04/19/2021 2:22 PM RADIATION DOSE METRICS: Total DLP (mGy-cm): 1401.92 FINDINGS: Thyroid: Thyroid is normal. Lungs: Prominent reticulonodular airspace opacities throughout the bilateral lungs. Mild peripheral paraseptal emphysematous changes. Scattered mild bronchiectasis. Pleural spaces: No significant pleural effusion. No pneumothorax. Heart: Heart is normal in size. No pericardial effusion. Coronary arteries: Coronary artery calcifications. Lymph nodes: Multiple prominent upper mediastinal lymph nodes, measuring up to 1.0 cm on short axis. Vasculature: Mild scattered calcific disease of the aorta and its major branches. Bones/joints: Multilevel spondylosis. No acute displaced fractures. Soft tissues: Superficial soft tissues are within normal limits. PROCEDURE INFORMATION: Exam: CT Abdomen And Pelvis Without Contrast Exam date and time: 08/02/2023 11:40 AM Age: 82 years old Clinical indication: Other: Hypoxia, chf vs pna, kenzie TECHNIQUE: Imaging protocol: Computed tomography of the abdomen and pelvis without contrast. Radiation optimization: All CT scans at this facility use at least one of these dose optimization techniques: automated exposure control; mA and/or kV adjustment per patient size (includes targeted exams where dose is matched to clinical indication); or iterative reconstruction. COMPARISON: CT abdomen pelvis w con* [id number] 08/26/2021 10:02 AM RADIATION DOSE METRICS: Total DLP (mGy-cm): 1401.92 FINDINGS: Liver: Stable hepatic cyst in the right hepatic lobe, measuring up to 2.9 cm. No suspicious hepatic masses. Gallbladder and bile ducts: Status post cholecystectomy. No significant intrahepatic or extrahepatic biliary dilation. Pancreas: Moderate atrophy of the pancreas. 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 Adrenal glands: The adrenal glands are unremarkable. Kidneys and ureters: Kidneys are normal. No hydronephrosis or nephrolithiasis. Stomach and bowel: Postsurgical changes of bowel. Prominent colonic diverticulosis involving the distal sigmoid colon, unchanged compared to 08/26/2021. No distinct CT evidence of acute diverticulitis. Moderate rectal stool burden with mild surrounding stranding and edema, mildly worsened compared to 08/26/2021. Appendix: No evidence of acute appendicitis. Intraperitoneal space: Trace nonspecific free fluid in the pelvis. Vasculature: Scattered calcific disease of the aorta and its major branches. No abdominal aortic aneurysm. Lymph nodes: No suspicious lymphadenopathy. Urinary bladder: Jara catheter bulb appears positioned within the urinary bladder. Urinary bladder is decompressed and poorly visualized. Reproductive: The uterus is absent. Bones/joints: Multilevel spondylosis. No acute osseous fractures. Soft tissues: Large broad-based ventral abdominal hernia, containing fat and bowel. No evidence of strangulation or obstruction. CT/[place] [id number] IMPRESSION: 1. Prominent reticulonodular airspace opacities throughout the bilateral lungs. This may represent an acute infectious or inflammatory etiology superimposed upon chronic fibrotic lung disease. Lymphangitic carcinomatosis with elena metastatic disease to the mediastinum is considered less likely. Recommend follow-up CT chest in 2-3 months or upon resolution of current symptoms to assess the chronicity of these findings patient to evaluate for potential underlying nodes or masses. 2. Multiple prominent upper mediastinal lymph nodes, measuring up to 1.0 cm on short axis. This may represent reactive lymphadenopathy. IMPRESSION: 1. Large broad-based ventral abdominal hernia, containing fat and bowel. No evidence of strangulation or obstruction. 2. Moderate rectal stool burden with mild surrounding stranding and edema, mildly worsened compared to 08/26/2021. Mild stercoral colitis is not excluded.
--- NOTE | 2023-08-02 10:42 | PC.NURSE ---
cardizem titrated off at 1000
[2023-08-02 11:08] LABS: Iron 31 ug/dL (37-145)
[2023-08-02 11:10] LABS: Percent Saturation 14.4 % (20-50); Total Iron Binding Capacity 215 mcg/dl; Unsaturated Iron Binding 184 ug/dL (112-347)
[2023-08-02 11:23] LABS: Procalcitonin 0.29 ng/mL (0-0.5); Vitamin B12 247 pg/mL (232-1245)
--- NOTE | 2023-08-02 11:28 | PC.CHAP ---
Pastoral Care Encounter/Spiritual Assessment Type of Contact [] Declined fire extinguisher charger visit [] Patient/Family/Request visit [] Outpatient visit [] Follow-up visit [] Physician referral [] Code/Alert [] Routine visit [] Staff referral [] Actively dying [] Patient sleeping [] Family support [] [] Out of room [] Palliative care [] [] Receiving care in room [] Pre-surgical visit [] Trauma [] Long length of stay [] ICU visit [] Other: Relational/Emotional Strength [] Patient feels connected with others/family/visitors/staff [] Distress [] Loneliness/isolation [] Abandonment Spirituality of Patient [] Person of April [] Attends Jainism of their April [] Believes in Prayer [] Reads Bible or Confucianism materials [] There are Spiritual issues to be addressed Child And Adolescent Psychiatrist Interventions [] Prayer [] Active listening [] Non-anxious presence [] Spiritual/emotional support [] Crisis/trauma care [] Spiritual counseling [] Bereavement support [] Provided bereavement packet [] Provided Bible/devotional materials [] Provided toy/stuffed animal, coloring book to patient or family member [] Provided Communion [] Anointing/[place] [] Salvation [] Completed spiritual assessment [] Other: Impact on Illness or Injury [] Angry [] Fearful [] Anxious [] Often cries [] Exhaustion [] Unable to work [] Unable to attend islam [] Unable to walk/stand [] Unable to read [] Unable to drive [] Unable to eat/drink [] Unable to sleep [] Unable to be with family [] Patient intubated [] Other: Summary Nurse was in the room with patient, will put on follow up Time spent with patient
[2023-08-02 11:44] LABS: Glucose Point of Care 196 mg/dL (70-110)
[2023-08-02] MEDS: enoxaparin 40 mg/0.4 mL Syringe SUBCUT (12:18)
[2023-08-02] MEDS: sodium chloride 0.9% 1,000 ML 75 ML IV (12:19)
[2023-08-02] MEDS: insulin lispro 100 unit/1 mL SUBCUT ×3 (13:18→22:04)
[2023-08-02] MEDS: ipratropium-albuterol 3 mL Neb INHALATION (13:39)
[2023-08-02 16:33] LABS: Glucose Point of Care 180 mg/dL (70-110)
--- NOTE | 2023-08-02 17:21 | P.PN_ITS ---
Vitals/I&O/Wt Last Vital Signs Temp 98.4 F 08/02/23 16:00 Pulse 102 H 08/02/23 16:00 Resp 29 H 08/02/23 16:00 BP 139/74 08/02/23 16:00 Pulse Ox 91 08/02/23 16:00 O2 Del Method Nasal Cannula 08/02/23 16:00 O2 Flow Rate 4 08/02/23 13:39 FiO2 40 08/02/23 08:00 08/02/23 08/02/23 08/02/23 06:59 14:59 22:59 Intake Total 350 / 513.082 127.292 / 127.292 Output Total 750 / 1600 950 / 950 Balance -400 / -1086.918 -822.708 / -822.708 Weight last 48 hrs Weight 145.15 kg Weight 143.335 kg Weight 140.614 kg Physical Exam 2 Narrative: General exam is a female, on BiPAP, somewhat difficult to understand, who reports she is breathing better on the BiPAP. HEENT: Atraumatic and normocephalic. Oropharynx not examined as she has BiPAP on Neck is supple no lymphadenopathy thyromegaly Cardiovascular irregular, irregular with accelerated rate Lungs coarse at the bases with a few crackles and expiratory wheezes Abdomen is soft with positive bowel sounds. Ostomy noted pink and viable. Nontender. exam demonstrates Jara Extremities no cyanosis clubbing or edema, cap refill brisk Urinary Catheter Management: Jara: Cath Placed During This Visit: yes Reason for Continuing Indwelling Catheter: Accurate Measurement of Urinary Output in Critically Ill Patients Urinary Catheter Date of Insertion: 08/01/23 Urinary Catheter Time of Insertion: 10:00 Data 08/02/23 05:34 08/02/23 05:34 Micro: Microbiology 08/01/23 13:05 Blood Culture - Preliminary Blood NEGATIVE TO DATE 08/01/23 12:53 Blood Culture - Preliminary Blood NEGATIVE TO DATE 08/01/23 09:50 Urine Culture - Preliminary Urine,Clean Catch Gram Negative Rods A&P Assessment and plan (1) Acute hypoxemic respiratory failure: Most likely in setting of diastolic congestive heart failure in setting of A-fib with RVR on presentation. Cannot rule out baseline sleep apnea as well. Also has baseline COPD. Resolved for now. Patient on nasal cannula. Oxygen supplementation keeping saturation over 88%. BiPAP as needed or nightly. Pulmicort twice daily, ipratropium, Xopenex every 6 hours. (2) Atrial fibrillation with rapid ventricular response: Resolved. Cardizem drip off. Continue metoprolol at 25 mg twice daily. If blood pressures remain stable can increase to 37.5 mg twice daily from evening. Not on anticoagulation as an outpatient given history of significant anemia. Continue with prophylactic anticoagulation for now. (3) Acute congestive heart failure: Diastolic in nature. Last echocardiogram was poor quality and showed grossly normal EF. Fluid restriction up to 1800 cc. Jara catheterization. Strict input output charting, daily weights. Patient seems slightly on the vacuum drier tender side today. Hold off on any further diuresis. Will start on gentle IV hydration at 50 cc/h and monitor for fluid overload. (4) UTI (urinary tract infection): Follow blood cultures, urine culture. Previously history of ESBL E. coli. Sensitive to Zosyn. Continue with IV Zosyn for now. (5) Acute kidney injury: Creatinine up to 1.3 today. BUN also elevated. Could be in setting of aggressive diuresis. Patient around 2 L negative since admission. Medical reconciliation done for nephrotoxic drugs. The dose of gabapentin was changed to 300 mg 3 times daily, baclofen changed to 10 mg oral daily, as needed baclofen on hold for now. Continue with lorazepam 0.5 mg twice daily as needed. Monitor BMP daily for now. Jara catheterization. (6) Stercoral colitis: As seen on CT abdomen pelvis. Aggressive bowel regimen. Add milk of magnesia. (7) Leukocytosis: Patient continues to have persistent significant leukocytosis up to 24,000. Check CT chest abdomen pelvis without contrast. Check C. difficile. Check MRSA swab. Continue with IV Zosyn. For now we will add vancomycin as well. 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 Will advise to give vancomycin at a slower rate. (8) Diabetes: A1c 8.8. Continue with insulin sliding scale. Plan Multiple other medical problems as outlined in past medical history Allow natural . Confirmed with patient and family Lovenox for DVT prophylaxis Protonix for PUD prophylaxis Attestations 2 Medical Necessity Statement*: Requires further hospitalization for management of hypoxia in setting of diastolic heart failure, developed EDIL in setting of aggressive diuresis, leukocytosis in setting of UTI, stercoral colitis by C. difficile rule out in a patient with chronic colostomy Diagnoses Acute hypoxemic respiratory failure J96.01 Atrial fibrillation with rapid ventricular response I48.91 Acute congestive heart failure I50.9 UTI (urinary tract infection) N39.0 Acute kidney injury N17.9 Stercoral colitis K52.89 Leukocytosis D72.829 Diabetes E11.9
[2023-08-02] MEDS: magnesium hydroxide 30 mL UDC PO ×2 (17:38→20:31)
[2023-08-02] MEDS: vancomycin 1,500 MG/300 ML PIGGYBACK 75 MG IV (18:09)
[2023-08-02] MEDS: ondansetron 2 mg/ML SDV 2 mL 4 MG IVP (19:48)
[2023-08-02] MEDS: ipratropium 0.5 mg/2.5 mL Neb INHALATION (20:03)
[2023-08-02] MEDS: levalbuterol 0.63 mg/3 mL Neb INHALATION (20:03)
[2023-08-02] MEDS: atorvastatin 40 mg Tablet PO (20:31)
[2023-08-02] MEDS: metoprolol tartrate 25 mg Tablet 37.5 MG PO (20:31)
[2023-08-02 21:14] LABS: Glucose Point of Care 169 mg/dL (70-110)
[2023-08-03] VITALS (12 sets, daily range): BP systolic 117–153; BP diastolic 74–91; PULSE 70–97; RESP 23–28; TEMP 36.8–37.1; O2SAT 91–97
[2023-08-03] MEDS: piperacillin-tazobactam 3.375 GM in sodium chloride 0.9% (plus) 50 ML IV ×3 (04:02→20:43)
[2023-08-03] MEDS: sodium chloride 0.9% 1,000 ML 50 ML IV (04:02)
[2023-08-03 05:19] LABS: Basophils % 0.1 %; Eosinophils % 0.1 %; Hematocrit 45.3 % (36-47); Lymphocytes # 2.7 10^3/uL (0.8-4.8); Lymphocytes % 10.1 %; Mean Corpuscular HGB Conc 31.1 g/dL (30-55); Mean Corpuscular Volume 86.6 fl (85-98); Mean Platelet Volume 10.1 fL (7.4-10.4); Monocytes # 1.9 10^3/uL (0.2-0.9); Monocytes % 6.9 %; Neutrophils # 22.01 10^3/uL (1.8-7.7); Nucleated Red Blood Cells % 0 %; Platelet Count 417 10^3/cmm (157-399); Red Blood Count 5.23 10^6/uL (3.85-5.65); Red Cell Distribution Width 17.3 % (12.1-15.1); White Blood Count 26.87 10^3/uL (3.29-11.43)
[2023-08-03 05:37] LABS: Alanine Aminotransferase 6 U/L (0-33); Albumin Level 2.8 g/dL (3.5-5.2); Alkaline Phosphatase 121 U/L (35-105); Anion Gap 11.9 (5-19); Aspartate Amino Transferase 11 U/L (0-32); Blood Urea Nitrogen 33 mg/dL (8-23); Carbon Dioxide 38 mmol/L (22-29); Chloride 89 mmol/L (98-107); Globulin 4.2 g/dL (1.3-4.6); Glucose 142 mg/dL (65-115); Osmolality Calculated 292 mOsm/kg (285-295); Sodium 136 mmol/L (136-145); Total Bilirubin 0.4 mg/dL (0.15-1.2)
[2023-08-03 05:38] LABS: Chol HDL Ratio 5.44 mg/dL (0.0-4.40); Cholesterol 98 mg/dL (0-200); HDL Cholesterol 18 mg/dL (60-100); LDL Cholesterol Calculated 51 mg/dL (50-129); Magnesium 2.5 mg/dL (1.7-2.3); Phosphorus 2.8 mg/dL (2.5-4.5); Triglycerides 145 mg/dL (0-150); VLDL Cholestrol Calculation 29 mg/dL (0-30)
[2023-08-03 05:40] LABS: Potassium 2.9 mmol/L (3.5-5.1)
--- NOTE | 2023-08-03 05:48 | PC.NURSE ---
Spoke with regarding patient with potassium of 2.9 this morning. to put in orders for replacement.
[2023-08-03 05:53] LABS: Folate Level 5.9 ng/mL (4.8-37.3)
[2023-08-03 06:18] LABS: Glucose Point of Care 141 mg/dL (70-110)
[2023-08-03] MEDS: potassium chloride ER 20 mEq Tablet 40 MEQ PO (06:36)
[2023-08-03] MEDS: ipratropium-albuterol 3 mL Neb INHALATION (08:06)
[2023-08-03] MEDS: budesonide 0.5 mg/2 mL Neb INHALATION (08:06)
[2023-08-03] MEDS: insulin lispro 100 unit/1 mL SUBCUT ×4 (08:33→20:45)
[2023-08-03] MEDS: ondansetron 2 mg/ML SDV 2 mL 4 MG IVP (08:34)
[2023-08-03] MEDS: metoprolol tartrate 25 mg Tablet 37.5 MG PO ×2 (08:34→20:44)
[2023-08-03] MEDS: baclofen 10 mg Tablet PO (08:34)
[2023-08-03] MEDS: pantoprazole DR 40 mg Tablet PO (08:35)
[2023-08-03] MEDS: magnesium oxide 400 mg tablet PO (08:35)
[2023-08-03] MEDS: gabapentin 300 mg Capsule PO ×3 (08:35→20:46)
[2023-08-03] MEDS: docusate sodium 100 mg Capsule PO ×2 (08:35→17:50)
[2023-08-03] MEDS: sennosides-docusate Tablet 1 TAB PO (08:35)
[2023-08-03] MEDS: polyethylene glycol 3350 Pkt 17 gm PO ×2 (08:46→17:50)
--- NOTE | 2023-08-03 10:23 | PC.NURSE ---
Provider is notified that patient is nauseated this morning. Patient was given zofran with little relief, is asking for something else. Provider ordered Reglan 5mg IVP every 6 hours. Order entered.
[2023-08-03] MEDS: metoclopramide 5 mg/mL SDV 2 mL IVP (10:39)
[2023-08-03] MEDS: potassium chloride ER 20 mEq Tablet 80 MEQ PO (10:41)
[2023-08-03 11:24] LABS: Glucose Point of Care 178 mg/dL (70-110)
--- NOTE | 2023-08-03 12:37 | P.PN_ITS ---
Subjective 2 Subjective: No acute events overnight. Patient remains on 4 L of oxygen supplementation saturating more than 94%. On examination down down to 3 L. States she uses 5 L at night to sleep at baseline but none in the morning. Complaining of nausea today without any vomiting. Denies any chest pain. Around 200 cc of output through ostomy overnight. Urine output of around 2.2 L in last 24 hours. Vitals/I&O/Wt Last Vital Signs Temp 98.7 F 08/03/23 11:06 Pulse 77 08/03/23 11:06 Resp 23 H 08/03/23 11:06 BP 117/81 08/03/23 11:06 Pulse Ox 91 08/03/23 11:06 O2 Del Method Nasal Cannula 08/03/23 11:06 O2 Flow Rate 4 08/03/23 08:14 FiO2 40 08/02/23 08:00 08/02/23 08/03/23 08/03/23 22:59 06:59 14:59 Intake Total 1818.75 / 3774.022 7586.667 / 3022.709 170 / 170 Output Total 850 / 1800 800 / 2600 550 / 550 Balance 968.75 / 146.042 276.667 / 422.709 -380 / -380 Weight last 48 hrs Weight 157.442 kg Weight 145.15 kg Physical Exam 2 Narrative: General exam is a female, underdeveloped, AOx3, no acute distress, morbidly obese, chronically sick appearing HEENT: Atraumatic and normocephalic. Oropharynx not examined as she has BiPAP on Neck is supple no lymphadenopathy thyromegaly Cardiovascular irregular, irregular with accelerated rate Lungs coarse at the bases with a few crackles and expiratory wheezes Abdomen is soft with positive bowel sounds. Ostomy noted pink and viable. Nontender. exam demonstrates Jara Extremities no cyanosis clubbing or edema, cap refill brisk Urinary Catheter Management: Jara: Cath Placed During This Visit: yes Reason for Continuing Indwelling Catheter: Acute Urinary Retention or Obstruction Urinary Catheter Date of Insertion: 08/01/23 Urinary Catheter Time of Insertion: 10:00 Data 08/03/23 05:06 08/03/23 05:06 Micro: Microbiology 08/01/23 13:05 Blood Culture - Preliminary Blood NEGATIVE TO DATE 08/01/23 12:53 Blood Culture - Preliminary Blood NEGATIVE TO DATE 08/01/23 09:50 Urine Culture - Preliminary Urine,Clean Catch Gram Negative Rods A&P Assessment and plan (1) Acute hypoxemic respiratory failure: Most likely in setting of diastolic congestive heart failure in setting of A-fib with RVR on presentation. Cannot rule out baseline sleep apnea as well. Also has baseline COPD. Patient on nasal cannula. Oxygen supplementation keeping saturation over 88%. BiPAP as needed or nightly. Pulmicort twice daily, ipratropium, Xopenex every 6 hours. (2) Atrial fibrillation with rapid ventricular response: Resolved. Cardizem drip off. Continue with metoprolol 37.5 mg twice daily. Blood pressures stable. Not on anticoagulation as an outpatient given history of significant anemia. Continue with prophylactic anticoagulation for now. (3) Acute congestive heart failure: Diastolic in nature. Last echocardiogram was poor quality and showed grossly normal EF. Fluid restriction up to 1800 cc. Jara catheterization. Strict input output charting, daily weights. Continue with IV fluids with normal saline at 50 cc/h. Overall patient still around 1 L negative since admission. (4) UTI (urinary tract infection): Follow blood cultures, urine culture. Previously history of ESBL E. coli. Sensitive to Zosyn. Continue with IV Zosyn for now. (5) Acute kidney injury: Creatinine trending down today to 1.2. BUN slightly improving as well. Baseline creatinine around 1. For now continue with gentle IV hydration while monitoring for fluid overload. Hold off on diuretics. Medical reconciliation done for nephrotoxic drugs. The dose of gabapentin was changed to 300 mg 3 times daily, baclofen changed to 10 mg oral daily, as needed baclofen on hold for now. Continue with lorazepam 0.5 mg twice daily as needed. Monitor BMP daily for now. Jara catheterization. (6) Stercoral colitis: As seen on CT abdomen pelvis. Aggressive bowel regimen. Add milk of magnesia. (7) Leukocytosis: Patient continues to have persistent significant leukocytosis up to 24,000. Check CT chest abdomen pelvis without contrast. Check C. difficile. Check MRSA swab. Continue with IV Zosyn. For now we will add vancomycin as well. 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 Will advise to give vancomycin at a slower rate. Patient has done well with vancomycin at slower flow rate. (8) Diabetes: A1c 8.8. Continue with insulin sliding scale. Plan Multiple other medical problems as outlined in past medical history Plan for the day: Follow-up MRSA swab, C. difficile. Follow-up blood and urine cultures. Continue with IV vancomycin and Zosyn. If MRSA negative will discontinue vancomycin. Monitor BMP daily. Patient euvolemic currently. Continue with gentle IV hydration with normal saline at 50 cc/h. Watch for fluid overload. Heart rate controlled. Continue with metoprolol 37.5 mg twice daily. Continues to have slight improvement from ostomy output. Continue with aggressive bowel regimen with daily senna Colace and milk of magnesia. Potassium down to 2.9 today. Replete. 80 mg of oral. Repeat potassium level at around 3 PM. Allow natural . Confirmed with patient and family Lovenox for DVT prophylaxis Protonix for PUD prophylaxis Attestations 2 Medical Necessity Statement*: Requires further hospitalization for management of UTI, while C. difficile ruled out in a patient who was admitted with atrial fibrillation with rapid ventricular response, EDIL Diagnoses Acute hypoxemic respiratory failure J96.01 Atrial fibrillation with rapid ventricular response I48.91 Acute congestive heart failure I50.9 UTI (urinary tract infection) N39.0 Acute kidney injury N17.9 Stercoral colitis K52.89 Leukocytosis D72.829 Diabetes E11.9
[2023-08-03] MEDS: enoxaparin 40 mg/0.4 mL Syringe SUBCUT (12:42)
[2023-08-03] MEDS: ipratropium 0.5 mg/2.5 mL Neb INHALATION (13:58)
[2023-08-03] MEDS: levalbuterol 0.63 mg/3 mL Neb INHALATION (13:58)
[2023-08-03 15:38] LABS: Potassium 3.7 mmol/L (3.5-5.1)
[2023-08-03] MEDS: HYDROcodone-acetaminophen 5-325 mg Tablet 1 TAB PO ×2 (15:40→19:35)
[2023-08-03 17:23] LABS: Glucose Point of Care 164 mg/dL (70-110)
[2023-08-03] MEDS: vancomycin 1,500 MG/300 ML PIGGYBACK 75 MG IV (17:50)
[2023-08-03] MEDS: lanolin oint 7 gm 1 APPLIC TOPICAL (19:36)
[2023-08-03 20:39] LABS: Glucose Point of Care 177 mg/dL (70-110)
[2023-08-03] MEDS: magnesium hydroxide 30 mL UDC PO (20:44)
[2023-08-03] MEDS: atorvastatin 40 mg Tablet PO (20:45)
[2023-08-04] VITALS (13 sets, daily range): BP systolic 130–160; BP diastolic 84–109; PULSE 67–95; RESP 16–26; TEMP 29.1–36.9; O2SAT 91–95; BMI 60.3
[2023-08-04 04:15] LABS: Basophils # 0.1 10^3/uL (0.0-0.1); Basophils % 0.3 %; Eosinophils # 0.1 10^3/uL (0.0-0.8); Eosinophils % 0.5 %; Hematocrit 45.1 % (36-47); Lymphocytes # 2.4 10^3/uL (0.8-4.8); Lymphocytes % 10.2 %; Mean Corpuscular HGB Conc 30.2 g/dL (30-55); Mean Corpuscular Hemoglobin 26.6 pg (27-33); Mean Corpuscular Volume 88.3 fl (85-98); Mean Platelet Volume 10.7 fL (7.4-10.4); Monocytes # 1.6 10^3/uL (0.2-0.9); Monocytes % 6.9 %; Neutrophils # 19.02 10^3/uL (1.8-7.7); Nucleated Red Blood Cells % 0 %; Platelet Count 425 10^3/cmm (157-399); Red Blood Count 5.11 10^6/uL (3.85-5.65); Red Cell Distribution Width 17.7 % (12.1-15.1); White Blood Count 23.75 10^3/uL (3.29-11.43)
[2023-08-04 04:39] LABS: Alanine Aminotransferase 7 U/L (0-33); Albumin Level 2.9 g/dL (3.5-5.2); Alkaline Phosphatase 128 U/L (35-105); Anion Gap 9.2 (5-19); Aspartate Amino Transferase 12 U/L (0-32); Blood Urea Nitrogen 24 mg/dL (8-23); Calcium 8.4 mg/dL (8.5-10.5); Carbon Dioxide 39 mmol/L (22-29); Chloride 94 mmol/L (98-107); Globulin 4.3 g/dL (1.3-4.6); Glucose 160 mg/dL (65-115); Osmolality Calculated 293 mOsm/kg (285-295); Potassium 4.2 mmol/L (3.5-5.1); Sodium 138 mmol/L (136-145); Total Bilirubin 0.3 mg/dL (0.15-1.2); Total Protein 7.2 g/dL (6.6-8.7)
[2023-08-04 04:44] LABS: Magnesium 2.9 mg/dL (1.7-2.3); Phosphorus 2.4 mg/dL (2.5-4.5)
[2023-08-04] MEDS: piperacillin-tazobactam 3.375 GM in sodium chloride 0.9% (plus) 50 ML IV ×3 (05:50→21:03)
[2023-08-04 06:39] LABS: Glucose Point of Care 143 mg/dL (70-110)
[2023-08-04] MEDS: metoprolol tartrate 25 mg Tablet 37.5 MG PO ×2 (08:41→20:54)
[2023-08-04] MEDS: pantoprazole DR 40 mg Tablet PO (08:41)
[2023-08-04] MEDS: docusate sodium 100 mg Capsule PO ×2 (08:42→17:18)
[2023-08-04] MEDS: magnesium oxide 400 mg tablet PO (08:42)
[2023-08-04] MEDS: baclofen 10 mg Tablet PO (08:42)
[2023-08-04] MEDS: insulin lispro 100 unit/1 mL SUBCUT ×3 (08:42→17:18)
[2023-08-04] MEDS: gabapentin 300 mg Capsule PO ×3 (08:42→20:54)
[2023-08-04] MEDS: sennosides-docusate Tablet 1 TAB PO (08:42)
[2023-08-04] MEDS: polyethylene glycol 3350 Pkt 17 gm PO ×2 (08:43→17:18)
--- NOTE | 2023-08-04 08:43 | P.PN_ITS ---
Subjective 2 Subjective: Seen this a.m. No acute events overnight. Afebrile overnight. Urine culture positive for E. coli sensitive to Carbapenem class Vitals/I&O/Wt Last Vital Signs Temp 84.4 F L 08/04/23 07:35 Pulse 88 08/04/23 07:35 Resp 23 H 08/04/23 07:35 BP 136/84 08/04/23 07:35 Pulse Ox 94 08/04/23 07:35 O2 Del Method Nasal Cannula 08/04/23 07:35 O2 Flow Rate 3 08/04/23 07:35 FiO2 40 08/02/23 08:00 08/03/23 08/04/23 08/04/23 22:59 06:59 14:59 Intake Total 790 / 1200 1650 / 2850 Output Total 350 / 900 950 / 1850 Balance 440 / 300 700 / 1000 Weight last 48 hrs Weight 144.877 kg Weight 157.442 kg Physical Exam 2 Narrative: General exam is a female, underdeveloped, AOx3, no acute distress, morbidly obese, chronically sick appearing HEENT: Atraumatic and normocephalic. Cardiovascular irregular, irregular with accelerated rate Lungs coarse at the bases with a few crackles and expiratory wheezes Abdomen is soft with positive bowel sounds. Ostomy noted pink and viable. Nontender. exam demonstrates Jara Extremities no cyanosis clubbing or edema, cap refill brisk Urinary Catheter Management: Jara: Cath Placed During This Visit: yes Reason for Continuing Indwelling Catheter: Accurate Measurement of Urinary Output in Critically Ill Patients Urinary Catheter Date of Insertion: 08/01/23 Urinary Catheter Time of Insertion: 10:00 Data 08/04/23 03:11 08/04/23 03:11 Micro: Microbiology 08/02/23 19:40 Gram Stain - Final Sputum - Expectorated Sputum 08/01/23 09:50 Urine Culture - Final Urine,Clean Catch Escherichia coli A&P Assessment and plan (1) Acute hypoxemic respiratory failure: Most likely in setting of diastolic congestive heart failure in setting of A-fib with RVR on presentation. Cannot rule out baseline sleep apnea as well. Also has baseline COPD. Patient on nasal cannula. Oxygen supplementation keeping saturation over 88%. BiPAP as needed or nightly. Pulmicort twice daily, ipratropium, Xopenex every 6 hours. (2) Atrial fibrillation with rapid ventricular response: Resolved. Cardizem drip off. Continue with metoprolol 37.5 mg twice daily. Blood pressures stable. Not on anticoagulation as an outpatient given history of significant anemia. Continue with prophylactic anticoagulation for now. (3) Acute congestive heart failure: Diastolic in nature. Last echocardiogram was poor quality and showed grossly normal EF. Fluid restriction up to 1800 cc. Jara catheterization. Strict input output charting, daily weights. Continue with IV fluids with normal saline at 50 cc/h. Overall patient still around 1 L negative since admission. (4) UTI (urinary tract infection): Follow blood cultures, urine culture. Previously history of ESBL E. coli. Sensitive to Zosyn. Continue with IV Zosyn for now. [facility] to [facility] with 10 days of IV ertapenem, (5) Acute kidney injury: Creatinine trending down today to 1.2. BUN slightly improving as well. Baseline creatinine around 1. For now continue with gentle IV hydration while monitoring for fluid overload. Hold off on diuretics. Medical reconciliation done for nephrotoxic drugs. The dose of gabapentin was changed to 300 mg 3 times daily, baclofen changed to 10 mg oral daily, as needed baclofen on hold for now. Continue with lorazepam 0.5 mg twice daily as needed. Monitor BMP daily for now. Jara catheterization. Creatinine improved to 1.0 today. (6) Stercoral colitis: As seen on CT abdomen pelvis. Aggressive bowel regimen. Add milk of magnesia. (7) Leukocytosis: Patient continues to have persistent significant leukocytosis up to 24,000. Check CT chest abdomen pelvis without contrast. Check C. difficile. Check MRSA swab. Continue with IV Zosyn. For now we will add vancomycin as well. 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 Will advise to give vancomycin at a slower rate. Patient has done well with vancomycin at slower flow rate. (8) Diabetes: A1c 8.8. Continue with insulin sliding scale. Plan Multiple other medical problems as outlined in past medical history Plan for the day: Follow-up MRSA swab, C. difficile. Follow-up blood and urine cultures. Urine culture finalized. E. coli sensitive to ertapenem. Continue Zosyn for now at discharge switch to ertapenem for total of 10 days. Continue with IV vancomycin and Zosyn. If MRSA negative will discontinue vancomycin. Monitor BMP daily. Patient euvolemic currently. Continue with gentle IV hydration with normal saline at 50 cc/h. Watch for fluid overload. Heart rate controlled. Continue with metoprolol 37.5 mg twice daily. Continues to have slight improvement from ostomy output. Continue with aggressive bowel regimen with daily senna Colace and milk of magnesia. Does have persistent leukocytosis which seems to be chronic. Patient has had a f/u with hematology as well. Allow natural . Confirmed with patient and family Lovenox for DVT prophylaxis Protonix for PUD prophylaxis Attestations 2 Medical Necessity Statement*: Requires further hospitalization for management of UTI, while C. difficile ruled out in a patient who was admitted with atrial fibrillation with rapid ventricular response, EDIL Diagnoses Acute hypoxemic respiratory failure J96.01 Atrial fibrillation with rapid ventricular response I48.91 Acute congestive heart failure I50.9 UTI (urinary tract infection) N39.0 Acute kidney injury N17.9 Stercoral colitis K52.89 Leukocytosis D72.829 Diabetes E11.9
[2023-08-04] MEDS: budesonide 0.5 mg/2 mL Neb INHALATION ×2 (09:09→21:14)
[2023-08-04] MEDS: levalbuterol 0.63 mg/3 mL Neb INHALATION ×3 (09:09→21:14)
[2023-08-04] MEDS: ipratropium 0.5 mg/2.5 mL Neb INHALATION ×3 (09:09→21:14)
--- NOTE | 2023-08-04 11:19 | PC.SOCIAL ---
IMM updated Updated pt on IMM. No questions voiced. Provided pt a copy. Initialed, dated, & timed copy in chart.
[2023-08-04 11:49] LABS: Glucose Point of Care 143 mg/dL (70-110)
[2023-08-04] MEDS: enoxaparin 40 mg/0.4 mL Syringe SUBCUT (12:12)
[2023-08-04 14:49] LABS: Clostridium Difficile PCR NOT DETECTED (NOT DETECTED)
[2023-08-04 14:49] LABS: Methicillin-Resist S.aureu PCR NOT DETECTED (NOT DETECTED)
[2023-08-04 17:02] LABS: Glucose Point of Care 143 mg/dL (70-110)
[2023-08-04] MEDS: vancomycin 1,500 MG/300 ML PIGGYBACK 75 MG IV (17:18)
[2023-08-04] MEDS: HYDROcodone-acetaminophen 5-325 mg Tablet 1 TAB PO (18:33)
[2023-08-04 20:54] LABS: Glucose Point of Care 136 mg/dL (70-110)
[2023-08-04] MEDS: atorvastatin 40 mg Tablet PO (20:54)
[2023-08-04] MEDS: magnesium hydroxide 30 mL UDC PO (20:54)
[2023-08-05] VITALS (14 sets, daily range): BP systolic 131–180; BP diastolic 76–113; PULSE 69–81; RESP 18–28; TEMP 36.3–36.8; O2SAT 91–99
[2023-08-05] MEDS: ipratropium 0.5 mg/2.5 mL Neb INHALATION ×3 (02:21→14:37)
[2023-08-05] MEDS: levalbuterol 0.63 mg/3 mL Neb INHALATION ×3 (02:22→14:37)
[2023-08-05] MEDS: piperacillin-tazobactam 3.375 GM in sodium chloride 0.9% (plus) 50 ML IV ×2 (04:06→12:30)
[2023-08-05 05:22] LABS: Basophils # 0.1 10^3/uL (0.0-0.1); Basophils % 0.3 %; Eosinophils # 0.4 10^3/uL (0.0-0.8); Eosinophils % 2.1 %; Hematocrit 42.7 % (36-47); Lymphocytes # 2.7 10^3/uL (0.8-4.8); Lymphocytes % 13.4 %; Mean Corpuscular Hemoglobin 26.7 pg (27-33); Mean Corpuscular Volume 89.1 fl (85-98); Mean Platelet Volume 10.1 fL (7.4-10.4); Monocytes # 1.6 10^3/uL (0.2-0.9); Monocytes % 8.2 %; Neutrophils # 14.64 10^3/uL (1.8-7.7); Neutrophils % 73.7 %; Nucleated Red Blood Cells % 0 %; Platelet Count 427 10^3/cmm (157-399); Red Blood Count 4.79 10^6/uL (3.85-5.65); Red Cell Distribution Width 17.6 % (12.1-15.1); White Blood Count 19.86 10^3/uL (3.29-11.43)
[2023-08-05 05:52] LABS: Anion Gap 11.9 (5-19); Blood Urea Nitrogen 22 mg/dL (8-23); Calcium 8.5 mg/dL (8.5-10.5); Carbon Dioxide 37 mmol/L (22-29); Chloride 96 mmol/L (98-107); Glucose 124 mg/dL (65-115); Osmolality Calculated 297 mOsm/kg (285-295); Potassium 3.9 mmol/L (3.5-5.1); Sodium 141 mmol/L (136-145)
[2023-08-05 05:55] LABS: Magnesium 2.8 mg/dL (1.7-2.3); Phosphorus 2.6 mg/dL (2.5-4.5)
[2023-08-05 06:15] LABS: Glucose Point of Care 139 mg/dL (70-110)
[2023-08-05] MEDS: HYDROcodone-acetaminophen 5-325 mg Tablet 1 TAB PO (06:29)
[2023-08-05] MEDS: budesonide 0.5 mg/2 mL Neb INHALATION (08:11)
[2023-08-05] MEDS: amlodipine 10 mg Tablet PO (09:23)
[2023-08-05] MEDS: sennosides-docusate Tablet 1 TAB PO (09:23)
[2023-08-05] MEDS: docusate sodium 100 mg Capsule PO (09:23)
[2023-08-05] MEDS: polyethylene glycol 3350 Pkt 17 gm PO (09:23)
[2023-08-05] MEDS: baclofen 10 mg Tablet PO (09:23)
[2023-08-05] MEDS: gabapentin 300 mg Capsule PO (09:24)
[2023-08-05] MEDS: metoprolol tartrate 25 mg Tablet 37.5 MG PO (09:24)
[2023-08-05] MEDS: pantoprazole DR 40 mg Tablet PO (09:24)
[2023-08-05] MEDS: morphine 4 mg/mL SDV 1 mL 1 MG IVP (09:24)
[2023-08-05] MEDS: magnesium oxide 400 mg tablet PO (09:24)
--- NOTE | 2023-08-05 09:56 | PC.NURSE ---
Dr Tuttle was notified that patients blood pressures were elevated this morning. Provider ordered amlodipine and morphine 1mg once.
[2023-08-05 11:08] LABS: Glucose Point of Care 445 mg/dL (70-110)
[2023-08-05 11:32] LABS: Glucose Point of Care 250 mg/dL (70-110)
[2023-08-05] MEDS: insulin lispro 100 unit/1 mL SUBCUT (12:29)
[2023-08-05] MEDS: enoxaparin 40 mg/0.4 mL Syringe SUBCUT (12:29)
--- NOTE | 2023-08-05 13:15 | P.DS_ITS ---
Discharge Providers Date of Admission: 08/01/23 11:11 Date of Discharge: August 05, 2023 Attending Provider at Admission: Jordin Ayers MD Attending Provider at Discharge: Cyndi Tuttle MD Primary Care Provider: Favian Clark DO Diagnoses at Discharge Discharge Diagnosis (1) Acute hypoxemic respiratory failure: Status: Acute (2) Atrial fibrillation with rapid ventricular response: Status: Resolved (3) Acute congestive heart failure: Status: Resolved Permanent problem details: Diastolic. Last echo from 2019 showed grossly normal EF (4) UTI (urinary tract infection): Status: Acute (5) Acute kidney injury: Status: Resolved (6) Stercoral colitis: Status: Resolved (7) Leukocytosis: Status: Acute (8) Diabetes: Status: Acute Reason for Visit Reason for Visit: ams, resp distress Hospital Course Hospital Course 82-year-old jail resident with chronic ostomy, morbidly obese with history of A-fib presented with difficulty breathing found to have A-fib with RVR with leukocytosis concerning for UTI and stercoral colitis on CT abdomen pelvis which was thought to be mild. C. difficile was negative. A-fib resolved. Did have CHF exacerbation on admission and was diuresed. Developed a mild DEIL due to aggressive diuresis. Kidney function did normalize by the time of discharge. She is on aggressive bowel regimen. She felt better. She was also diagnosed with UTI on admission which grew ESBL E. coli sensitive to ertapenem. She will be sent with IM ertapenem x 1 week at discharge which [facility]. Discussed with patient and she is on board with the plan. Discharged in stable condition. Physical Exam Urinary Catheter Management: Jara: Cath Placed During This Visit: yes Reason for Continuing Indwelling Catheter: Acute Urinary Retention or Obstruction Urinary Catheter Date of Insertion: 08/01/23 Urinary Catheter Time of Insertion: 10:00 Discharge Data Studies Completed and Pending Completed Studies During Hospitalization Category Date Time Status CT chest abdomen pelvis [[place] [id number] Cat Scan 08/02/23 10:32 Completed ] Routine XR chest 1V portable [id number] Stat Exams 08/01/23 09:21 Completed Pending at discharge Category Date Time Status Blood Culture Stat Lab 08/01/23 13:05 Results Vancomycin Trough Timed Lab 08/05/23 17:00 Ordered Radiology Impressions Chest/Abdomen/Pelvis CT 08/02/23 10:32 IMPRESSION: 1. Prominent reticulonodular airspace opacities throughout the bilateral lungs. This may represent an acute infectious or inflammatory etiology superimposed upon chronic fibrotic lung disease. Lymphangitic carcinomatosis with elena metastatic disease to the mediastinum is considered less likely. Recommend follow-up CT chest in 2-3 months or upon resolution of current symptoms to assess the chronicity of these findings patient to evaluate for potential underlying nodes or masses. 2. Multiple prominent upper mediastinal lymph nodes, measuring up to 1.0 cm on short axis. This may represent reactive lymphadenopathy. IMPRESSION: 1. Large broad-based ventral abdominal hernia, containing fat and bowel. No evidence of strangulation or obstruction. 2. Moderate rectal stool burden with mild surrounding stranding and edema, mildly worsened compared to 08/26/2021. Mild stercoral colitis is not excluded. Laboratory Results WBC 19.86 10^3/uL (3.29-11.43) H 08/05/23 04:32 RBC 4.79 10^6/uL (3.85-5.65) 08/05/23 04:32 Hgb 12.80 g/dL (11.27-16.99) 08/05/23 04:32 Hct 42.7 % (36-47) 08/05/23 04:32 MCV 89.1 fl (85-98) 08/05/23 04:32 MCH 26.7 pg (27-33) L 08/05/23 04:32 MCHC 30.0 g/dL (30-55) 08/05/23 04:32 RDW 17.6 % (12.1-15.1) H 08/05/23 04:32 Plt Count 427 10^3/cmm (157-399) H 08/05/23 04:32 MPV 10.1 fL (7.4-10.4) 08/05/23 04:32 Neut % (Auto) 73.7 % 08/05/23 04:32 Lymph % (Auto) 13.4 % 08/05/23 04:32 [place] % (Auto) 8.2 % 08/05/23 04:32 Eos % (Auto) 2.1 % 08/05/23 04:32 Baso % (Auto) 0.3 % 08/05/23 04:32 Neut # (Auto) 14.64 10^3/uL (1.8-7.7) H 08/05/23 04:32 Lymph # (Auto) 2.7 10^3/uL (0.8-4.8) 08/05/23 04:32 [place] # (Auto) 1.6 10^3/uL (0.2-0.9) H 08/05/23 04:32 Eos # (Auto) 0.4 10^3/uL (0.0-0.8) 08/05/23 04:32 Baso # (Auto) 0.1 10^3/uL (0.0-0.1) 08/05/23 04:32 Nucleated RBC % (auto) 0 % 08/05/23 04:32 Nucleated RBCs # 0.0 /100WBC 08/05/23 04:32 Specimen Type Arterial 08/01/23 09:29 Sample Site Radial, right 08/01/23 09:29 ABG pH 7.39 (7.35-7.45) 08/01/23 09:29 ABG pCO2 47.5 mmHg (35-45) H 08/01/23 09:29 ABG pO2 78.1 mmHg (80.0-100.0) L 08/01/23 09:29 ABG HCO3 28.5 mmol/L (22-26) H 08/01/23 09:29 ABG O2 Saturation 96.5 08/01/23 09:29 ABG Base Excess 2.6 mmol/L (-2.0-2.0) H 08/01/23 09:29 Bi Test Pos 08/01/23 09:29 A-a O2 Gradient 1.6 mmHg (5-10) L 08/01/23 09:29 Hematocrit 48.8 % (37-47) H 08/01/23 09:29 Hgb O2 Saturation 94.4 % (95-100) L 08/01/23 09: Carboxyhemoglobin 1.6 %THgb (0.4-20.1) 08/01/23 09: Methemoglobin 0.5 % (0.4-1.5) 08/01/23 09: Total Hemoglobin 15.9 g/dL (12-16) 02/09/24 09:29 Sodium 134.0 mmol/L (131-143) 08/01/23 09:29 Potassium 3.5 mmol/L (3.5-5.0) 08/01/23 09:29 Glucose 195.0 mg/dL (70-115) H 08/01/23 09:29 Ionized Calcium 1.2 mmol/L (1.1-1.4) 08/01/23 09:29 O2 Delivery Device Nc 08/01/23 09:29 O2 Liters/Min 7.0 % 08/01/23 09:29 Furniture Mover Driver ID [place] 08/01/23 09:29 Sodium 141 mmol/L (136-145) 08/05/23 04:32 Potassium 3.9 mmol/L (3.5-5.1) 08/05/23 04:32 Chloride 96 mmol/L (98-107) L 08/05/23 04:32 Carbon Dioxide 37 mmol/L (22-29) H 08/05/23 04:32 Anion Gap 11.9 (5-19) 08/05/23 04:32 BUN 22 mg/dL (8-23) 08/05/23 04:32 Creatinine 0.8 mg/dL (0.5-0.9) 08/05/23 04:32 GFR Calculation Not Reportable 08/05/23 04:32 Glucose 124 mg/dL (65-115) H 08/05/23 04:32 POC Glucose 250 mg/dL (70-110) H 08/05/23 11:17 Estimat Average Glucose 206 08/01/23 12:53 Hemoglobin A1c 8.8 % (4.0-6.0) H 08/01/23 12:53 Calculated Osmolality 297 mOsm/kg (285-295) H 08/05/23 04:32 Lactic Acid 3.9 mmol/L (0.5-2.2) H 08/01/23 10:08 Lactic Acid (Sepsis) 4.9 mmol/L (0.5-2.2) H* 08/01/23 12:53 Calcium 8.5 mg/dL (8.5-10.5) 08/05/23 04:32 Phosphorus 2.6 mg/dL (2.5-4.5) 08/05/23 04:32 Magnesium 2.8 mg/dL (1.7-2.3) H 08/05/23 04:32 Iron 31 ug/dL (37-145) L 08/02/23 05:34 TIBC 215 mcg/dl 08/02/23 05:34 % Saturation 14.4 % (20-50) L 08/02/23 05:34 Unsat Iron Binding 184 ug/dL (112-347) 08/02/23 05:34 Total Bilirubin 0.3 mg/dL (0.15-1.2) 08/04/23 03:11 AST 12 U/L (0-32) 08/04/23 03:11 ALT 7 U/L (0-33) 08/04/23 03:11 Alkaline Phosphatase 128 U/L (35-105) H 08/04/23 03:11 Troponin T Baseline 30 ng/L (0-10) H 08/01/23 10:08 Troponin T 120 Minute 33.11 ng/L (0-10) H 08/01/23 12:53 Delta Troponin T 3.11 ABS# (0-10) 08/01/23 12:53 Troponin T Hi Sens 6Hr 33.30 ng/L (0-10) H 08/01/23 17:28 Troponin T Hi Sens 6Hr Delta 3.30 ng/L (0-12) 08/01/23 17:28 NT-Pro-B Natriuret Pep 3509 pg/mL (0-450) H 08/01/23 10:08 Total Protein 7.2 g/dL (6.6-8.7) 08/04/23 03:11 Albumin 2.9 g/dL (3.5-5.2) L 08/04/23 03:11 Globulin 4.3 g/dL (1.3-4.6) 08/04/23 03:11 Triglycerides 145 mg/dL (0-150) 08/03/23 05:06 Cholesterol 98 mg/dL (0-200) 08/03/23 05:06 LDL Cholesterol, Calc 51 mg/dL (50-129) 08/03/23 05:06 Total VLDL Cholesterol 29 mg/dL (0-30) 08/03/23 05:06 HDL Cholesterol 18 mg/dL (60-100) L 08/03/23 05:06 Cholesterol/HDL Ratio 5.44 mg/dL (0.0-4.40) H 08/03/23 05:06 Vitamin B12 247 pg/mL (232-1245) 08/02/23 05:34 Folate 5.9 ng/mL (4.8-37.3) 08/03/23 05:06 Procalcitonin 0.29 ng/mL (0-0.5) 08/02/23 05:34 TSH 0.72 uIU/mL (0.27-4.20) 08/01/23 10:08 Urine Color Yellow (Yellow) 08/01/23 09:50 Urine Appearance Cloudy (CLEAR) A 08/01/23 09:50 Urine pH 5 (5-7) 08/01/23 09:50 Ur Specific Ramer 1.020 (1.005-1.030) 08/01/23 09:50 Urine Protein Neg (Negative) 08/01/23 09:50 Urine Glucose (UA) Norm (Normal) 08/01/23 09:50 Urine Ketones 1+ (Negative) H 08/01/23 09:50 Urine Blood 2+ (Negative) H 08/01/23 09:50 Urine Nitrate Positive (Negative) H 08/01/23 09:50 Urine Bilirubin 1+ (Negative) H 08/01/23 09:50 Urine Urobilinogen 4 mg/dL (Negative) H 08/01/23 09:50 Ur Leukocyte Esterase Trace (Negative) H 08/01/23 09:50 Urine RBC 0-4 /hpf (0-2) H 08/01/23 09:50 Urine WBC 80-100 /hpf (0-5) H 08/01/23 09:50 Ur Squamous Epith Cells 5-10 /hpf (0-5) H 08/01/23 09:50 Amorphous Sediment Not Reportable 08/01/23 09:50 Urine Bacteria 4+ /hpf (NONE) H 08/01/23 09:50 C. difficile Tox (PCR) Not detected (NOT DETECTED) 08/02/23 11:30 MRSA (PCR) Not detected (NOT DETECTED) 08/02/23 17:55 Vitals Last Vital Signs Temp 97.9 F 08/05/23 11:27 Pulse 77 08/05/23 11:27 Resp 20 H 08/05/23 11:27 BP 167/97 02/13/24 11:27 Pulse Ox 91 08/05/23 11:27 O2 Del Method Nasal Cannula 08/05/23 11:27 O2 Flow Rate 3 08/05/23 11:27 FiO2 45 08/05/23 03:53 Discharge Plan Discharge Patient Disposition: Xfer [facility] Condition: Stable Prescriptions: New amlodipine 10 mg Tablet 10 mg PO DAILY Qty: 30 0RF metoprolol tartrate 25 mg Tablet 37.5 mg PO BID@0900,2100 Qty: 60 0RF ertapenem 1 gram recon soln 1 g IM DAILY 7 Days Qty: 7 0RF Continued Cepacol Sore Throat (wiliam-men) 15-3.6 mg Lozenge See Rx Instructions .ROUTE .COMPLEX Rx Instructions: DISSOLVE 1 LOZENGE BEFORE MEALS AND AT BEDTIME NEEDED FOR MOUTH SORES, ALLOW TO DISSOLVE IN MOUTH. Incruse Ellipta 62.5 mcg/actuation Blister With Device 1 inh INHALATION DAILY atorvastatin 40 mg Tablet 40 mg PO BEDTIME Qty: 30 0RF Vision Tablet 1 tab PO DAILY Muscle Rub 15-10 % Cream 1 applic TOPICAL BID PRN (Reason: Pain) hydrocodone-acetaminophen 5-325 mg Tablet 1 tab PO Q4H PRN (Reason: Pain) 7 Days Qty: 42 0RF bisacodyl 5 mg Tablet 5 mg PO Q24H PRN (Reason: Constipation) sennosides-docusate sodium [Senna Plus] 8.6-50 mg Tablet 1 tab PO DAILY acetaminophen [Tylenol] 325 mg Tablet 650 mg PO Q6H PRN (Reason: Pain OR TEMP) naloxone 0.4 mg/mL Solution 0.4 mg IM Q2M PRN (Reason: overdose) fluticasone propion-salmeterol [Advair Diskus] 500-50 mcg/dose Blister With Device 1 inh INHALATION BID docusate sodium [Colace] 100 mg Capsule 100 mg PO BID polyethylene glycol 3350 [Miralax] 17 gram/dose Powder 17 g PO BID omeprazole 20 mg capsule,delayed release(DR/EC) 20 mg PO DAILY Qty: 30 3RF baclofen 10 mg tablet 10 mg PO TID PRN (Reason: Spasms) Neurontin 300 mg capsule 300 mg PO BID ondansetron HCl 8 mg tablet 8 mg PO Q6H PRN (Reason: NAUSEA OR VOMITING) Senokot-S 8.6-50 mg Tablet See Rx Instructions .ROUTE .COMPLEX PRN (Reason: Constipation) Rx Instructions: TAKE 1 TABLET BY MOUTH AT BEDTIME NEEDED IN ADDITION TO SCHEDULED MEDICATION. magnesium oxide 400 mg (241.3 mg magnesium) tablet 400 mg PO DAILY lorazepam 0.5 mg tablet 0.5 mg PO BID PRN (Reason: ANXIETY OR AGITATION) Refresh Liquigel 1 % drops, liquid gel 1 drp ophthalmic (eye) BID melatonin 1 mg Tablet 1 mg PO BEDTIME Pataday Once Daily Relief 0.7 % drops 1 drp ophthalmic (eye) DAILY PRN (Reason: Dry Eyes) Held gabapentin 600 mg tablet 600 mg PO BEDTIME Hold Instructions: see pcp Discontinued chlorthalidone 25 mg tablet 25 mg PO DAILY baclofen 20 mg tablet 20 mg PO DAILY Discharge Orders: Discharge Order (Routine); Ordered 08/05/23 Ordered By: Cyndi Tuttle Referrals: [facility] [Outside] Favian Clark DO [Primary Care Provider] - 4-7 days Discharge Diet: Cardiac and Diabetic Discharge Activity: Resume usual activity Patient Instructions: Metoprolol (By mouth) (Lopressor, Toprol XL), Phenazopyridine (By mouth) (Pyridium, Pyridiate, Azo Standard), Amlodipine (By mouth), A-fib (Atrial Fibrillation) (DC), Acute Kidney Injury (DC), Urinary Tract Infection in Women (DC), Leukocytosis (DC), Opioid Safety Discharge Attestations Time Spent in Discharge Care*: greater than 30 min Status at Discharge: Cognitive status at discharge: cognitively intact , Behavioral status at discharge: cooperative , Quality Metrics Clinical Quality Measures [ No reported AMI, CVA or VTE this stay] Coding Level of Care Code Acute Code for g Fwd Diagnoses Acute hypoxemic respiratory failure J96.01 Atrial fibrillation with rapid ventricular response I48.91 Acute congestive heart failure I50.9 UTI (urinary tract infection) N39.0 Acute kidney injury N17.9 Stercoral colitis K52.89 Leukocytosis D72.829 Diabetes E11.9
[2023-08-05 14:42] LABS: SARS Covid-2 Antigen negative (Negative)
--- NOTE | 2023-08-05 15:04 | PC.NURSE ---
Report is called to Mariluz BEST at [facility].
== END 2023-08-05 16:15 | disposition skilled nursing facility (03) | DRG 291 ==
LOC: ER 09:32 → CSU 11:26
PROVIDERS: Student in an Organized Health Care Education/Training Program; Admitting Provider Internal Medicine; Emergency Provider Family Medicine; PCP Internal Medicine; Visit Provider Internal Medicine
DX: I11.0 Hypertensive heart disease with heart failure (principal); I50.31 Acute diastolic (congestive) heart failure; J96.01 Acute respiratory failure with hypoxia; N17.9 Acute kidney failure, unspecified; N39.0 Urinary tract infection, site not specified; Z16.12 Extended spectrum beta lactamase (ESBL) resistance; I48.0 Paroxysmal atrial fibrillation; E11.9 Type 2 diabetes mellitus without complications; F41.9 Anxiety disorder, unspecified; F32.A Depression, unspecified; M19.90 Unspecified osteoarthritis, unspecified site; E78.5 Hyperlipidemia, unspecified; Z93.3 Colostomy status; D64.9 Anemia, unspecified; J44.9 Chronic obstructive pulmonary disease, unspecified; K52.89 Other specified noninfective gastroenteritis and colitis; B96.20 Unspecified Escherichia coli [E. coli] as the cause of diseases classified elsewhere; K59.00 Constipation, unspecified; K46.9 Unspecified abdominal hernia without obstruction or gangrene
CPT/HCPCS: 36415; 36416; 36600; 51702; 71045; 71250; 74176; 80048; 80051; 80053; 80061; 81001; 82330; 82607; 82746; 82805; 82962; 83036; 83540; 83550; 83605; 83735; 83880; 84100; 84132; 84145; 84443; 84484; 85025; 87040; 87070; 87077; 87086; 87186; 87205; 87426; 87493; 87641; 93005; 94640; 94660; 96365; 96372; 96375; 96376; 99291; J1650; J1815; J1940; J2270; J2405; J2543; J2765; J3370; J3490; J7030; J7614; J7626; J7644